=== PATIENT | female | born 1935 | race Caucasian/White ===

== ENCOUNTER 2016-12-04 07:41 | Day surgery (SDC) | payer OTHER ==
[2016-12-04] MEDS ORDERED: DEXAMETHASONE INJECTION 8 MG in SODIUM CHLORIDE 50 ML IVPB ONE (10:00)
[2016-12-04] MEDS ORDERED: SODIUM CHLORIDE 250 ML IV ONE (10:00)
[2016-12-04] MEDS ORDERED: ONDANSETRON INJECTION 12 MG in SODIUM CHLORIDE 50 ML IVPB ONE (10:00)
[2016-12-04] MEDS ORDERED: GEMCITABINE HCL IV ONE (10:30)
[2016-12-04] MEDS ORDERED: SODIUM CHLORIDE IV ONE (10:30)
[2016-12-04 11:01] LABS: MCH 28.7 pg (25.7-33.7); MEAN CELL VOLUME 86.9 fl (80-96); MEAN PLT VOLUME 8.2 fl (7.5-11.1); PLATELET COUNT 371 K/MM3 (134-434); RDW 16.4 % (11.6-15.6); WHITE BLOOD COUNT 9.4 K/mm3 (4.0-10.0)
[2016-12-04 11:29] LABS: ALBUMIN 2.4 g/dl (3.4-5.0); ANION GAP 9 (8-16); BILIRUBIN,DIRECT 0.5 mg/dL (0.0-0.2); CALCIUM 8.6 mg/dL (8.5-10.1); CO2 28 mmol/L (21-32); GLUCOSE,RANDOM 82 mg/dL (74-106); SGOT/AST 52 U/L (15-37); SGPT/ALT 47 U/L (12-78)
[2016-12-04 11:37] LABS: ALK PHOS 83 U/L (45-117); FREE T4 1.25 ng/dl (0.76-1.46); THYROID STIMULATING HORMONE 0.99 uIU/ml (0.358-3.74)
[2016-12-04 12:41] LABS: METAMYELOCYTE 7 % (0-2); PLATELET ESTIMATE ADEQUATE (NORMAL)
[2016-12-04] MEDS ORDERED: ONDANSETRON INJECTION 8 MG in SODIUM CHLORIDE 50 ML IVPB ONE (13:30)
[2016-12-04 16:27] VITALS: BP 101/57; PULSE 93; TEMP 98.5
--- NOTE | 2016-12-05 08:51 | HP ---
[facility]-Past Medical History Limitations to Obtaining History: Yes: No Limitations - Past Medical History Allergies/Adverse Reactions: Allergies Allergy/AdvReac Type Severity Reaction Status Date / Time egg Allergy Severe THROAT Verified 10/05/15 18:09 CLOSES leflunomide [From [facility]rav[facility]] Allergy Severe EFFECTED Verified 10/05/15 18:09 RBC methotrexate Allergy EFFECTED Verified 10/05/15 18:09 WBC shellfish derived Allergy HIVES,THROAT Verified 10/05/15 18:09 CLOSES IVP DYE Allergy Severe SOB Uncoded 10/05/15 18:09 Pulmonary: Yes: Asthma, COPD Musculoskeletal: Yes: Other (spinal stenosis) Rheumatology: Yes: Rheumatoid Arthritis Home Medications: Ambulatory Orders Budesonide/Formeterol Fumarate [SYMBICORT 160/4.5mcg -] 1 inh PO BID 10/05/15 Cholecalciferol (Vitamin D3) [Vitamin D3] 1,000 unit PO DAILY 10/05/15 Cyclosporine [Restasis] 1 each OP DAILY 10/05/15 Esomeprazole Magnesium [Nexium 24Hr] 40 mg PO DAILY 10/05/15 Folic Acid - 1 mg PO DAILY 10/05/15 Hydroxychloroquine Sulfate 200 mg PO BID 10/05/15 Ipratropium/Albuterol Sulfate [Combivent Respimat Inhal [place]] 4 gm IH QID 10/04 Montelukast Na [Singulair -] 10 mg PO HS 10/05/15 Multivitamin [Poly-Vitamin] 1 each PO DAILY 10/05/15 Sulfasalazine [Azulfidine -] 500 mg PO DAILY 10/05/15 Apixaban [Eliquis -] 5 mg PO BID #60 tablet 10/07/15 Diltiazem Cd [Cardizem Cd -] 360 mg PO DAILY 12/04/16 [facility]-Physical Exam - Physical Exam Vital Signs: Vital Signs Temperature 98.5 F 12/04/16 16:19 Pulse Rate 93 H 12/04/16 16:19 Respiratory Rate 16 12/04/16 16:19 Blood Pressure 101/57 12/04/16 16:19 O2 Sat by Pulse Oximetry (%) Constitutional: Yes: Well Nourished ENT: Yes: Clear Lungs: Yes: Clear to auscultation Heart: Yes: Regular rate & rhythm Abdomen: Yes: Soft Extremities: Yes: Normal Pulses Edema: Yes Edema: LLE: 3+, RLE: 3+ Neurological: Yes: Intact Wound Assessment - Wound Right Lower Lateral Leg Wound Length (cm.): 0.3 Wound Width (cm.): 0.3 Wound Depth (cm.): 0.2 Fibrotic Tissue: Yes Necrotic tissue: No Granulation tissue: No Drainage: Yes Drainage odor: None Dressing/Treatment: Calcium Alginate (silver) Compression: Unna Boot Return to [facility]: 1 Week Vascular Assessment Left Leg Date: 12/04/16 Dorsalis Pedis Pulse Palpable: Yes Posterior Tibial Pulse Palpable: No Posterior Tibial Doppler Pulse: 2+ Color: [place] Temperature: Warm Skin Condition: Varicosities Right Leg Date: 12/04/16 Dorsalis Pedis Pulse Palpable: Yes Posterior Tibial Pulse Palpable: No Posterior Tibial Doppler Pulse: 2+ Color: [place] [employer] Temperature: Warm Skin Condition: Varicosities
== END 2016-12-04 16:35 | disposition home or self-care (01) ==
LOC: JONCCHEMO 07:41 → J7W 13:16 → JONCCHEMO 16:35
PROVIDERS: ATTEND Internal Medicine Hematology & Oncology
PROC: 3E03305 Introduction of Other Antineoplastic into Peripheral Vein, Percutaneous Approach (ICD-10-PCS; principal; 2016-12-04)
PROC: 3E033GC Introduction of Other Therapeutic Substance into Peripheral Vein, Percutaneous Approach (ICD-10-PCS; 2016-12-04)
PROC: 3E0337Z Introduction of Electrolytic and Water Balance Substance into Peripheral Vein, Percutaneous Approach (ICD-10-PCS; 2016-12-04)
DX: Z51.11 Encounter for antineoplastic chemotherapy (principal); C24.1 Malignant neoplasm of ampulla of Vater; I10 Essential (primary) hypertension; I48.91 Unspecified atrial fibrillation; J45.909 Unspecified asthma, uncomplicated; Z80.0 Family history of malignant neoplasm of digestive organs; Z91.012 Allergy to eggs; Z91.013 Allergy to seafood; Z79.01 Long term (current) use of anticoagulants; S81.802A Unspecified open wound, left lower leg, initial encounter
CPT/HCPCS: 96375; 96413; J9201; 29580-RT; 29581-RT; 36415; 80053; 80076; 83735; 84439; 84443; 85025; G0463-25

== ENCOUNTER 2016-12-15 23:01 | Inpatient (IN) | payer OTHER ==
--- NOTE | 2016-12-15 23:16 | PDOC ---
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 Upon arrival to the ED, the patient was tachycardic and hypoxic in the 80s. She is complaining of increasing dyspnea, nausea, increased fatigue, loss of appetite, and dizziness. The patient's family member reports she's been using her inhalers without any relief. Patient also has a secondary complaint of chronic wound to right lower extremity. Per family member the patient has been having difficulty walking due to pain from the wound. She was last seen by wound care a week and a half ago. Denies fever, chills, nausea, vomiting, chest pain, syncope, visual changes. Allergies: egg, leflunomide, methotrexate, shellfish derived, IVP dye Surgical Hx: Liver/pancreas/bile duct/ small intestine/ gallbladder resection () PCP: Eli Brar MD Boat Outboard Engine Mechanic: Robby Barber MD Dietary Cook: Pham Tristan MD <Marie Cooper - Last Filed: 12/16/16 02:04> <Viktoriya Somers - Last Filed: 12/16/16 02:29> <Lydia Bose - Last Filed: 12/16/16 02:45> - General Chief Complaint: Shortness of Breath Stated Complaint: DIFFICULTY BREATHING Time Seen by Provider: 12/15/16 23:15 Past History <Marie Cooper - Last Filed: 12/16/16 02:04> - Past Medical History Anemia: No Asthma: Yes Cancer: Yes Cardiac Disorders: Yes (Afib) CVA: No COPD: Yes CHF: No Dementia: No Diabetes: No GI Disorders: No Disorders: No HTN: No Hypercholesterolemia: No Liver Disease: No Seizures: No Thyroid Disease: No - Surgical History Abdominal Surgery: Yes (resection of liver/pancreas/bileduct/sml intestine and gall blader 08/2016) Appendectomy: No Cardiac Surgery: No Cholecystectomy: Yes Lung Surgery: No Neurologic Surgery: No Orthopedic Surgery: No - Psycho/Social/Smoking Cessation Hx Anxiety: No Suicidal Ideation: No Smoking History: Former smoker Have you smoked in the past 12 months: No If you are a former smoker, when did you quit?: 56YRS AGO Hx Alcohol Use: No Drug/Substance Use Hx: No Substance Use Type: None Hx Substance Use Treatment: No <YonisViktoriya Gianna - Last Filed: 12/16/16 02:29> <LidyaLydia - Last Filed: 12/16/16 02:45> - Past Medical History Allergies/Adverse Reactions: Allergies Allergy/AdvReac Type Severity Reaction Status Date / Time Iodinated Contrast Media - AdvReac Verified 12/15/16 23:30 Oral and Home Medications: Ambulatory Orders Budesonide/Formeterol Fumarate [SYMBICORT 160/4.5mcg -] 1 inh PO BID 10/05/15 Cholecalciferol (Vitamin D3) [Vitamin D3] 1,000 unit PO DAILY 10/05/15 Cyclosporine [Restasis] 1 each OP DAILY 10/05/15 Esomeprazole Magnesium [Nexium 24Hr] 40 mg PO DAILY 10/05/15 Folic Acid - 1 mg PO DAILY 10/05/15 Hydroxychloroquine Sulfate 200 mg PO BID 10/05/15 Ipratropium/Albuterol Sulfate [Combivent Respimat Inhal [place]] 4 gm IH QID 10/04 Montelukast Na [Singulair -] 10 mg PO HS 10/05/15 Multivitamin [Poly-Vitamin] 1 each PO DAILY 10/05/15 Sulfasalazine [Azulfidine -] 500 mg PO DAILY 10/05/15 Apixaban [Eliquis -] 5 mg PO BID #60 tablet 10/07/15 Diltiazem Cd [Cardizem Cd -] 360 mg PO DAILY 12/04/16 Review of Systems - Review of Systems Comments:: 12/15/16 23:54 CONSTITUTIONAL: Present: weakness, fatigue, loss of appetite Absent: fever, chills, diaphoresis HEENT: Absent: rhinorrhea, nasal congestion, throat pain, throat swelling, difficulty swallowing, mouth swelling, ear pain, eye pain, visual changes CARDIOVASCULAR: Absent: chest pain, syncope, palpitations, irregular heart rate, lightheadedness , peripheral edema RESPIRATORY: Present: shortness of breath Absent: cough, dyspnea with exertion, orthopnea, wheezing, stridor, hemoptysis GASTROINTESTINAL: Present: nausea Absent: abdominal pain, abdominal distension, vomiting, diarrhea, constipation, melena, hematochezia GENITOURINARY: Absent: dysuria, frequency, urgency, hesitancy, hematuria, flank pain, genital pain MUSCULOSKELETAL: Present: RLE wound with pain Absent: myalgia, arthralgia, joint swelling SKIN: Absent: rash, itching, pallor HEMATOLOGIC/IMMUNOLOGIC: Absent: easy bleeding, easy bruising, lymphadenopathy, frequent infections ENDOCRINE: Absent: unexplained weight gain, unexplained weight loss, heat intolerance, cold intolerance NEUROLOGIC: Present: dizziness Absent: headache, focal weakness or paresthesia, seizure, mental status changes , bladder or bowel incontinence. PSYCHIATRIC: Absent: anxiety, depression, suicidal or homicidal ideation, hallucinations <Marie Cooper - Last Filed: 12/16/16 02:04> *Physical Exam - Vital Signs Last Vital Signs Temp Pulse Resp BP Pulse Ox 98.8 F 112 H 22 88/52 98 12/15/16 23:09 12/15/16 23:09 12/15/16 23:09 12/15/16 23:09 12/15/16 23:09 - Physical Exam Comments: 12/15/16 23:57 GENERAL: Disheveled. Awake and alert. Moderate distress. HEENT: Normocephalic, atraumatic. PERRLA, EOMI. No conjunctival pallor. Sclera are non- icteric. Moist mucous membranes. Oropharynx is clear. NECK: Supple. Full ROM. No JVD. Carotid pulses 2+ and symmetric, without bruits. No thyromegaly. No lymphadenopathy. CARDIOVASCULAR: Tachycardic. No murmurs, rubs, or gallops. Distal pulses are 2+ and symmetric. PULMONARY: Hypoxic in the 80s. Moderate respiratory distress. Scattered wheezing bilaterally. Bibasilar rales. No rhonchi. ABDOMINAL: Soft. Non-tender. Non-distended. Lower pelvic mass approximately 10 cm x 10 cm. No rebound or guarding. Normoactive bowel sounds. MUSCULOSKELETAL: Normal range of motion at all joints. No bony deformities or tenderness. No CVA tenderness. EXTREMITIES: Pedal edema bilaterally. Healed 4mm eschar on the lateral surface of the right leg. Dirty bandages. No cyanosis. No clubbing. No calf tenderness. SKIN: Stage II right buttocks decubitus ulcer. Warm and dry. Normal capillary refill. No rashes. No jaundice. NEUROLOGICAL: Alert, awake, appropriate. Cranial nerves 2-12 intact. Normal speech. PSYCHIATRIC: Cooperative. Good eye contact. Appropriate mood and affect. <Marie Cooper - Last Filed: 12/16/16 02:04> - Vital Signs Last Vital Signs Temp Pulse Resp BP Pulse Ox 99.5 F 112 H 22 88/52 98 12/16/16 00:01 12/15/16 23:09 12/15/16 23:09 12/15/16 23:09 12/15/16 23:09 <Lydia Bose - Last Filed: 12/16/16 02:45> ED Treatment Course - LABORATORY CBC & Chemistry Diagram: 12/15/16 23:37 12/15/16 23:37 - ADDITIONAL ORDERS Additional order review: 12/15/16 23:37 RBC 3.00 L MCV 85.1 MCHC 32.8 RDW 17.0 H MPV 9.0 Neutrophils % Y Lymphocytes % Y - Medications Given in the ED: ED Medications Discontinued Medications Generic Name Dose Route Start Last Admin Trade Name Freq PRN Reason Stop Dose Admin Methylprednisolone Sodium Succinate 125 mg 12/15/16 23:20 12/15/16 23:40 Solu-Medrol - IVPB 12/15/16 23:21 125 mg ONCE ONE Administration <Marie Cooper - Last Filed: 12/16/16 02:04> - LABORATORY CBC & Chemistry Diagram: 12/15/16 23:37 12/15/16 23:37 <Viktoriya Somers - Last Filed: 12/16/16 02:29> - LABORATORY CBC & Chemistry Diagram: 12/15/16 23:37 12/15/16 23:37 - ADDITIONAL ORDERS Additional order review: Laboratory Results 12/16/16 12/16/16 12/16/16 02:00 00:58 00:58 INR 2.01 H Sodium Potassium Chloride Carbon Dioxide Anion Gap BUN Creatinine Creat Clearance w eGFR Random Glucose Lactic Acid 1.7 Calcium Total Bilirubin AST ALT Alkaline Phosphatase Creatine Kinase Troponin I B-Natriuretic Peptide Total Protein Albumin Stool Occult Blood Negative 12/15/16 12/15/16 12/15/16 23:37 23:37 23:37 INR Sodium 141 Potassium 3.8 Chloride 105 Carbon Dioxide 25 Anion Gap 11 BUN 33 H D Creatinine 1.3 H D Creat Clearance w eGFR 39.51 Random Glucose 86 Lactic Acid Calcium 8.0 L Total Bilirubin 1.1 H AST 65 H D ALT 42 Alkaline Phosphatase 77 Creatine Kinase 78 Troponin I 0.10 H B-Natriuretic Peptide 4770.80 H Total Protein 5.3 L Albumin 2.2 L Stool Occult Blood 12/15/16 23:37 RBC 3.00 L MCV 85.1 MCHC 32.8 RDW 17.0 H MPV 9.0 Neutrophils % Y Lymphocytes % Y - Medications Given in the ED: ED Medications Discontinued Medications Generic Name Dose Route Start Last Admin Trade Name Freq PRN Reason Stop Dose Admin Albuterol/Ipratropium 1 amp 12/16/16 00:30 12/16/16 01:15 Duoneb - NEB 12/16/16 01:16 1 amp Q15M ALFONZO Administration Sodium Chloride 1,000 mls @ 1,000 mls/hr 12/15/16 23:20 12/15/16 23:40 Normal Saline - IV 12/16/16 00:19 1,000 mls/hr ASDIR STA Administration Methylprednisolone Sodium Succinate 125 mg 12/15/16 23:20 12/15/16 23:40 Solu-Medrol - IVPB 12/15/16 23:21 125 mg ONCE ONE Administration <Lydia Bose - Last Filed: 12/16/16 02:45> Medical Decision Making - Critical Care Time Total Critical Care Time (minutes): 60 Critical Care Statement: The care of this patient involved high complexity decision making to prevent further life threatening deterioration of the patient 's condition and/or to evalute & treat vital organ system(s) failure or risk of failure. - Medical Decision Making 12/16/16 01:40 81-year-old female brought in by ambulance from home, found to be hypoxic, tachycardic and hypotensive. 10 days ago. 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 Past medical history significant for recently diagnosed atrial fibrillation, now on eliquis, rheumatoid arthritis, COPD Patient has some scattered wheezing and fine rales on lung exam Chest x-ray shows increased congestion, infiltrates in The right middle lobe Rectal temp is 99.5, patient has a leukocytosis, decreased hemoglobin and hematocrit since her last hospitalization. BNP greater than 4000 Troponin is 0.1 and will have to be trended INR is 2 12/16/16 01:43 Anion gap is 11, her electrolytes are unremarkable Glucose is 86 12/16/16 02:[address] Romero because my concern for CHF on her chest x-ray and her elevated BNP. I discussed telemetry with Dr. Brumfield who wanted her to go to [facility] floor. <Viktoriya Somers - Last Filed: 12/16/16 02:29> - Medical Decision Making 12/16/16 02:24 Third call placed to Dr. Vannessa Rizvi (via answering service) Awaiting call back 12/16/16 02:44 Patient's case discussed with Dr. Rizvi <Lydia Bose - Last Filed: 12/16/16 02:45> *DC/Admit/Observation/Transfer - Attestations Scribe Attestion: 12/15/16 23:59 Documentation prepared by Marie Cooper, acting as diploma medical assistant for Viktoriya Somers MD. <Marie Cooper - Last Filed: 12/16/16 02:04> - Discharge Dispostion Admit: Yes <Viktoriya Somers - Last Filed: 12/16/16 02:29> <Lydia Bose - Last Filed: 12/16/16 02:45> Diagnosis at time of Disposition: Rapid atrial fibrillation, Palliative chemotherapy underway COPD (chronic obstructive pulmonary disease) Qualifiers: COPD type: COPD with acute lower respiratory infection Qualified Code(s): J44.0 - Chronic obstructive pulmonary disease with acute lower respiratory infection Anemia Qualifiers: Anemia type: unspecified type Qualified Code(s): D64.9 - Anemia, unspecified - Discharge Dispostion Condition at time of disposition: Fair
[2016-12-15] MEDS ORDERED: methylPREDNISolone NA SUCC 125 MG/2 ML VIAL IVPB ONE (23:20)
[2016-12-15] MEDS ORDERED: SODIUM CHLORIDE 1,000 ML IV STA (23:20)
[2016-12-15 23:43] LABS: MCH 27.9 pg (25.7-33.7); MCHC 32.8 g/dl (32.0-36.0); MEAN CELL VOLUME 85.1 fl (80-96); PLATELET COUNT 247 K/MM3 (134-434); WHITE BLOOD COUNT 7.1 K/mm3 (4.0-10.0)
[2016-12-15] MEDS ORDERED: ACETAMINOPHEN 325 MG TABLET (FP) PO PRN (23:50)
[2016-12-16 00:07] LABS: ALBUMIN 2.2 g/dl (3.4-5.0); ANION GAP 11 (8-16); CO2 25 mmol/L (21-32); GLUCOSE,RANDOM 86 mg/dL (74-106)
[2016-12-16 00:10] LABS: ALK PHOS 77 U/L (45-117); BILIRUBIN,TOTAL 1.1 mg/dL (0.2-1.0); CREATININE 1.3 mg/dL (0.55-1.02); SGOT/AST 65 U/L (15-37); SGPT/ALT 42 U/L (12-78); TOT PROT 5.3 g/dl (6.4-8.2)
[2016-12-16] MEDS: ALBUTEROL SO4 2.5/IPRATROPIUM 0.5 INH SOL 3 ML VIAL.NEB. NEB SCH ×4 (00:30→01:15)
[2016-12-16] MEDS ORDERED: ALBUTEROL SO4 2.5/IPRATROPIUM 0.5 INH SOL 3 ML VIAL.NEB. NEB ONE (00:34)
[2016-12-16 00:40] LABS: TROPONIN I 0.1 ng/ml (0.00-0.05)
[2016-12-16 01:21] LABS: INR 2.01 (0.82-1.09); PROTHROMBIN TIME (PATIENT) 22.4 SEC (9.98-11.88)
[2016-12-16 02:23] LABS: BASOPHIL 0.5 % (0-2.0); NEUTROPHILS 88.1 % (42.8-82.8)
[2016-12-16 02:41] LABS: URINE APPEARANCE SLCLOUDY; URINE BILIRUBIN NEGATIVE (NEGATIVE); URINE COLOR AMBER; URINE GLUCOSE (UA) NEGATIVE (NEGATIVE); URINE KETONE NEGATIVE (NEGATIVE); URINE LEUK ESTERASE NEGATIVE (NEGATIVE); URINE NITRITE NEGATIVE (NEGATIVE); URINE UROBILINOGEN NEGATIVE E.U./dl (0.2-1.0)
[2016-12-16 02:45] LABS: URINE BLOOD 3+ (NEGATIVE); URINE PROTEIN 1+ (NEGATIVE)
[2016-12-16 02:52] LABS: URINE BACTERIA RARE /hpf (NONE SEEN); URINE HYALINE CAST 3 /lpf; URINE MUCUS RARE; URINE RBC 517 /hpf (0-3)
[2016-12-16] MEDS ORDERED: PIPERACILLIN/TAZOB 3.375 GM 50 ML IVPB ONE (03:03)
[2016-12-16] MEDS: PIPERACILLIN/TAZOB 2.25 GM 50 ML IVPB SCH ×3 (03:11→17:11)
--- NOTE | 2016-12-16 09:06 | HP ---
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 Upon arrival to the ED, the patient was tachycardic and hypoxic in the 80s. She is complaining of increasing dyspnea, nausea, increased fatigue, loss of appetite, and dizziness. The patient's family member reports she's been using her inhalers without any relief. Patient also has a secondary complaint of chronic wound to right lower extremity. Per family member the patient has been having difficulty walking due to pain from the wound. She was last seen by wound care a week and a half ago. Denies fever, chills, nausea, vomiting, chest pain, syncope, visual changes. Allergies: egg, leflunomide, methotrexate, shellfish derived, IVP dye Surgical Hx: Liver/pancreas/bile duct/ small intestine/ gallbladder resection () PCP: Eli Brar MD Pv Design Engineer: Robby Barber MD Superintendent Horticulture: Pham Tristan MD Pt examined by me on the floors Pt is currently on chemo therapy for pancreatic CA- s/p Whipple surgery Last chemo about 10 days ago Has been feeling SOB for 2 days- today feels better No chest pain or coughing Loss of appetite feels weak Also found to have rapid Afib in ER History Source: Patient Limitations to Obtaining History: No Limitations - Past Medical History Cardiovascular: Yes: AFIB, HTN Pulmonary: Yes: Asthma, COPD Gastrointestinal: Yes: Cancer (pancreatic CA) ...: No Musculoskeletal: Yes: Other (spinal stenosis) Rheumatology: Yes: Rheumatoid Arthritis - Advance Directives Advance Directives: Yes: Health Care Proxy - Smoking History Smoking history: Former smoker Have you smoked in the past 12 months: No If you are a former smoker, when did you quit?: 56YRS AGO - Alcohol/Substance Use Hx Alcohol Use: No - Social History ADL: Independent History of Recent Travel: No Home Medications - Allergies Allergies/Adverse Reactions: Allergies Allergy/AdvReac Type Severity Reaction Status Date / Time Iodinated Contrast Media - AdvReac Verified 12/15/16 23:30 Oral and - Home Medications Home Medications: Ambulatory Orders Budesonide/Formeterol Fumarate [SYMBICORT 160/4.5mcg -] 1 inh PO BID 10/05/15 Cholecalciferol (Vitamin D3) [Vitamin D3] 1,000 unit PO DAILY 10/05/15 Cyclosporine [Restasis] 1 each OP DAILY 10/05/15 Esomeprazole Magnesium [Nexium 24Hr] 40 mg PO DAILY 10/05/15 Folic Acid - 1 mg PO DAILY 10/05/15 Hydroxychloroquine Sulfate 200 mg PO BID 10/05/15 Ipratropium/Albuterol Sulfate [Combivent Respimat Inhal [place]] 4 gm IH QID 10/04 Montelukast Na [Singulair -] 10 mg PO HS 10/05/15 Multivitamin [Poly-Vitamin] 1 each PO DAILY 10/05/15 Sulfasalazine [Azulfidine -] 500 mg PO DAILY 10/05/15 Apixaban [Eliquis -] 5 mg PO BID #60 tablet 10/07/15 Diltiazem Cd [Cardizem Cd -] 360 mg PO DAILY 12/04/16 Review of Systems - Review of Systems Constitutional: reports: Loss of Appetite, Weakness. denies: Chills Cardiovascular: denies: Chest Pain, Palpitations Respiratory: reports: SOB, SOB on Exertion Physical Examination Vital Signs: Vital Signs Temperature 98.8 F 12/16/16 06:36 Pulse Rate 90 12/16/16 06:36 Respiratory Rate 20 12/16/16 06:36 Blood Pressure 104/55 12/16/16 06:36 O2 Sat by Pulse Oximetry (%) 90 L 12/16/16 04:03 Constitutional: Yes: No Distress, Calm Cardiovascular: Yes: Pulse Irregular Respiratory: Yes: Diminished, Rales (B/L) Gastrointestinal: Yes: Normal Bowel Sounds, Soft, Other. No: Tenderness Edema: Yes Edema: LLE: 1+, RLE: 1+ Psychiatric: Yes: Alert, Oriented Labs: Laboratory Results - last 24 hr 12/15/16 12/15/16 12/15/16 23:37 23:37 23:37 WBC 7.1 RBC 3.00 L Hgb 8.4 L D Hct 25.6 L MCV 85.1 MCHC 32.8 RDW 17.0 H Plt Count 247 D MPV 9.0 Neutrophils % 88.1 H D Lymphocytes % 7.6 L D Monocytes % 3.8 Eosinophils % 0.0 D Basophils % 0.5 D INR Sodium 141 Potassium 3.8 Chloride 105 Carbon Dioxide 25 Anion Gap 11 BUN 33 H D Creatinine 1.3 H D Creat Clearance w eGFR 39.51 Random Glucose 86 Lactic Acid Calcium 8.0 L Total Bilirubin 1.1 H AST 65 H D ALT 42 Alkaline Phosphatase 77 Creatine Kinase Troponin I B-Natriuretic Peptide 4770.80 H Total Protein 5.3 L Albumin 2.2 L Urine Color Urine Appearance Urine pH Ur Specific [employer] Urine Protein Urine Glucose (UA) Urine Ketones Urine Blood Urine Nitrite Urine Bilirubin Urine Urobilinogen Ur Leukocyte Esterase Urine RBC Urine WBC Ur Epithelial Cells Urine Bacteria Hyaline Casts Urine Mucus Stool Occult Blood 12/15/16 12/16/16 12/16/16 23:37 00:58 00:58 WBC RBC Hgb Hct MCV MCHC RDW Plt Count MPV Neutrophils % Lymphocytes % Monocytes % Eosinophils % Basophils % INR 2.01 H Sodium Potassium Chloride Carbon Dioxide Anion Gap BUN Creatinine Creat Clearance w eGFR Random Glucose Lactic Acid 1.7 Calcium Total Bilirubin AST ALT Alkaline Phosphatase Creatine Kinase 78 Troponin I 0.10 H B-Natriuretic Peptide Total Protein Albumin Urine Color Urine Appearance Urine pH Ur Specific [employer] Urine Protein Urine Glucose (UA) Urine Ketones Urine Blood Urine Nitrite Urine Bilirubin Urine Urobilinogen Ur Leukocyte Esterase Urine RBC Urine WBC Ur Epithelial Cells Urine Bacteria Hyaline Casts Urine Mucus Stool Occult Blood 12/16/16 12/16/16 02:00 02:30 WBC RBC Hgb Hct MCV MCHC RDW Plt Count MPV Neutrophils % Lymphocytes % Monocytes % Eosinophils % Basophils % INR Sodium Potassium Chloride Carbon Dioxide Anion Gap BUN Creatinine Creat Clearance w eGFR Random Glucose Lactic Acid Calcium Total Bilirubin AST ALT Alkaline Phosphatase Creatine Kinase Troponin I B-Natriuretic Peptide Total Protein Albumin Urine Color [place] Urine Appearance Slcloudy Urine pH 5.0 Ur Specific [employer] 1.015 Urine Protein 1+ H Urine Glucose (UA) Negative Urine Ketones Negative Urine Blood 3+ H Urine Nitrite Negative Urine Bilirubin Negative Urine Urobilinogen Negative Ur Leukocyte Esterase Negative Urine RBC 517 Urine WBC None Ur Epithelial Cells Rare Urine Bacteria Rare Hyaline Casts 3 Urine Mucus Rare Stool Occult Blood Negative Imaging - Results Chest X-ray: Image Reviewed (B/L effusion, infiltrates) EKG: Image Reviewed (Rapid Afib) Problem List - Problems (1) Anemia Code(s): D64.9 - ANEMIA, UNSPECIFIED Qualifiers: Anemia type: unspecified type Qualified Code(s): D64.9 - Anemia, unspecified (2) COPD (chronic obstructive pulmonary disease) Code(s): J44.9 - CHRONIC OBSTRUCTIVE PULMONARY DISEASE, UNSPECIFIED Qualifiers : COPD type: COPD with acute lower respiratory infection Qualified Code(s ): J44.0 - Chronic obstructive pulmonary disease with acute lower respiratory infection (3) Pneumonia Code(s): J18.9 - PNEUMONIA, UNSPECIFIED ORGANISM (4) Rapid atrial fibrillation Code(s): I48.91 - UNSPECIFIED ATRIAL FIBRILLATION (5) SOB (shortness of breath) Code(s): R06.02 - SHORTNESS OF BREATH Assessment/Plan PLAN IV antibiotics- broad spectrum Nebs O2 as needed Pulmonary and Oncology eval Continue with meds DVT prophylaxis Chemotherapy on hold
[2016-12-16] MEDS ORDERED: PT OWN MED DRAWER 7, Y5N ONE ×2 (10:23→11:52)
--- NOTE | 2016-12-16 10:28 | CON.PULM ---
Consult Consult Specialty:: PULMONARY Referred by:: ODETTE Reason for Consultation:: SOB - History of Present Illness Chief Complaint: SOB History of Present Illness: Patient is a 81 year old female with significant medical hx of asthma, COPD, spinal stenosis, RA, AFib (on Eliquis), biliary cancer (last chemotherapy 10 days ago) who is presenting to the ED via EMS with worsening shortness of breath for three days. Upon arrival to the ED, the patient was tachycardic and hypoxic in the 80s. She is complaining of increasing dyspnea, nausea, increased fatigue, loss of appetite, and dizziness. The patient's family member reports she's been using her inhalers without any relief. Patient also has a secondary complaint of chronic wound to right lower extremity. Per family member the patient has been having difficulty walking due to pain from the wound. She was last seen by wound care a week and a half ago. Denies fever, chills, nausea, vomiting, chest pain. Patient states the sob came on gradually. 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 Pulmonary: Yes: Asthma, COPD ...: No Musculoskeletal: Yes: Other (spinal stenosis) Rheumatology: Yes: Rheumatoid Arthritis - Alcohol/Substance Use Hx Alcohol Use: No - Smoking History Smoking history: Former smoker Have you smoked in the past 12 months: No If you are a former smoker, when did you quit?: 56YRS AGO - Social History ADL: Independent History of Recent Travel: No Home Medications - Allergies Allergies/Adverse Reactions: Allergies Allergy/AdvReac Type Severity Reaction Status Date / Time Iodinated Contrast Media - AdvReac Verified 12/15/16 23:30 Oral and - Home Medications Home Medications: Ambulatory Orders Budesonide/Formeterol Fumarate [SYMBICORT 160/4.5mcg -] 1 inh PO BID 10/05/15 Cholecalciferol (Vitamin D3) [Vitamin D3] 1,000 unit PO DAILY 10/05/15 Cyclosporine [Restasis] 1 each OP DAILY 10/05/15 Esomeprazole Magnesium [Nexium 24Hr] 40 mg PO DAILY 10/05/15 Folic Acid - 1 mg PO DAILY 10/05/15 Hydroxychloroquine Sulfate 200 mg PO BID 10/05/15 Ipratropium/Albuterol Sulfate [Combivent Respimat Inhal [place]] 4 gm IH QID 10/04 Montelukast Na [Singulair -] 10 mg PO HS 10/05/15 Multivitamin [Poly-Vitamin] 1 each PO DAILY 10/05/15 Sulfasalazine [Azulfidine -] 500 mg PO DAILY 10/05/15 Apixaban [Eliquis -] 5 mg PO BID #60 tablet 10/07/15 Diltiazem Cd [Cardizem Cd -] 360 mg PO DAILY 12/04/16 Family Disease History - Family Disease History Family History: Unremarkable Review of Systems - Review of Systems Constitutional: reports: Lethargy, Loss of Appetite, Weakness Eyes: denies: Blurred Vision HENT: denies: Difficult Swallowing Neck: denies: Decreased ROM Cardiovascular: denies: Chest Pain Respiratory: reports: Exercise Intolerance, SOB on Exertion. denies: Hemoptysis , Wheezing Gastrointestinal: denies: Abdominal Pain Genitourinary: reports: No Symptoms Physical Exam Vital Sings: Vital Signs Temperature 98.8 F 12/16/16 06:36 Pulse Rate 90 12/16/16 06:36 Respiratory Rate 20 12/16/16 06:36 Blood Pressure 104/55 12/16/16 06:36 O2 Sat by Pulse Oximetry (%) 90 L 12/16/16 04:03 Constitutional: Yes: Calm Eyes: Yes: EOM Intact HENT: Yes: Normocephalic Neck: Yes: Trachea Midline Cardiovascular: Yes: S1, S2 Respiratory: Yes: Rhonchi (right base) Gastrointestinal: Yes: Soft Edema: LLE: 1+, RLE: 1+ Labs: all reviewed Imaging - Results Chest X-ray: Image Reviewed Problem List - Problems (1) Anemia Code(s): D64.9 - ANEMIA, UNSPECIFIED Qualifiers: Anemia type: unspecified type Qualified Code(s): D64.9 - Anemia, unspecified (2) COPD (chronic obstructive pulmonary disease) Code(s): J44.9 - CHRONIC OBSTRUCTIVE PULMONARY DISEASE, UNSPECIFIED Qualifiers : COPD type: COPD with acute lower respiratory infection Qualified Code(s ): J44.0 - Chronic obstructive pulmonary disease with acute lower respiratory infection (3) Palliative chemotherapy underway Code(s): Z51.11 - ENCOUNTER FOR ANTINEOPLASTIC CHEMOTHERAPY Z51.5 - ENCOUNTER FOR PALLIATIVE CARE (4) Pneumonia Code(s): J18.9 - PNEUMONIA, UNSPECIFIED ORGANISM Assessment/Plan BILATERAL PNEUMONIA RIGHT LOWER LOBE/LEFT UPPER LOBE MULTIPLE CO-MORBID CONDITIONS INCLUDING RECENT CHEMOTX FOR RESECTED BILIARY CANCER PANCULTURE/O2 SUPPLEMENTATION/BRONCHODILATORS/CHEST PT/INCENTIVE SPIROMETRY ANTIBIOTICS/CONTINUE A/C WILL FOLLOW Leah FELICIANO MD
[2016-12-16] MEDS: PANTOPRAZOLE 40 MG TABLET (FP) PO SCH (10:34)
[2016-12-16] MEDS: FUROSEMIDE 40 MG/4 ML INJECTABLE VIAL IVPUSH SCH (10:34)
[2016-12-16] MEDS: APIXABAN 5 MG TABLET PO SCH ×2 (11:45→21:46)
[2016-12-16] MEDS: sulfaSALAzine 500 MG TABLET PO SCH (11:45)
[2016-12-16] MEDS: BUDESONIDE/FORMETEROL FUMARATE 160/4.5 mcg INHALER IH SCH ×2 (11:45→21:46)
[2016-12-16] MEDS: HYDROXYCHLOROQUINE SO4 200 MG TABLET (FP) PO SCH ×2 (11:46→21:46)
--- NOTE | 2016-12-16 13:27 | EKG ---
Test Reason : Blood Pressure : / mmHG Vent. Rate : 110 BPM Atrial Rate : 108 BPM P-R Int : 000 ms QRS Dur : 082 ms QT Int : 326 ms P-R-T Axes : 000 059 067 degrees QTc Int : 441 ms ATRIAL FIBRILLATION WITH RAPID VENTRICULAR RESPONSE NONSPECIFIC ST AND T WAVE ABNORMALITY BASE LINE ARTIFACTS ABNORMAL ECG WHEN COMPARED WITH ECG OF 06-OCT-2015 09:42, NONSPECIFIC ST AND T WAVE ABNORMALITY IN COMPARABLE LEADS CLINICAL CORRELATION IS RECOMMENDED Confirmed by DANA STOCKTON MD ([id number]) on 12/16/2016 1:26:55 PM Referred By: Confirmed By:DANA STOCKTON MD
--- NOTE | 2016-12-16 14:36 | CONSULT ---
Consult Consult Specialty:: Dr. Vannessa Horton Referred by:: Hematology-Oncology Reason for Consultation:: Pancreatic ca - s/p Whipple - on adjuvant Gemcitibine - last administered 10 days earlier. - History of Present Illness Chief Complaint: Bilateral pneumonia. CHF. 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 carpal tunnel - Alcohol/Substance Use Hx Alcohol Use: No - Smoking History Smoking history: Former smoker Have you smoked in the past 12 months: No If you are a former smoker, when did you quit?: 56YRS AGO - Social History ADL: Independent History of Recent Travel: No Home Medications - Allergies Allergies/Adverse Reactions: Allergies Allergy/AdvReac Type Severity Reaction Status Date / Time Iodinated Contrast Media - AdvReac Verified 12/15/16 23:30 Oral and - Home Medications Home Medications: Ambulatory Orders Budesonide/Formeterol Fumarate [SYMBICORT 160/4.5mcg -] 1 inh PO BID 10/05/15 Cholecalciferol (Vitamin D3) [Vitamin D3] 1,000 unit PO DAILY 10/05/15 Cyclosporine [Restasis] 1 each OP DAILY 10/05/15 Esomeprazole Magnesium [Nexium 24Hr] 40 mg PO DAILY 10/05/15 Folic Acid - 1 mg PO DAILY 10/05/15 Hydroxychloroquine Sulfate 200 mg PO BID 10/05/15 Ipratropium/Albuterol Sulfate [Combivent Respimat Inhal [place]] 4 gm IH QID 10/04 Montelukast Na [Singulair -] 10 mg PO HS 10/05/15 Multivitamin [Poly-Vitamin] 1 each PO DAILY 10/05/15 Sulfasalazine [Azulfidine -] 500 mg PO DAILY 10/05/15 Apixaban [Eliquis -] 5 mg PO BID #60 tablet 10/07/15 Diltiazem Cd [Cardizem Cd -] 360 mg PO DAILY 12/04/16 Review of Systems - Review of Systems Constitutional: reports: Weakness, Other (SOB/dyspnea) Eyes: reports: Other (decreased vision) HENT: reports: Epistaxis. denies: Difficult Swallowing, Throat Pain Neck: denies: Stiffness, Swollen Glands, Tenderness Cardiovascular: reports: Shortness of Breath. denies: Chest Pain Respiratory: reports: Cough, SOB, SOB on Exertion. denies: Exercise Intolerance , Hemoptysis Gastrointestinal: reports: Nausea. denies: Abdominal Pain, Constipation, Diarrhea, Dysphagia, Vomiting Genitourinary: denies: Dysuria, Flank Pain, Frequency Breasts: reports: No Symptoms Reported Musculoskeletal: reports: Joint Swelling, Muscle Pain. denies: Back Pain, Extremity Pain Integumentary: reports: Other (Weeping of LE's) Neurological: reports: No Symptoms Endocrine: reports: No Symptoms Hematology/Lymphatic: reports: Easily Bruised. denies: Excessive Bleeding, Swollen Glands Psychiatric: reports: No Symptoms Physical Exam Vital Signs: Vital Signs Temperature 98.8 F 12/16/16 06:36 Pulse Rate 90 12/16/16 06:36 Respiratory Rate 20 12/16/16 06:36 Blood Pressure 104/55 12/16/16 06:36 O2 Sat by Pulse Oximetry (%) 90 L 12/16/16 04:03 Constitutional: Yes: Mild Distress Eyes: Yes: PERRL. No: Ptosis, Sclera Icterus HENT: Yes: Atraumatic, Normocephalic. No: Epistaxis, Pharyngeal Erythema, Tonsillar Exudate Neck: No: Thyromegaly Cardiovascular: Yes: Pulse Irregular, Murmur Respiratory: Yes: Rales Gastrointestinal: Yes: Soft, Other (midline scar). No: Ascites, Hepatomegaly Breast(s): Yes: WNL, Left, Right Musculoskeletal: No: Joint Swelling, Muscle Pain Extremities: No: Calf Tenderness, Cool Edema: Yes Edema: LLE: 3+, RLE: 3+ Neurological: Yes: WNL ...Motor Strength: WNL Psychiatric: Yes: WNL Imaging - Results Chest X-ray: Report Reviewed, Image Reviewed Problem List - Problems (1) Anemia Assessment/Plan: Chronic disease, s/p Whipple procedure, s/p chemotherapy Code(s): D64.9 - ANEMIA, UNSPECIFIED Qualifiers: Anemia type: unspecified type Qualified Code(s): D64.9 - Anemia, unspecified (2) COPD (chronic obstructive pulmonary disease) Assessment/Plan: SOB/Dyspnea, hypoxemic On Oxygen. Exacerbated by pneumonia and CHF. Code(s): J44.9 - CHRONIC OBSTRUCTIVE PULMONARY DISEASE, UNSPECIFIED Qualifiers : COPD type: COPD with acute lower respiratory infection Qualified Code(s ): J44.0 - Chronic obstructive pulmonary disease with acute lower respiratory infection (3) Palliative chemotherapy underway Assessment/Plan: S/P Gemzar therapy -last administered 10 days earlier. To hold off currently until infection resolved. Code(s): Z51.11 - ENCOUNTER FOR ANTINEOPLASTIC CHEMOTHERAPY Z51.5 - ENCOUNTER FOR PALLIATIVE CARE (4) Pneumonia Assessment/Plan: Bilateral pneumonia. Antibiotics . Left effusion ?component of CHF on Chest X-ray. Code(s): J18.9 - PNEUMONIA, UNSPECIFIED ORGANISM (5) Rapid atrial fibrillation Assessment/Plan: ON eliquis for A.F. Code(s): I48.91 - UNSPECIFIED ATRIAL FIBRILLATION
[2016-12-16] MEDS: MONTELUKAST NA 10 MG TABLET PO SCH (21:46)
[2016-12-17] MEDS: PIPERACILLIN/TAZOB 2.25 GM 50 ML IVPB SCH ×3 (02:34→17:22)
[2016-12-17] MEDS: ALBUTEROL SO4 2.5/IPRATROPIUM 0.5 INH SOL 3 ML VIAL.NEB. NEB PRN (06:42)
--- NOTE | 2016-12-17 08:06 | CON.CARD ---
Consult Consult Specialty:: Cardiology Referred by:: Dr. Rizvi Reason for Consultation:: SOB, CHF, Afib with RVR - History of Present Illness Chief Complaint: SOB History of Present Illness: 81 year old woman with the history of COPD, asthma, rheumatoid arthritis, paroxysmal atrial fibrillation on eliquis, nonobstructive coronary artery disease on cardiac cath 01/2016 (50-60%mLAD), cholangiocarcinoma status post Whipple procedure, now s/p course of chemo, COPD/Asthma admitted with progressively worsening SOB, fatigue, noted to be hypoxic and tachycardic. Pt was seen and examine today in nad. states she is feeling slightly better today. no overnight events. no new complaints. 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 carpal tunnel - Alcohol/Substance Use Hx Alcohol Use: No - Smoking History Smoking history: Former smoker Have you smoked in the past 12 months: No If you are a former smoker, when did you quit?: 56YRS AGO - Social History ADL: Independent History of Recent Travel: No Home Medications - Allergies Allergies/Adverse Reactions: Allergies Allergy/AdvReac Type Severity Reaction Status Date / Time Iodinated Contrast Media - AdvReac Verified 12/15/16 23:30 Oral and - Home Medications Home Medications: Ambulatory Orders Budesonide/Formeterol Fumarate [SYMBICORT 160/4.5mcg -] 1 inh PO BID 10/05/15 Cholecalciferol (Vitamin D3) [Vitamin D3] 1,000 unit PO DAILY 10/05/15 Cyclosporine [Restasis] 1 each OP DAILY 10/05/15 Esomeprazole Magnesium [Nexium 24Hr] 40 mg PO DAILY 10/05/15 Folic Acid - 1 mg PO DAILY 10/05/15 Hydroxychloroquine Sulfate 200 mg PO BID 10/05/15 Ipratropium/Albuterol Sulfate [Combivent Respimat Inhal [place]] 4 gm IH QID 10/04 Montelukast Na [Singulair -] 10 mg PO HS 10/05/15 Multivitamin [Poly-Vitamin] 1 each PO DAILY 10/05/15 Sulfasalazine [Azulfidine -] 500 mg PO DAILY 10/05/15 Apixaban [Eliquis -] 5 mg PO BID #60 tablet 10/07/15 Diltiazem Cd [Cardizem Cd -] 360 mg PO DAILY 12/04/16 Family Disease History - Family Disease History Family History: Denies Review of Systems - Review of Systems Constitutional: reports: Malaise, Weakness. denies: No Symptoms, Chills, Diaphoresis, Fever, Lethargy, Loss of Appetite, Night Sweats, Unintentional Wgt. Loss, Other Eyes: denies: No Symptoms, Blind Spots, Blurred Vision, Double Vision, Eye Pain , Floaters, Photophobia, Recent Change in Vision, Other HENT: denies: No Symptoms, Difficult Swallowing, Ear Discharge, Ear Pain, Epistaxis, Gingival Bleeding, Hearing Loss, Mouth Swelling, Nasal Congestion, Ocular Prosthesis, Throat Pain, Toothache, Ringing in Ears, Other Neck: denies: No Symptoms, Decreased ROM, Lumps, Pain on Movement, Stiffness, Swollen Glands, Tenderness, Other Cardiovascular: reports: Edema, Shortness of Breath. denies: No Symptoms, Chest Pain, Palpitations, Other Respiratory: reports: Exercise Intolerance, Orthopnea, PND, SOB, SOB on Exertion , Wheezing. denies: No Symptoms, Cough, Hemoptysis, Snoring, Other Gastrointestinal: denies: No Symptoms, Abdominal Pain, Bloating, Constipation, Diarrhea, Dysphagia, Indigestion, Melena, Nausea, Rectal Bleeding, Vomiting, Vomiting Blood, Other Genitourinary: denies: No Symptoms, Burning, Discharge, Dysuria, Flank Pain, Frequency, Hematuria, Incontinence, Lesions, Menses, Pain, Testicular Mass, Testicular Pain, Testicular Swelling, Urgency, Vaginal Bleeding, Other Breasts: denies: No Symptoms Reported, See HPI, Breast Implants, Discharge from Nipple, Lumps, Pain, Skin Changes, Other Musculoskeletal: denies: No Symptoms, Back Pain, Crepitus, Decreased ROM, Extremity Pain, Joint Pain, Joint Swelling, Muscle Pain, Muscle Cramps, Muscle Weakness, Other Integumentary: reports: Wound. denies: No Symptoms, Blister, Bruising, Change in Color, Eczema, Erythema, Incision, Lesions, Lump, Pallor, Pruritis, Rash, Other Neurological: denies: No Symptoms, Change in LOC, Change in Speech, Confusion, Dizziness, Headache, Incoordination, Numbness, Parasthesia, Pre-Existing Deficit , Seizure, Syncope, Tremors, Unsteady Gait, Weakness, Other Endocrine: denies: No Symptoms, Excessive Sweating, Flushing, Increased Hunger, Increased Thirst, Intolerance to Cold, Intolerance to Heat, Unexplained Weight Gain, Unexplained Weight Loss, Other Hematology/Lymphatic: denies: No Symptoms, Easily Bruised, Excessive Bleeding, Swollen Glands, Other Psychiatric: denies: No Symptoms, Altered Sleep Pattern, Anxiety, Depression, Hallucinations, Panic, Paranoia, Suicidal, Other - Risk Factors Known Risk Factors: Yes: Age, Hypertension Vital Signs: Vital Signs Temperature 97.3 F L 12/17/16 06:00 Pulse Rate 92 H 12/17/16 06:00 Respiratory Rate 20 12/17/16 06:00 Blood Pressure 100/68 12/17/16 06:00 O2 Sat by Pulse Oximetry (%) 93 L 12/16/16 20:18 Constitutional: Yes: Well Nourished, No Distress, Calm Eyes: Yes: WNL, Conjunctiva Clear, EOM Intact HENT: Yes: WNL, Atraumatic, Normocephalic Neck: Yes: WNL, Supple, Trachea Midline Respiratory: Yes: Regular, Diminished, On Nasal O2, Rales, Rhonchi. No: SOB, SOB on Exertion Gastrointestinal: Yes: Normal Bowel Sounds, Soft. No: Distention, Tenderness Renal/: Yes: WNL Cardiovascular: Yes: Regular Rate and Rhythm JVD: No Carotid Bruit: No PMI: Non-Displaced Heart Sounds: Yes: S1, S2 Murmur: Yes: Systolic Murmur, Grade 3 Musculoskeletal: Yes: WNL Extremities: Yes: WNL Edema: Yes Edema: LLE: 2+, RLE: 2+ Peripheral Pulses WNL: Yes Peripheral Pulses: 2+ Left Doralis Pedis, 2+ Right Dorsalis Pedis Integumentary: Yes: WNL Neurological: Yes: Alert, Oriented, Cran Nerves II-XII Intact Psychiatric: Yes: Alert, Oriented - Other Data Labs, Other Data: INR, PTT INR 2.01 (0.82-1.09) H 12/16/16 00:58 ekg-Afib 110bpm, NSST Echo: Pending, Report Reviewed Prior Cardiac Procedures: Cardiac Catheterization Imaging - Results Chest X-ray: Report Reviewed, Image Reviewed EKG: Report Reviewed, Image Reviewed Other: Report Reviewed, Image Reviewed Assessment/Plan 81 year old woman with the history of COPD, asthma, rheumatoid arthritis, paroxysmal atrial fibrillation on eliquis, nonobstructive coronary artery disease on cardiac cath 01/2016 (50-60%mLAD), cholangiocarcinoma status post Whipple procedure, now s/p course of chemo, COPD/Asthma admitted with progressively worsening SOB, fatigue, noted to be hypoxic and tachycardic. SOB-likely multifactorial, possible PNA, sepsis, acute on chronic diastolic CHF vs new systolic CHF, AE COPD, pt also has chronic LE edema believed to be secondary to chronic venous insufficiency and hypoalbuminemia -cont IV Lasix diuresis at current dose for now -monitor strict I/Os and daily weights -monitor bun/creat, electrolytes and replete as needed -check echo to re-evaluate LV function and other structural heart disease -ID and Pulmonary evaluating Afib-paroxysmal with RVR on admission -cont Cardizem CD 360mg daily (if BP tolerates), if BP does not tolerate would downtitrate to 240mg daily and consider adding Digoxin (0.125mg every other day with caution due to interaction with plaquenil) -cont eliquis 5mg bid [id number] on cardiac cath 01/2016 -unlikely an active issue at this time -pt has not been on ASA as an outpatient as she is on eliquis and has a history of severe nosebleeds -not on bblocker due to COPD/Asthma -cont cardizem -not on statin due recent malignancy involving liver, plan to resume if safe to do so HTN-runs low normal -cont above agents for HR control Murmur-chronic, likely secondary to mitral annular calcification and mild -f/up echo
[2016-12-17 08:14] LABS: THYROID STIMULATING HORMONE 0.19 uIU/ml (0.358-3.74)
[2016-12-17 08:27] LABS: BASOPHIL 0.2 % (0-2.0); MCH 28.5 pg (25.7-33.7); MCHC 33.1 g/dl (32.0-36.0); MEAN CELL VOLUME 86.2 fl (80-96); MEAN PLT VOLUME 9.3 fl (7.5-11.1); NEUTROPHILS 88.9 % (42.8-82.8); PLATELET COUNT 332 K/MM3 (134-434); RDW 17.2 % (11.6-15.6); WHITE BLOOD COUNT 15.8 K/mm3 (4.0-10.0)
--- NOTE | 2016-12-17 08:55 | PN ---
Progress Note, Physician Chief Complaint: ID Full note dictated 81 y/o female with pancreatic CA getting recent chemotherapy now with recent onset of worsening SOB Now with positive blood cultures gram positive chains 2 sets Denies couph fever chills - Current Medication List Current Medications: Active Medications Acetaminophen (Tylenol -) 650 mg PO Q6H PRN PRN Reason: FEVER Albuterol/Ipratropium (Duoneb -) 1 amp NEB Q8H PRN PRN Reason: ASTHMA Last Admin: 12/17/16 06:42 Dose: 1 amp Apixaban (Eliquis -) 5 mg PO BID [facility] Last Admin: 12/16/16 21:46 Dose: 5 mg Budesonide/Formoterol Fumarate (Symbicort 160/4.5mcg -) 1 puff IH BID [facility] Last Admin: 12/16/16 21:46 Dose: 1 inhaler Diltiazem HCl (Cardizem Cd -) 360 mg PO DAILY [facility] Last Admin: 12/16/16 10:35 Dose: 360 mg Furosemide (Lasix Injection -) 40 mg IVPUSH DAILY [facility] Last Admin: 12/16/16 10:34 Dose: 40 mg Hydroxychloroquine Sulfate (Plaquenil -) 200 mg PO BID [facility] Last Admin: 12/16/16 21:46 Dose: 200 mg Piperacillin Sod/Tazobactam Sod (Zosyn 2.25gm Ivpb (Pre-Docked)) 50 mls @ 100 mls/hr IVPB Q8H-IV [facility] PRN Reason: Protocol Last Admin: 12/17/16 02:34 Dose: 100 mls/hr Montelukast Sodium (Singulair -) 10 mg PO HS [facility] Last Admin: 12/16/16 21:46 Dose: 10 mg Pantoprazole Sodium (Protonix -) 40 mg PO DAILY [facility] Last Admin: 12/16/16 10:34 Dose: 40 mg Sulfasalazine (Azulfidine -) 500 mg PO DAILY [facility] Last Admin: 12/16/16 11:45 Dose: 500 mg - Objective Vital Signs: Vital Signs Temperature 97.3 F L 12/17/16 06:00 Pulse Rate 92 H 12/17/16 06:00 Respiratory Rate 20 12/17/16 06:00 Blood Pressure 100/68 12/17/16 06:00 O2 Sat by Pulse Oximetry (%) 93 L 12/16/16 20:18 Constitutional: Yes: Mild Distress HENT: Yes: WNL, Atraumatic Neck: Yes: WNL, Supple Cardiovascular: Yes: Murmur, S1, S2, Other (grade 3 systolic LSB) Gastrointestinal: Yes: Soft. No: Tenderness Edema: Yes Labs: CBC, BMP 12/17/16 06:33 INR, PTT INR 2.01 (0.82-1.09) H 12/16/16 00:58 Problem List - Problems (1) COPD (chronic obstructive pulmonary disease) Code(s): J44.9 - CHRONIC OBSTRUCTIVE PULMONARY DISEASE, UNSPECIFIED Qualifiers : COPD type: COPD with acute lower respiratory infection Qualified Code(s ): J44.0 - Chronic obstructive pulmonary disease with acute lower respiratory infection (2) Pneumonia Code(s): J18.9 - PNEUMONIA, UNSPECIFIED ORGANISM (3) Pancreatic cancer Code(s): C25.9 - MALIGNANT NEOPLASM OF PANCREAS, UNSPECIFIED (4) Bacterial infection due to Streptococcus Code(s): A49.1 - STREPTOCOCCAL INFECTION, UNSPECIFIED SITE Assessment/Plan Laboratory Tests 12/15/16 12/15/16 12/16/16 23:37 23:37 00:58 WBC Hgb Hct Plt Count Lymphocytes % Monocytes % INR 2.01 H BUN 33 H D Creatinine 1.3 H D Creat Clearance w eGFR 39.51 Total Bilirubin 1.1 H AST 65 H D ALT 42 Alkaline Phosphatase 77 Troponin I 0.10 H Urine RBC Urine WBC 12/16/16 12/17/16 02:30 06:33 WBC 15.8 H D Hgb 8.2 L Hct 24.8 L Plt Count 332 D Lymphocytes % 6.4 L Monocytes % 4.5 INR BUN Creatinine Creat Clearance w eGFR Total Bilirubin AST ALT Alkaline Phosphatase Troponin I Urine RBC 517 Urine WBC None Assessment Gram positive bacteremia ? strep pneumonia source Pancreatic CA post chemotherapy Bilateral infiltrates Atrial fibrillation Plan Vancomycin for now pending c/s ECHO for murmur ? endocarditis Await c/s Discussed Dr Jo-Ann Baxter MD
[2016-12-17 09:20] LABS: ALBUMIN 2.2 g/dl (3.4-5.0); ANION GAP 9 (8-16); BILIRUBIN,TOTAL 0.5 mg/dL (0.2-1.0); CALCIUM 8.6 mg/dL (8.5-10.1); CO2 27 mmol/L (21-32); CREATININE 1.6 mg/dL (0.55-1.02); GLUCOSE,RANDOM 109 mg/dL (74-106); MAGNESIUM 2.3 mg/dL (1.8-2.4); SGOT/AST 61 U/L (15-37); SGPT/ALT 36 U/L (12-78); TOT PROT 5.4 g/dl (6.4-8.2)
[2016-12-17 09:21] LABS: ALK PHOS 75 U/L (45-117)
[2016-12-17] MEDS ORDERED: PT OWN MED DRAWER 7, Y5N ONE ×3 (09:38→20:54)
[2016-12-17] MEDS: PANTOPRAZOLE 40 MG TABLET (FP) PO SCH (09:42)
[2016-12-17] MEDS: APIXABAN 5 MG TABLET PO SCH ×2 (09:44→22:50)
[2016-12-17] MEDS: FUROSEMIDE 40 MG/4 ML INJECTABLE VIAL IVPUSH SCH (09:44)
[2016-12-17] MEDS: BUDESONIDE/FORMETEROL FUMARATE 160/4.5 mcg INHALER IH SCH ×2 (09:44→22:51)
[2016-12-17] MEDS: sulfaSALAzine 500 MG TABLET PO SCH (09:44)
[2016-12-17] MEDS: HYDROXYCHLOROQUINE SO4 200 MG TABLET (FP) PO SCH ×2 (09:44→22:50)
--- NOTE | 2016-12-17 09:46 | CONS ---
DATE OF CONSULTATION: DATE OF DICTATION: 12/17/2016 HISTORY OF PRESENT ILLNESS: This is a 81-year-old female with known pancreatic cancer status post recent chemotherapy whom we are asked to see for evaluation of positive blood cultures and pneumonia. Patient has a prior history of a Whipple surgery and has been treated with chemotherapy under Dr. Busch and Nick as direction. She has been receiving adjuvant gemcitabine with her last chemotherapy given 10 days prior to admission as an outpatient. She has a history of atrial fibrillation for which she is followed by Dr. Barber and is known to have chronic lower extremity edema. She came to the hospital with a 3-day history of worsening shortness of breath in the absence of fever or chills. She has no cough and denies any sputum production or hemoptysis. A chest x-ray here showed bilateral pulmonary infiltrates. She has a history of COPD and is a former smoker having given this up many years ago. She was empirically treated with Zosyn here, and her blood cultures are now positive for gram-positive cocci in chains. There is no history of recent dental work and denies any prosthetic devices previous surgery. PAST MEDICAL HISTORY: Includes rheumatoid arthritis, pancreatic cancer, asthma, COPD, spinal stenosis, carpal tunnel surgery. MEDICATIONS: Symbicort, Restasis, Singulair, sulfasalazine, Eliquis, Cardizem. ALLERGIES: IODINATED CONTRAST. SOCIAL HISTORY: She lives at home, had dog, no hobbies, no recent travel, no alcohol use. FAMILY HISTORY: Reviewed and noncontributory. REVIEW OF SYSTEMS: Respiratory: Tachypnea. Denies cough or sputum production hemoptysis. Cardiac: History of atrial fibrillation. No palpitations, syncope. Gastrointestinal: No abdominal pain, nausea, vomiting, diarrhea. Genitourinary: No dysuria, hematuria, or urinary frequency. PHYSICAL EXAMINATION: General: She is a heavy-set woman, alert, and in mild respiratory distress due to tachypnea. Vital signs: The temperature was 97.3, pulse 92, blood pressure 100/69, respirations 20. Neck: Supple, without adenopathy. HEENT: Oropharynx without thrush. Lungs: Clear to percussion, bibasilar rales. Heart: S1, S2, irregularly irregular with grade 3/6 systolic murmur. Abdomen: Soft, nontender, without organomegaly. Extremities: With 3+ lower extremity anasarca. LABORATORY DATA: The white count 15.8, hemoglobin 8.2, hematocrit 25, platelets 332. INR 2.0. BUN 33, creatinine 1.3. Clearance 40. Liver enzymes AST 65, alkaline phosphatase 77, bilirubin 1.1. Urinalysis 517 red cells, no WBCs, negative leukocyte esterase. Blood cultures as previously noted. Gram-positive cocci in chains in both aerobic bottles. Chest x-ray reviewed shows bilateral pulmonary infiltrates. ASSESSMENT: This is a 81-year-old female with pancreatic cancer diagnosis status post recent chemotherapy, last chemotherapy 10 days ago, who presents now with worsening shortness of breath, bilateral pulmonary infiltrates, now with positive blood cultures for possible streptococcus species. The bacteremia most likely related to pneumonia, could be streptococcal pneumoniae. For now, will treat with vancomycin adjusted for creatinine clearance, await final blood cultures and sensitivities, order a legionella urinary antigen and streptococcus pneumoniae antigen in particular, obtain CT scan of the chest for further delineation of infiltrates and/or effusion. Case was discussed with Dr. Busch. GALO SHOOK M.D. [id number] MTDD
--- NOTE | 2016-12-17 09:48 | CONSULT ---
Consult Consult Specialty:: Infectious Disease Reason for Consultation:: Bilateral Pneumonia with positive blood cultures - History of Present Illness Chief Complaint: Shortness of breath History of Present Illness: Patient is a known pancreatic cancer patient post-Whipples procedure in September, and currently on chemotherapy who presented on Thursday with a two day history of worsening shortness of breath. Last chemotherapy session was 10 days ago on the 7th floor here at [facility]. There was no associated fever or cough, no chest pain. She has no port or cardiac device. Patient has afib and chronic bilateral pedal edema. She also has asthma and COPD. She has a dog but has had no recent travels. Stopped smoking 56 years ago. 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 carpal tunnel - Alcohol/Substance Use Hx Alcohol Use: No - Smoking History Smoking history: Former smoker Have you smoked in the past 12 months: No If you are a former smoker, when did you quit?: 56YRS AGO - Social History ADL: Independent History of Recent Travel: No Home Medications - Allergies Allergies/Adverse Reactions: Allergies Allergy/AdvReac Type Severity Reaction Status Date / Time Iodinated Contrast Media - AdvReac Verified 12/15/16 23:30 Oral and - Home Medications Home Medications: Ambulatory Orders Budesonide/Formeterol Fumarate [SYMBICORT 160/4.5mcg -] 1 inh PO BID 10/05/15 Cholecalciferol (Vitamin D3) [Vitamin D3] 1,000 unit PO DAILY 10/05/15 Cyclosporine [Restasis] 1 each OP DAILY 10/05/15 Esomeprazole Magnesium [Nexium 24Hr] 40 mg PO DAILY 10/05/15 Folic Acid - 1 mg PO DAILY 10/05/15 Hydroxychloroquine Sulfate 200 mg PO BID 10/05/15 Ipratropium/Albuterol Sulfate [Combivent Respimat Inhal [place]] 4 gm IH QID 10/04 Montelukast Na [Singulair -] 10 mg PO HS 10/05/15 Multivitamin [Poly-Vitamin] 1 each PO DAILY 10/05/15 Sulfasalazine [Azulfidine -] 500 mg PO DAILY 10/05/15 Apixaban [Eliquis -] 5 mg PO BID #60 tablet 10/07/15 Diltiazem Cd [Cardizem Cd -] 360 mg PO DAILY 12/04/16 Review of Systems - Review of Systems Constitutional: denies: Chills, Fever HENT: denies: Difficult Swallowing, Throat Pain Neck: denies: Stiffness Cardiovascular: reports: Shortness of Breath Respiratory: reports: Cough Gastrointestinal: denies: Abdominal Pain, Bloating, Dysphagia, Vomiting Genitourinary: denies: Burning, Dysuria, Flank Pain Breasts: denies: Pain Musculoskeletal: reports: Other (Bilateral pedal swelling up to thigh) Integumentary: reports: Bruising (Bruising over both upper limbs from reported dog scratches and previous intravenous sites) Neurological: reports: No Symptoms Physical Exam Vital Signs: Vital Signs Temperature 97.3 F L 12/17/16 06:00 Pulse Rate 92 H 12/17/16 06:00 Respiratory Rate 20 12/17/16 06:00 Blood Pressure 100/68 12/17/16 06:00 O2 Sat by Pulse Oximetry (%) 93 L 12/16/16 20:18 Constitutional: Yes: Moderate Distress, Pallor. No: Diaphoresis Eyes: Yes: EOM Intact. No: Ptosis, Sclera Icterus HENT: No: Drooling, Hoarseness, Pharyngeal Erythema, Thrush Neck: No: Rigid Cardiovascular: Yes: Pulse Irregular, Murmur, S1, S2 Respiratory: Yes: On Nasal O2, Rales. No: Wheezes Gastrointestinal: Yes: Abdomen, Obese. No: Tenderness, Epigastrium ...Rectal Exam: Yes: Deferred Renal/: No: CVA Tenderness - Left, CVA Tenderness - Right Musculoskeletal: Yes: Other (Bilateral pitting edema up to thighs) Edema: Yes Edema: LLE: 3+, RLE: 3+ Integumentary: Yes: Bruising Neurological: Yes: Alert, Oriented Labs: CBC, BMP 12/17/16 06:33 12/17/16 06:33 Problem List - Problems (1) Bacterial infection due to Streptococcus Code(s): A49.1 - STREPTOCOCCAL INFECTION, UNSPECIFIED SITE (2) COPD (chronic obstructive pulmonary disease) Code(s): J44.9 - CHRONIC OBSTRUCTIVE PULMONARY DISEASE, UNSPECIFIED Qualifiers : COPD type: COPD with acute lower respiratory infection Qualified Code(s ): J44.0 - Chronic obstructive pulmonary disease with acute lower respiratory infection (3) Palliative chemotherapy underway Code(s): Z51.11 - ENCOUNTER FOR ANTINEOPLASTIC CHEMOTHERAPY Z51.5 - ENCOUNTER FOR PALLIATIVE CARE (4) Pancreatic cancer Code(s): C25.9 - MALIGNANT NEOPLASM OF PANCREAS, UNSPECIFIED (5) Pneumonia Code(s): J18.9 - PNEUMONIA, UNSPECIFIED ORGANISM (6) Rapid atrial fibrillation Code(s): I48.91 - UNSPECIFIED ATRIAL FIBRILLATION Assessment/Plan bacterial septicemia with growth of Group A streptococcus murmur background pancreatic cancer and palliative chemotherapy severe dyspnea 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
--- NOTE | 2016-12-17 10:22 | PN ---
Progress Note, Physician Chief Complaint: no distress - Current Medication List Current Medications: Active Medications Acetaminophen (Tylenol -) 650 mg PO Q6H PRN PRN Reason: FEVER Albuterol/Ipratropium (Duoneb -) 1 amp NEB Q8H PRN PRN Reason: ASTHMA Last Admin: 12/17/16 06:42 Dose: 1 amp Apixaban (Eliquis -) 5 mg PO BID [facility] Last Admin: 12/17/16 09:44 Dose: 5 mg Budesonide/Formoterol Fumarate (Symbicort 160/4.5mcg -) 1 puff IH BID [facility] Last Admin: 12/17/16 09:44 Dose: 1 inhaler Diltiazem HCl (Cardizem Cd -) 360 mg PO DAILY [facility] Last Admin: 12/17/16 09:43 Dose: 360 mg Furosemide (Lasix Injection -) 40 mg IVPUSH DAILY [facility] Last Admin: 12/17/16 09:44 Dose: 40 mg Hydroxychloroquine Sulfate (Plaquenil -) 200 mg PO BID [facility] Last Admin: 12/17/16 09:44 Dose: 200 mg Piperacillin Sod/Tazobactam Sod (Zosyn 2.25gm Ivpb (Pre-Docked)) 50 mls @ 100 mls/hr IVPB Q8H-IV ALFONZO PRN Reason: Protocol Last Admin: 12/17/16 09:41 Dose: 100 mls/hr Vancomycin HCl 1,250 mg/ (Dextrose) 250 mls @ 166.667 mls/hr IVPB DAILY ALFONZO PRN Reason: Protocol Montelukast Sodium (Singulair -) 10 mg PO HS [facility] Last Admin: 12/16/16 21:46 Dose: 10 mg Pantoprazole Sodium (Protonix -) 40 mg PO DAILY [facility] Last Admin: 12/17/16 09:42 Dose: 40 mg Sulfasalazine (Azulfidine -) 500 mg PO DAILY [facility] Last Admin: 12/17/16 09:44 Dose: 500 mg - Objective Vital Signs: Vital Signs Temperature 97.3 F L 12/17/16 06:00 Pulse Rate 92 H 12/17/16 06:00 Respiratory Rate 20 12/17/16 06:00 Blood Pressure 100/68 12/17/16 06:00 O2 Sat by Pulse Oximetry (%) 93 L 07/04/17 20:18 Constitutional: Yes: No Distress, Calm Cardiovascular: Yes: Pulse Irregular Respiratory: Yes: Diminished, Rales Gastrointestinal: Yes: Normal Bowel Sounds, Soft. No: Distention, Tenderness Edema: Yes Edema: LLE: 1+, RLE: 1+ Psychiatric: Yes: Alert, Oriented Labs: CBC, BMP 12/17/16 06:33 12/17/16 06:33 INR, PTT INR 2.01 (0.82-1.09) H 12/16/16 00:58 Problem List - Problems (1) Anemia Code(s): D64.9 - ANEMIA, UNSPECIFIED Qualifiers: Anemia type: unspecified type Qualified Code(s): D64.9 - Anemia, unspecified (2) COPD (chronic obstructive pulmonary disease) Code(s): J44.9 - CHRONIC OBSTRUCTIVE PULMONARY DISEASE, UNSPECIFIED Qualifiers : COPD type: COPD with acute lower respiratory infection Qualified Code(s ): J44.0 - Chronic obstructive pulmonary disease with acute lower respiratory infection (3) Pneumonia Code(s): J18.9 - PNEUMONIA, UNSPECIFIED ORGANISM (4) Rapid atrial fibrillation Code(s): I48.91 - UNSPECIFIED ATRIAL FIBRILLATION (5) SOB (shortness of breath) Code(s): R06.02 - SHORTNESS OF BREATH Assessment/Plan PLAN IV antibiotics- broad spectrum Nebs O2 as needed ID eval noted blood cultures noted Continue with meds DVT prophylaxis Chemotherapy on hold Echo pending. CT chest pending
[2016-12-17] MEDS: VANCOMYCIN 1,250 MG in DEXTROSE 5%-WATER - 250 ML IVPB SCH (11:30)
--- NOTE | 2016-12-17 12:02 | PN ---
Progress Note (short form) - Note Progress Note: patient seen and examined. microbiology noted.patient feels well. she denies any SOB, chest pain, palpitations. Now on broad spectrum abx. Vital Signs Period Temp Pulse Resp BP Sys/Trimble Pulse Ox Last 24 Hr 97.3 F-98.0 F 74-92 18-26 98-103/54-68 84-93 Abnormal Lab Results 12/16/16 12/17/16 12/17/16 02:30 06:33 06:33 WBC 15.8 H D RBC 2.87 L Hgb 8.2 L Hct 24.8 L RDW 17.2 H Neutrophils % 88.9 H Lymphocytes % 6.4 L ESR Retic Count BUN Creatinine Random Glucose Ferritin 1297.029 H AST Total Protein Albumin Serum Folate TSH Urine Protein 1+ H Urine Blood 3+ H 12/17/16 12/17/16 12/17/16 06:33 06:33 06:33 WBC RBC Hgb Hct RDW Neutrophils % Lymphocytes % ESR 50 H Retic Count 4.11 H BUN 44 H D Creatinine 1.6 H D Random Glucose 109 H D Ferritin AST 61 H Total Protein 5.4 L Albumin 2.2 L Serum Folate 23 H TSH 0.19 L D Urine Protein Urine Blood Microbiology 12/16/16 02:30 Urine Culture - Final Urine - Urine - Catheterized NO GROWTH OBTAINED 12/15/16 23:30 Blood Culture - Preliminary Blood - Peripheral Venous Alpha Hemolytic Streptococcus 12/15/16 23:30 Blood Culture - Preliminary Blood - Peripheral Venous Alpha Hemolytic Streptococcus Active Medications Generic Name Dose Route Start Last Admin Trade Name Freq PRN Reason Stop Dose Admin Acetaminophen 650 mg 12/15/16 23:50 Tylenol - PO Q6H PRN FEVER Albuterol/Ipratropium 1 amp 12/15/16 23:50 12/17/16 06:42 Duoneb - NEB 1 amp Q8H PRN Administration ASTHMA Apixaban 5 mg 12/16/16 10:00 12/17/16 09:44 Eliquis - PO 5 mg BID ALFONZO Administration Budesonide/Formoterol Fumarate 1 puff 12/16/16 10:00 12/17/16 09:44 Symbicort 160/4.5mcg - IH 1 inhaler BID ALFONZO Administration Diltiazem HCl 360 mg 12/16/16 10:00 12/17/16 09:43 Cardizem Cd - PO 360 mg DAILY ALFONZO Administration Furosemide 40 mg 12/16/16 10:00 12/17/16 09:44 Lasix Injection - IVPUSH 40 mg DAILY ALFONZO Administration Hydroxychloroquine Sulfate 200 mg 12/16/16 10:00 12/17/16 09:44 Plaquenil - PO 200 mg BID ALFONZO Administration Piperacillin Sod/Tazobactam Sod 50 mls @ 100 mls/hr 12/16/16 02:00 12/17/16 09: 41 Zosyn 2.25gm Ivpb (Pre-Docked) IVPB 100 mls/hr Q8H-IV ALFONZO Administration Protocol Vancomycin HCl 1,250 mg/ 250 mls @ 166.667 mls/hr 12/17/16 10:00 Dextrose IVPB DAILY ALFONZO Protocol Montelukast Sodium 10 mg 12/16/16 22:00 12/16/16 21:46 Singulair - PO 10 mg HS ALFONZO Administration Pantoprazole Sodium 40 mg 12/16/16 10:00 12/17/16 09:42 Protonix - PO 40 mg DAILY ALFONZO Administration Sulfasalazine 500 mg 12/16/16 10:00 12/17/16 09:44 Azulfidine - PO 500 mg DAILY ALFONZO Administration Neck: Supple Nodes: Without adenopathy Cor: RSR, No murmurs, No gallops Lungs: decreased breath sounds bilaterally Abd: Soft, Normal bowel sounds, No organomegaly Ext:No significant edema 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 Patient aware. Code(s): C25.9 - MALIGNANT NEOPLASM OF PANCREAS, UNSPECIFIED (4) Acute renal failure (ARF) Assessment/Plan: Creatinine 1.6 today, up from before IVF as tolerated continue to monitor Code(s): N17.9 - ACUTE KIDNEY FAILURE, UNSPECIFIED
--- NOTE | 2016-12-17 12:33 | PN ---
Progress Note (short form) - Note Progress Note: PULMONARY OFFERS NO COMPLAINTS EATING LUNCH VSS./AFEBRILE ANICTERIC DIMINISHED NO WHEEZE S1S2 BS+ SOFT NO EDEMA MICRO/LABS/MEDS/IMAGING/ECHO REVIEWED (1) Anemia Code(s): D64.9 - ANEMIA, UNSPECIFIED Qualifiers: Anemia type: unspecified type Qualified Code(s): D64.9 - Anemia, unspecified (2) COPD (chronic obstructive pulmonary disease) Code(s): J44.9 - CHRONIC OBSTRUCTIVE PULMONARY DISEASE, UNSPECIFIED Qualifiers : COPD type: COPD with acute lower respiratory infection Qualified Code(s ): J44.0 - Chronic obstructive pulmonary disease with acute lower respiratory infection (3) Palliative chemotherapy underway Code(s): Z51.11 - ENCOUNTER FOR ANTINEOPLASTIC CHEMOTHERAPY Z51.5 - ENCOUNTER FOR PALLIATIVE CARE (4) Pneumonia Code(s): J18.9 - PNEUMONIA, UNSPECIFIED ORGANISM Assessment/Plan BILATERAL PNEUMONIA RIGHT LOWER LOBE/LEFT UPPER LOBE STREP BACTEREMIA/ECHO :NO MENTION OF VEGETATIONS MULTIPLE CO-MORBID CONDITIONS INCLUDING RECENT CHEMOTX FOR RESECTED BILIARY CANCER ANTIBIOTICS PER ID/O2 SUPPLEMENTATION/BRONCHODILATORS/CHEST PT/INCENTIVE SPIROMETRY/ANTICOAGULATION WILL FOLLOW Anny FELICIANO MD Problem List - Problems (1) Anemia Code(s): D64.9 - ANEMIA, UNSPECIFIED Qualifiers: Anemia type: unspecified type Qualified Code(s): D64.9 - Anemia, unspecified (2) COPD (chronic obstructive pulmonary disease) Code(s): J44.9 - CHRONIC OBSTRUCTIVE PULMONARY DISEASE, UNSPECIFIED Qualifiers : COPD type: COPD with acute lower respiratory infection Qualified Code(s ): J44.0 - Chronic obstructive pulmonary disease with acute lower respiratory infection (3) Palliative chemotherapy underway Code(s): Z51.11 - ENCOUNTER FOR ANTINEOPLASTIC CHEMOTHERAPY Z51.5 - ENCOUNTER FOR PALLIATIVE CARE (4) Pneumonia Code(s): J18.9 - PNEUMONIA, UNSPECIFIED ORGANISM
--- NOTE | 2016-12-17 15:42 | CONSULT ---
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 carpal tunnel - Alcohol/Substance Use Hx Alcohol Use: No - Smoking History Smoking history: Former smoker Have you smoked in the past 12 months: No If you are a former smoker, when did you quit?: 56YRS AGO - Social History ADL: Independent History of Recent Travel: No Home Medications - Allergies Allergies/Adverse Reactions: Allergies Allergy/AdvReac Type Severity Reaction Status Date / Time Iodinated Contrast Media - AdvReac Verified 12/15/16 23:30 Oral and - Home Medications Home Medications: Ambulatory Orders Budesonide/Formeterol Fumarate [SYMBICORT 160/4.5mcg -] 1 inh PO BID 10/05/15 Cholecalciferol (Vitamin D3) [Vitamin D3] 1,000 unit PO DAILY 10/05/15 Cyclosporine [Restasis] 1 each OP DAILY 10/05/15 Esomeprazole Magnesium [Nexium 24Hr] 40 mg PO DAILY 10/05/15 Folic Acid - 1 mg PO DAILY 10/05/15 Hydroxychloroquine Sulfate 200 mg PO BID 10/05/15 Ipratropium/Albuterol Sulfate [Combivent Respimat Inhal [place]] 4 gm IH QID 10/04 Montelukast Na [Singulair -] 10 mg PO HS 10/05/15 Multivitamin [Poly-Vitamin] 1 each PO DAILY 10/05/15 Sulfasalazine [Azulfidine -] 500 mg PO DAILY 10/05/15 Apixaban [Eliquis -] 5 mg PO BID #60 tablet 10/07/15 Diltiazem Cd [Cardizem Cd -] 360 mg PO DAILY 12/04/16 Physical Exam Vital Signs: Vital Signs Temperature 97.4 F L 12/17/16 13:57 Pulse Rate 87 12/17/16 13:57 Respiratory Rate 20 12/17/16 13:57 Blood Pressure 100/58 12/17/16 13:57 O2 Sat by Pulse Oximetry (%) 91 L 12/17/16 09:04 Labs: CBC, BMP 12/17/16 06:33 12/17/16 06:33
--- NOTE | 2016-12-17 16:06 | CONSULT ---
Consultation: REQUESTING PROVIDER: CONSULT REQUEST: We have been asked to medically evaluate this patient for Pulmonology. HISTORY OF PRESENT ILLNESS: 81 yo F patient with a history of asthma, COPD, and Pancreatic cancer presented to the ED 2 days ago for dyspnea, fatigue and dizziness that has been going on for the last 3 days. Patient's last chemotherapy was 10 days ago. In the ER, she was found to be tachycardic and hypoxic in the 80's. The patient feels much better today and denies difficulty breathing, chills, chest pain and cough. REVIEW OF SYSTEMS: CONSTITUTIONAL: Absent: fever, chills, diaphoresis, generalized weakness, malaise, loss of appetite, weight change HEENT: Absent: rhinorrhea, nasal congestion, throat pain, throat swelling, difficulty swallowing, visual changes CARDIOVASCULAR: Absent: chest pain, syncope, palpitations, irregular heart rate, lightheadedness , peripheral edema RESPIRATORY: Absent: cough, shortness of breath, dyspnea with exertion, orthopnea, wheezing, stridor, hemoptysis GASTROINTESTINAL: Absent: abdominal pain, abdominal distension, nausea, vomiting, diarrhea, constipation, melena, hematochezia SKIN: Absent: rash, itching, pallor PHYSICAL EXAMINATION Vital Signs - 24 hr 12/16/16 12/16/16 12/16/16 18:00 20:18 22:00 Temperature 97.5 F L 98.0 F Pulse Rate 79 74 Respiratory 20 18 Rate Blood Pressure 98/55 100/62 O2 Sat by Pulse 93 L Oximetry (%) 12/17/16 12/17/16 12/17/16 06:00 09:00 09:04 Temperature 97.3 F L 97.4 F L Pulse Rate 92 H 89 Respiratory 20 26 H 26 H Rate Blood Pressure 100/68 101/54 O2 Sat by Pulse 84 L 91 L Oximetry (%) 12/17/16 13:57 Temperature 97.4 F L Pulse Rate 87 Respiratory 20 Rate Blood Pressure 100/58 O2 Sat by Pulse Oximetry (%) GENERAL: Awake, alert, and fully oriented, in no acute distress. Eating and on the phone. HEAD: Normal with no signs of trauma. EARS, NOSE, THROAT: oropharynx clear without exudates. Moist mucous membranes. NECK: Normal range of motion, , JVD LUNGS: Breath sounds equal. Bibasilar rales, No wheezes. No accessory muscle use. HEART: Irregularly irregular, 3/6 systolic murmur ABDOMEN: Soft, nontender, not distended, normoactive bowel sounds, no guarding, no rebound, no masses. No hepatomegaly or splenomegaly. MUSCULOSKELETAL: Normal range of motion at all joints. No bony deformities or tenderness. No CVA tenderness. UPPER EXTREMITIES: warm, well-perfused. No cyanosis. No clubbing. No peripheral edema. LOWER EXTREMITIES: warm, well-perfused. No calf tenderness. No peripheral edema. PSYCHIATRIC: Cooperative. Good eye contact. Appropriate mood and affect. SKIN: Warm, dry, normal turgor, no rashes or lesions noted. Laboratory Results - last 24 hr 12/17/16 12/17/16 12/17/16 06:33 06:33 06:33 WBC 15.8 H D RBC 2.87 L Hgb 8.2 L Hct 24.8 L MCV 86.2 MCHC 33.1 RDW 17.2 H Plt Count 332 D MPV 9.3 Neutrophils % 88.9 H Lymphocytes % 6.4 L Monocytes % 4.5 Eosinophils % 0.0 Basophils % 0.2 ESR Retic Count 4.11 H Sodium Potassium Chloride Carbon Dioxide Anion Gap BUN Creatinine Creat Clearance w eGFR Random Glucose Calcium Magnesium Ferritin 1297.029 H Total Bilirubin AST ALT Alkaline Phosphatase Total Protein Albumin Vitamin B12 Serum Folate TSH 12/17/16 12/17/16 12/17/16 06:33 06:33 06:33 WBC RBC Hgb Hct MCV MCHC RDW Plt Count MPV Neutrophils % Lymphocytes % Monocytes % Eosinophils % Basophils % ESR 50 H Retic Count Sodium 143 Cancelled Potassium 3.8 Cancelled Chloride 107 Cancelled Carbon Dioxide 27 Cancelled Anion Gap 9 Cancelled BUN 44 H D Cancelled Creatinine 1.6 H D Cancelled Creat Clearance w eGFR 31.09 Cancelled Random Glucose 109 H D Cancelled Calcium 8.6 Cancelled Magnesium 2.3 Cancelled Ferritin Total Bilirubin 0.5 D Cancelled AST 61 H Cancelled ALT 36 Cancelled Alkaline Phosphatase 75 Cancelled Total Protein 5.4 L Cancelled Albumin 2.2 L Cancelled Vitamin B12 749 Serum Folate 23 H TSH 0.19 L D Active Medications Generic Name Dose Route Start Last Admin Trade Name Freq PRN Reason Stop Dose Admin Acetaminophen 650 mg 12/15/16 23:50 Tylenol - PO Q6H PRN FEVER Albuterol/Ipratropium 1 amp 12/15/16 23:50 12/17/16 06:42 Duoneb - NEB 1 amp Q8H PRN Administration ASTHMA Apixaban 5 mg 12/16/16 10:00 12/17/16 09:44 Eliquis - PO 5 mg BID ALFONZO Administration Budesonide/Formoterol Fumarate 1 puff 12/16/16 10:00 12/17/16 09:44 Symbicort 160/4.5mcg - IH 1 inhaler BID AL[facility]ZO Administration Diltiazem HCl 360 mg 12/16/16 10:00 12/17/16 09:43 Cardizem Cd - PO 360 mg DAILY AL[facility]ZO Administration Furosemide 40 mg 12/16/16 10:00 12/17/16 09:44 Lasix Injection - IVPUSH 40 mg DAILY AL[facility]ZO Administration Hydroxychloroquine Sulfate 200 mg 12/16/16 10:00 12/17/16 09:44 Plaquenil - PO 200 mg BID AL[facility]ZO Administration Piperacillin Sod/Tazobactam Sod 50 mls @ 100 mls/hr 12/16/16 02:00 12/17/16 09: 41 Zosyn 2.25gm Ivpb (Pre-Docked) IVPB 100 mls/hr Q8H-IV ALFONZO Administration Protocol Vancomycin HCl 1,250 mg/ 250 mls @ 166.667 mls/hr 12/17/16 10:00 12/17/16 11:30 Dextrose IVPB 166.667 mls/hr DAILY AL[facility]ZO Administration Protocol Montelukast Sodium 10 mg 12/16/16 22:00 12/16/16 21:46 Singulair - PO 10 mg HS AL[facility]ONZO Administration Pantoprazole Sodium 40 mg 12/16/16 10:00 12/17/16 09:42 Protonix - PO 40 mg DAILY AL[facility]ZO Administration Sulfasalazine 500 mg 12/16/16 10:00 12/17/16 09:44 Azulfidine - PO 500 mg DAILY [facility] Administration CXR: there are new bilateral infiltrates with congestive changes and left effusion. There is a scoliosis with convexity to the right with prominent mediastinum. There are degenerative changes. Impression: Diffuse bilateral pulmonary and pleural changes. CT chest : Bilateral pulmonary alveolar bronchopneumonia predominantly involving the superior segment of the right lower lobe and the left upper lobe with groundglass infiltrates noted in the right upper lobe and right middle lobe suspicious for bilateral bronchopneumonia. Small nonloculated left pleural effusion identified with no definite signs of empyema. No cavity, no suspicious nodules identified. ASSESSMENT: 81 yo F patient with a history of asthma, COPD, and Pancreatic cancer presented to the ED 2 days ago for dyspnea, fatigue and dizziness. found to have hypoxia, pneumonia. Pneumonia Bacteremia COPD Anemia History of pancreatic cancer on chemotherapy (last chemo 10 days ago) A-fib Asthma Plan: Await final cultures CT Chest reviewed. Continue antibiotics as per ID O2 supplementation to keep spO2>90 Continue bronchodilators- duoneb q8h prn, symbicort 1 puff BID Continue with Singulair Chest physical therapy Incentive spirometry Cardiology/oncology on case Dispo: We will continue to follow the patient. Thank you for this consultative opportunity. Visit type - Emergency Visit Emergency Visit: Yes ED Registration Date: 12/16/16 Care time: The patient presented to the Emergency Department on the above date and was hospitalized for further evaluation of their emergent condition. - New Patient This patient is new to me today: Yes Date on this admission: 12/17/16 - Critical Care Critical Care patient: No
[2016-12-17] MEDS: MONTELUKAST NA 10 MG TABLET PO SCH (22:50)
[2016-12-18] MEDS: PIPERACILLIN/TAZOB 2.25 GM 50 ML IVPB SCH ×2 (01:55→10:03)
[2016-12-18 06:06] LABS: SERUM IRON 85 ug/dL (27-139); TOTAL IRON BINDING CAPACITY 169 ug/dL (250-450); UIBC 84 ug/dL (118-369)
--- NOTE | 2016-12-18 09:07 | PN ---
Progress Note, Physician Chief Complaint: Bilateral PNA on CT Echo: moderate . Nl LV - Current Medication List Current Medications: Active Medications Acetaminophen (Tylenol -) 650 mg PO Q6H PRN PRN Reason: FEVER Albuterol/Ipratropium (Duoneb -) 1 amp NEB Q8H PRN PRN Reason: ASTHMA Last Admin: 12/17/16 06:42 Dose: 1 amp Apixaban (Eliquis -) 5 mg PO BID [facility] Last Admin: 12/17/16 22:50 Dose: 5 mg Budesonide/Formoterol Fumarate (Symbicort 160/4.5mcg -) 1 puff IH BID [facility] Last Admin: 12/17/16 22:51 Dose: 1 inhaler Diltiazem HCl (Cardizem Cd -) 360 mg PO DAILY [facility] Last Admin: 12/17/16 09:43 Dose: 360 mg Furosemide (Lasix Injection -) 40 mg IVPUSH DAILY [facility] Last Admin: 12/17/16 09:44 Dose: 40 mg Hydroxychloroquine Sulfate (Plaquenil -) 200 mg PO BID [facility] Last Admin: 12/17/16 22:50 Dose: 200 mg Piperacillin Sod/Tazobactam Sod (Zosyn 2.25gm Ivpb (Pre-Docked)) 50 mls @ 100 mls/hr IVPB Q8H-IV [facility] PRN Reason: Protocol Last Admin: 12/18/16 01:55 Dose: 100 mls/hr Vancomycin HCl 1,250 mg/ (Dextrose) 250 mls @ 166.667 mls/hr IVPB DAILY AL[facility] PRN Reason: Protocol Last Admin: 12/17/16 11:30 Dose: 166.667 mls/hr Montelukast Sodium (Singulair -) 10 mg PO HS [facility] Last Admin: 12/17/16 22:50 Dose: 10 mg Pantoprazole Sodium (Protonix -) 40 mg PO DAILY [facility] Last Admin: 12/17/16 09:42 Dose: 40 mg Sulfasalazine (Azulfidine -) 500 mg PO DAILY [facility] Last Admin: 12/17/16 09:44 Dose: 500 mg - Objective Vital Signs: Vital Signs Temperature 98.4 F 12/18/16 05:47 Pulse Rate 98 H 12/18/16 05:47 Respiratory Rate 20 12/18/16 05:47 Blood Pressure 113/57 12/18/16 05:47 O2 Sat by Pulse Oximetry (%) 95 12/17/16 21:00 Constitutional: Yes: No Distress Eyes: Yes: Conjunctiva Clear Cardiovascular: Yes: Regular Rate and Rhythm (2/6 KARLY-- C/w moderate ) Respiratory: Yes: Other (decreased breath sounds at bases) Gastrointestinal: Yes: Soft (non-tender) Edema: No Neurological: Yes: Alert, Oriented Labs: CBC, BMP 12/17/16 06:33 12/17/16 06:33 INR, PTT INR 2.01 (0.82-1.09) H 12/16/16 00:58 Microbiology 12/15/16 23:30 Blood - Peripheral Venous Blood Culture - Preliminary Alpha Hemolytic Streptococcus 12/15/16 23:30 Blood - Peripheral Venous Blood Culture - Preliminary Alpha Hemolytic Streptococcus Laboratory Tests 12/16/16 12/16/16 12/17/16 00:58 02:00 06:33 ESR Retic Count 4.11 H INR 2.01 H Sodium Potassium BUN Creatinine AST ALT Alkaline Phosphatase Total Protein Albumin Vitamin B12 Serum Folate TSH Stool Occult Blood Negative 12/17/16 12/17/16 06:33 06:33 ESR 50 H Retic Count INR Sodium 143 Potassium 3.8 BUN 44 H D Creatinine 1.6 H D AST 61 H ALT 36 Alkaline Phosphatase 75 Total Protein 5.4 L Albumin 2.2 L Vitamin B12 749 Serum Folate 23 H TSH 0.19 L D Stool Occult Blood Assessment/Plan 81 year old woman with the history of COPD, asthma, rheumatoid arthritis, paroxysmal atrial fibrillation on eliquis, nonobstructive coronary artery disease on cardiac cath 01/2016 (50-60%mLAD), cholangiocarcinoma status post Whipple procedure, now s/p course of chemo, COPD/Asthma admitted with progressively worsening SOB, fatigue, noted to be hypoxic and tachycardic. SOB-likely due to b/l PNA, sepsis with bacteremia, acute on chronic diastolic CHF, chronic COPD, pt also has chronic LE edema believed to be secondary to chronic venous insufficiency and hypoalbuminemia -cont IV Lasix diuresis at current dose for now -ID and Pulmonary evaluating Afib-paroxysmal with RVR on admission -cont Cardizem CD 360mg daily -cont eliquis 5mg bid [id number] on cardiac cath 01/2016 -unlikely an active issue at this time -pt has not been on ASA as an outpatient as she is on eliquis and has a history of severe nosebleeds -not on bblocker due to COPD/Asthma -cont cardizem -not on statin due recent malignancy involving liver, plan to resume if safe to do so HTN-runs low normal -cont above agents for HR control Murmur-chronic, likely secondary to mitral annular calcification and moderate -f/up echo with no gross vegetation. Source bacteremia seems to be PNA
--- NOTE | 2016-12-18 09:35 | PN ---
Progress Note, Physician Chief Complaint: Patient still has dyspnea that is improving Has intermittent chills, no fever Improved Oxygen saturation Day 2 on Zosyn and vancomycin - Current Medication List Current Medications: Active Medications Acetaminophen (Tylenol -) 650 mg PO Q6H PRN PRN Reason: FEVER Albuterol/Ipratropium (Duoneb -) 1 amp NEB Q8H PRN PRN Reason: ASTHMA Last Admin: 12/17/16 06:42 Dose: 1 amp Apixaban (Eliquis -) 5 mg PO BID [facility] Last Admin: 12/17/16 22:50 Dose: 5 mg Budesonide/Formoterol Fumarate (Symbicort 160/4.5mcg -) 1 puff IH BID [facility] Last Admin: 12/17/16 22:51 Dose: 1 inhaler Diltiazem HCl (Cardizem Cd -) 360 mg PO DAILY [facility] Last Admin: 12/17/16 09:43 Dose: 360 mg Furosemide (Lasix Injection -) 40 mg IVPUSH DAILY [facility] Last Admin: 12/17/16 09:44 Dose: 40 mg Hydroxychloroquine Sulfate (Plaquenil -) 200 mg PO BID [facility] Last Admin: 12/17/16 22:50 Dose: 200 mg Piperacillin Sod/Tazobactam Sod (Zosyn 2.25gm Ivpb (Pre-Docked)) 50 mls @ 100 mls/hr IVPB Q8H-IV AL[facility]ONZO PRN Reason: Protocol Last Admin: 12/18/16 01:55 Dose: 100 mls/hr Vancomycin HCl 1,250 mg/ (Dextrose) 250 mls @ 166.667 mls/hr IVPB DAILY AL[facility]ONZO PRN Reason: Protocol Last Admin: 12/17/16 11:30 Dose: 166.667 mls/hr Montelukast Sodium (Singulair -) 10 mg PO HS [facility] Last Admin: 12/17/16 22:50 Dose: 10 mg Pantoprazole Sodium (Protonix -) 40 mg PO DAILY [facility] Last Admin: 12/17/16 09:42 Dose: 40 mg Sulfasalazine (Azulfidine -) 500 mg PO DAILY [facility] Last Admin: 12/17/16 09:44 Dose: 500 mg - Objective Vital Signs: Vital Signs Temperature 98.4 F 12/18/16 05:47 Pulse Rate 98 H 12/18/16 05:47 Respiratory Rate 20 07/06/17 05:47 Blood Pressure 113/57 12/18/16 05:47 O2 Sat by Pulse Oximetry (%) 95 12/17/16 21:00 Constitutional: Yes: Calm, Mild Distress, Pallor Eyes: Yes: Conjunctiva Clear HENT: No: Thrush Neck: Yes: Supple, Trachea Midline. No: Rigid, Tenderness Cardiovascular: Yes: Pulse Irregular, Murmur (right sternal border, stage 3, left lower sternal border, stage 2), S1, S2 Respiratory: Yes: On Nasal O2, Rales, Rhonchi Gastrointestinal: Yes: Abdomen, Obese ...Rectal Exam: Yes: Deferred Genitourinary: No: [place] Present Breast(s): No: Skin Changes Musculoskeletal: Yes: Joint Swelling (chronically swollen L knee joint) Edema: LLE: 3+, RLE: 3+ (chronic bilaterally pedal edema) Integumentary: No: Pressure Ulcer Neurological: No: Confusion, Dysarthria Psychiatric: Yes: Oriented Labs: CBC, BMP 12/17/16 06:33 12/17/16 06:33 INR, PTT INR 2.01 (0.82-1.09) H 12/16/16 00:58 - ....Imaging Cat Scan: Report Reviewed (Chest CT shows bilateral pneumonia) Problem List - Problems (1) Streptococcus pneumoniae Assessment/Plan: Bacterial pneumonia secondary to alpha hemolytic streptococcus, likely strep sanguis with background ca pancreas, post whipples procedure last chemo about 2 weeks ago Plan: Stop zosyn Continue vancomycin awaiting definitive culture and sensitivity results repeat blood cultures check vancomycin levels (2) Bacterial infection due to Streptococcus Code(s): A49.1 - STREPTOCOCCAL INFECTION, UNSPECIFIED SITE Visit type - Emergency Visit Emergency Visit: No - New Patient This patient is new to me today: No - Critical Care Critical Care patient: No - Discharge Referral Referred to [facility] No
[2016-12-18] MEDS: HYDROXYCHLOROQUINE SO4 200 MG TABLET (FP) PO SCH ×2 (09:43→21:22)
[2016-12-18] MEDS: sulfaSALAzine 500 MG TABLET PO SCH (09:44)
[2016-12-18] MEDS: APIXABAN 5 MG TABLET PO SCH ×2 (09:44→21:22)
[2016-12-18] MEDS: FUROSEMIDE 40 MG/4 ML INJECTABLE VIAL IVPUSH SCH (09:44)
[2016-12-18] MEDS: PANTOPRAZOLE 40 MG TABLET (FP) PO SCH (09:44)
[2016-12-18] MEDS: BUDESONIDE/FORMETEROL FUMARATE 160/4.5 mcg INHALER IH SCH ×2 (09:44→21:22)
--- NOTE | 2016-12-18 10:01 | PN ---
Progress Note (short form) - Note Progress Note: As chest imaging c/w b/l PNA more so than CHF and bun/creat rising will stop IV Lasix and hold Lasix until bun/creat improve with a plan to resume lower dose po Lasix at that point. Elevated BNP likely at least in part due to Afib with RVR on admission.
[2016-12-18] MEDS: VANCOMYCIN 1,250 MG in DEXTROSE 5%-WATER - 250 ML IVPB SCH (10:03)
--- NOTE | 2016-12-18 10:17 | PN ---
Progress Note, Physician Chief Complaint: gets sob when she gets up - Current Medication List Current Medications: Active Medications Acetaminophen (Tylenol -) 650 mg PO Q6H PRN PRN Reason: FEVER Albuterol/Ipratropium (Duoneb -) 1 amp NEB Q8H PRN PRN Reason: ASTHMA Last Admin: 12/17/16 06:42 Dose: 1 amp Apixaban (Eliquis -) 5 mg PO BID [facility] Last Admin: 12/18/16 09:44 Dose: 5 mg Budesonide/Formoterol Fumarate (Symbicort 160/4.5mcg -) 1 puff IH BID [facility] Last Admin: 12/18/16 09:44 Dose: 1 inhaler Diltiazem HCl (Cardizem Cd -) 360 mg PO DAILY [facility] Last Admin: 12/18/16 09:43 Dose: 360 mg Hydroxychloroquine Sulfate (Plaquenil -) 200 mg PO BID [facility] Last Admin: 12/18/16 09:43 Dose: 200 mg Piperacillin Sod/Tazobactam Sod (Zosyn 2.25gm Ivpb (Pre-Docked)) 50 mls @ 100 mls/hr IVPB Q8H-IV [facility] PRN Reason: Protocol Last Admin: 12/18/16 10:03 Dose: 100 mls/hr Vancomycin HCl 1,250 mg/ (Dextrose) 250 mls @ 166.667 mls/hr IVPB DAILY [facility] PRN Reason: Protocol Last Admin: 12/18/16 10:03 Dose: 166.667 mls/hr Montelukast Sodium (Singulair -) 10 mg PO HS [facility] Last Admin: 12/17/16 22:50 Dose: 10 mg Pantoprazole Sodium (Protonix -) 40 mg PO DAILY [facility] Last Admin: 12/18/16 09:44 Dose: 40 mg Sulfasalazine (Azulfidine -) 500 mg PO DAILY [facility] Last Admin: 12/18/16 09:44 Dose: 500 mg - Objective Vital Signs: Vital Signs Temperature 98.4 F 12/18/16 05:47 Pulse Rate 98 H 12/18/16 05:47 Respiratory Rate 20 12/18/16 05:47 Blood Pressure 113/57 12/18/16 05:47 O2 Sat by Pulse Oximetry (%) 95 12/17/16 21:00 Constitutional: Yes: Calm Cardiovascular: Yes: Regular Rate and Rhythm Respiratory: Yes: Diminished, Rhonchi Gastrointestinal: Yes: Normal Bowel Sounds, Soft. No: Distention, Tenderness Edema: Yes (decreased) Edema: LLE: 1+, RLE: 1+ Psychiatric: Yes: Alert Labs: CBC, BMP 12/17/16 06:33 12/17/16 06:33 INR, PTT INR 2.01 (0.82-1.09) H 12/16/16 00:58 Problem List - Problems (1) Anemia Code(s): D64.9 - ANEMIA, UNSPECIFIED Qualifiers: Anemia type: unspecified type Qualified Code(s): D64.9 - Anemia, unspecified (2) COPD (chronic obstructive pulmonary disease) Code(s): J44.9 - CHRONIC OBSTRUCTIVE PULMONARY DISEASE, UNSPECIFIED Qualifiers : COPD type: COPD with acute lower respiratory infection Qualified Code(s ): J44.0 - Chronic obstructive pulmonary disease with acute lower respiratory infection (3) Pneumonia Code(s): J18.9 - PNEUMONIA, UNSPECIFIED ORGANISM (4) Rapid atrial fibrillation Code(s): I48.91 - UNSPECIFIED ATRIAL FIBRILLATION (5) SOB (shortness of breath) Code(s): R06.02 - SHORTNESS OF BREATH Assessment/Plan PLAN IV antibiotics- broad spectrum Urine antigens negative blood cultures positive with alpha hemolytic strep-- likely has strep pneumoniae Nebs O2 as needed Continue with meds DVT prophylaxis Chemotherapy on hold Echo== no vegetations CT chest-- B/L Pneumonia lasix dc by Cardiology
[2016-12-18 10:44] LABS: MCHC 32.3 g/dl (32.0-36.0); MEAN CELL VOLUME 86.8 fl (80-96); MEAN PLT VOLUME 8.2 fl (7.5-11.1); PLATELET COUNT 402 K/MM3 (134-434); RDW 17.7 % (11.6-15.6)
[2016-12-18] MEDS: ALBUTEROL SO4 2.5/IPRATROPIUM 0.5 INH SOL 3 ML VIAL.NEB. NEB PRN (10:45)
--- NOTE | 2016-12-18 10:56 | CON.NEP ---
Consult Consult Specialty:: Renal Referred by:: Dr. Tristan Reason for Consultation:: Acute Renal Failure - History of Present Illness Chief Complaint: SOB History of Present Illness: This is a 81 year old woman with PMhx of Asthma, COPD, Pancreatic Ca s/p Whipple and Chemo (last chemo 10 days prior to admission), RA, Afib on Eliquis who presented with SOB for 2 days and admitted for suspected CHF exacerbation vs. PNA with SCOT. Pt denies any history of CKD but did have kidney stones in the past. No recent Abx use at home. + Sporadic NSAID use. + diuretic use at home. Good urine production. No flank pain, hematuria, rash. No N/V/D. No chest pain. 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 carpal tunnel - Alcohol/Substance Use Hx Alcohol Use: No - Smoking History Smoking history: Former smoker Have you smoked in the past 12 months: No If you are a former smoker, when did you quit?: 56YRS AGO - Social History ADL: Independent History of Recent Travel: No Home Medications - Allergies Allergies/Adverse Reactions: Allergies Allergy/AdvReac Type Severity Reaction Status Date / Time Iodinated Contrast Media - AdvReac Verified 12/15/16 23:30 Oral and - Home Medications Home Medications: Ambulatory Orders Budesonide/Formeterol Fumarate [SYMBICORT 160/4.5mcg -] 1 inh PO BID 10/05/15 Cholecalciferol (Vitamin D3) [Vitamin D3] 1,000 unit PO DAILY 10/05/15 Cyclosporine [Restasis] 1 each OP DAILY 10/05/15 Esomeprazole Magnesium [Nexium 24Hr] 40 mg PO DAILY 10/05/15 Folic Acid - 1 mg PO DAILY 10/05/15 Hydroxychloroquine Sulfate 200 mg PO BID 10/05/15 Ipratropium/Albuterol Sulfate [Combivent Respimat Inhal [place]] 4 gm IH QID 10/04 Montelukast Na [Singulair -] 10 mg PO HS 10/05/15 Multivitamin [Poly-Vitamin] 1 each PO DAILY 10/05/15 Sulfasalazine [Azulfidine -] 500 mg PO DAILY 10/05/15 Apixaban [Eliquis -] 5 mg PO BID #60 tablet 10/07/15 Diltiazem Cd [Cardizem Cd -] 360 mg PO DAILY 12/04/16 Family Disease History - Family Disease History Family History: Unremarkable Review of Systems - Review of Systems Constitutional: reports: Lethargy, Loss of Appetite Eyes: reports: No Symptoms HENT: reports: No Symptoms Neck: reports: No Symptoms Cardiovascular: reports: Edema Respiratory: reports: Cough, SOB, SOB on Exertion, Wheezing Gastrointestinal: reports: No Symptoms Genitourinary: reports: No Symptoms Musculoskeletal: reports: No Symptoms Integumentary: reports: Bruising. denies: Erythema Neurological: reports: No Symptoms Endocrine: reports: No Symptoms Hematology/Lymphatic: reports: No Symptoms Psychiatric: reports: No Symptoms Nephrology Consult - Height Height: 5 ft 4 in - Weight Weight: 161 lb 8 oz - BMI Body Mass Index (BMI): 27.7 - Lab Results CBC,BMP: CBC, BMP 12/18/16 10:30 Anion Gap: Anion Gap Anion Gap 9 (8-16) 12/17/16 06:33 - Imaging Chest X-ray: Report Reviewed Cat Scan: Report Reviewed - Physical Examination Vital Signs: Vital Signs Temperature 98.4 F 12/18/16 05:47 Pulse Rate 98 H 12/18/16 05:47 Respiratory Rate 20 12/18/16 05:47 Blood Pressure 113/57 12/18/16 05:47 O2 Sat by Pulse Oximetry (%) 95 12/17/16 21:00 Constitutional: Yes: No Distress, Calm Eyes: Yes: Conjunctiva Clear HENT: Yes: Atraumatic, Normocephalic Neck: Yes: Supple Cardiovascular: Yes: Pulse Irregular. No: Murmur, Rub Respiratory: Yes: Regular, Rhonchi, SOB Gastrointestinal: Yes: Normal Bowel Sounds, Soft. No: Tenderness Renal/: No: Bladder Distention, CVA Tenderness - Left, CVA Tenderness - Right , [place] Present Extremities: No: Calf Tenderness, Cold, Cool, Cyanosis Edema: No Integumentary: Yes: Bruising Neurological: Yes: Alert, Oriented Psychiatric: Yes: Alert, Oriented Problem List - Problems (1) Acute renal failure (ARF) Code(s): N17.9 - ACUTE KIDNEY FAILURE, UNSPECIFIED (2) Anemia Code(s): D64.9 - ANEMIA, UNSPECIFIED Qualifiers: Anemia type: unspecified type Qualified Code(s): D64.9 - Anemia, unspecified (3) COPD (chronic obstructive pulmonary disease) Code(s): J44.9 - CHRONIC OBSTRUCTIVE PULMONARY DISEASE, UNSPECIFIED Qualifiers : COPD type: COPD with acute lower respiratory infection Qualified Code(s ): J44.0 - Chronic obstructive pulmonary disease with acute lower respiratory infection (4) Pancreatic cancer Code(s): C25.9 - MALIGNANT NEOPLASM OF PANCREAS, UNSPECIFIED (5) Pneumonia Code(s): J18.9 - PNEUMONIA, UNSPECIFIED ORGANISM (6) SOB (shortness of breath) Code(s): R06.02 - SHORTNESS OF BREATH (7) Atrial fibrillation Code(s): I48.91 - UNSPECIFIED ATRIAL FIBRILLATION (8) Leukocytosis Code(s): D72.829 - ELEVATED WHITE BLOOD CELL COUNT, UNSPECIFIED Assessment/Plan 81 year old woman with PMhx of Asthma, COPD, Pancreatic Ca s/p Whipple and Chemo (last chemo 10 days prior to admission), RA, Afib on Eliquis who presented with SOB for 2 days and admitted for suspected CHF exacerbation vs. PNA with SCOT. #Acute Renal Failure Differential includes renal hypoperufsion in setting of PNA/Sepsis + diuresis vs. obstruction from nephrolithiasis vs. TMA from Chemo (less likely as pt has normal Plt counts) Check Urine studies for FeNa, FeUrea, UPCR, Legionella Antigen Check Renal US Check LDH, Haptoglobin Hold diuretics if ok with Cardiology Strict I and O Dose all meds for Cr Cl less then 30 no indication for MGMT ANALYST #B/L PNA continue Abx as per primary #COPD/Asthma Continue O2, Nebs, Steroids as needed Thank you Will Follow Nahum Clay DO
[2016-12-18 10:57] VITALS: BMI 27.7
[2016-12-18 11:15] LABS: ANION GAP 7 (8-16); CALCIUM 8.8 mg/dL (8.5-10.1); CO2 30 mmol/L (21-32); CREATININE 1.3 mg/dL (0.55-1.02); GLUCOSE,RANDOM 100 mg/dL (74-106)
--- NOTE | 2016-12-18 11:21 | PN ---
Progress Note (short form) - Note Progress Note: PULMONARY Still some shortness of breath but improving. +nonproductive cough and wheezing. No fevers or chills. Last Vital Signs Temp Pulse Resp BP Pulse Ox 98.4 F 98 H 20 113/57 95 12/18/16 05:47 12/18/16 05:47 12/18/16 05:47 12/18/16 05:47 12/17/16 21:00 Gen: mildly tachypneic with speaking Heart: RRR Lung: scattered rhonchi, wheezes Abd: soft, nontender Ext: + edema CBC, BMP 12/18/16 10:30 12/18/16 10:30 Active Medications Acetaminophen (Tylenol -) 650 mg PO Q6H PRN PRN Reason: FEVER Albuterol/Ipratropium (Duoneb -) 1 amp NEB Q8H PRN PRN Reason: ASTHMA Last Admin: 12/18/16 10:45 Dose: 1 amp Apixaban (Eliquis -) 5 mg PO BID [facility] Last Admin: 12/18/16 09:44 Dose: 5 mg Budesonide/Formoterol Fumarate (Symbicort 160/4.5mcg -) 1 puff IH BID [facility] Last Admin: 12/18/16 09:44 Dose: 1 inhaler Diltiazem HCl (Cardizem Cd -) 360 mg PO DAILY [facility] Last Admin: 12/18/16 09:43 Dose: 360 mg Hydroxychloroquine Sulfate (Plaquenil -) 200 mg PO BID [facility] Last Admin: 12/18/16 09:43 Dose: 200 mg Piperacillin Sod/Tazobactam Sod (Zosyn 2.25gm Ivpb (Pre-Docked)) 50 mls @ 100 mls/hr IVPB Q8H-IV [facility] PRN Reason: Protocol Last Admin: 12/18/16 10:03 Dose: 100 mls/hr Vancomycin HCl 1,250 mg/ (Dextrose) 250 mls @ 166.667 mls/hr IVPB DAILY [facility] PRN Reason: Protocol Last Admin: 12/18/16 10:03 Dose: 166.667 mls/hr Montelukast Sodium (Singulair -) 10 mg PO HS [facility] Last Admin: 12/17/16 22:50 Dose: 10 mg Pantoprazole Sodium (Protonix -) 40 mg PO DAILY [facility] Last Admin: 12/18/16 09:44 Dose: 40 mg Sulfasalazine (Azulfidine -) 500 mg PO DAILY [facility] Last Admin: 12/18/16 09:44 Dose: 500 mg A/P Pneumonia Strep Bacteremia COPD Acute Hypoxic Respiratory Failure Pancreatic Ca Atrial fibrillation - continue antibiotics - f/u final cultures - inhaled bronchodilators - rate control - continue anticoagulation - will need to check ambulatory SpO2 when ready for discharge to assess for home O2
[2016-12-18 11:35] LABS: LDH 594 U/L (84-246)
--- NOTE | 2016-12-18 12:03 | PN ---
Progress Note, Physician Chief Complaint: ID vancomycin for now day 2 therapy Subjective improvement - Current Medication List Current Medications: Active Medications Acetaminophen (Tylenol -) 650 mg PO Q6H PRN PRN Reason: FEVER Albuterol/Ipratropium (Duoneb -) 1 amp NEB Q8H PRN PRN Reason: ASTHMA Last Admin: 12/18/16 10:45 Dose: 1 amp Apixaban (Eliquis -) 5 mg PO BID [facility] Last Admin: 12/18/16 09:44 Dose: 5 mg Budesonide/Formoterol Fumarate (Symbicort 160/4.5mcg -) 1 puff IH BID [facility] Last Admin: 12/18/16 09:44 Dose: 1 inhaler Diltiazem HCl (Cardizem Cd -) 360 mg PO DAILY [facility] Last Admin: 12/18/16 09:43 Dose: 360 mg Hydroxychloroquine Sulfate (Plaquenil -) 200 mg PO BID [facility] Last Admin: 12/18/16 09:43 Dose: 200 mg Piperacillin Sod/Tazobactam Sod (Zosyn 2.25gm Ivpb (Pre-Docked)) 50 mls @ 100 mls/hr IVPB Q8H-IV [facility] PRN Reason: Protocol Last Admin: 12/18/16 10:03 Dose: 100 mls/hr Vancomycin HCl 1,250 mg/ (Dextrose) 250 mls @ 166.667 mls/hr IVPB DAILY [facility] PRN Reason: Protocol Last Admin: 12/18/16 10:03 Dose: 166.667 mls/hr Montelukast Sodium (Singulair -) 10 mg PO HS [facility] Last Admin: 12/17/16 22:50 Dose: 10 mg Pantoprazole Sodium (Protonix -) 40 mg PO DAILY [facility] Last Admin: 12/18/16 09:44 Dose: 40 mg Sulfasalazine (Azulfidine -) 500 mg PO DAILY [facility] Last Admin: 12/18/16 09:44 Dose: 500 mg - Objective Vital Signs: Vital Signs Temperature 98.4 F 12/18/16 05:47 Pulse Rate 98 H 12/18/16 05:47 Respiratory Rate 20 12/18/16 05:47 Blood Pressure 113/57 12/18/16 05:47 O2 Sat by Pulse Oximetry (%) 95 12/17/16 21:00 Constitutional: Yes: Well Nourished, No Distress Neck: Yes: WNL, Supple Cardiovascular: Yes: Murmur, S1, S2 Respiratory: Yes: Rales Gastrointestinal: Yes: Soft. No: Tenderness Edema: Yes Labs: CBC, BMP 12/18/16 10:30 12/18/16 10:30 INR, PTT INR 2.01 (0.82-1.09) H 12/16/16 00:58 Problem List - Problems (1) COPD (chronic obstructive pulmonary disease) Code(s): J44.9 - CHRONIC OBSTRUCTIVE PULMONARY DISEASE, UNSPECIFIED Qualifiers : COPD type: COPD with acute lower respiratory infection Qualified Code(s ): J44.0 - Chronic obstructive pulmonary disease with acute lower respiratory infection (2) Pneumonia Code(s): J18.9 - PNEUMONIA, UNSPECIFIED ORGANISM (3) Pancreatic cancer Code(s): C25.9 - MALIGNANT NEOPLASM OF PANCREAS, UNSPECIFIED (4) Bacterial infection due to Streptococcus Code(s): A49.1 - STREPTOCOCCAL INFECTION, UNSPECIFIED SITE Assessment/Plan Microbiology 12/15/16 23:30 Blood - Peripheral Venous Blood Culture - Preliminary Alpha Hemolytic Streptococcus Staphylococcus Coagulase Neg 12/15/16 23:30 Blood - Peripheral Venous Blood Culture - Preliminary Alpha Hemolytic Streptococcus Laboratory Tests 12/17/16 12/18/16 12/18/16 06:33 10:30 10:30 WBC 13.0 H Hgb 9.0 L Hct 27.8 L Plt Count 402 D ESR 50 H BUN 39 H Creatinine 1.3 H Assessment Strep Sanguis bacteremia with extensive bilateral pulmonary infiltrates for now on Vancomycin Pancreatic CA Endocarditis considered though 2 D ECHO no vegetions Plan CRP Repeat the blood cultures Vancomycin for now and check level Sahil PENNY
[2016-12-18 13:31] LABS: SODIUM,RANDOM URINE 113 MMOL/L
[2016-12-18 13:32] LABS: URINE CREATININE > 13.0 mg/dL (20-320)
[2016-12-18 14:08] LABS: PLATELET COMMENT2 NO CLOTTING DETECTED; PLATELET COMMENT3 NO CLUMPING NOTED; PLATELET ESTIMATE SLT INCREASED (NORMAL); POLYCHROMASIA 1+
[2016-12-18 14:09] LABS: HYPOCHROMIA 1+
--- NOTE | 2016-12-18 17:31 | PN ---
Progress Note (short form) - Note Progress Note: patient seen and examined. feels better Last Vital Signs Temp Pulse Resp BP Pulse Ox 98.4 F 97 H 20 96/48 95 12/18/16 14:00 12/18/16 14:00 12/18/16 14:00 12/18/16 14:00 12/17/16 21:00 Neck: Supple Nodes: Without adenopathy Cor: RSR, No murmurs, No gallops Lungs: scatterd wheezes Abd: Soft, Normal bowel sounds, No organomegaly Abnormal Lab Results 12/17/16 12/18/16 12/18/16 06:33 10:30 10:30 WBC 13.0 H RBC 3.20 L Hgb 9.0 L Hct 27.8 L RDW 17.7 H Neutrophils % 90.0 H Monocytes % 1.0 L Nucleated RBCs 2 H Anion Gap 7 L BUN 39 H Creatinine 1.3 H TIBC 169 L LD Total 594 H C-Reactive Protein U Random Total Protein Urine Creatinine Vancomycin Pre-Dose 12/18/16 12/18/16 12/18/16 11:25 12:40 12:40 WBC RBC Hgb Hct RDW Neutrophils % Monocytes % Nucleated RBCs Anion Gap BUN Creatinine TIBC LD Total C-Reactive Protein 7.5 H D U Random Total Protein 20 H Urine Creatinine > 13.0 L Vancomycin Pre-Dose 29.373 H* A/P 81 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 Problem List - Problems (1) Bacterial infection due to Streptococcus Code(s): A49.1 - STREPTOCOCCAL INFECTION, UNSPECIFIED SITE (2) Anemia Code(s): D64.9 - ANEMIA, UNSPECIFIED Qualifiers: Anemia type: unspecified type Qualified Code(s): D64.9 - Anemia, unspecified (3) Pancreatic cancer Code(s): C25.9 - MALIGNANT NEOPLASM OF PANCREAS, UNSPECIFIED (4) Acute renal failure (ARF) Code(s): N17.9 - ACUTE KIDNEY FAILURE, UNSPECIFIED
[2016-12-18] MEDS ORDERED: PT OWN MED DRAWER 7, Y5N ONE (21:19)
[2016-12-18] MEDS: MONTELUKAST NA 10 MG TABLET PO SCH (21:22)
[2016-12-19 06:49] LABS: MCH 28.7 pg (25.7-33.7); MCHC 33.3 g/dl (32.0-36.0); MEAN CELL VOLUME 86.2 fl (80-96); MEAN PLT VOLUME 8.8 fl (7.5-11.1); PLATELET COUNT 344 K/MM3 (134-434); RDW 17.9 % (11.6-15.6); WHITE BLOOD COUNT 7.9 K/mm3 (4.0-10.0)
[2016-12-19 07:21] LABS: ALBUMIN 2.1 g/dl (3.4-5.0); ANION GAP 8 (8-16); CALCIUM 8.4 mg/dL (8.5-10.1); CO2 32 mmol/L (21-32); GLUCOSE,RANDOM 88 mg/dL (74-106); MAGNESIUM 2.1 mg/dL (1.8-2.4); PHOSPHOROUS 2.5 mg/dL (2.5-4.9)
[2016-12-19 07:23] LABS: ALK PHOS 78 U/L (45-117); BILIRUBIN,TOTAL 0.5 mg/dL (0.2-1.0); CREATININE 0.9 mg/dL (0.55-1.02); SGOT/AST 44 U/L (15-37); SGPT/ALT 28 U/L (12-78); TOT PROT 5.3 g/dl (6.4-8.2)
--- NOTE | 2016-12-19 08:20 | PN ---
Progress Note, Physician Chief Complaint: Lasix stopped yesterday after d/w Dr. Barber, rising BUN and creat Feels well today - Current Medication List Current Medications: Active Medications Acetaminophen (Tylenol -) 650 mg PO Q6H PRN PRN Reason: FEVER Albuterol/Ipratropium (Duoneb -) 1 amp NEB Q8H PRN PRN Reason: ASTHMA Last Admin: 12/18/16 10:45 Dose: 1 amp Apixaban (Eliquis -) 5 mg PO BID [facility] Last Admin: 12/18/16 21:22 Dose: 5 mg Budesonide/Formoterol Fumarate (Symbicort 160/4.5mcg -) 1 puff IH BID [facility] Last Admin: 12/18/16 21:22 Dose: 1 inhaler Diltiazem HCl (Cardizem Cd -) 360 mg PO DAILY [facility] Last Admin: 12/18/16 09:43 Dose: 360 mg Hydroxychloroquine Sulfate (Plaquenil -) 200 mg PO BID [facility] Last Admin: 12/18/16 21:22 Dose: 200 mg Montelukast Sodium (Singulair -) 10 mg PO HS [facility] Last Admin: 12/18/16 21:22 Dose: 10 mg Pantoprazole Sodium (Protonix -) 40 mg PO DAILY [facility] Last Admin: 12/18/16 09:44 Dose: 40 mg Sulfasalazine (Azulfidine -) 500 mg PO DAILY [facility] Last Admin: 12/18/16 09:44 Dose: 500 mg - Objective Vital Signs: Vital Signs Temperature 98.7 F 12/19/16 05:54 Pulse Rate 96 H 12/19/16 05:54 Respiratory Rate 20 12/19/16 05:54 Blood Pressure 117/58 12/19/16 05:54 O2 Sat by Pulse Oximetry (%) 92 L 12/18/16 21:00 Constitutional: Yes: No Distress Cardiovascular: Yes: Regular Rate and Rhythm Respiratory: Yes: Rhonchi, Other (no wheezing) Gastrointestinal: Yes: Soft Edema: No Neurological: Yes: Alert, Oriented ...Motor Strength: WNL Labs: CBC, BMP 12/19/16 06:00 12/19/16 06:00 INR, PTT INR 2.01 (0.82-1.09) H 12/16/16 00:58 Laboratory Tests 12/19/16 12/19/16 06:00 06:00 WBC 7.9 D Hgb 8.2 L Plt Count 344 Sodium 145 Potassium 3.5 BUN 34 H Creatinine 0.9 D Calcium 8.4 L Phosphorus 2.5 Magnesium 2.1 Assessment/Plan 81 year old woman with the history of COPD, asthma, rheumatoid arthritis, paroxysmal atrial fibrillation on eliquis, nonobstructive coronary artery disease on cardiac cath 01/2016 (50-60%mLAD), cholangiocarcinoma status post Whipple procedure, now s/p course of chemo, COPD/Asthma admitted with progressively worsening SOB, fatigue, noted to be hypoxic and tachycardic. SOB-likely due to b/l PNA, sepsis with bacteremia, chronic COPD -Hold Lasix, Rx of PNA -ID and Pulmonary evaluating Afib-paroxysmal with RVR on admission -cont Cardizem CD 360mg daily -cont eliquis 5mg bid [id number] on cardiac cath 01/2016 -unlikely an active issue at this time -pt has not been on ASA as an outpatient as she is on eliquis and has a history of severe nosebleeds -not on bblocker due to COPD/Asthma -cont cardizem -not on statin due recent malignancy involving liver Murmur-chronic, likely secondary to mitral annular calcification and moderate -f/up echo with no gross vegetation. -Source bacteremia seems to be PNA -serial cultures as per ID
--- NOTE | 2016-12-19 08:49 | PN ---
Progress Note (short form) - Note Progress Note: Wound Care Consult - Dr. Zachary Zhang Called to evaluate sacral ulcer. 81 yo female admitted with acute exacerbation of asthma. Patient recently discharged form [facility]. States shes had this ulcer on her backside since then. Doesn't use and VNS for wound care. Manages at home by herself. Last Vital Signs Temp Pulse Resp BP Pulse Ox 98.7 F 96 H 20 117/58 92 L 12/19/16 05:54 12/19/16 05:54 12/19/16 05:54 12/19/16 05:54 12/18/16 21:00 CBC, BMP 12/19/16 06:00 12/19/16 06:00 PE Gen: alert. nad. on NC Skin: Stage 1-2 sacral ulcer about 10mm x 10mm. No erythema. No exudate or slough Problem List - Problems (1) Sacral pressure ulcer Assessment/Plan: No surgical intervention Conservative management Offload all pressure sensitive areas Frequent repositioning Cont medical management Re-consult surgery PRN Code(s): L89.159 - PRESSURE ULCER OF SACRAL REGION, UNSPECIFIED STAGE Qualifiers: Pressure ulcer stage: stage 2 Qualified Code(s): L89.152 - Pressure ulcer of sacral region, stage 2
--- NOTE | 2016-12-19 08:58 | PN ---
Progress Note, Physician Chief Complaint: ID Continues on Vancomycin Feeling better - Current Medication List Current Medications: Active Medications Acetaminophen (Tylenol -) 650 mg PO Q6H PRN PRN Reason: FEVER Albuterol/Ipratropium (Duoneb -) 1 amp NEB Q8H PRN PRN Reason: ASTHMA Last Admin: 12/18/16 10:45 Dose: 1 amp Apixaban (Eliquis -) 5 mg PO BID [facility] Last Admin: 12/18/16 21:22 Dose: 5 mg Budesonide/Formoterol Fumarate (Symbicort 160/4.5mcg -) 1 puff IH BID [facility] Last Admin: 12/18/16 21:22 Dose: 1 inhaler Diltiazem HCl (Cardizem Cd -) 360 mg PO DAILY [facility] Last Admin: 12/18/16 09:43 Dose: 360 mg Hydroxychloroquine Sulfate (Plaquenil -) 200 mg PO BID [facility] Last Admin: 12/18/16 21:22 Dose: 200 mg Montelukast Sodium (Singulair -) 10 mg PO HS [facility] Last Admin: 12/18/16 21:22 Dose: 10 mg Pantoprazole Sodium (Protonix -) 40 mg PO DAILY [facility] Last Admin: 12/18/16 09:44 Dose: 40 mg Sulfasalazine (Azulfidine -) 500 mg PO DAILY [facility] Last Admin: 12/18/16 09:44 Dose: 500 mg - Objective Vital Signs: Vital Signs Temperature 98.7 F 12/19/16 05:54 Pulse Rate 96 H 12/19/16 05:54 Respiratory Rate 20 12/19/16 05:54 Blood Pressure 117/58 12/19/16 05:54 O2 Sat by Pulse Oximetry (%) 92 L 12/18/16 21:00 Constitutional: Yes: No Distress Neck: Yes: WNL, Supple Cardiovascular: Yes: Regular Rate and Rhythm, Murmur, S1, S2 Respiratory: Yes: WNL, Regular, CTA Bilaterally, Rhonchi Gastrointestinal: Yes: Soft. No: Tenderness Edema: No Labs: CBC, BMP 12/19/16 06:00 12/19/16 06:00 INR, PTT INR 2.01 (0.82-1.09) H 12/16/16 00:58 Problem List - Problems (1) COPD (chronic obstructive pulmonary disease) Code(s): J44.9 - CHRONIC OBSTRUCTIVE PULMONARY DISEASE, UNSPECIFIED Qualifiers : Qualified Code(s): J44.0 - Chronic obstructive pulmonary disease with acute lower respiratory infection (2) Pneumonia Code(s): J18.9 - PNEUMONIA, UNSPECIFIED ORGANISM (3) Pancreatic cancer Code(s): C25.9 - MALIGNANT NEOPLASM OF PANCREAS, UNSPECIFIED (4) Bacterial infection due to Streptococcus Code(s): A49.1 - STREPTOCOCCAL INFECTION, UNSPECIFIED SITE Assessment/Plan Microbiology 12/18/16 11:25 Urine For Antigen Detection Legionella Antigen - Final 12/16/16 02:30 Urine - Urine - Catheterized Urine Culture - Final NO GROWTH OBTAINED 12/15/16 23:30 Blood - Peripheral Venous Blood Culture - Final Streptococcus Sangius I 12/15/16 23:30 Blood - Peripheral Venous Blood Culture - Preliminary Streptococcus Sangius I Staphylococcus Coagulase Neg Laboratory Tests 12/17/16 12/19/16 12/19/16 06:33 06:00 06:00 WBC 7.9 D Hgb 8.2 L Hct 24.6 L Plt Count 344 ESR 50 H Creatinine 0.9 D Creat Clearance w eGFR > 60 Total Bilirubin 0.5 AST 44 H D ALT 28 D Alkaline Phosphatase 78 Assessment Strep Sanguis bacteremia appears transient and we have a source in the pneumonia Clinically she is improving and her repeat blood cultures no growth. Her 2 D no vegetations I do not think she has endocarditis. I would not do a KINGA given her advance age and cancer diagnosis and feel comfortable with short treatment 2 weeks Ceftriaxone based on sensitivities. A PICC line with discharge could be considered Sahil PENNY
--- NOTE | 2016-12-19 09:55 | PN ---
Progress Note (short form) - Note Progress Note: Pt seen/ examined chart reviewed comfortable denies pain. breathing ok except gets sob with walking/ oob all f/u noted/ appreciated Vital Signs Temp 98.7 F 12/19/16 05:54 Pulse 96 H 12/19/16 05:54 Resp 20 12/19/16 05:54 BP 117/58 12/19/16 05:54 Pulse Ox 92 L 12/18/16 21:00 Intake & Output 12/18/16 12/18/16 12/19/16 11:59 23:59 11:59 Intake Total 290 1380 200 Output Total 400 Balance 290 980 200 Weight 161 lb 8 oz Intake: IVPB 50 300 Oral 240 1080 200 Output: Urine 400 Void 400 Other: Voiding Method Bedpan Bedpan # Unmeasured Voids Void 1 2 2 Bowel Movement No # Bowel Movements 0 Height 5 ft 4 in Body Mass Index (BMI) 27.7 Active Medications Acetaminophen (Tylenol -) 650 mg PO Q6H PRN PRN Reason: FEVER Albuterol/Ipratropium (Duoneb -) 1 amp NEB Q8H PRN PRN Reason: ASTHMA Last Admin: 12/18/16 10:45 Dose: 1 amp Apixaban (Eliquis -) 5 mg PO BID [facility] Last Admin: 12/18/16 21:22 Dose: 5 mg Budesonide/Formoterol Fumarate (Symbicort 160/4.5mcg -) 1 puff IH BID [facility] Last Admin: 12/18/16 21:22 Dose: 1 inhaler Diltiazem HCl (Cardizem Cd -) 360 mg PO DAILY [facility] Last Admin: 12/18/16 09:43 Dose: 360 mg Hydroxychloroquine Sulfate (Plaquenil -) 200 mg PO BID [facility] Last Admin: 12/18/16 21:22 Dose: 200 mg Ceftriaxone Sodium 2 gm/ (Dextrose) 100 mls @ 200 mls/hr IVPB DAILY [facility] Montelukast Sodium (Singulair -) 10 mg PO HS [facility] Last Admin: 12/18/16 21:22 Dose: 10 mg Pantoprazole Sodium (Protonix -) 40 mg PO DAILY [facility] Last Admin: 12/18/16 09:44 Dose: 40 mg Sulfasalazine (Azulfidine -) 500 mg PO DAILY [facility] Last Admin: 12/18/16 09:44 Dose: 500 mg CBC, BMP 07/07/17 06:00 12/19/16 06:00 Microbiology 12/15/16 23:30 Blood Culture - Preliminary Blood - Peripheral Venous Streptococcus Sangius I Staphylococcus Coagulase Neg 12/15/16 23:30 Blood Culture - Final Blood - Peripheral Venous Streptococcus Sangius I 12/18/16 11:25 Legionella Antigen - Final Urine For Antigen Detection Physical Exam Constitutional: Yes: Comfortable Cardiovascular: Yes: Irrgelular Respiratory: Yes: Bilateral scattered rhonchi. Gastrointestinal: Yes: Normal Bowel Sounds, Soft. No: Distention, Tenderness Edema: LLE: 1+, RLE: 1+ Psychiatric: Yes: Alert Problem List - Problems (1) Anemia Code(s): D64.9 - ANEMIA, UNSPECIFIED Qualifiers: Anemia type: unspecified type Qualified Code(s): D64.9 - Anemia, unspecified (2) COPD (chronic obstructive pulmonary disease) Code(s): J44.9 - CHRONIC OBSTRUCTIVE PULMONARY DISEASE, UNSPECIFIED Qualifiers : COPD type: COPD with acute lower respiratory infection Qualified Code(s ): J44.0 - Chronic obstructive pulmonary disease with acute lower respiratory infection (3) Pneumonia Code(s): J18.9 - PNEUMONIA, UNSPECIFIED ORGANISM (4) Rapid atrial fibrillation Code(s): I48.91 - UNSPECIFIED ATRIAL FIBRILLATION (5) SOB (shortness of breath) Code(s): R06.02 - SHORTNESS OF BREATH Assessment/Plan continue abx nebulizer treatment physical therapy oob- chair as tolerated monitor lytes will follow wound care consult noted / appreciated.
[2016-12-19] MEDS: ALBUTEROL SO4 2.5/IPRATROPIUM 0.5 INH SOL 3 ML VIAL.NEB. NEB PRN (10:14)
[2016-12-19] MEDS ORDERED: PT OWN MED DRAWER 7, Y5N ONE ×3 (10:26→22:38)
[2016-12-19] MEDS: CEFTRIAXONE 100 ML IVPB SCH (10:29)
[2016-12-19] MEDS: PANTOPRAZOLE 40 MG TABLET (FP) PO SCH (10:29)
[2016-12-19] MEDS: HYDROXYCHLOROQUINE SO4 200 MG TABLET (FP) PO SCH ×2 (10:29→22:17)
[2016-12-19] MEDS: BUDESONIDE/FORMETEROL FUMARATE 160/4.5 mcg INHALER IH SCH ×2 (10:30→22:17)
[2016-12-19] MEDS: sulfaSALAzine 500 MG TABLET PO SCH (10:30)
[2016-12-19] MEDS: APIXABAN 5 MG TABLET PO SCH ×2 (10:30→22:17)
[2016-12-19 12:40] LABS: METAMYELOCYTE 1 % (0-2); PLATELET ESTIMATE ADEQUATE (NORMAL)
--- NOTE | 2016-12-19 12:52 | PN ---
Progress Note (short form) - Note Progress Note: PULMONARY OFFERS NO COMPLAINTS VSS./AFEBRILE ANICTERIC DIMINISHED NO WHEEZE S1S2 BS+ SOFT NO EDEMA MICRO/LABS/MEDS/IMAGING/ECHO REVIEWED (1) Anemia Code(s): D64.9 - ANEMIA, UNSPECIFIED Qualifiers: Anemia type: unspecified type Qualified Code(s): D64.9 - Anemia, unspecified (2) COPD (chronic obstructive pulmonary disease) Code(s): J44.9 - CHRONIC OBSTRUCTIVE PULMONARY DISEASE, UNSPECIFIED Qualifiers : COPD type: COPD with acute lower respiratory infection Qualified Code(s ): J44.0 - Chronic obstructive pulmonary disease with acute lower respiratory infection (3) Palliative chemotherapy underway Code(s): Z51.11 - ENCOUNTER FOR ANTINEOPLASTIC CHEMOTHERAPY Z51.5 - ENCOUNTER FOR PALLIATIVE CARE (4) Pneumonia Code(s): J18.9 - PNEUMONIA, UNSPECIFIED ORGANISM Assessment/Plan BILATERAL PNEUMONIA RIGHT LOWER LOBE/LEFT UPPER LOBE STREP BACTEREMIA/ECHO :NO MENTION OF VEGETATIONS MULTIPLE CO-MORBID CONDITIONS INCLUDING RECENT CHEMOTX FOR RESECTED BILIARY CANCER ANTIBIOTICS PER ID/O2 SUPPLEMENTATION/BRONCHODILATORS/CHEST PT/INCENTIVE SPIROMETRY/ANTICOAGULATION WILL FOLLOW Anny FELICIANO MD Problem List - Problems (1) Anemia Code(s): D64.9 - ANEMIA, UNSPECIFIED Qualifiers: Anemia type: unspecified type Qualified Code(s): D64.9 - Anemia, unspecified (2) COPD (chronic obstructive pulmonary disease) Code(s): J44.9 - CHRONIC OBSTRUCTIVE PULMONARY DISEASE, UNSPECIFIED Qualifiers : COPD type: COPD with acute lower respiratory infection Qualified Code(s ): J44.0 - Chronic obstructive pulmonary disease with acute lower respiratory infection (3) Palliative chemotherapy underway Code(s): Z51.11 - ENCOUNTER FOR ANTINEOPLASTIC CHEMOTHERAPY Z51.5 - ENCOUNTER FOR PALLIATIVE CARE (4) Pneumonia Code(s): J18.9 - PNEUMONIA, UNSPECIFIED ORGANISM
--- NOTE | 2016-12-19 13:39 | PN ---
Progress Note (short form) - Note Progress Note: Renal Follow up for SCOT Pt seen and examined at the bedside no acute complaints, feels better good urine output Vital Signs Temperature 98.7 F 12/19/16 05:54 Pulse Rate 92 H 12/19/16 10:14 Respiratory Rate 20 12/19/16 05:54 Blood Pressure 117/58 12/19/16 05:54 O2 Sat by Pulse Oximetry (%) 96 12/19/16 10:14 Intake & Output 12/16/16 12/17/16 12/18/16 12/19/16 23:59 23:59 23:59 23:59 Intake Total 6379 512 3523 200 Output Total 0 400 400 Balance 1150 0 1270 200 Weight 161 lb 8 oz 161 lb 8 oz Gen: NAD, awake and alert CVS: RRR Lungs: Dec BS b/l lung fileds Ext: Trace edema CBC, BMP 12/19/16 06:00 12/19/16 06:00 Laboratory Tests 12/18/16 12/18/16 12/19/16 10:30 10:30 06:00 Haptoglobin 204 H Calcium 8.4 L Phosphorus 2.5 Magnesium 2.1 LD Total 594 H Albumin 2.1 L Current Medications Acetaminophen (Tylenol -) 650 mg PO Q6H PRN PRN Reason: FEVER Albuterol/Ipratropium (Duoneb -) 1 amp NEB Q8H PRN PRN Reason: ASTHMA Last Admin: 12/19/16 10:14 Dose: 1 amp Apixaban (Eliquis -) 5 mg PO BID [facility] Last Admin: 12/19/16 10:30 Dose: 5 mg Budesonide/Formoterol Fumarate (Symbicort 160/4.5mcg -) 1 puff IH BID [facility] Last Admin: 12/19/16 10:30 Dose: 1 inhaler Diltiazem HCl (Cardizem Cd -) 360 mg PO DAILY [facility] Last Admin: 12/19/16 10:29 Dose: 360 mg Hydroxychloroquine Sulfate (Plaquenil -) 200 mg PO BID [facility] Last Admin: 12/19/16 10:29 Dose: 200 mg Ceftriaxone Sodium (Rocephin 2gm Ivpb (Pre-Docked)) 100 mls @ 200 mls/hr IVPB DAILY [facility] Last Admin: 12/19/16 10:29 Dose: 200 mls/hr Montelukast Sodium (Singulair -) 10 mg PO HS [facility] Last Admin: 12/18/16 21:22 Dose: 10 mg Pantoprazole Sodium (Protonix -) 40 mg PO DAILY [facility] Last Admin: 12/19/16 10:29 Dose: 40 mg Sulfasalazine (Azulfidine -) 500 mg PO DAILY [facility] Last Admin: 12/19/16 10:30 Dose: 500 mg 81 year old woman with PMhx of Asthma, COPD, Pancreatic Ca s/p Whipple and Chemo (last chemo 10 days prior to admission), RA, Afib on Eliquis who presented with SOB for 2 days and admitted for suspected CHF exacerbation vs. PNA with SCOT. #Acute Renal Failure Renal function improved to hear baseline off diuretics FeUrea was 41# indicating some degree of tubular dysfunction would continue to hold diuretics at this time LDH was high and thus not consist with MAHA Trend BUN/Cr and electrolytes Nahum Clay DO Problem List - Problems (1) Acute renal failure (ARF) Code(s): N17.9 - ACUTE KIDNEY FAILURE, UNSPECIFIED (2) Anemia Code(s): D64.9 - ANEMIA, UNSPECIFIED Qualifiers: Anemia type: unspecified type Qualified Code(s): D64.9 - Anemia, unspecified (3) COPD (chronic obstructive pulmonary disease) Code(s): J44.9 - CHRONIC OBSTRUCTIVE PULMONARY DISEASE, UNSPECIFIED Qualifiers : COPD type: COPD with acute lower respiratory infection Qualified Code(s ): J44.0 - Chronic obstructive pulmonary disease with acute lower respiratory infection (4) Pancreatic cancer Code(s): C25.9 - MALIGNANT NEOPLASM OF PANCREAS, UNSPECIFIED (5) Pneumonia Code(s): J18.9 - PNEUMONIA, UNSPECIFIED ORGANISM (6) SOB (shortness of breath) Code(s): R06.02 - SHORTNESS OF BREATH (7) Atrial fibrillation Code(s): I48.91 - UNSPECIFIED ATRIAL FIBRILLATION (8) Leukocytosis Code(s): D72.829 - ELEVATED WHITE BLOOD CELL COUNT, UNSPECIFIED
[2016-12-19] MEDS ORDERED: LACTULOSE 20 GM/30 ML UDC (FOR ORAL USE ONLY) PO ONE (15:15)
--- NOTE | 2016-12-19 16:29 | PN ---
Progress Note (short form) - Note Progress Note: Progress Note (short form) - Note Progress Note: patient seen and examined. feels better, she feels that her breathing is much better than the past two days. Otherwise denies any complains. No chest pain, mild cough. Last Vital Signs Temp Pulse Resp BP Pulse Ox 97.8 F 90 21 117/58 96 12/19/16 14:00 12/19/16 14:00 12/19/16 14:00 12/19/16 05:54 12/19/16 10:14 Neck: Supple Nodes: Without adenopathy Cor: RSR, No murmurs, No gallops Lungs: clear to auscultate Abd: Soft, Normal bowel sounds, No organomegaly CBC, BMP 12/19/16 06:00 12/19/16 06:00 Current Medications Generic Name Dose Route Start Last Admin Trade Name Freq PRN Reason Stop Dose Admin Acetaminophen 650 mg 12/15/16 23:50 Tylenol - PO Q6H PRN FEVER Albuterol/Ipratropium 1 amp 12/15/16 23:50 12/19/16 10:14 Duoneb - NEB 1 amp Q8H PRN Administration ASTHMA Apixaban 5 mg 12/16/16 10:00 12/19/16 10:30 Eliquis - PO 5 mg BID ALFONZO Administration Budesonide/Formoterol Fumarate 1 puff 12/16/16 10:00 12/19/16 10:30 Symbicort 160/4.5mcg - IH 1 inhaler BID ALFONZO Administration Diltiazem HCl 360 mg 12/16/16 10:00 12/19/16 10:29 Cardizem Cd - PO 360 mg DAILY ALFONZO Administration Hydroxychloroquine Sulfate 200 mg 12/16/16 10:00 12/19/16 10:29 Plaquenil - PO 200 mg BID ALFONZO Administration Ceftriaxone Sodium 100 mls @ 200 mls/hr 12/19/16 10:15 12/19/16 10:29 Rocephin 2gm Ivpb (Pre-Docked) IVPB 200 mls/hr DAILY ALFONZO Administration Montelukast Sodium 10 mg 12/16/16 22:00 12/18/16 21:22 Singulair - PO 10 mg HS ALFONZO Administration Pantoprazole Sodium 40 mg 12/16/16 10:00 12/19/16 10:29 Protonix - PO 40 mg DAILY ALFONZO Administration Sulfasalazine 500 mg 12/16/16 10:00 12/19/16 10:30 Azulfidine - PO 500 mg DAILY ALFONZO Administration Impression: 81 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 pulmonary f/u noted, might need assessment for home oxygen Problem List - Problems (1) Anemia Code(s): D64.9 - ANEMIA, UNSPECIFIED Qualifiers: Anemia type: unspecified type Qualified Code(s): D64.9 - Anemia, unspecified (2) COPD (chronic obstructive pulmonary disease) Code(s): J44.9 - CHRONIC OBSTRUCTIVE PULMONARY DISEASE, UNSPECIFIED Qualifiers : COPD type: COPD with acute lower respiratory infection Qualified Code(s ): J44.0 - Chronic obstructive pulmonary disease with acute lower respiratory infection (3) Palliative chemotherapy underway Code(s): Z51.11 - ENCOUNTER FOR ANTINEOPLASTIC CHEMOTHERAPY Z51.5 - ENCOUNTER FOR PALLIATIVE CARE (4) Pneumonia Code(s): J18.9 - PNEUMONIA, UNSPECIFIED ORGANISM (5) Rapid atrial fibrillation Code(s): I48.91 - UNSPECIFIED ATRIAL FIBRILLATION
[2016-12-19] MEDS: MONTELUKAST NA 10 MG TABLET PO SCH (22:16)
[2016-12-20 07:00] LABS: MCH 28.5 pg (25.7-33.7); MCHC 32.6 g/dl (32.0-36.0); MEAN CELL VOLUME 87.4 fl (80-96); MEAN PLT VOLUME 9.1 fl (7.5-11.1); PLATELET COUNT 389 K/MM3 (134-434); RDW 19.6 % (11.6-15.6); WHITE BLOOD COUNT 8.2 K/mm3 (4.0-10.0)
[2016-12-20 07:05] LABS: ANION GAP 3 (8-16); CALCIUM 8.8 mg/dL (8.5-10.1); CO2 36 mmol/L (21-32); GLUCOSE,RANDOM 84 mg/dL (74-106); MAGNESIUM 2.3 mg/dL (1.8-2.4); PHOSPHOROUS 2.9 mg/dL (2.5-4.9)
[2016-12-20 07:08] LABS: ALK PHOS 81 U/L (45-117); BILIRUBIN,TOTAL 0.4 mg/dL (0.2-1.0); CREATININE 0.8 mg/dL (0.55-1.02); SGOT/AST 42 U/L (15-37); SGPT/ALT 26 U/L (12-78); TOT PROT 5.3 g/dl (6.4-8.2)
[2016-12-20] MEDS ORDERED: PT OWN MED DRAWER 7, Y5N ONE (09:26)
[2016-12-20] MEDS: BUDESONIDE/FORMETEROL FUMARATE 160/4.5 mcg INHALER IH SCH ×2 (09:35→22:04)
[2016-12-20] MEDS: PANTOPRAZOLE 40 MG TABLET (FP) PO SCH (09:36)
[2016-12-20] MEDS: CEFTRIAXONE 100 ML IVPB SCH (09:36)
[2016-12-20] MEDS: APIXABAN 5 MG TABLET PO SCH ×2 (09:36→22:04)
[2016-12-20] MEDS: HYDROXYCHLOROQUINE SO4 200 MG TABLET (FP) PO SCH ×2 (09:36→22:04)
--- NOTE | 2016-12-20 10:27 | PN ---
Progress Note (short form) - Note Progress Note: Renal Follow up for SCOT Pt seen and examined at the bedside no complaints no chest pain, sob, abd pain, n/v/d Vital Signs Temperature 98.1 F 12/20/16 08:00 Pulse Rate 92 H 12/20/16 08:00 Respiratory Rate 20 12/20/16 08:00 Blood Pressure 109/56 12/20/16 08:00 O2 Sat by Pulse Oximetry (%) 93 L 12/19/16 21:00 Intake & Output 12/17/16 12/18/16 12/19/16 12/20/16 23:59 23:59 23:59 23:59 Intake Total 400 1670 900 200 Output Total 400 400 500 Balance 0 1270 400 200 Weight 161 lb 8 oz Gen: NAD, awake and alert CVS: RRR Lungs: Dec BS b/l lung fileds Ext: Trace edema CBC, BMP 12/20/16 05:45 12/20/16 05:45 Laboratory Tests 12/20/16 05:45 Calcium 8.8 Phosphorus 2.9 Magnesium 2.3 Albumin 2.0 L Current Medications Acetaminophen (Tylenol -) 650 mg PO Q6H PRN PRN Reason: FEVER Albuterol/Ipratropium (Duoneb -) 1 amp NEB Q8H PRN PRN Reason: ASTHMA Last Admin: 12/19/16 10:14 Dose: 1 amp Apixaban (Eliquis -) 5 mg PO BID [facility] Last Admin: 12/20/16 09:36 Dose: 5 mg Budesonide/Formoterol Fumarate (Symbicort 160/4.5mcg -) 1 puff IH BID [facility] Last Admin: 12/20/16 09:35 Dose: 1 puff Diltiazem HCl (Cardizem Cd -) 360 mg PO DAILY [facility] Last Admin: 12/20/16 09:36 Dose: 360 mg Hydroxychloroquine Sulfate (Plaquenil -) 200 mg PO BID [facility] Last Admin: 12/20/16 09:36 Dose: 200 mg Ceftriaxone Sodium (Rocephin 2gm Ivpb (Pre-Docked)) 100 mls @ 200 mls/hr IVPB DAILY [facility] Last Admin: 12/20/16 09:36 Dose: 200 mls/hr Montelukast Sodium (Singulair -) 10 mg PO HS [facility] Last Admin: 12/19/16 22:16 Dose: 10 mg Pantoprazole Sodium (Protonix -) 40 mg PO DAILY [facility] Last Admin: 12/20/16 09:36 Dose: 40 mg Sulfasalazine (Azulfidine -) 500 mg PO DAILY [facility] Last Admin: 12/19/16 10:30 Dose: 500 mg 81 year old woman with PMhx of Asthma, COPD, Pancreatic Ca s/p Whipple and Chemo (last chemo 10 days prior to admission), RA, Afib on Eliquis who presented with SOB for 2 days and admitted for suspected CHF exacerbation vs. PNA with SCOT. #Acute Renal Failure Renal function now improved to baseline off diuretics if further diuretics is needed, would start with small dose of lasix (i.e 20mg) trend BUN/Cr and electrolytes as inpatient #High Serum Bicarb if bicarb continues to up trend would consider abg to r/o CO2 retention with metabolic compensation #PNA Continue Abx as per primary Nahum Clay DO Problem List - Problems (1) Acute renal failure (ARF) Code(s): N17.9 - ACUTE KIDNEY FAILURE, UNSPECIFIED (2) Anemia Code(s): D64.9 - ANEMIA, UNSPECIFIED Qualifiers: Anemia type: unspecified type Qualified Code(s): D64.9 - Anemia, unspecified (3) COPD (chronic obstructive pulmonary disease) Code(s): J44.9 - CHRONIC OBSTRUCTIVE PULMONARY DISEASE, UNSPECIFIED Qualifiers : COPD type: COPD with acute lower respiratory infection Qualified Code(s ): J44.0 - Chronic obstructive pulmonary disease with acute lower respiratory infection (4) Pancreatic cancer Code(s): C25.9 - MALIGNANT NEOPLASM OF PANCREAS, UNSPECIFIED (5) Pneumonia Code(s): J18.9 - PNEUMONIA, UNSPECIFIED ORGANISM (6) SOB (shortness of breath) Code(s): R06.02 - SHORTNESS OF BREATH (7) Atrial fibrillation Code(s): I48.91 - UNSPECIFIED ATRIAL FIBRILLATION (8) Leukocytosis Code(s): D72.829 - ELEVATED WHITE BLOOD CELL COUNT, UNSPECIFIED
[2016-12-20] MEDS: sulfaSALAzine 500 MG TABLET PO SCH (10:34)
--- NOTE | 2016-12-20 10:48 | PN ---
Progress Note (short form) - Note Progress Note: Pt seen/ examined . feels better decreased sob. denies pain. Vital Signs Temp 98.1 F 12/20/16 08:00 Pulse 92 H 12/20/16 08:00 Resp 20 12/20/16 08:00 BP 109/56 12/20/16 08:00 Pulse Ox 93 L 12/19/16 21:00 Intake & Output 12/19/16 12/19/16 12/20/16 11:59 23:59 11:59 Intake Total 200 700 450 Output Total 500 Balance 200 200 450 Intake: Oral 200 700 450 Output: Urine 500 Void 500 Other: Voiding Method Bedpan Bedpan # Unmeasured Voids Void 2 2 1 Bowel Movement No: 12/19/2016 No # Bowel Movements 0 Active Medications Acetaminophen (Tylenol -) 650 mg PO Q6H PRN PRN Reason: FEVER Albuterol/Ipratropium (Duoneb -) 1 amp NEB Q8H PRN PRN Reason: ASTHMA Last Admin: 12/19/16 10:14 Dose: 1 amp Apixaban (Eliquis -) 5 mg PO BID [facility] Last Admin: 12/20/16 09:36 Dose: 5 mg Budesonide/Formoterol Fumarate (Symbicort 160/4.5mcg -) 1 puff IH BID [facility] Last Admin: 12/20/16 09:35 Dose: 1 puff Diltiazem HCl (Cardizem Cd -) 360 mg PO DAILY [facility] Last Admin: 12/20/16 09:36 Dose: 360 mg Hydroxychloroquine Sulfate (Plaquenil -) 200 mg PO BID [facility] Last Admin: 12/20/16 09:36 Dose: 200 mg Ceftriaxone Sodium (Rocephin 2gm Ivpb (Pre-Docked)) 100 mls @ 200 mls/hr IVPB DAILY [facility] Last Admin: 12/20/16 09:36 Dose: 200 mls/hr Montelukast Sodium (Singulair -) 10 mg PO HS [facility] Last Admin: 12/19/16 22:16 Dose: 10 mg Pantoprazole Sodium (Protonix -) 40 mg PO DAILY [facility] Last Admin: 12/20/16 09:36 Dose: 40 mg Sulfasalazine (Azulfidine -) 500 mg PO DAILY [facility] Last Admin: 12/20/16 10:34 Dose: 500 mg CBC, BMP 12/20/16 05:45 12/20/16 05:45 Physical Exam Constitutional: Yes: Comfortable Cardiovascular: Yes: Irrgelular Respiratory: Yes: Bilateral scattered rhonchi.- improved air entry Gastrointestinal: Yes: Normal Bowel Sounds, Soft. No: Distention, Tenderness Edema: LLE: 1+, RLE: 1+ Psychiatric: Yes: Alert Problem List - Problems (1) Anemia Code(s): D64.9 - ANEMIA, UNSPECIFIED Qualifiers: Anemia type: unspecified type Qualified Code(s): D64.9 - Anemia, unspecified (2) COPD (chronic obstructive pulmonary disease) Code(s): J44.9 - CHRONIC OBSTRUCTIVE PULMONARY DISEASE, UNSPECIFIED Qualifiers : COPD type: COPD with acute lower respiratory infection Qualified Code(s ): J44.0 - Chronic obstructive pulmonary disease with acute lower respiratory infection (3) Pneumonia Code(s): J18.9 - PNEUMONIA, UNSPECIFIED ORGANISM (4) Rapid atrial fibrillation Code(s): I48.91 - UNSPECIFIED ATRIAL FIBRILLATION (5) SOB (shortness of breath) Code(s): R06.02 - SHORTNESS OF BREATH Assessment/Plan better continue abx nebulizer treatment physical therapy oob- chair as tolerated decubitus precautions will follow
--- NOTE | 2016-12-20 11:06 | PN ---
Progress Note, Physician History of Present Illness: seen and examined today in nad. states she is feeling better. sob improving. no overnight events. no new complaints. - Current Medication List Current Medications: Active Medications Acetaminophen (Tylenol -) 650 mg PO Q6H PRN PRN Reason: FEVER Albuterol/Ipratropium (Duoneb -) 1 amp NEB Q8H PRN PRN Reason: ASTHMA Last Admin: 12/19/16 10:14 Dose: 1 amp Apixaban (Eliquis -) 5 mg PO BID [facility] Last Admin: 12/20/16 09:36 Dose: 5 mg Budesonide/Formoterol Fumarate (Symbicort 160/4.5mcg -) 1 puff IH BID [facility] Last Admin: 12/20/16 09:35 Dose: 1 puff Diltiazem HCl (Cardizem Cd -) 360 mg PO DAILY [facility] Last Admin: 12/20/16 09:36 Dose: 360 mg Hydroxychloroquine Sulfate (Plaquenil -) 200 mg PO BID [facility] Last Admin: 12/20/16 09:36 Dose: 200 mg Ceftriaxone Sodium (Rocephin 2gm Ivpb (Pre-Docked)) 100 mls @ 200 mls/hr IVPB DAILY [facility] Last Admin: 12/20/16 09:36 Dose: 200 mls/hr Montelukast Sodium (Singulair -) 10 mg PO HS [facility] Last Admin: 12/19/16 22:16 Dose: 10 mg Pantoprazole Sodium (Protonix -) 40 mg PO DAILY [facility] Last Admin: 12/20/16 09:36 Dose: 40 mg Sulfasalazine (Azulfidine -) 500 mg PO DAILY [facility] Last Admin: 12/20/16 10:34 Dose: 500 mg - Objective Vital Signs: Vital Signs Temperature 98.1 F 12/20/16 08:00 Pulse Rate 92 H 12/20/16 08:00 Respiratory Rate 20 12/20/16 08:00 Blood Pressure 109/56 12/20/16 08:00 O2 Sat by Pulse Oximetry (%) 93 L 12/19/16 21:00 Constitutional: Yes: Well Nourished, No Distress, Calm Eyes: Yes: WNL, Conjunctiva Clear, EOM Intact, PERRL HENT: Yes: WNL, Atraumatic, Normocephalic Neck: Yes: WNL, Supple, Trachea Midline Cardiovascular: Yes: Pulse Irregular, Murmur, S1, S2. No: Regular Rate and Rhythm, Bradycardia, Tachycardia, Bruit, JVD, Gallop, Rub, S3, S4, Varicosities Respiratory: Yes: Regular, Diminished, On Nasal O2, Rhonchi, Wheezes. No: Rales , SOB Gastrointestinal: Yes: WNL, Normal Bowel Sounds, Soft. No: Distention, Tenderness Musculoskeletal: Yes: WNL Extremities: Yes: WNL Edema: No Peripheral Pulses WNL: Yes Peripheral Pulses: Left Doralis Pedis: 2+, Right Dorsalis Pedis: 2+ Integumentary: Yes: Pressure Ulcer Neurological: Yes: Alert, Oriented Psychiatric: Yes: Alert, Oriented Labs: CBC, BMP 12/20/16 05:45 12/20/16 05:45 INR, PTT INR 2.01 (0.82-1.09) H 12/16/16 00:58 - ....Imaging Chest X-ray: Report Reviewed, Image Reviewed EKG: Report Reviewed, Image Reviewed Other: Report Reviewed, Image Reviewed Assessment/Plan 81 year old woman with the history of COPD, asthma, rheumatoid arthritis, paroxysmal atrial fibrillation on eliquis, nonobstructive coronary artery disease on cardiac cath 01/2016 (50-60%mLAD), cholangiocarcinoma status post Whipple procedure, now s/p course of chemo, COPD/Asthma admitted with progressively worsening SOB, fatigue, noted to be hypoxic and tachycardic. SOB-likely due to b/l PNA, sepsis, chronic COPD-improving -clinically improving -initially treated with Lasix but determined not to be in decompensated CHF and developed GIUSEPPE with Lasix (of note pt has chronic LE edema likely due to venous insufficiency) -Holding Lasix, bun/creat improved -being tx for PNA/sepsis -ID and Pulmonary following Afib-paroxysmal with RVR on admission, HR has been adequately controlled -cont Cardizem CD 360mg daily, BP has tolerated this dose -cont eliquis 5mg bid [id number] on cardiac cath 01/2016 -stable -pt has not been on ASA as an outpatient as she is on eliquis and has a history of severe nosebleeds -not on bblocker due to COPD/Asthma -cont cardizem -not on statin due to recent malignancy involving liver Murmur-chronic, likely secondary to mitral annular calcification and moderate -outpatient f/up
--- NOTE | 2016-12-20 11:12 | PN ---
Progress Note (short form) - Note Progress Note: PULMONARY Breathing slowly improving. +nonproductive cough and wheezing. No fevers or chills. Last Vital Signs Temp Pulse Resp BP Pulse Ox 98.1 F 92 H 20 109/56 93 L 12/20/16 08:00 12/20/16 08:00 12/20/16 08:00 12/20/16 08:00 12/19/16 21:00 Gen: mildly tachypneic with speaking Heart: RRR Lung: scattered rhonchi, wheezes Abd: soft, nontender Ext: + edema CBC, BMP 12/20/16 05:45 12/20/16 05:45 Active Medications Acetaminophen (Tylenol -) 650 mg PO Q6H PRN PRN Reason: FEVER Albuterol/Ipratropium (Duoneb -) 1 amp NEB Q8H PRN PRN Reason: ASTHMA Last Admin: 12/19/16 10:14 Dose: 1 amp Apixaban (Eliquis -) 5 mg PO BID [facility] Last Admin: 12/20/16 09:36 Dose: 5 mg Budesonide/Formoterol Fumarate (Symbicort 160/4.5mcg -) 1 puff IH BID [facility] Last Admin: 12/20/16 09:35 Dose: 1 puff Diltiazem HCl (Cardizem Cd -) 360 mg PO DAILY [facility] Last Admin: 12/20/16 09:36 Dose: 360 mg Hydroxychloroquine Sulfate (Plaquenil -) 200 mg PO BID [facility] Last Admin: 12/20/16 09:36 Dose: 200 mg Ceftriaxone Sodium (Rocephin 2gm Ivpb (Pre-Docked)) 100 mls @ 200 mls/hr IVPB DAILY [facility] Last Admin: 12/20/16 09:36 Dose: 200 mls/hr Montelukast Sodium (Singulair -) 10 mg PO HS [facility] Last Admin: 12/19/16 22:16 Dose: 10 mg Pantoprazole Sodium (Protonix -) 40 mg PO DAILY [facility] Last Admin: 12/20/16 09:36 Dose: 40 mg Sulfasalazine (Azulfidine -) 500 mg PO DAILY [facility] Last Admin: 12/20/16 10:34 Dose: 500 mg A/P Pneumonia Strep Bacteremia COPD Acute Hypoxic Respiratory Failure Pancreatic Ca Atrial fibrillation - continue antibiotics - inhaled bronchodilators - rate control - continue anticoagulation - O2 to keep SpO2 >90% - will need to check ambulatory SpO2 when ready for discharge to assess for home O2
[2016-12-20] MEDS: ALBUTEROL SO4 2.5/IPRATROPIUM 0.5 INH SOL 3 ML VIAL.NEB. NEB PRN (11:23)
[2016-12-20 12:01] LABS: ANISOCYTOSIS 1+; METAMYELOCYTE 3 % (0-2); PLATELET ESTIMATE ADEQUATE (NORMAL)
--- NOTE | 2016-12-20 19:08 | PN ---
Progress Note (short form) - Note Progress Note: patient seen and examined. feels better Last Vital Signs Temp Pulse Resp BP Pulse Ox 99.3 F 91 H 18 103/49 94 L 12/20/16 18:11 12/20/16 18:11 12/20/16 18:11 12/20/16 18:11 12/20/16 09:00 Neck: Supple Nodes: Without adenopathy Cor: RSR, No murmurs, No gallops Lungs: scatterd wheezes Abd: Soft, Normal bowel sounds, No organomegaly Abnormal Lab Results 12/20/16 12/20/16 05:45 05:45 RBC 2.93 L Hgb 8.3 L Hct 25.6 L RDW 19.6 H Metamyelocytes 3 H D Carbon Dioxide 36 H Anion Gap 3 L BUN 28 H AST 42 H Total Protein 5.3 L Albumin 2.0 L A/P 81 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, on gemzar now with G+ bacteremia from pneumonia, cellulitis continue antibiotics per ID creatinine improved anemia --monitor Problem List - Problems (1) Bacterial infection due to Streptococcus Code(s): A49.1 - STREPTOCOCCAL INFECTION, UNSPECIFIED SITE (2) Anemia Code(s): D64.9 - ANEMIA, UNSPECIFIED Qualifiers: Anemia type: unspecified type Qualified Code(s): D64.9 - Anemia, unspecified (3) Pancreatic cancer Code(s): C25.9 - MALIGNANT NEOPLASM OF PANCREAS, UNSPECIFIED (4) Acute renal failure (ARF) Code(s): N17.9 - ACUTE KIDNEY FAILURE, UNSPECIFIED
[2016-12-20] MEDS: MONTELUKAST NA 10 MG TABLET PO SCH (22:04)
[2016-12-21 09:22] LABS: ANION GAP 7 (8-16); CALCIUM 8.4 mg/dL (8.5-10.1); CO2 34 mmol/L (21-32); CREATININE 0.6 mg/dL (0.55-1.02); GLUCOSE,RANDOM 76 mg/dL (74-106); MAGNESIUM 2.4 mg/dL (1.8-2.4); PHOSPHOROUS 2.9 mg/dL (2.5-4.9)
--- NOTE | 2016-12-21 10:27 | PN ---
Progress Note, Physician History of Present Illness: seen and examined today in nad. no overnight events. no new complaints. - Current Medication List Current Medications: Active Medications Acetaminophen (Tylenol -) 650 mg PO Q6H PRN PRN Reason: FEVER Apixaban (Eliquis -) 5 mg PO BID [facility] Last Admin: 12/20/16 22:04 Dose: 5 mg Budesonide/Formoterol Fumarate (Symbicort 160/4.5mcg -) 1 puff IH BID [facility] Last Admin: 12/20/16 22:04 Dose: 1 puff Diltiazem HCl (Cardizem Cd -) 360 mg PO DAILY [facility] Last Admin: 12/20/16 09:36 Dose: 360 mg Hydroxychloroquine Sulfate (Plaquenil -) 200 mg PO BID [facility] Last Admin: 12/20/16 22:04 Dose: 200 mg Ceftriaxone Sodium (Rocephin 2gm Ivpb (Pre-Docked)) 100 mls @ 200 mls/hr IVPB DAILY [facility] Last Admin: 12/20/16 09:36 Dose: 200 mls/hr Montelukast Sodium (Singulair -) 10 mg PO HS [facility] Last Admin: 12/20/16 22:04 Dose: 10 mg Pantoprazole Sodium (Protonix -) 40 mg PO DAILY [facility] Last Admin: 12/20/16 09:36 Dose: 40 mg Sulfasalazine (Azulfidine -) 500 mg PO DAILY [facility] Last Admin: 12/20/16 10:34 Dose: 500 mg - Objective Vital Signs: Vital Signs Temperature 97.9 F 12/21/16 05:50 Pulse Rate 91 H 12/21/16 05:50 Respiratory Rate 18 12/21/16 05:50 Blood Pressure 122/48 12/21/16 05:50 O2 Sat by Pulse Oximetry (%) 94 L 12/20/16 21:00 Constitutional: Yes: Well Nourished, No Distress, Calm Eyes: Yes: Conjunctiva Clear, EOM Intact HENT: Yes: Atraumatic, Normocephalic Neck: Yes: Supple, Trachea Midline Cardiovascular: Yes: Pulse Irregular, Murmur, S1, S2. No: Bradycardia, Tachycardia, Bruit, JVD, Gallop, Rub, S3, S4, Varicosities Respiratory: Yes: Regular, Diminished, Rhonchi, Wheezes. No: Rales, SOB Gastrointestinal: Yes: Normal Bowel Sounds, Soft. No: Distention, Tenderness Musculoskeletal: Yes: Muscle Weakness Extremities: Yes: WNL Edema: No Peripheral Pulses WNL: Yes Peripheral Pulses: Left Doralis Pedis: 2+, Right Dorsalis Pedis: 2+ Integumentary: Yes: WNL Neurological: Yes: Alert, Oriented Psychiatric: Yes: Alert, Oriented Labs: CBC, BMP 12/20/16 05:45 12/21/16 06:38 INR, PTT INR 2.01 (0.82-1.09) H 12/16/16 00:58 - ....Imaging Chest X-ray: Report Reviewed, Image Reviewed EKG: Report Reviewed, Image Reviewed Other: Report Reviewed, Image Reviewed Assessment/Plan 81 year old woman with the history of COPD, asthma, rheumatoid arthritis, paroxysmal atrial fibrillation on eliquis, nonobstructive coronary artery disease on cardiac cath 01/2016 (50-60%mLAD), cholangiocarcinoma status post Whipple procedure, now s/p course of chemo, COPD/Asthma admitted with progressively worsening SOB, fatigue, noted to be hypoxic and tachycardic. SOB-likely due to b/l PNA, sepsis, chronic COPD-improving, h/o chronic diastolic CHF -improving -Holding Lasix, bun/creat improved, no sig edema -being tx for PNA/sepsis -ID and Pulmonary following -to be evaluated for home O2 Afib-paroxysmal with RVR on admission, HR has been adequately controlled -cont Cardizem CD 360mg daily, BP has tolerated this dose throughout admission -cont eliquis 5mg bid [id number] on cardiac cath 01/2016 -stable -pt has not been on ASA as an outpatient as she is on eliquis and has a history of severe nosebleeds -not on bblocker due to COPD/Asthma -cont cardizem -not on statin due to recent malignancy involving liver, to be re-evaluated as outpatient Murmur-chronic, likely secondary to mitral annular calcification and moderate -outpatient f/up
[2016-12-21] MEDS: CEFTRIAXONE 100 ML IVPB SCH (10:46)
[2016-12-21] MEDS: BUDESONIDE/FORMETEROL FUMARATE 160/4.5 mcg INHALER IH SCH ×2 (10:46→21:22)
[2016-12-21] MEDS: APIXABAN 5 MG TABLET PO SCH ×2 (10:47→21:32)
[2016-12-21] MEDS: HYDROXYCHLOROQUINE SO4 200 MG TABLET (FP) PO SCH ×2 (10:47→21:32)
[2016-12-21] MEDS: PANTOPRAZOLE 40 MG TABLET (FP) PO SCH (10:47)
--- NOTE | 2016-12-21 10:47 | PN ---
Progress Note (short form) - Note Progress Note: PULMONARY Breathing continues to slowly improve. +nonproductive cough and wheezing. No fevers or chills. Last Vital Signs Temp Pulse Resp BP Pulse Ox 97.9 F 91 H 18 122/48 94 L 12/21/16 05:50 12/21/16 05:50 12/21/16 05:50 12/21/16 05:50 12/20/16 21:00 Gen: mildly tachypneic with speaking Heart: RRR Lung: scattered rhonchi, wheezes Abd: soft, nontender Ext: + less edema CBC, BMP 12/20/16 05:45 12/21/16 06:38 Active Medications Acetaminophen (Tylenol -) 650 mg PO Q6H PRN PRN Reason: FEVER Apixaban (Eliquis -) 5 mg PO BID [facility] Last Admin: 12/20/16 22:04 Dose: 5 mg Budesonide/Formoterol Fumarate (Symbicort 160/4.5mcg -) 1 puff IH BID [facility] Last Admin: 12/20/16 22:04 Dose: 1 puff Diltiazem HCl (Cardizem Cd -) 360 mg PO DAILY [facility] Last Admin: 12/20/16 09:36 Dose: 360 mg Hydroxychloroquine Sulfate (Plaquenil -) 200 mg PO BID [facility] Last Admin: 12/20/16 22:04 Dose: 200 mg Ceftriaxone Sodium (Rocephin 2gm Ivpb (Pre-Docked)) 100 mls @ 200 mls/hr IVPB DAILY [facility] Last Admin: 12/20/16 09:36 Dose: 200 mls/hr Montelukast Sodium (Singulair -) 10 mg PO HS [facility] Last Admin: 12/20/16 22:04 Dose: 10 mg Pantoprazole Sodium (Protonix -) 40 mg PO DAILY [facility] Last Admin: 12/20/16 09:36 Dose: 40 mg Sulfasalazine (Azulfidine -) 500 mg PO DAILY [facility] Last Admin: 12/20/16 10:34 Dose: 500 mg A/P Pneumonia Strep Bacteremia COPD Acute Hypoxic Respiratory Failure Pancreatic Ca Atrial fibrillation - continue antibiotics - inhaled bronchodilators - rate control - continue anticoagulation - O2 to keep SpO2 >90% - will need to check ambulatory SpO2 when ready for discharge to assess for home O2
[2016-12-21] MEDS: sulfaSALAzine 500 MG TABLET PO SCH (10:48)
--- NOTE | 2016-12-21 10:56 | PN ---
Progress Note (short form) - Note Progress Note: Pt seen/ examined . feels ok chronic ill appearance denies pain. Vital Signs Temp 97.9 F 12/21/16 05:50 Pulse 91 H 12/21/16 05:50 Resp 18 12/21/16 05:50 BP 122/48 12/21/16 05:50 Pulse Ox 94 L 12/20/16 21:00 Intake & Output 12/20/16 12/20/16 12/21/16 11:59 23:59 11:59 Intake Total 450 300 200 Balance 450 300 200 Intake: IVPB 100 Oral 450 200 200 Other: Voiding Method Incontinent Incontinent Incontinent # Unmeasured Voids Void 1 1 Bowel Movement No No Active Medications Acetaminophen (Tylenol -) 650 mg PO Q6H PRN PRN Reason: FEVER Apixaban (Eliquis -) 5 mg PO BID [facility] Last Admin: 12/21/16 10:47 Dose: 5 mg Budesonide/Formoterol Fumarate (Symbicort 160/4.5mcg -) 1 puff IH BID [facility] Last Admin: 12/21/16 10:46 Dose: 1 puff Diltiazem HCl (Cardizem Cd -) 360 mg PO DAILY [facility] Last Admin: 12/21/16 10:52 Dose: 360 mg Hydroxychloroquine Sulfate (Plaquenil -) 200 mg PO BID [facility] Last Admin: 12/21/16 10:47 Dose: 200 mg Ceftriaxone Sodium (Rocephin 2gm Ivpb (Pre-Docked)) 100 mls @ 200 mls/hr IVPB DAILY [facility] Last Admin: 12/21/16 10:46 Dose: 200 mls/hr Montelukast Sodium (Singulair -) 10 mg PO HS [facility] Last Admin: 12/20/16 22:04 Dose: 10 mg Pantoprazole Sodium (Protonix -) 40 mg PO DAILY [facility] Last Admin: 12/21/16 10:47 Dose: 40 mg Sulfasalazine (Azulfidine -) 500 mg PO DAILY [facility] Last Admin: 12/21/16 10:48 Dose: 500 mg CBC, BMP 12/20/16 05:45 12/21/16 06:38 Physical Exam Constitutional: Yes: Comfortable Cardiovascular: Yes: Irrgelular Respiratory: Yes: Bilateral scattered rhonchi.- Gastrointestinal: Yes: Normal Bowel Sounds, Soft. No: Distention, Tenderness Edema: LLE: 1+, RLE: 1+ Psychiatric: Yes: Alert Problem List - Problems (1) Anemia Code(s): D64.9 - ANEMIA, UNSPECIFIED Qualifiers: Anemia type: unspecified type Qualified Code(s): D64.9 - Anemia, unspecified (2) COPD (chronic obstructive pulmonary disease) Code(s): J44.9 - CHRONIC OBSTRUCTIVE PULMONARY DISEASE, UNSPECIFIED Qualifiers : COPD type: COPD with acute lower respiratory infection Qualified Code(s ): J44.0 - Chronic obstructive pulmonary disease with acute lower respiratory infection (3) Pneumonia Code(s): J18.9 - PNEUMONIA, UNSPECIFIED ORGANISM (4) Rapid atrial fibrillation Code(s): I48.91 - UNSPECIFIED ATRIAL FIBRILLATION (5) SOB (shortness of breath) Code(s): R06.02 - SHORTNESS OF BREATH Assessment/Plan better continue abx nebulizer treatment physical therapy oob- chair as tolerated decubitus precautions will follow pulmonary f/u noted// appreciated
--- NOTE | 2016-12-21 13:33 | PN ---
Progress Note, Physician History of Present Illness: Awake, alert No complaints Afebrile - Current Medication List Current Medications: Active Medications Acetaminophen (Tylenol -) 650 mg PO Q6H PRN PRN Reason: FEVER Apixaban (Eliquis -) 5 mg PO BID [facility] Last Admin: 12/21/16 10:47 Dose: 5 mg Budesonide/Formoterol Fumarate (Symbicort 160/4.5mcg -) 1 puff IH BID [facility] Last Admin: 12/21/16 10:46 Dose: 1 puff Diltiazem HCl (Cardizem Cd -) 360 mg PO DAILY [facility] Last Admin: 12/21/16 10:52 Dose: 360 mg Hydroxychloroquine Sulfate (Plaquenil -) 200 mg PO BID [facility] Last Admin: 12/21/16 10:47 Dose: 200 mg Ceftriaxone Sodium (Rocephin 2gm Ivpb (Pre-Docked)) 100 mls @ 200 mls/hr IVPB DAILY [facility] Last Admin: 12/21/16 10:46 Dose: 200 mls/hr Montelukast Sodium (Singulair -) 10 mg PO HS [facility] Last Admin: 12/20/16 22:04 Dose: 10 mg Pantoprazole Sodium (Protonix -) 40 mg PO DAILY [facility] Last Admin: 12/21/16 10:47 Dose: 40 mg Sulfasalazine (Azulfidine -) 500 mg PO DAILY [facility] Last Admin: 12/21/16 10:48 Dose: 500 mg - Objective Vital Signs: Vital Signs Temperature 97.9 F 12/21/16 05:50 Pulse Rate 97 H 12/21/16 09:00 Respiratory Rate 22 12/21/16 09:00 Blood Pressure 110/52 12/21/16 09:00 O2 Sat by Pulse Oximetry (%) 96 12/21/16 09:00 Constitutional: Yes: No Distress Eyes: Yes: Conjunctiva Clear Cardiovascular: Yes: Regular Rate and Rhythm, S1, S2 Respiratory: Yes: Diminished Gastrointestinal: Yes: Normal Bowel Sounds, Soft. No: Tenderness Edema: Yes Labs: CBC, BMP 12/20/16 05:45 12/21/16 06:38 INR, PTT INR 2.01 (0.82-1.09) H 12/16/16 00:58 Assessment/Plan Strep sanguis bacteremia Pneumonia Pancreatic ca Continue ceftriaxone
--- NOTE | 2016-12-21 17:26 | PN ---
Progress Note (short form) - Note Progress Note: patient seen and examined. 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, on gemzar now with G+ bacteremia from pneumonia, cellulitis continue antibiotics per ID creatinine improved anemia --monitor discussed with daughter in detail incentive spirometry home O2 eval PT eval d/c planning Problem List - Problems (1) Bacterial infection due to Streptococcus Code(s): A49.1 - STREPTOCOCCAL INFECTION, UNSPECIFIED SITE (2) Anemia Code(s): D64.9 - ANEMIA, UNSPECIFIED Qualifiers: Anemia type: unspecified type Qualified Code(s): D64.9 - Anemia, unspecified (3) Pancreatic cancer Code(s): C25.9 - MALIGNANT NEOPLASM OF PANCREAS, UNSPECIFIED (4) Acute renal failure (ARF) Code(s): N17.9 - ACUTE KIDNEY FAILURE, UNSPECIFIED
[2016-12-21] MEDS ORDERED: PT OWN MED DRAWER 7, Y5N ONE (21:17)
[2016-12-21] MEDS: MONTELUKAST NA 10 MG TABLET PO SCH (21:22)
[2016-12-22 06:24] LABS: MCH 28.5 pg (25.7-33.7); MCHC 32.3 g/dl (32.0-36.0); MEAN CELL VOLUME 88.4 fl (80-96); MEAN PLT VOLUME 8.5 fl (7.5-11.1); PLATELET COUNT 472 K/MM3 (134-434); RDW 21.6 % (11.6-15.6); WHITE BLOOD COUNT 7.4 K/mm3 (4.0-10.0)
[2016-12-22 06:59] LABS: ALBUMIN 1.9 g/dl (3.4-5.0); ALK PHOS 89 U/L (45-117); ANION GAP 3 (8-16); BILIRUBIN,TOTAL 0.4 mg/dL (0.2-1.0); CALCIUM 8.4 mg/dL (8.5-10.1); CO2 37 mmol/L (21-32); CREATININE 0.7 mg/dL (0.55-1.02); GLUCOSE,RANDOM 86 mg/dL (74-106); SGOT/AST 38 U/L (15-37); SGPT/ALT 28 U/L (12-78); TOT PROT 5.3 g/dl (6.4-8.2)
[2016-12-22 09:36] LABS: METAMYELOCYTE 2 % (0-2); PLATELET ESTIMATE ADEQUATE (NORMAL)
[2016-12-22] MEDS ORDERED: PT OWN MED DRAWER 7, Y5N ONE (09:50)
--- NOTE | 2016-12-22 09:52 | PN ---
Progress Note, Physician History of Present Illness: seen and examined today in [facility]. states she is feeling better today. no overnight events. no new complaints. she wants to go home. - Current Medication List Current Medications: Active Medications Acetaminophen (Tylenol -) 650 mg PO Q6H PRN PRN Reason: FEVER Apixaban (Eliquis -) 5 mg PO BID [facility] Last Admin: 12/21/16 21:32 Dose: 5 mg Budesonide/Formoterol Fumarate (Symbicort 160/4.5mcg -) 1 puff IH BID [facility] Last Admin: 12/21/16 21:22 Dose: 1 puff Diltiazem HCl (Cardizem Cd -) 360 mg PO DAILY [facility] Last Admin: 12/21/16 10:52 Dose: 360 mg Hydroxychloroquine Sulfate (Plaquenil -) 200 mg PO BID [facility] Last Admin: 12/21/16 21:32 Dose: 200 mg Ceftriaxone Sodium (Rocephin 2gm Ivpb (Pre-Docked)) 100 mls @ 200 mls/hr IVPB DAILY [facility] Last Admin: 12/21/16 10:46 Dose: 200 mls/hr Montelukast Sodium (Singulair -) 10 mg PO HS [facility] Last Admin: 12/21/16 21:22 Dose: 10 mg Pantoprazole Sodium (Protonix -) 40 mg PO DAILY [facility] Last Admin: 12/21/16 10:47 Dose: 40 mg Sulfasalazine (Azulfidine -) 500 mg PO DAILY [facility] Last Admin: 12/21/16 10:48 Dose: 500 mg - Objective Vital Signs: Vital Signs Temperature 98.1 F 12/22/16 05:56 Pulse Rate 98 H 12/22/16 05:56 Respiratory Rate 20 12/22/16 05:56 Blood Pressure 120/57 12/22/16 05:56 O2 Sat by Pulse Oximetry (%) 96 12/21/16 21:00 Constitutional: Yes: No Distress, Calm Eyes: Yes: Conjunctiva Clear, EOM Intact, PERRL HENT: Yes: Atraumatic, Normocephalic Neck: Yes: Supple, Trachea Midline Cardiovascular: Yes: Pulse Irregular, Murmur, S1, S2. No: Regular Rate and Rhythm, Bradycardia, Tachycardia, Bruit, JVD, Gallop, Rub, S3, S4, Varicosities Respiratory: Yes: Regular, On Nasal O2, Rhonchi, Wheezes. No: Rales, SOB Gastrointestinal: Yes: Normal Bowel Sounds, Soft. No: Distention, Tenderness Edema: No Peripheral Pulses WNL: Yes Peripheral Pulses: Left Doralis Pedis: 2+, Right Dorsalis Pedis: 2+ Integumentary: Yes: WNL Neurological: Yes: Alert, Oriented Psychiatric: Yes: Alert, Oriented Labs: CBC, BMP 12/22/16 05:40 12/22/16 05:40 INR, PTT INR 2.01 (0.82-1.09) H 12/16/16 00:58 - ....Imaging Chest X-ray: Report Reviewed, Image Reviewed EKG: Report Reviewed, Image Reviewed Other: Report Reviewed, Image Reviewed Assessment/Plan 81 year old woman with the history of COPD, asthma, rheumatoid arthritis, paroxysmal atrial fibrillation on eliquis, nonobstructive coronary artery disease on cardiac cath 01/2016 (50-60%mLAD), cholangiocarcinoma status post Whipple procedure, now s/p course of chemo, COPD/Asthma admitted with progressively worsening SOB, fatigue, noted to be hypoxic and tachycardic. SOB-likely due to b/l PNA, sepsis, chronic COPD-improving, h/o chronic diastolic CHF -sob improving gradually each day -Holding Lasix, bun/creat improved, no sig edema -being tx for PNA/sepsis -ID and Pulmonary following -to be evaluated for home O2 Afib-paroxysmal with RVR on admission, HR has been adequately controlled -cont Cardizem CD 360mg daily, BP has tolerated this dose throughout admission -cont eliquis 5mg bid -close outpatient f/up for evaluation of HR control, may need to re-initiate Digoxin as outpatient if HR becomes uncontrolled during her normal activities [id number] on cardiac cath 01/2016 -stable, no active concerning symptoms -pt has not been on ASA as an outpatient as she is on eliquis and has a history of severe nosebleeds -not on bblocker due to COPD/Asthma -cont cardizem -not on statin due to recent malignancy involving liver, to be re-evaluated as outpatient Murmur-chronic, likely secondary to mitral annular calcification and moderate -echo reviewed -outpatient f/up with close monitoring for progression of
[2016-12-22] MEDS: CEFTRIAXONE 100 ML IVPB SCH (09:54)
[2016-12-22] MEDS: BUDESONIDE/FORMETEROL FUMARATE 160/4.5 mcg INHALER IH SCH ×2 (09:54→21:48)
[2016-12-22] MEDS: APIXABAN 5 MG TABLET PO SCH ×2 (09:54→21:47)
[2016-12-22] MEDS: PANTOPRAZOLE 40 MG TABLET (FP) PO SCH (09:54)
[2016-12-22] MEDS: HYDROXYCHLOROQUINE SO4 200 MG TABLET (FP) PO SCH ×2 (09:54→21:47)
[2016-12-22] MEDS: sulfaSALAzine 500 MG TABLET PO SCH (09:55)
--- NOTE | 2016-12-22 10:23 | PN ---
Progress Note, Physician Chief Complaint: Patient 's dyspnea is improving no chills or fever complained of cough with yellowish sputum, with streaks of pink yesterday, otherwise feels better Day 6 on antibiotic, 4th day on ceftriaxone wants to go home, on home oxygen - Current Medication List Current Medications: Active Medications Acetaminophen (Tylenol -) 650 mg PO Q6H PRN PRN Reason: FEVER Apixaban (Eliquis -) 5 mg PO BID [facility] Last Admin: 12/22/16 09:54 Dose: 5 mg Budesonide/Formoterol Fumarate (Symbicort 160/4.5mcg -) 1 puff IH BID [facility] Last Admin: 12/22/16 09:54 Dose: 1 puff Diltiazem HCl (Cardizem Cd -) 360 mg PO DAILY [facility] Last Admin: 12/22/16 09:55 Dose: Not Given Hydroxychloroquine Sulfate (Plaquenil -) 200 mg PO BID [facility] Last Admin: 12/22/16 09:54 Dose: 200 mg Ceftriaxone Sodium (Rocephin 2gm Ivpb (Pre-Docked)) 100 mls @ 200 mls/hr IVPB DAILY [facility] Last Admin: 12/22/16 09:54 Dose: 200 mls/hr Montelukast Sodium (Singulair -) 10 mg PO HS [facility] Last Admin: 12/21/16 21:22 Dose: 10 mg Pantoprazole Sodium (Protonix -) 40 mg PO DAILY [facility] Last Admin: 12/22/16 09:54 Dose: 40 mg Sulfasalazine (Azulfidine -) 500 mg PO DAILY [facility] Last Admin: 12/22/16 09:55 Dose: 500 mg - Objective Vital Signs: Vital Signs Temperature 97.8 F 12/22/16 10:00 Pulse Rate 95 H 12/22/16 10:00 Respiratory Rate 20 12/22/16 10:00 Blood Pressure 98/58 12/22/16 10:00 O2 Sat by Pulse Oximetry (%) 96 12/21/16 21:00 Constitutional: Yes: Calm, Mild Distress, Thin Eyes: No: Sclera Icterus HENT: No: Hoarseness, Nasal Congestion, Thrush Neck: Yes: Supple. No: Rigid, Tenderness Cardiovascular: Yes: Murmur (Grade 3 murmur, louder at right sternal border), S1 , S2 Respiratory: Yes: On Nasal O2, Rales (few fine crackles more at left lung base) . No: Rhonchi, Wheezes Gastrointestinal: Yes: Soft, Abdomen, Obese. No: Tenderness Genitourinary: No: Anuria, [place] Present Edema: Yes Edema: LLE: 2+, RLE: 2+ Integumentary: No: Bruising (resolving upper limb bruises bilaterally) Neurological: Yes: Oriented. No: Confusion Psychiatric: Yes: Alert, Oriented Labs: CBC, BMP 12/22/16 05:40 12/22/16 05:40 INR, PTT INR 2.01 (0.82-1.09) H 12/16/16 00:58 Problem List - Problems (1) Bacterial infection due to Streptococcus Assessment/Plan: Strep Sanguis bacteremia eve Ca pancreas patient, S/P Whipple's procedure and gemcitrabine With background significant valvular disease 6th day on Antibiotic, 4th day on ceftriaxone Plan: Continue Ceftriaxone Plan to be treated for 4 weeks in the presence of valvular heart disease and strep Code(s): A49.1 - STREPTOCOCCAL INFECTION, UNSPECIFIED SITE (2) Streptococcal pneumonia Assessment/Plan: Pneumonia in the presence of Strep sanguis bacteremia in a patient s/P Whipples procedure, on gemticitabine 6 days on antibiotics, 4th day on ceftriaxone Improving chest signs and SOB Code(s): J15.4 - PNEUMONIA DUE TO OTHER STREPTOCOCCI (3) Pancreatic cancer Code(s): C25.9 - MALIGNANT NEOPLASM OF PANCREAS, UNSPECIFIED Impression/Plan Impression/Plan: Strep sanguis pneumonia with negative repeat blood culture in patient s/p whipples for ca pancreas, improving, still dypneic requesting home oxygen Plan: Continue ceftriaxone Visit type - Emergency Visit Emergency Visit: No - New Patient This patient is new to me today: No - Critical Care Critical Care patient: No - Discharge Referral Referred to [facility] Med [facility].C[facility] No
--- NOTE | 2016-12-22 11:31 | PN ---
Progress Note (short form) - Note Progress Note: Pt seen/ examined . feels ok chronic ill appearance--better denies pain. wants to go home decreased sob. Vital Signs Temp 97.8 F 12/22/16 10:00 Pulse 86 12/22/16 10:22 Resp 20 12/22/16 10:00 BP 98/58 12/22/16 10:00 Pulse Ox 97 12/22/16 10:22 Intake & Output 12/21/16 12/21/16 12/22/16 11:59 23:59 11:59 Intake Total 200 603 500 Balance 200 603 500 Intake: IV 3 S/L 3 IVPB 100 Oral 200 500 500 Other: Voiding Method Incontinent Incontinent Bedside Commode # Unmeasured Voids Void 1 1 2 Bowel Movement No No Active Medications Acetaminophen (Tylenol -) 650 mg PO Q6H PRN PRN Reason: FEVER Apixaban (Eliquis -) 5 mg PO BID [facility] Last Admin: 12/21/16 10:47 Dose: 5 mg Budesonide/Formoterol Fumarate (Symbicort 160/4.5mcg -) 1 puff IH BID [facility] Last Admin: 12/21/16 10:46 Dose: 1 puff Diltiazem HCl (Cardizem Cd -) 360 mg PO DAILY [facility] Last Admin: 12/21/16 10:52 Dose: 360 mg Hydroxychloroquine Sulfate (Plaquenil -) 200 mg PO BID [facility] Last Admin: 12/21/16 10:47 Dose: 200 mg Ceftriaxone Sodium (Rocephin 2gm Ivpb (Pre-Docked)) 100 mls @ 200 mls/hr IVPB DAILY [facility] Last Admin: 12/21/16 10:46 Dose: 200 mls/hr Montelukast Sodium (Singulair -) 10 mg PO HS [facility] Last Admin: 12/20/16 22:04 Dose: 10 mg Pantoprazole Sodium (Protonix -) 40 mg PO DAILY [facility] Last Admin: 12/21/16 10:47 Dose: 40 mg Sulfasalazine (Azulfidine -) 500 mg PO DAILY [facility] Last Admin: 12/21/16 10:48 Dose: 500 mg Physical Exam Constitutional: Yes: Comfortable/ better Cardiovascular: Yes: Irregular Respiratory: Yes: Bilateral scattered rhonchi.- Gastrointestinal: Yes: Normal Bowel Sounds, Soft. No: Distention, Tenderness Edema: LLE: 1+, RLE: 1+ Psychiatric: Yes: Alert Assessment/Plan better continue abx per i/d. nebulizer treatment. physical therapy. oob- chair as tolerated decubitus precautions will follow Problem List - Problems (1) Anemia Code(s): D64.9 - ANEMIA, UNSPECIFIED Qualifiers: Anemia type: unspecified type Qualified Code(s): D64.9 - Anemia, unspecified (2) Bacterial infection due to Streptococcus Code(s): A49.1 - STREPTOCOCCAL INFECTION, UNSPECIFIED SITE (3) COPD (chronic obstructive pulmonary disease) Code(s): J44.9 - CHRONIC OBSTRUCTIVE PULMONARY DISEASE, UNSPECIFIED Qualifiers : COPD type: COPD with acute lower respiratory infection Qualified Code(s ): J44.0 - Chronic obstructive pulmonary disease with acute lower respiratory infection (4) Pancreatic cancer Code(s): C25.9 - MALIGNANT NEOPLASM OF PANCREAS, UNSPECIFIED (5) Pneumonia Code(s): J18.9 - PNEUMONIA, UNSPECIFIED ORGANISM (6) Sacral pressure ulcer Code(s): L89.159 - PRESSURE ULCER OF SACRAL REGION, UNSPECIFIED STAGE Qualifiers: Pressure ulcer stage: stage 2 Qualified Code(s): L89.152 - Pressure ulcer of sacral region, stage 2
--- NOTE | 2016-12-22 11:44 | PN ---
Progress Note (short form) - Note Progress Note: Renal Follow up for SCOT Pt seen and examined at the bedside awake and alert no acute complaints feels much better possible d/c home today Vital Signs Temperature 97.8 F 12/22/16 10:00 Pulse Rate 86 12/22/16 10:22 Respiratory Rate 20 12/22/16 10:00 Blood Pressure 98/58 12/22/16 10:00 O2 Sat by Pulse Oximetry (%) 97 12/22/16 10:22 Intake & Output 12/19/16 12/20/16 12/21/16 12/22/16 23:59 23:59 23:59 23:59 Intake Total 900 750 803 500 Output Total 500 Balance 400 750 803 500 Gen: NAD, awake and alert CVS: RRR Lungs: Dec BS b/l lung fileds Ext: Trace edema CBC, BMP 12/22/16 05:40 12/22/16 05:40 Current Medications Acetaminophen (Tylenol -) 650 mg PO Q6H PRN PRN Reason: FEVER Apixaban (Eliquis -) 5 mg PO BID [facility] Last Admin: 12/22/16 09:54 Dose: 5 mg Budesonide/Formoterol Fumarate (Symbicort 160/4.5mcg -) 1 puff IH BID [facility] Last Admin: 12/22/16 09:54 Dose: 1 puff Diltiazem HCl (Cardizem Cd -) 360 mg PO DAILY [facility] Last Admin: 12/22/16 09:55 Dose: Not Given Hydroxychloroquine Sulfate (Plaquenil -) 200 mg PO BID [facility] Last Admin: 12/22/16 09:54 Dose: 200 mg Ceftriaxone Sodium (Rocephin 2gm Ivpb (Pre-Docked)) 100 mls @ 200 mls/hr IVPB DAILY [facility] Last Admin: 12/22/16 09:54 Dose: 200 mls/hr Montelukast Sodium (Singulair -) 10 mg PO HS [facility] Last Admin: 12/21/16 21:22 Dose: 10 mg Pantoprazole Sodium (Protonix -) 40 mg PO DAILY [facility] Last Admin: 12/22/16 09:54 Dose: 40 mg Sulfasalazine (Azulfidine -) 500 mg PO DAILY [facility] Last Admin: 12/22/16 09:55 Dose: 500 mg 81 year old woman with PMhx of Asthma, COPD, Pancreatic Ca s/p Whipple and Chemo (last chemo 10 days prior to admission), RA, Afib on Eliquis who presented with SOB for 2 days and admitted for suspected CHF exacerbation vs. PNA with SCOT. #Acute Renal Failure Renal function now improved to baseline off diuretics pt advised to maintain good oral intake of fluids on discharge can resume home lasix f/u with PMD for repeat labs Nahum Clay DO Problem List - Problems (1) Acute renal failure (ARF) Code(s): N17.9 - ACUTE KIDNEY FAILURE, UNSPECIFIED (2) Anemia Code(s): D64.9 - ANEMIA, UNSPECIFIED Qualifiers: Anemia type: unspecified type Qualified Code(s): D64.9 - Anemia, unspecified (3) COPD (chronic obstructive pulmonary disease) Code(s): J44.9 - CHRONIC OBSTRUCTIVE PULMONARY DISEASE, UNSPECIFIED Qualifiers : COPD type: COPD with acute lower respiratory infection Qualified Code(s ): J44.0 - Chronic obstructive pulmonary disease with acute lower respiratory infection (4) Pancreatic cancer Code(s): C25.9 - MALIGNANT NEOPLASM OF PANCREAS, UNSPECIFIED (5) Pneumonia Code(s): J18.9 - PNEUMONIA, UNSPECIFIED ORGANISM (6) SOB (shortness of breath) Code(s): R06.02 - SHORTNESS OF BREATH (7) Atrial fibrillation Code(s): I48.91 - UNSPECIFIED ATRIAL FIBRILLATION (8) Leukocytosis Code(s): D72.829 - ELEVATED WHITE BLOOD CELL COUNT, UNSPECIFIED
--- NOTE | 2016-12-22 13:59 | PN ---
Progress Note, Physician History of Present Illness: PULMONARY ALERT,FEELING BETTER,LESS DYSPNEIC - Current Medication List Current Medications: Active Medications Acetaminophen (Tylenol -) 650 mg PO Q6H PRN PRN Reason: FEVER Apixaban (Eliquis -) 5 mg PO BID [facility] Last Admin: 12/22/16 09:54 Dose: 5 mg Budesonide/Formoterol Fumarate (Symbicort 160/4.5mcg -) 1 puff IH BID [facility] Last Admin: 12/22/16 09:54 Dose: 1 puff Diltiazem HCl (Cardizem Cd -) 360 mg PO DAILY [facility] Last Admin: 12/22/16 09:55 Dose: Not Given Hydroxychloroquine Sulfate (Plaquenil -) 200 mg PO BID [facility] Last Admin: 12/22/16 09:54 Dose: 200 mg Ceftriaxone Sodium (Rocephin 2gm Ivpb (Pre-Docked)) 100 mls @ 200 mls/hr IVPB DAILY [facility] Last Admin: 12/22/16 09:54 Dose: 200 mls/hr Montelukast Sodium (Singulair -) 10 mg PO HS [facility] Last Admin: 12/21/16 21:22 Dose: 10 mg Pantoprazole Sodium (Protonix -) 40 mg PO DAILY [facility] Last Admin: 12/22/16 09:54 Dose: 40 mg Sulfasalazine (Azulfidine -) 500 mg PO DAILY [facility] Last Admin: 12/22/16 09:55 Dose: 500 mg - Objective Vital Signs: Vital Signs Temperature 97.8 F 12/22/16 10:00 Pulse Rate 86 12/22/16 10:22 Respiratory Rate 20 12/22/16 10:00 Blood Pressure 98/58 12/22/16 10:00 O2 Sat by Pulse Oximetry (%) 97 12/22/16 10:22 Constitutional: Yes: Well Nourished, Calm Eyes: Yes: WNL HENT: Yes: WNL Neck: Yes: WNL Cardiovascular: Yes: Pulse Irregular, S1, S2 Respiratory: Yes: Diminished, Rhonchi (SCATTERED RHONCHI) Gastrointestinal: Yes: Normal Bowel Sounds, Soft Extremities: Yes: WNL Edema: No Labs: CBC, BMP 12/22/16 05:40 12/22/16 05:40 INR, PTT INR 2.01 (0.82-1.09) H 12/16/16 00:58 Assessment/Plan A/P Pneumonia Strep Bacteremia COPD Acute Hypoxic Respiratory Failure Pancreatic Ca Atrial fibrillation - continue antibiotics - inhaled bronchodilators - rate control - continue anticoagulation - O2 to keep SpO2 >90% - will need to check ambulatory SpO2 when ready for discharge to assess for home O2 - CHEST X-RAY DR MORALES
--- NOTE | 2016-12-22 15:40 | PN ---
Teaching Attending Note Name of Resident: Filomena Yepez ATTENDING PHYSICIAN STATEMENT I saw and evaluated the patient. I reviewed the resident's note and discussed the case with the resident. I agree with the resident's findings and plan as documented. SUBJECTIVE: she was ill for 3 days before admission now feeling better never had fever no home oxygen now on 5 liters nasal canulla OBJECTIVE: alert poor dentition lungs with bibasilar crackles abd soft,nt incision healed, no erythema ext no edema CBC, BMP 12/22/16 05:40 12/22/16 05:40 Microbiology 12/18/16 12:40 Blood - Peripheral Venous Blood Culture - Preliminary NO GROWTH OBTAINED AFTER 96 HOURS, INCUBATION TO CONTINUE FOR 1 DAYS. 12/18/16 12:30 Blood - Peripheral Venous Blood Culture - Preliminary NO GROWTH OBTAINED AFTER 96 HOURS, INCUBATION TO CONTINUE FOR 1 DAYS. 12/15/16 23:30 Blood - Peripheral Venous Blood Culture - Preliminary Streptococcus Sangius I Staphylococcus Epidermidis 12/15/16 23:30 Blood - Peripheral Venous Blood Culture - Final Streptococcus Sangius I 12/18/16 11:25 Urine For Antigen Detection Legionella Antigen - Final 12/17/16 11:00 Urine For Antigen Detection Legionella Antigen - Final 12/17/16 11:00 Urine For Antigen Detection Streptococcus pneumoniae Antigen (M - Final 12/16/16 02:30 Urine - Urine - Catheterized Urine Culture - Final NO GROWTH OBTAINED ASSESSMENT AND PLAN: strep sanguis bacteremia valvular heart disease pneumonia pancreatic cancer s/p whipples procedure September 2016, on chemotherapy would continue rocephin day #7 antibiotics would treat for 4 weeks given valvular heart disease d/w Cardiology KINGA may not help at this time (lots of calcifications) and may be detrimental given her tenous pulmonary status repeat cxray
[2016-12-22 17:45] LABS: ARTERIAL BLD GAS O2 SATURATION 96.5 % (90-98.9); ARTERIAL BLOOD GAS BASE EXCESS 8.3 meq/l (-2-2); ARTERIAL BLOOD GAS PO2 80.9 mmHg (70-100); ARTERIAL BLOOD GAS pH 7.45 (7.35-7.45)
[2016-12-22 17:46] LABS: ALLENS TEST POSITIVE; ART PUNCT SITE RIGHT RADIAL; LPM/O2% 5L; PT. ON O2? YES; TYPE OF O2 NASAL
--- NOTE | 2016-12-22 18:14 | PN ---
Progress Note (short form) - Note Progress Note: patient seen and examined. feels better Last Vital Signs Temp Pulse Resp BP Pulse Ox 97.5 F L 93 H 20 101/49 97 12/22/16 14:14 12/22/16 14:14 12/22/16 14:14 12/22/16 14:14 12/22/16 10:22 Neck: Supple Nodes: Without adenopathy Cor: RSR, No murmurs, No gallops Lungs: scatterd wheezes Abd: Soft, Normal bowel sounds, No organomegaly Abnormal Lab Results 12/22/16 12/22/16 12/22/16 05:40 05:40 17:43 RBC 3.00 L Hgb 8.6 L Hct 26.5 L RDW 21.6 H D Plt Count 472 H D Monocytes % 15.0 H D Myelocytes 3 H D ABG pCO2 at Pt Temp 48.1 H ABG HCO3 33.0 H ABG O2 Content 13.2 L ABG Base Excess 8.3 H Potassium 5.3 H Carbon Dioxide 37 H Anion Gap 3 L BUN 24 H Calcium 8.4 L AST 38 H Total Protein 5.3 L Albumin 1.9 L A/P 81 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, on gemzar now with G+ bacteremia from pneumonia, cellulitis continue antibiotics per ID creatinine improved anemia --monitor discussed with ID team ---to consider 4 weeks of IV antibiotics for possible IV access placement for IV antibiotics Problem List - Problems (1) Bacterial infection due to Streptococcus Code(s): A49.1 - STREPTOCOCCAL INFECTION, UNSPECIFIED SITE (2) Anemia Code(s): D64.9 - ANEMIA, UNSPECIFIED Qualifiers: Anemia type: unspecified type Qualified Code(s): D64.9 - Anemia, unspecified (3) Pancreatic cancer Code(s): C25.9 - MALIGNANT NEOPLASM OF PANCREAS, UNSPECIFIED (4) Acute renal failure (ARF) Code(s): N17.9 - ACUTE KIDNEY FAILURE, UNSPECIFIED
[2016-12-22] MEDS: MONTELUKAST NA 10 MG TABLET PO SCH (21:47)
--- NOTE | 2016-12-23 09:07 | PN ---
Progress Note, Physician Chief Complaint: sitting in bed, awake- appears comfortable History of Present Illness: no chest pain, SOB, palps - Current Medication List Current Medications: Active Medications Acetaminophen (Tylenol -) 650 mg PO Q6H PRN PRN Reason: FEVER Apixaban (Eliquis -) 5 mg PO BID [facility] Last Admin: 12/22/16 21:47 Dose: 5 mg Budesonide/Formoterol Fumarate (Symbicort 160/4.5mcg -) 1 puff IH BID [facility] Last Admin: 12/22/16 21:48 Dose: 1 puff Diltiazem HCl (Cardizem Cd -) 360 mg PO DAILY [facility] Last Admin: 12/22/16 09:55 Dose: Not Given Hydroxychloroquine Sulfate (Plaquenil -) 200 mg PO BID [facility] Last Admin: 12/22/16 21:47 Dose: 200 mg Ceftriaxone Sodium (Rocephin 2gm Ivpb (Pre-Docked)) 100 mls @ 200 mls/hr IVPB DAILY [facility] Last Admin: 12/22/16 09:54 Dose: 200 mls/hr Montelukast Sodium (Singulair -) 10 mg PO HS [facility] Last Admin: 12/22/16 21:47 Dose: 10 mg Pantoprazole Sodium (Protonix -) 40 mg PO DAILY [facility] Last Admin: 12/22/16 09:54 Dose: 40 mg Sulfasalazine (Azulfidine -) 500 mg PO DAILY [facility] Last Admin: 12/22/16 09:55 Dose: 500 mg - Objective Vital Signs: Vital Signs Temperature 97.9 F 12/23/16 06:00 Pulse Rate 100 H 12/23/16 06:00 Respiratory Rate 18 12/23/16 06:00 Blood Pressure 110/74 12/23/16 06:00 O2 Sat by Pulse Oximetry (%) 95 12/22/16 20:43 Constitutional: Yes: No Distress Eyes: Yes: Conjunctiva Clear Cardiovascular: Yes: Regular Rate and Rhythm Respiratory: Yes: Other (slight decreased breath sounds at bases, otherwise clear) Gastrointestinal: Yes: Soft Edema: No Neurological: Yes: Alert, Oriented ...Motor Strength: WNL Labs: CBC, BMP 12/22/16 05:40 12/22/16 05:40 INR, PTT INR 2.01 (0.82-1.09) H 12/16/16 00:58 Laboratory Tests 12/22/16 12/22/16 05:40 05:40 WBC 7.4 Hgb 8.6 L Plt Count 472 H D Sodium 142 Potassium 5.3 H BUN 24 H Creatinine 0.7 Calcium 8.4 L AST 38 H ALT 28 Alkaline Phosphatase 89 Assessment/Plan Assessment/Plan 81 year old woman with the history of COPD, asthma, rheumatoid arthritis, paroxysmal atrial fibrillation on eliquis, nonobstructive coronary artery disease on cardiac cath 01/2016 (50-60%mLAD), cholangiocarcinoma status post Whipple procedure, now s/p course of chemo, COPD/Asthma admitted with progressively worsening SOB, fatigue, noted to be hypoxic and tachycardic with gram + bacteremia due to PNA, now cleared. SOB-likely due to b/l PNA and early sepsis. -Holding Lasix, bun/creat improved, no sig edema -Bacteremia quickly cleared, plan for IV abx as per ID Afib-paroxysmal. -cont Cardizem CD 360mg daily, BP has tolerated this dose throughout admission -cont eliquis 5mg bid [id number] on cardiac cath 01/2016 -pt has not been on ASA as an outpatient as she is on eliquis and has a history of severe nosebleeds -not on bblocker due to COPD/Asthma -not on statin due to recent malignancy involving liver, to be re-evaluated as outpatient Murmur-chronic, likely secondary to mitral annular calcification and moderate -outpatient f/u with serial echo yearly unless clinical change warrants imaging sooner
[2016-12-23] MEDS: CEFTRIAXONE 100 ML IVPB SCH (09:19)
[2016-12-23] MEDS: BUDESONIDE/FORMETEROL FUMARATE 160/4.5 mcg INHALER IH SCH ×2 (09:19→22:26)
[2016-12-23] MEDS: HYDROXYCHLOROQUINE SO4 200 MG TABLET (FP) PO SCH ×2 (09:20→22:26)
[2016-12-23] MEDS: PANTOPRAZOLE 40 MG TABLET (FP) PO SCH (09:20)
[2016-12-23] MEDS: APIXABAN 5 MG TABLET PO SCH ×2 (09:20→22:26)
[2016-12-23] MEDS: sulfaSALAzine 500 MG TABLET PO SCH (09:21)
[2016-12-23 10:10] LABS: ANION GAP 6 (8-16); CALCIUM 8.6 mg/dL (8.5-10.1); CO2 35 mmol/L (21-32); CREATININE 0.6 mg/dL (0.55-1.02); GLUCOSE,RANDOM 95 mg/dL (74-106); MAGNESIUM 2.4 mg/dL (1.8-2.4)
[2016-12-23] MEDS ORDERED: PICC LINE 8 ML FLUSH PROTOCOL IVPUSH PRN (11:44)
--- NOTE | 2016-12-23 11:52 | PN ---
Progress Note, Physician Chief Complaint: no complaints feels well - Current Medication List Current Medications: Active Medications Acetaminophen (Tylenol -) 650 mg PO Q6H PRN PRN Reason: FEVER Apixaban (Eliquis -) 5 mg PO BID [facility] Last Admin: 12/23/16 09:20 Dose: 5 mg Budesonide/Formoterol Fumarate (Symbicort 160/4.5mcg -) 1 puff IH BID [facility] Last Admin: 12/23/16 09:19 Dose: 1 puff Diltiazem HCl (Cardizem Cd -) 360 mg PO DAILY [facility] Last Admin: 12/23/16 09:19 Dose: 360 mg Hydroxychloroquine Sulfate (Plaquenil -) 200 mg PO BID [facility] Last Admin: 12/23/16 09:20 Dose: 200 mg IV Flush (Picc Line Flush) 8 ml IVPUSH PRN PRN PRN Reason: Protocol Ceftriaxone Sodium (Rocephin 2gm Ivpb (Pre-Docked)) 100 mls @ 200 mls/hr IVPB DAILY [facility] Last Admin: 12/23/16 09:19 Dose: 200 mls/hr Montelukast Sodium (Singulair -) 10 mg PO HS [facility] Last Admin: 12/22/16 21:47 Dose: 10 mg Pantoprazole Sodium (Protonix -) 40 mg PO DAILY [facility] Last Admin: 12/23/16 09:20 Dose: 40 mg Sulfasalazine (Azulfidine -) 500 mg PO DAILY [facility] Last Admin: 12/23/16 09:21 Dose: 500 mg - Objective Vital Signs: Vital Signs Temperature 97.9 F 12/23/16 06:00 Pulse Rate 100 H 12/23/16 06:00 Respiratory Rate 18 12/23/16 06:00 Blood Pressure 110/74 12/23/16 06:00 O2 Sat by Pulse Oximetry (%) 95 12/22/16 20:43 Constitutional: Yes: No Distress Cardiovascular: Yes: Regular Rate and Rhythm Respiratory: Yes: Diminished Gastrointestinal: Yes: Normal Bowel Sounds, Soft. No: Distention, Tenderness Edema: No Labs: CBC, BMP 12/22/16 05:40 12/23/16 09:20 INR, PTT INR 2.01 (0.82-1.09) H 12/16/16 00:58 Problem List - Problems (1) Anemia Code(s): D64.9 - ANEMIA, UNSPECIFIED Qualifiers: Anemia type: unspecified type Qualified Code(s): D64.9 - Anemia, unspecified (2) COPD (chronic obstructive pulmonary disease) Code(s): J44.9 - CHRONIC OBSTRUCTIVE PULMONARY DISEASE, UNSPECIFIED Qualifiers : COPD type: COPD with acute lower respiratory infection Qualified Code(s ): J44.0 - Chronic obstructive pulmonary disease with acute lower respiratory infection (3) Pneumonia Code(s): J18.9 - PNEUMONIA, UNSPECIFIED ORGANISM (4) Rapid atrial fibrillation Code(s): I48.91 - UNSPECIFIED ATRIAL FIBRILLATION (5) SOB (shortness of breath) Code(s): R06.02 - SHORTNESS OF BREATH Assessment/Plan PLAN IV antibiotics-needs 3 more weeks CXR same repeat CT chest O2 - check pre and post ambulatory O2 Continue with meds DVT prophylaxis Chemotherapy on hold
--- NOTE | 2016-12-23 14:34 | PN ---
Progress Note (short form) - Note Progress Note: Renal Follow up for SCOT Pt seen and examined at the bedside no acute complaints Vital Signs Temperature 97.8 F 12/23/16 14:22 Pulse Rate 94 H 12/23/16 14:22 Respiratory Rate 18 12/23/16 14:22 Blood Pressure 97/54 12/23/16 14:22 O2 Sat by Pulse Oximetry (%) 95 12/23/16 13:25 Intake & Output 12/20/16 12/21/16 12/22/16 12/23/16 23:59 23:59 23:59 23:59 Intake Total 750 803 800 200 Balance 750 803 800 200 Gen: NAD, awake and alert CVS: RRR Lungs: Dec BS b/l lung fileds Ext: no edema CBC, BMP 12/22/16 05:40 12/23/16 09:20 Current Medications Acetaminophen (Tylenol -) 650 mg PO Q6H PRN PRN Reason: FEVER Apixaban (Eliquis -) 5 mg PO BID [facility] Last Admin: 12/23/16 09:20 Dose: 5 mg Budesonide/Formoterol Fumarate (Symbicort 160/4.5mcg -) 1 puff IH BID [facility] Last Admin: 12/23/16 09:19 Dose: 1 puff Diltiazem HCl (Cardizem Cd -) 360 mg PO DAILY [facility] Last Admin: 12/23/16 09:19 Dose: 360 mg Hydroxychloroquine Sulfate (Plaquenil -) 200 mg PO BID [facility] Last Admin: 12/23/16 09:20 Dose: 200 mg IV Flush (Picc Line Flush) 8 ml IVPUSH PRN PRN PRN Reason: Protocol Ceftriaxone Sodium (Rocephin 2gm Ivpb (Pre-Docked)) 100 mls @ 200 mls/hr IVPB DAILY [facility] Last Admin: 12/23/16 09:19 Dose: 200 mls/hr Montelukast Sodium (Singulair -) 10 mg PO HS [facility] Last Admin: 12/22/16 21:47 Dose: 10 mg Pantoprazole Sodium (Protonix -) 40 mg PO DAILY [facility] Last Admin: 12/23/16 09:20 Dose: 40 mg Sulfasalazine (Azulfidine -) 500 mg PO DAILY [facility] Last Admin: 12/23/16 09:21 Dose: 500 mg 81 year old woman with PMhx of Asthma, COPD, Pancreatic Ca s/p Whipple and Chemo (last chemo 10 days prior to admission), RA, Afib on Eliquis who presented with SOB for 2 days and admitted for suspected CHF exacerbation vs. PNA with SCOT. #Acute Renal Failure Renal function is improved and stable currently off diuretics and appears evolemic #Metabolic alkalosis with Resp acidosis alkalosis likely due to volume contraction #Sepsis/bacteremia/PNA continue Abx as per ID will need PICC for outpatient Abx Nahum Clay DO Problem List - Problems (1) Acute renal failure (ARF) Code(s): N17.9 - ACUTE KIDNEY FAILURE, UNSPECIFIED (2) Anemia Code(s): D64.9 - ANEMIA, UNSPECIFIED Qualifiers: Anemia type: unspecified type Qualified Code(s): D64.9 - Anemia, unspecified (3) COPD (chronic obstructive pulmonary disease) Code(s): J44.9 - CHRONIC OBSTRUCTIVE PULMONARY DISEASE, UNSPECIFIED Qualifiers : COPD type: COPD with acute lower respiratory infection Qualified Code(s ): J44.0 - Chronic obstructive pulmonary disease with acute lower respiratory infection (4) Pancreatic cancer Code(s): C25.9 - MALIGNANT NEOPLASM OF PANCREAS, UNSPECIFIED (5) Pneumonia Code(s): J18.9 - PNEUMONIA, UNSPECIFIED ORGANISM (6) SOB (shortness of breath) Code(s): R06.02 - SHORTNESS OF BREATH (7) Atrial fibrillation Code(s): I48.91 - UNSPECIFIED ATRIAL FIBRILLATION (8) Leukocytosis Code(s): D72.829 - ELEVATED WHITE BLOOD CELL COUNT, UNSPECIFIED
--- NOTE | 2016-12-23 16:04 | PN ---
Progress Note, Physician Chief Complaint: Patient is dyspneic, says it worsens with increased humidity no chills or fever Day 7 on antibiotic, 5th day on ceftriaxone - Current Medication List Current Medications: Active Medications Acetaminophen (Tylenol -) 650 mg PO Q6H PRN PRN Reason: FEVER Apixaban (Eliquis -) 5 mg PO BID [facility] Last Admin: 12/23/16 09:20 Dose: 5 mg Budesonide/Formoterol Fumarate (Symbicort 160/4.5mcg -) 1 puff IH BID [facility] Last Admin: 12/23/16 09:19 Dose: 1 puff Diltiazem HCl (Cardizem Cd -) 360 mg PO DAILY [facility] Last Admin: 12/23/16 09:19 Dose: 360 mg Hydroxychloroquine Sulfate (Plaquenil -) 200 mg PO BID [facility] Last Admin: 12/23/16 09:20 Dose: 200 mg IV Flush (Picc Line Flush) 8 ml IVPUSH PRN PRN PRN Reason: Protocol Ceftriaxone Sodium (Rocephin 2gm Ivpb (Pre-Docked)) 100 mls @ 200 mls/hr IVPB DAILY [facility] Last Admin: 12/23/16 09:19 Dose: 200 mls/hr Montelukast Sodium (Singulair -) 10 mg PO HS [facility] Last Admin: 12/22/16 21:47 Dose: 10 mg Pantoprazole Sodium (Protonix -) 40 mg PO DAILY [facility] Last Admin: 12/23/16 09:20 Dose: 40 mg Sulfasalazine (Azulfidine -) 500 mg PO DAILY [facility] Last Admin: 12/23/16 09:21 Dose: 500 mg - Objective Vital Signs: Vital Signs Temperature 97.8 F 12/23/16 14:22 Pulse Rate 94 H 12/23/16 14:22 Respiratory Rate 18 12/23/16 14:22 Blood Pressure 97/54 12/23/16 14:22 O2 Sat by Pulse Oximetry (%) 95 12/23/16 13:25 Constitutional: Yes: Mild Distress (on intranasal oxygen), Thin Eyes: Yes: Conjunctiva Clear, EOM Intact HENT: Yes: Atraumatic. No: Drooling, Thrush Neck: No: Rigid, Tenderness Cardiovascular: Yes: Murmur, S1, S2 Respiratory: Yes: Cough (Had a dry cough during examination), On Nasal O2, Rales (Both lung bases, worse on L), SOB Gastrointestinal: Yes: Abdomen, Obese. No: Tenderness Labs: CBC, BMP 12/22/16 05:40 12/23/16 09:20 INR, PTT INR 2.01 (0.82-1.09) H 12/16/16 00:58 Problem List - Problems (1) Bacterial infection due to Streptococcus Assessment/Plan: Strep sanguis bacteriemia With background significant valvular disease, s/p whipples 7th day on Antibiotic, 5th day on ceftriaxone Plan: Continue Ceftriaxone Plan to be treated for 4 weeks in the presence of valvular heart disease and strep Code(s): A49.1 - STREPTOCOCCAL INFECTION, UNSPECIFIED SITE (2) Streptococcal pneumonia Assessment/Plan: Pneumonia in the presence of Strep sanguis bacteremia in a patient s/P Whipples procedure, on gemticitabine 7 days on antibiotics, 5th day on ceftriaxone Code(s): J15.4 - PNEUMONIA DUE TO OTHER STREPTOCOCCI (3) Pancreatic cancer Code(s): C25.9 - MALIGNANT NEOPLASM OF PANCREAS, UNSPECIFIED Impression/Plan Impression/Plan: Strep sanguis pneumonia with negative repeat blood culture in patient s/p whipples for ca pancreas, still dypneic, for pulmonary evaluation Plan: Continue ceftriaxone Visit type - Emergency Visit Emergency Visit: No - New Patient This patient is new to me today: No - Critical Care Critical Care patient: No - Discharge Referral Referred to [facility] Med P.C.: No
--- NOTE | 2016-12-23 16:05 | PN ---
Teaching Attending Note Name of Resident: Filomena Yepez ATTENDING PHYSICIAN STATEMENT I saw and evaluated the patient. I reviewed the resident's note and discussed the case with the resident. I agree with the resident's findings and plan as documented. SUBJECTIVE: alert, remains dyspneic remains hypoxic OBJECTIVE: Vital Signs Period Temp Pulse Resp BP Sys/Trimble Pulse Ox Last 24 Hr 97.8 F-98.9 F 89-100 18-20 97-110/54-74 95-100 cor-rrr lungs bibasilar crackles abd soft,nt ext no edema CBC, BMP 12/22/16 05:40 12/23/16 09:20 Microbiology 12/18/16 12:40 Blood - Peripheral Venous Blood Culture - Final NO GROWTH AFTER 5 DAYS INCUBATION 12/18/16 12:30 Blood - Peripheral Venous Blood Culture - Final NO GROWTH AFTER 5 DAYS INCUBATION 12/15/16 23:30 Blood - Peripheral Venous Blood Culture - Preliminary Streptococcus Sangius I Staphylococcus Epidermidis 12/15/16 23:30 Blood - Peripheral Venous Blood Culture - Final Streptococcus Sangius I 12/18/16 11:25 Urine For Antigen Detection Legionella Antigen - Final 12/17/16 11:00 Urine For Antigen Detection Legionella Antigen - Final 12/17/16 11:00 Urine For Antigen Detection Streptococcus pneumoniae Antigen (M - Final 12/16/16 02:30 Urine - Urine - Catheterized Urine Culture - Final NO GROWTH OBTAINED cxray-unchanged ASSESSMENT AND PLAN: strep bacteremia pneumonia pancreatic cancer s/p whipple procedure continue rocephin pulmonary followup
--- NOTE | 2016-12-23 16:31 | PN ---
Progress Note (short form) - Note Progress Note: Remains mildly tachypenic at rest and O2 dependent. Mild subjective improvement. No CP. (+) cough CXR : Minimal improvement in bilateral infiltrates Intake & Output 12/20/16 12/21/16 12/22/16 12/23/16 23:59 23:59 23:59 23:59 Intake Total 750 803 800 200 Output Total 400 Balance 750 803 800 -200 Last Vital Signs Temp Pulse Resp BP Pulse Ox 97.8 F 94 H 18 97/54 95 12/23/16 14:22 12/23/16 14:22 12/23/16 14:22 12/23/16 14:22 12/23/16 13:25 Active Medications Acetaminophen (Tylenol -) 650 mg PO Q6H PRN PRN Reason: FEVER Apixaban (Eliquis -) 5 mg PO BID [facility] Last Admin: 12/23/16 09:20 Dose: 5 mg Budesonide/Formoterol Fumarate (Symbicort 160/4.5mcg -) 1 puff IH BID [facility] Last Admin: 12/23/16 09:19 Dose: 1 puff Diltiazem HCl (Cardizem Cd -) 360 mg PO DAILY [facility] Last Admin: 12/23/16 09:19 Dose: 360 mg Hydroxychloroquine Sulfate (Plaquenil -) 200 mg PO BID [facility] Last Admin: 12/23/16 09:20 Dose: 200 mg IV Flush (Picc Line Flush) 8 ml IVPUSH PRN PRN PRN Reason: Protocol Ceftriaxone Sodium (Rocephin 2gm Ivpb (Pre-Docked)) 100 mls @ 200 mls/hr IVPB DAILY [facility] Last Admin: 12/23/16 09:19 Dose: 200 mls/hr Montelukast Sodium (Singulair -) 10 mg PO HS [facility] Last Admin: 12/22/16 21:47 Dose: 10 mg Pantoprazole Sodium (Protonix -) 40 mg PO DAILY [facility] Last Admin: 12/23/16 09:20 Dose: 40 mg Sulfasalazine (Azulfidine -) 500 mg PO DAILY [facility] Last Admin: 12/23/16 09:21 Dose: 500 mg A Constitutional: Yes: Mildly tachypneic at rest Eyes: Yes: WNL HENT: Yes: WNL Neck: Yes: WNL Cardiovascular: Yes: Pulse Irregular, S1, S2 Respiratory: Yes: Bibasilar Rhonchi/crackles, no wheeze Gastrointestinal: Yes: Normal Bowel Sounds, Soft Extremities: Yes: WNL Edema: No Labs: Laboratory Results - last 24 hr 12/22/16 12/22/16 12/23/16 17:30 17:43 09:20 Puncture Site Right radial ABG pH 7.45 ABG pCO2 at Pt Temp 48.1 H ABG pO2 at Pt Temp 80.9 ABG HCO3 33.0 H ABG O2 Sat (Measured) 96.5 ABG O2 Content 13.2 L ABG Base Excess 8.3 H Edgar Test Positive O2 Delivery Device Y Nasal Oxygen Flow Rate 5l PEEP 0.0 Sodium 144 Potassium 4.9 Chloride 103 Carbon Dioxide 35 H Anion Gap 6 L BUN 19 H D Creatinine 0.6 Random Glucose 95 Calcium 8.6 Magnesium 2.4 Assessment/Plan A/P Pneumonia Strep Bacteremia COPD Acute Hypoxic Respiratory Failure Pancreatic Ca Atrial fibrillation - ABX per ID - inhaled bronchodilators - rate control - AC - O2 to keep SpO2 >90% - Will likely require home O2 upon discharge Dr Cardenas
--- NOTE | 2016-12-23 19:27 | PN ---
Progress Note (short form) - Note Progress Note: Patient seen and examined Shortness of breath periodically On oxygen Last Vital Signs Temp Pulse Resp BP Pulse Ox 97.8 F 94 H 18 97/54 95 12/23/16 14:22 12/23/16 14:22 12/23/16 14:22 12/23/16 14:22 12/23/16 13:25 HEENT: BRAD, EOM Intact Oropharynx: thrush, No mucositis Cor: irregular No murmurs, No gallops Lungs: diminished breath sounds bilaterally Abd: Soft, Normal bowel sounds, No organomegaly Ext LE edema Skin: No rashes, Integument intact CBC, BMP 12/22/16 05:40 12/23/16 09:20 Current Medications Generic Name Dose Route Start Last Admin Trade Name Freq PRN Reason Stop Dose Admin Acetaminophen 650 mg 12/15/16 23:50 Tylenol - PO Q6H PRN FEVER Apixaban 5 mg 12/16/16 10:00 12/23/16 09:20 Eliquis - PO 5 mg BID [facility] Administration Budesonide/Formoterol Fumarate 1 puff 12/16/16 10:00 12/23/16 09:19 Symbicort 160/4.5mcg - IH 1 puff BID [facility] Administration Diltiazem HCl 360 mg 12/16/16 10:00 12/23/16 09:19 Cardizem Cd - PO 360 mg DAILY [facility] Administration Hydroxychloroquine Sulfate 200 mg 12/16/16 10:00 12/23/16 09:20 Plaquenil - PO 200 mg BID [facility] Administration IV Flush 8 ml 12/23/16 11:44 Picc Line Flush IVPUSH PRN PRN Protocol Ceftriaxone Sodium 100 mls @ 200 mls/hr 12/19/16 10:15 12/23/16 09:19 Rocephin 2gm Ivpb (Pre-Docked) IVPB 200 mls/hr DAILY [facility] Administration Montelukast Sodium 10 mg 12/16/16 22:00 12/22/16 21:47 Singulair - PO 10 mg HS [facility] Administration Pantoprazole Sodium 40 mg 12/16/16 10:00 12/23/16 09:20 Protonix - PO 40 mg DAILY [facility] Administration Sulfasalazine 500 mg 12/16/16 10:00 12/23/16 09:21 Azulfidine - PO 500 mg DAILY [facility] Administration Impression: Strep bacteremia Bilateral lung infiltrates S/P Whipple for cholangioca Anemia Plan:: Continuation of IV antibiotics. Monitoring of CBC/chems. Problem List - Problems (1) Anemia Code(s): D64.9 - ANEMIA, UNSPECIFIED Qualifiers: Anemia type: unspecified type Qualified Code(s): D64.9 - Anemia, unspecified (2) COPD (chronic obstructive pulmonary disease) Code(s): J44.9 - CHRONIC OBSTRUCTIVE PULMONARY DISEASE, UNSPECIFIED Qualifiers : COPD type: COPD with acute lower respiratory infection Qualified Code(s ): J44.0 - Chronic obstructive pulmonary disease with acute lower respiratory infection (3) Palliative chemotherapy underway Code(s): Z51.11 - ENCOUNTER FOR ANTINEOPLASTIC CHEMOTHERAPY Z51.5 - ENCOUNTER FOR PALLIATIVE CARE (4) Pneumonia Code(s): J18.9 - PNEUMONIA, UNSPECIFIED ORGANISM (5) Rapid atrial fibrillation Code(s): I48.91 - UNSPECIFIED ATRIAL FIBRILLATION
[2016-12-23] MEDS ORDERED: NYSTATIN 500,000 UNITS TABLET PO SCH (22:00)
[2016-12-23] MEDS: MONTELUKAST NA 10 MG TABLET PO SCH (22:55)
[2016-12-23] MEDS: NYSTATIN 500,000 UNITS/5 ML SUSPENSION PO SCH (23:24)
[2016-12-24] MEDS: NYSTATIN 500,000 UNITS/5 ML SUSPENSION PO SCH ×3 (06:09→17:20)
[2016-12-24] MEDS ORDERED: PT OWN MED DRAWER 7, Y5N ONE ×3 (06:10→21:50)
--- NOTE | 2016-12-24 09:03 | PN ---
Progress Note, Physician Chief Complaint: Feels well Denies chest pain or SOB Walked in rehab yesterday History of Present Illness: This AM she complains of decreased visual acuity left eye Upon further history, she states this has been going on for years and typically resolves spontaneously after 15-20 minutes. States she has had previous evaluations, and "no one can figure out what it is" - Current Medication List Current Medications: Active Medications Acetaminophen (Tylenol -) 650 mg PO Q6H PRN PRN Reason: FEVER Apixaban (Eliquis -) 5 mg PO BID [facility] Last Admin: 12/23/16 22:26 Dose: 5 mg Budesonide/Formoterol Fumarate (Symbicort 160/4.5mcg -) 1 puff IH BID [facility] Last Admin: 12/23/16 22:26 Dose: 1 puff Diltiazem HCl (Cardizem Cd -) 360 mg PO DAILY [facility] Last Admin: 12/23/16 09:19 Dose: 360 mg Hydroxychloroquine Sulfate (Plaquenil -) 200 mg PO BID [facility] Last Admin: 12/23/16 22:26 Dose: 200 mg IV Flush (Picc Line Flush) 8 ml IVPUSH PRN PRN PRN Reason: Protocol Ceftriaxone Sodium (Rocephin 2gm Ivpb (Pre-Docked)) 100 mls @ 200 mls/hr IVPB DAILY [facility] Last Admin: 12/23/16 09:19 Dose: 200 mls/hr Montelukast Sodium (Singulair -) 10 mg PO HS [facility] Last Admin: 12/23/16 22:55 Dose: 10 mg Nystatin (Nystatin Oral Suspension -) 500,000 units PO Q6HPO [facility] Last Admin: 12/24/16 06:09 Dose: 500,000 units Pantoprazole Sodium (Protonix -) 40 mg PO DAILY [facility] Last Admin: 12/23/16 09:20 Dose: 40 mg Sulfasalazine (Azulfidine -) 500 mg PO DAILY [facility] Last Admin: 12/23/16 09:21 Dose: 500 mg - Objective Vital Signs: Vital Signs Temperature 98.3 F 12/24/16 08:50 Pulse Rate 89 12/24/16 08:50 Respiratory Rate 20 12/24/16 08:50 Blood Pressure 104/56 12/24/16 08:50 O2 Sat by Pulse Oximetry (%) 95 12/23/16 21:00 Constitutional: Yes: No Distress Eyes: Yes: Conjunctiva Clear Cardiovascular: Yes: Regular Rate and Rhythm, Other (chronic systolic murmur, unchanged) Respiratory: Yes: CTA Bilaterally Gastrointestinal: Yes: Soft (non-tender) Edema: No Neurological: Yes: Alert Labs: CBC, BMP 12/22/16 05:40 12/23/16 09:20 INR, PTT INR 2.01 (0.82-1.09) H 12/16/16 00:58 Laboratory Tests 12/23/16 09:20 Sodium 144 Potassium 4.9 BUN 19 H D Creatinine 0.6 Magnesium 2.4 Assessment/Plan Assessment/Plan 81 year old woman with the history of COPD, asthma, rheumatoid arthritis, paroxysmal atrial fibrillation on eliquis, nonobstructive coronary artery disease on cardiac cath 01/2016 (50-60%mLAD), cholangiocarcinoma status post Whipple procedure, now s/p course of chemo, COPD/Asthma admitted with progressively worsening SOB, fatigue, noted to be hypoxic and tachycardic with gram + bacteremia due to PNA, now cleared. SOB-likely due to b/l PNA and early sepsis. -Holding Lasix, bun/creat improved, no sig edema -Bacteremia quickly cleared, plan for IV abx as per ID Afib-paroxysmal. -cont Cardizem CD 360mg daily, BP has tolerated this dose throughout admission -cont eliquis 5mg bid Murmur-chronic, likely secondary to mitral annular calcification and moderate -outpatient f/u with serial echo yearly unless clinical change warrants imaging sooner Visual changes- left eye. Chronic. -If vision does not improve or worsens may need further evaluation. However on detailed history, she reports having similar episodes in the left eye for "years" that spontaneously resolve.
[2016-12-24] MEDS: BUDESONIDE/FORMETEROL FUMARATE 160/4.5 mcg INHALER IH SCH ×2 (10:02→22:25)
[2016-12-24] MEDS: PANTOPRAZOLE 40 MG TABLET (FP) PO SCH (10:03)
[2016-12-24] MEDS: HYDROXYCHLOROQUINE SO4 200 MG TABLET (FP) PO SCH ×2 (10:03→22:25)
[2016-12-24] MEDS: APIXABAN 5 MG TABLET PO SCH ×2 (10:03→22:25)
[2016-12-24] MEDS: sulfaSALAzine 500 MG TABLET PO SCH (10:04)
[2016-12-24] MEDS: CEFTRIAXONE 100 ML IVPB SCH (10:04)
--- NOTE | 2016-12-24 11:36 | PN ---
Progress Note, Physician Chief Complaint: no complaints feels well wants to go home - Current Medication List Current Medications: Active Medications Acetaminophen (Tylenol -) 650 mg PO Q6H PRN PRN Reason: FEVER Apixaban (Eliquis -) 5 mg PO BID [facility] Last Admin: 12/24/16 10:03 Dose: 5 mg Budesonide/Formoterol Fumarate (Symbicort 160/4.5mcg -) 1 puff IH BID [facility] Last Admin: 12/24/16 10:02 Dose: 1 puff Diltiazem HCl (Cardizem Cd -) 360 mg PO DAILY [facility] Last Admin: 12/24/16 10:03 Dose: 360 mg Hydroxychloroquine Sulfate (Plaquenil -) 200 mg PO BID [facility] Last Admin: 12/24/16 10:03 Dose: 200 mg IV Flush (Picc Line Flush) 8 ml IVPUSH PRN PRN PRN Reason: Protocol Ceftriaxone Sodium (Rocephin 2gm Ivpb (Pre-Docked)) 100 mls @ 200 mls/hr IVPB DAILY [facility] Last Admin: 12/24/16 10:04 Dose: 200 mls/hr Montelukast Sodium (Singulair -) 10 mg PO HS [facility] Last Admin: 12/23/16 22:55 Dose: 10 mg Nystatin (Nystatin Oral Suspension -) 500,000 units PO Q6HPO [facility] Last Admin: 12/24/16 06:09 Dose: 500,000 units Pantoprazole Sodium (Protonix -) 40 mg PO DAILY [facility] Last Admin: 12/24/16 10:03 Dose: 40 mg Sulfasalazine (Azulfidine -) 500 mg PO DAILY [facility] Last Admin: 12/24/16 10:04 Dose: 500 mg - Objective Vital Signs: Vital Signs Temperature 98.3 F 12/24/16 08:50 Pulse Rate 101 H 12/24/16 09:11 Respiratory Rate 20 12/24/16 10:00 Blood Pressure 104/56 12/24/16 08:50 O2 Sat by Pulse Oximetry (%) 98 12/24/16 10:00 Constitutional: Yes: No Distress Cardiovascular: Yes: Regular Rate and Rhythm Respiratory: Yes: Diminished Gastrointestinal: Yes: Normal Bowel Sounds, Soft, Abdomen, Obese. No: Tenderness Edema: No Labs: CBC, BMP 12/22/16 05:40 12/23/16 09:20 INR, PTT INR 2.01 (0.82-1.09) H 12/16/16 00:58 Problem List - Problems (1) Anemia Code(s): D64.9 - ANEMIA, UNSPECIFIED Qualifiers: Anemia type: unspecified type Qualified Code(s): D64.9 - Anemia, unspecified (2) COPD (chronic obstructive pulmonary disease) Code(s): J44.9 - CHRONIC OBSTRUCTIVE PULMONARY DISEASE, UNSPECIFIED Qualifiers : COPD type: COPD with acute lower respiratory infection Qualified Code(s ): J44.0 - Chronic obstructive pulmonary disease with acute lower respiratory infection (3) Pneumonia Code(s): J18.9 - PNEUMONIA, UNSPECIFIED ORGANISM (4) Rapid atrial fibrillation Code(s): I48.91 - UNSPECIFIED ATRIAL FIBRILLATION (5) SOB (shortness of breath) Code(s): R06.02 - SHORTNESS OF BREATH Assessment/Plan PLAN IV antibiotics-needs [address] chest - improved O2 -needs home O2 Pt and daughter refuses rehab she wants to go home spoke with ID and Oncology - chemo on hold dc plan, picc line and arrange for antibiotics- spoke with upper caser Continue with meds DVT prophylaxis Chemotherapy on hold
--- NOTE | 2016-12-24 11:37 | PN ---
Progress Note, Physician Chief Complaint: Day 8 on antibiotic, 6th day on ceftriaxone Seen by pulmonary and had repeat CXR which shows improvement in upper and middle lobe infiltrates on both sides, improvement of L sided pleural effusion but development of R side pleural effusion Dypnea is improved, patient feels better, afebrile is on rehab and has been walking - Current Medication List Current Medications: Active Medications Acetaminophen (Tylenol -) 650 mg PO Q6H PRN PRN Reason: FEVER Apixaban (Eliquis -) 5 mg PO BID [facility] Last Admin: 12/24/16 10:03 Dose: 5 mg Budesonide/Formoterol Fumarate (Symbicort 160/4.5mcg -) 1 puff IH BID [facility] Last Admin: 12/24/16 10:02 Dose: 1 puff Diltiazem HCl (Cardizem Cd -) 360 mg PO DAILY [facility] Last Admin: 12/24/16 10:03 Dose: 360 mg Hydroxychloroquine Sulfate (Plaquenil -) 200 mg PO BID [facility] Last Admin: 12/24/16 10:03 Dose: 200 mg IV Flush (Picc Line Flush) 8 ml IVPUSH PRN PRN PRN Reason: Protocol Ceftriaxone Sodium (Rocephin 2gm Ivpb (Pre-Docked)) 100 mls @ 200 mls/hr IVPB DAILY [facility] Last Admin: 12/24/16 10:04 Dose: 200 mls/hr Montelukast Sodium (Singulair -) 10 mg PO HS [facility] Last Admin: 12/23/16 22:55 Dose: 10 mg Nystatin (Nystatin Oral Suspension -) 500,000 units PO Q6HPO [facility] Last Admin: 12/24/16 06:09 Dose: 500,000 units Pantoprazole Sodium (Protonix -) 40 mg PO DAILY [facility] Last Admin: 12/24/16 10:03 Dose: 40 mg Sulfasalazine (Azulfidine -) 500 mg PO DAILY [facility] Last Admin: 12/24/16 10:04 Dose: 500 mg - Objective Vital Signs: Vital Signs Temperature 98.3 F 12/24/16 08:50 Pulse Rate 101 H 12/24/16 09:11 Respiratory Rate 20 12/24/16 10:00 Blood Pressure 104/56 12/24/16 08:50 O2 Sat by Pulse Oximetry (%) 98 12/24/16 10:00 Constitutional: Yes: Calm Eyes: Yes: Conjunctiva Clear HENT: Yes: Atraumatic. No: Drooling, Epistaxis, Nasal Congestion Neck: Yes: Supple. No: Tenderness Cardiovascular: Yes: Murmur, S1, S2 Respiratory: Yes: Rales (few rales on bases), Rhonchi (few rhonchi on L) Gastrointestinal: Yes: Abdomen, Obese. No: Tenderness ...Rectal Exam: Yes: Deferred Genitourinary: No: CVA Tenderness - Left, CVA Tenderness - Right, [place] Present Edema: Yes Edema: LLE: 2+, RLE: 2+ Neurological: Yes: Alert, Oriented. No: Confusion Psychiatric: Yes: Alert, Oriented Labs: CBC, BMP 12/22/16 05:40 12/23/16 09:20 INR, PTT INR 2.01 (0.82-1.09) H 12/16/16 00:58 Problem List - Problems (1) Bacterial infection due to Streptococcus Assessment/Plan: Strep sanguis bacteriemia With background significant valvular disease, s/p whipples 8th day on Antibiotic, 6th day on ceftriaxone Plan: Continue Ceftriaxone Plan to be treated for 4 weeks in the presence of valvular heart disease and strep Code(s): A49.1 - STREPTOCOCCAL INFECTION, UNSPECIFIED SITE (2) Streptococcal pneumonia Assessment/Plan: Improving Pneumonia in the presence of Strep sanguis bacteremia in a patient s/P Whipples procedure, on gemticitabine 8 days on antibiotics, 6th day on ceftriaxone Code(s): J15.4 - PNEUMONIA DUE TO OTHER STREPTOCOCCI (3) Pancreatic cancer Code(s): C25.9 - MALIGNANT NEOPLASM OF PANCREAS, UNSPECIFIED Impression/Plan Impression/Plan: Strep sanguis pneumonia with negative repeat blood culture in patient s/p whipples for ca pancreas, Improving, less dyspnea Plan: Continue ceftriaxone Visit type - Emergency Visit Emergency Visit: No - New Patient This patient is new to me today: No - Critical Care Critical Care patient: No - Discharge Referral Referred to [facility] Med P.C.: No
--- NOTE | 2016-12-24 13:11 | PN ---
Progress Note, Physician History of Present Illness: pulmonary alert,nad,c/o blurred vison - Current Medication List Current Medications: Active Medications Acetaminophen (Tylenol -) 650 mg PO Q6H PRN PRN Reason: FEVER Apixaban (Eliquis -) 5 mg PO BID [facility] Last Admin: 12/24/16 10:03 Dose: 5 mg Budesonide/Formoterol Fumarate (Symbicort 160/4.5mcg -) 1 puff IH BID [facility] Last Admin: 12/24/16 10:02 Dose: 1 puff Diltiazem HCl (Cardizem Cd -) 360 mg PO DAILY [facility] Last Admin: 12/24/16 10:03 Dose: 360 mg Hydroxychloroquine Sulfate (Plaquenil -) 200 mg PO BID [facility] Last Admin: 12/24/16 10:03 Dose: 200 mg IV Flush (Picc Line Flush) 8 ml IVPUSH PRN PRN PRN Reason: Protocol Ceftriaxone Sodium (Rocephin 2gm Ivpb (Pre-Docked)) 100 mls @ 200 mls/hr IVPB DAILY [facility] Last Admin: 12/24/16 10:04 Dose: 200 mls/hr Montelukast Sodium (Singulair -) 10 mg PO HS [facility] Last Admin: 12/23/16 22:55 Dose: 10 mg Nystatin (Nystatin Oral Suspension -) 500,000 units PO Q6HPO [facility] Last Admin: 12/24/16 06:09 Dose: 500,000 units Pantoprazole Sodium (Protonix -) 40 mg PO DAILY [facility] Last Admin: 12/24/16 10:03 Dose: 40 mg Sulfasalazine (Azulfidine -) 500 mg PO DAILY [facility] Last Admin: 12/24/16 10:04 Dose: 500 mg - Objective Vital Signs: Vital Signs Temperature 98.3 F 12/24/16 08:50 Pulse Rate 101 H 12/24/16 09:11 Respiratory Rate 20 12/24/16 10:00 Blood Pressure 104/56 12/24/16 08:50 O2 Sat by Pulse Oximetry (%) 98 12/24/16 10:00 Constitutional: Yes: Well Nourished, Calm Eyes: Yes: WNL HENT: Yes: WNL Neck: Yes: WNL Cardiovascular: Yes: Pulse Irregular, S1, S2 Respiratory: Yes: Diminished (lakshmi crackles), Rales Gastrointestinal: Yes: Normal Bowel Sounds, Soft Extremities: Yes: WNL Edema: No Labs: CBC, BMP 12/22/16 05:40 12/23/16 09:20 INR, PTT INR 2.01 (0.82-1.09) H 12/16/16 00:58 Assessment/Plan A/P Pneumonia clinically improving Strep Bacteremia COPD Acute Hypoxic Respiratory Failure improving Pancreatic Ca Atrial fibrillation - continue antibiotics - inhaled bronchodilators - continue anticoagulation - O2 to keep SpO2 >90% - will need to check ambulatory SpO2 when ready for discharge to assess for home O2 DR MORALES
--- NOTE | 2016-12-24 13:59 | PN ---
Teaching Attending Note Name of Resident: Filomena Yepez ATTENDING PHYSICIAN STATEMENT I saw and evaluated the patient. I reviewed the resident's note and discussed the case with the resident. I agree with the resident's findings and plan as documented. SUBJECTIVE: less sob OBJECTIVE: Vital Signs Period Temp Pulse Resp BP Sys/Trimble Pulse Ox Last 24 Hr 97.8 F-98.6 F 82-101 18-20 97-112/54-61 94-98 cor-rrr llungs bibasilar crackles abd soft chest ct improved infiltrates CBC, BMP 12/22/16 05:40 12/23/16 09:20 Microbiology 12/18/16 12:40 Blood - Peripheral Venous Blood Culture - Final NO GROWTH AFTER 5 DAYS INCUBATION 12/18/16 12:30 Blood - Peripheral Venous Blood Culture - Final NO GROWTH AFTER 5 DAYS INCUBATION 12/15/16 23:30 Blood - Peripheral Venous Blood Culture - Preliminary Streptococcus Sangius I Staphylococcus Epidermidis 12/15/16 23:30 Blood - Peripheral Venous Blood Culture - Final Streptococcus Sangius I 12/18/16 11:25 Urine For Antigen Detection Legionella Antigen - Final 12/17/16 11:00 Urine For Antigen Detection Legionella Antigen - Final 12/17/16 11:00 Urine For Antigen Detection Streptococcus pneumoniae Antigen (M - Final 12/16/16 02:30 Urine - Urine - Catheterized Urine Culture - Final NO GROWTH OBTAINED ASSESSMENT AND PLAN: strep sanguis bacteremia pneumonia s/p whipples improved but requiring oxygen day 02/09 antibiotics plan to complete 4 weeks total
--- NOTE | 2016-12-24 16:04 | PN ---
Progress Note (short form) - Note Progress Note: patient seen and examined. 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, on gemzar now with G+ bacteremia from pneumonia, cellulitis continue antibiotics per ID creatinine improved anemia --monitor---transfuse prior to d/c for hgb <9 discussed with ID team ---to consider 4 weeks of IV antibiotics for possible IV access placement for IV antibiotics d/c planning with home O2, physical therapy, line placement Problem List - Problems (1) Bacterial infection due to Streptococcus Code(s): A49.1 - STREPTOCOCCAL INFECTION, UNSPECIFIED SITE (2) Anemia Code(s): D64.9 - ANEMIA, UNSPECIFIED Qualifiers: Anemia type: unspecified type Qualified Code(s): D64.9 - Anemia, unspecified (3) Pancreatic cancer Code(s): C25.9 - MALIGNANT NEOPLASM OF PANCREAS, UNSPECIFIED (4) Acute renal failure (ARF) Code(s): N17.9 - ACUTE KIDNEY FAILURE, UNSPECIFIED
[2016-12-24 20:38] LABS: MCH 28.2 pg (25.7-33.7); MCHC 31.5 g/dl (32.0-36.0); MEAN CELL VOLUME 89.4 fl (80-96); MEAN PLT VOLUME 8.4 fl (7.5-11.1); PLATELET COUNT 569 K/MM3 (134-434); RDW 22.8 % (11.6-15.6); WHITE BLOOD COUNT 9.6 K/mm3 (4.0-10.0)
[2016-12-24 20:58] LABS: ANION GAP 5 (8-16); CO2 34 mmol/L (21-32); CREATININE 0.8 mg/dL (0.55-1.02); GLUCOSE,RANDOM 88 mg/dL (74-106)
[2016-12-24] MEDS: MONTELUKAST NA 10 MG TABLET PO SCH (22:25)
[2016-12-25] MEDS: NYSTATIN 500,000 UNITS/5 ML SUSPENSION PO SCH ×3 (01:18→11:55)
[2016-12-25 07:29] LABS: MCH 29.3 pg (25.7-33.7); MCHC 32.5 g/dl (32.0-36.0); MEAN CELL VOLUME 90.2 fl (80-96); MEAN PLT VOLUME 8.7 fl (7.5-11.1); PLATELET COUNT 474 K/MM3 (134-434); RDW 22.6 % (11.6-15.6); WHITE BLOOD COUNT 8.4 K/mm3 (4.0-10.0)
[2016-12-25 07:49] LABS: ANION GAP 7 (8-16); CALCIUM 8.5 mg/dL (8.5-10.1); CO2 32 mmol/L (21-32); GLUCOSE,RANDOM 80 mg/dL (74-106); MAGNESIUM 2.5 mg/dL (1.8-2.4)
[2016-12-25 07:53] LABS: ALK PHOS 86 U/L (45-117); BILIRUBIN,TOTAL 0.3 mg/dL (0.2-1.0); CREATININE 0.7 mg/dL (0.55-1.02); PHOSPHOROUS 3.7 mg/dL (2.5-4.9); SGOT/AST 33 U/L (15-37); SGPT/ALT 23 U/L (12-78); TOT PROT 5.7 g/dl (6.4-8.2)
--- NOTE | 2016-12-25 08:59 | PN ---
Progress Note, Physician Chief Complaint: comfortable No acute distress Denies SOB or CP - Current Medication List Current Medications: Active Medications Acetaminophen (Tylenol -) 650 mg PO Q6H PRN PRN Reason: FEVER Apixaban (Eliquis -) 5 mg PO BID [facility] Last Admin: 12/24/16 22:25 Dose: 5 mg Budesonide/Formoterol Fumarate (Symbicort 160/4.5mcg -) 1 puff IH BID [facility] Last Admin: 12/24/16 22:25 Dose: 1 puff Diltiazem HCl (Cardizem Cd -) 360 mg PO DAILY [facility] Last Admin: 12/24/16 10:03 Dose: 360 mg Hydroxychloroquine Sulfate (Plaquenil -) 200 mg PO BID [facility] Last Admin: 12/24/16 22:25 Dose: 200 mg IV Flush (Picc Line Flush) 8 ml IVPUSH PRN PRN PRN Reason: Protocol Ceftriaxone Sodium (Rocephin 2gm Ivpb (Pre-Docked)) 100 mls @ 200 mls/hr IVPB DAILY [facility] Last Admin: 12/24/16 10:04 Dose: 200 mls/hr Montelukast Sodium (Singulair -) 10 mg PO HS [facility] Last Admin: 12/24/16 22:25 Dose: 10 mg Nystatin (Nystatin Oral Suspension -) 500,000 units PO Q6HPO [facility] Last Admin: 12/25/16 06:11 Dose: 500,000 units Pantoprazole Sodium (Protonix -) 40 mg PO DAILY [facility] Last Admin: 12/24/16 10:03 Dose: 40 mg Sulfasalazine (Azulfidine -) 500 mg PO DAILY [facility] Last Admin: 12/24/16 10:04 Dose: 500 mg - Objective Vital Signs: Vital Signs Temperature 98.8 F 12/25/16 05:49 Pulse Rate 83 12/25/16 05:49 Respiratory Rate 20 12/25/16 05:49 Blood Pressure 122/68 12/25/16 05:49 O2 Sat by Pulse Oximetry (%) 98 12/24/16 21:00 Constitutional: Yes: Calm Eyes: Yes: Conjunctiva Clear Cardiovascular: Yes: Regular Rate and Rhythm Respiratory: Yes: CTA Bilaterally Gastrointestinal: Yes: Soft Edema: No Neurological: Yes: Alert, Oriented Labs: CBC, BMP 12/25/16 06:20 12/25/16 06:20 INR, PTT INR 2.01 (0.82-1.09) H 12/16/16 00:58 Laboratory Tests 12/25/16 12/25/16 06:20 06:20 WBC 8.4 Hgb 8.6 L Plt Count 474 H MPV 8.7 Sodium 141 Potassium 5.3 H BUN 20 H Creatinine 0.7 Magnesium 2.5 H Alkaline Phosphatase 86 Assessment/Plan Assessment/Plan 81 year old woman with the history of COPD, asthma, rheumatoid arthritis, paroxysmal atrial fibrillation on eliquis, nonobstructive coronary artery disease on cardiac cath 01/2016 (50-60%mLAD), cholangiocarcinoma status post Whipple procedure, now s/p course of chemo, COPD/Asthma admitted with progressively worsening SOB, fatigue, noted to be hypoxic and tachycardic with gram + bacteremia due to PNA, now cleared. SOB-likely due to b/l PNA and early sepsis. -Holding Lasix, bun/creat improved, no sig edema -Bacteremia quickly cleared, plan for IV abx as per ID Afib-paroxysmal. -cont Cardizem CD 360mg daily, BP has tolerated this dose throughout admission -cont eliquis 5mg bid Murmur-chronic, likely secondary to mitral annular calcification and moderate -outpatient f/u with serial echo yearly unless clinical change warrants imaging sooner Visual changes- left eye. Chronic. Now resolved. CT head without acute pathology. -Since this is a chronic complaint (going on for "years") further outpatient work up would be appropriate
--- NOTE | 2016-12-25 09:36 | PN ---
Progress Note (short form) - Note Progress Note: patient seen and examined. feels better Last Vital Signs Temp Pulse Resp BP Pulse Ox 98.8 F 83 20 122/68 98 12/25/16 05:49 12/25/16 05:49 12/25/16 05:49 12/25/16 05:49 12/24/16 21:00 Neck: Supple Nodes: Without adenopathy Cor: RSR, No murmurs, No gallops Lungs: scatterd wheezes Abd: Soft, Normal bowel sounds, No organomegaly Abnormal Lab Results 12/24/16 12/24/16 12/25/16 20:00 20:00 06:20 RBC 3.16 L Hgb 8.9 L Hct 28.2 L MCHC 31.5 L RDW 22.8 H Plt Count 569 H D Potassium 5.3 H 5.3 H Carbon Dioxide 34 H Anion Gap 5 L 7 L BUN 19 H 20 H Magnesium 2.5 H Total Protein 5.7 L Albumin 2.0 L 12/25/16 06:20 RBC 2.92 L Hgb 8.6 L Hct 26.4 L MCHC RDW 22.6 H Plt Count 474 H Potassium Carbon Dioxide Anion Gap BUN Magnesium Total Protein Albumin Active Medications Acetaminophen (Tylenol -) 650 mg PO Q6H PRN PRN Reason: FEVER Apixaban (Eliquis -) 5 mg PO BID [facility] Last Admin: 12/24/16 22:25 Dose: 5 mg Budesonide/Formoterol Fumarate (Symbicort 160/4.5mcg -) 1 puff IH BID [facility] Last Admin: 12/24/16 22:25 Dose: 1 puff Diltiazem HCl (Cardizem Cd -) 360 mg PO DAILY [facility] Last Admin: 12/24/16 10:03 Dose: 360 mg Hydroxychloroquine Sulfate (Plaquenil -) 200 mg PO BID [facility] Last Admin: 12/24/16 22:25 Dose: 200 mg IV Flush (Picc Line Flush) 8 ml IVPUSH PRN PRN PRN Reason: Protocol Ceftriaxone Sodium (Rocephin 2gm Ivpb (Pre-Docked)) 100 mls @ 200 mls/hr IVPB DAILY [facility] Last Admin: 12/24/16 10:04 Dose: 200 mls/hr Montelukast Sodium (Singulair -) 10 mg PO HS [facility] Last Admin: 12/24/16 22:25 Dose: 10 mg Nystatin (Nystatin Oral Suspension -) 500,000 units PO Q6HPO [facility] Last Admin: 12/25/16 06:11 Dose: 500,000 units Pantoprazole Sodium (Protonix -) 40 mg PO DAILY [facility] Last Admin: 12/24/16 10:03 Dose: 40 mg Sulfasalazine (Azulfidine -) 500 mg PO DAILY [facility] Last Admin: 12/24/16 10:04 Dose: 500 mg A/P 81 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, on gemzar now with G+ bacteremia from pneumonia, cellulitis continue antibiotics per ID creatinine improved anemia --monitor---transfuse prior to d/c for hgb <9 discussed with ID team ---to consider 4 weeks of IV antibiotics s/p PICC line for IV antibiotics d/c planning to skilled nursing Problem List - Problems (1) Bacterial infection due to Streptococcus Code(s): A49.1 - STREPTOCOCCAL INFECTION, UNSPECIFIED SITE (2) Anemia Code(s): D64.9 - ANEMIA, UNSPECIFIED Qualifiers: Anemia type: unspecified type Qualified Code(s): D64.9 - Anemia, unspecified (3) Pancreatic cancer Code(s): C25.9 - MALIGNANT NEOPLASM OF PANCREAS, UNSPECIFIED (4) Acute renal failure (ARF) Code(s): N17.9 - ACUTE KIDNEY FAILURE, UNSPECIFIED
[2016-12-25 10:11] LABS: METAMYELOCYTE 1 % (0-2); PLATELET ESTIMATE INCREASED (NORMAL)
[2016-12-25 10:13] LABS: ANISOCYTOSIS 2+; HYPOCHROMIA 1+; TEAR DROP CELLS FEW
[2016-12-25] MEDS ORDERED: PT OWN MED DRAWER 7, Y5N ONE (10:46)
[2016-12-25] MEDS: PANTOPRAZOLE 40 MG TABLET (FP) PO SCH (11:12)
[2016-12-25] MEDS: APIXABAN 5 MG TABLET PO SCH (11:12)
[2016-12-25] MEDS: HYDROXYCHLOROQUINE SO4 200 MG TABLET (FP) PO SCH (11:12)
[2016-12-25] MEDS: BUDESONIDE/FORMETEROL FUMARATE 160/4.5 mcg INHALER IH SCH (11:13)
[2016-12-25] MEDS: sulfaSALAzine 500 MG TABLET PO SCH (11:13)
--- NOTE | 2016-12-25 11:32 | PN ---
Progress Note, Physician Chief Complaint: see dc summary - Current Medication List Current Medications: Active Medications Acetaminophen (Tylenol -) 650 mg PO Q6H PRN PRN Reason: FEVER Apixaban (Eliquis -) 5 mg PO BID [facility] Last Admin: 12/25/16 11:12 Dose: 5 mg Budesonide/Formoterol Fumarate (Symbicort 160/4.5mcg -) 1 puff IH BID [facility] Last Admin: 12/25/16 11:13 Dose: 1 puff Diltiazem HCl (Cardizem Cd -) 360 mg PO DAILY [facility] Last Admin: 12/25/16 11:12 Dose: 360 mg Hydroxychloroquine Sulfate (Plaquenil -) 200 mg PO BID [facility] Last Admin: 12/25/16 11:12 Dose: 200 mg IV Flush (Picc Line Flush) 8 ml IVPUSH PRN PRN PRN Reason: Protocol Ceftriaxone Sodium (Rocephin 2gm Ivpb (Pre-Docked)) 100 mls @ 200 mls/hr IVPB DAILY [facility] Last Admin: 12/24/16 10:04 Dose: 200 mls/hr Montelukast Sodium (Singulair -) 10 mg PO HS [facility] Last Admin: 12/24/16 22:25 Dose: 10 mg Nystatin (Nystatin Oral Suspension -) 500,000 units PO Q6HPO [facility] Last Admin: 12/25/16 06:11 Dose: 500,000 units Pantoprazole Sodium (Protonix -) 40 mg PO DAILY [facility] Last Admin: 12/25/16 11:12 Dose: 40 mg Sulfasalazine (Azulfidine -) 500 mg PO DAILY [facility] Last Admin: 12/25/16 11:13 Dose: 500 mg - Objective Vital Signs: Vital Signs Temperature 98.8 F 12/25/16 05:49 Pulse Rate 83 12/25/16 05:49 Respiratory Rate 20 12/25/16 05:49 Blood Pressure 122/68 12/25/16 05:49 O2 Sat by Pulse Oximetry (%) 98 12/24/16 21:00 Labs: CBC, BMP 12/25/16 06:20 12/25/16 06:20 INR, PTT INR 2.01 (0.82-1.09) H 12/16/16 00:58 Problem List - Problems (1) Anemia Code(s): D64.9 - ANEMIA, UNSPECIFIED Qualifiers: Anemia type: unspecified type Qualified Code(s): D64.9 - Anemia, unspecified (2) COPD (chronic obstructive pulmonary disease) Code(s): J44.9 - CHRONIC OBSTRUCTIVE PULMONARY DISEASE, UNSPECIFIED Qualifiers : COPD type: COPD with acute lower respiratory infection Qualified Code(s ): J44.0 - Chronic obstructive pulmonary disease with acute lower respiratory infection (3) Pneumonia Code(s): J18.9 - PNEUMONIA, UNSPECIFIED ORGANISM (4) Rapid atrial fibrillation Code(s): I48.91 - UNSPECIFIED ATRIAL FIBRILLATION (5) SOB (shortness of breath) Code(s): R06.02 - SHORTNESS OF BREATH
--- NOTE | 2016-12-25 12:01 | PN ---
Progress Note, Physician Chief Complaint: Day 9 on antibiotic, 7th day on ceftriaxone Has some cough which she feels is productive but is unable to cough out Saw her on her way to get PICC line, was told she would be discharged probably to a [place] [facility] care facility Dypnea is improved, afebrile - Current Medication List Current Medications: Active Medications Acetaminophen (Tylenol -) 650 mg PO Q6H PRN PRN Reason: FEVER Apixaban (Eliquis -) 5 mg PO BID [facility] Last Admin: 12/25/16 11:12 Dose: 5 mg Budesonide/Formoterol Fumarate (Symbicort 160/4.5mcg -) 1 puff IH BID [facility] Last Admin: 12/25/16 11:13 Dose: 1 puff Diltiazem HCl (Cardizem Cd -) 360 mg PO DAILY [facility] Last Admin: 12/25/16 11:12 Dose: 360 mg Hydroxychloroquine Sulfate (Plaquenil -) 200 mg PO BID [facility] Last Admin: 12/25/16 11:12 Dose: 200 mg IV Flush (Picc Line Flush) 8 ml IVPUSH PRN PRN PRN Reason: Protocol Ceftriaxone Sodium (Rocephin 2gm Ivpb (Pre-Docked)) 100 mls @ 200 mls/hr IVPB DAILY [facility] Last Admin: 12/24/16 10:04 Dose: 200 mls/hr Montelukast Sodium (Singulair -) 10 mg PO HS [facility] Last Admin: 12/24/16 22:25 Dose: 10 mg Nystatin (Nystatin Oral Suspension -) 500,000 units PO Q6HPO [facility] Last Admin: 12/25/16 11:55 Dose: 500,000 units Pantoprazole Sodium (Protonix -) 40 mg PO DAILY [facility] Last Admin: 12/25/16 11:12 Dose: 40 mg Sulfasalazine (Azulfidine -) 500 mg PO DAILY [facility] Last Admin: 12/25/16 11:13 Dose: 500 mg - Objective Vital Signs: Vital Signs Temperature 98.8 F 12/25/16 05:49 Pulse Rate 83 12/25/16 05:49 Respiratory Rate 20 12/25/16 05:49 Blood Pressure 122/68 12/25/16 05:49 O2 Sat by Pulse Oximetry (%) 98 12/24/16 21:00 Constitutional: Yes: Calm, Pallor Eyes: Yes: Other (Complained of loss of vision in her left eye yesterday and now pain both eyes. Had a similar incidence in the past) HENT: Yes: Atraumatic. No: Drooling, Hoarseness, Nasal Congestion, Pharyngeal Erythema, Thrush, Tonsillar Exudate Neck: Yes: Supple. No: Rigid, Tenderness Cardiovascular: Yes: Murmur (stage 3 murmur, both sternal borders), S1, S2 Respiratory: Yes: Cough, Other (Could not listen to the back as she was in transit) Labs: CBC, BMP 12/25/16 06:20 12/25/16 06:20 INR, PTT INR 2.01 (0.82-1.09) H 12/16/16 00:58 Problem List - Problems (1) Bacterial infection due to Streptococcus Assessment/Plan: Strep sanguis bacteriemia With background significant valvular disease, s/p whipples 9th day on Antibiotic, 7th day on ceftriaxone Plan: Continue Ceftriaxone Plan to be treated for 4 weeks in the presence of valvular heart disease and strep Code(s): A49.1 - STREPTOCOCCAL INFECTION, UNSPECIFIED SITE (2) Streptococcal pneumonia Assessment/Plan: Improving Pneumonia in the presence of Strep sanguis bacteremia in a patient s/P Whipples procedure, on gemticitabine 9 days on antibiotics, 7th day on ceftriaxone Code(s): J15.4 - PNEUMONIA DUE TO OTHER STREPTOCOCCI (3) Pancreatic cancer Code(s): C25.9 - MALIGNANT NEOPLASM OF PANCREAS, UNSPECIFIED Impression/Plan Impression/Plan: Strep sanguis pneumonia with negative repeat blood culture in patient s/p whipples for ca pancreas, Improving, less dyspnea Plan: Continue ceftriaxone Visit type - Emergency Visit Emergency Visit: No - New Patient This patient is new to me today: No - Critical Care Critical Care patient: No - Discharge Referral [facility]erred to [facility] Med P.C.: No
--- NOTE | 2016-12-25 12:25 | DS ---
Physical Examination Vital Signs: Vital Signs Temperature 98.8 F 12/25/16 05:49 Pulse Rate 83 12/25/16 05:49 Respiratory Rate 20 12/25/16 05:49 Blood Pressure 122/68 12/25/16 05:49 O2 Sat by Pulse Oximetry (%) 98 12/24/16 21:00 Constitutional: Yes: No Distress, Calm Cardiovascular: Yes: Pulse Irregular Respiratory: Yes: Diminished Gastrointestinal: Yes: Normal Bowel Sounds, Soft. No: Distention, Tenderness Edema: Yes Edema: LLE: Trace, RLE: Trace Labs: CBC, BMP 12/25/16 06:20 12/25/16 06:20 Discharge Summary Reason For Visit: COPD, ANEMIA, RAPID A-FIB Current Active Problems Acute renal failure (ARF) (Acute) Anemia (Acute) Atrial fibrillation (Acute) Bacterial infection due to Streptococcus (Acute) COPD (chronic obstructive pulmonary disease) (Acute) Leukocytosis (Acute) Palliative chemotherapy underway (Acute) Pancreatic cancer (Acute) Pneumonia (Acute) Rapid atrial fibrillation (Acute) Sacral pressure ulcer (Acute) Streptococcal pneumonia (Acute) Streptococcus pneumoniae (Acute) Hospital Course: Initial history - History of Present Illness Initial Comments: 12/15/16 23:49 Patient is a 81 year old female with significant medical hx of asthma, COPD, spinal stenosis, RA, AFib (on Eliquis), biliary cancer (last chemotherapy 10 days ago) who is presenting to the ED via EMS with worsening shortness of breath for three days. Upon arrival to the ED, the patient was tachycardic and hypoxic in the 80s. She is complaining of increasing dyspnea, nausea, increased fatigue, loss of appetite, and dizziness. The patient's family member reports she's been using her inhalers without any relief. Patient also has a secondary complaint of chronic wound to right lower extremity. Per family member the patient has been having difficulty walking due to pain from the wound. She was last seen by wound care a week and a half ago. Denies fever, chills, nausea, vomiting, chest pain, syncope, visual changes. Allergies: egg, leflunomide, methotrexate, shellfish derived, IVP dye Surgical Hx: Liver/pancreas/bile duct/ small intestine/ gallbladder resection () PCP: Eli Brar MD Site Safety Manager: Robby Barber MD Site Safety Manager: Pham Tristan MD Pt examined by me on the floors Pt is currently on chemo therapy for pancreatic CA- s/p Whipple surgery Last chemo about 10 days ago Has been feeling SOB for 2 days- today feels better No chest pain or coughing Loss of appetite feels weak Also found to have rapid Afib in ER Hospitalization Course Chest CT initially showed multiple B/L infiltrates Seen by Oncology, ID, Pulmonary and Renal IV antibiotics started Nebs and O2 Pt now needs O2 4 L dependent on oxygen initial blood cultures were positive for staph sanguis repeat blood cultures are negative She will need 3 more weeks of intravenous ceftriaxone, PICC line placed today and stable for discharge to rehabilitation for intravenous antibiotics as well as physical therapy as the patient is deconditioned during her hospital stay. She is cleared for discharge from the above specialists. Spoke with oncology, she will not undergo chemotherapy during the time she receives her antibiotics and also when she is undergoing rehabilitation. Once she is discharged from short-term rehabilitation, she should follow with oncologist whether to resume chemotherapy or not. continue with Eliquis for atrial fibrillation, rate is now controlled Stable for discharge to short-term rehabilitation Condition: Fair - Instructions Diet, Activity, Other Instructions: needs three weeks of Ceftriaxone 2gm PICC LINE CARE ORDERED Disposition: HALF-WAY FACILITY - Home Medications Comprehensive Discharge Medication List: Ambulatory Orders Budesonide/Formeterol Fumarate [SYMBICORT 160/4.5mcg -] 1 inh PO BID 10/05/15 Cholecalciferol (Vitamin D3) [Vitamin D3] 1,000 unit PO DAILY 10/05/15 Cyclosporine [Restasis] 1 each OP DAILY 10/05/15 Esomeprazole Magnesium [Nexium 24Hr] 40 mg PO DAILY 10/05/15 Folic Acid - 1 mg PO DAILY 10/05/15 Hydroxychloroquine Sulfate 200 mg PO BID 10/05/15 Ipratropium/Albuterol Sulfate [Combivent Respimat Inhal Whitestone] 4 gm IH QID 10/04 Montelukast Na [Singulair -] 10 mg PO HS 10/05/15 Multivitamin [Poly-Vitamin] 1 each PO DAILY 10/05/15 Sulfasalazine [Azulfidine -] 500 mg PO DAILY 10/05/15 Apixaban [Eliquis -] 5 mg PO BID #60 tablet 10/07/15 Diltiazem Cd [Cardizem Cd -] 360 mg PO DAILY 12/04/16
--- NOTE | 2016-12-25 12:37 | PN ---
Progress Note, Physician Chief Complaint: Feeling better. For DC - Current Medication List Current Medications: Active Medications Acetaminophen (Tylenol -) 650 mg PO Q6H PRN PRN Reason: FEVER Apixaban (Eliquis -) 5 mg PO BID [facility] Last Admin: 12/25/16 11:12 Dose: 5 mg Budesonide/Formoterol Fumarate (Symbicort 160/4.5mcg -) 1 puff IH BID [facility] Last Admin: 12/25/16 11:13 Dose: 1 puff Diltiazem HCl (Cardizem Cd -) 360 mg PO DAILY [facility] Last Admin: 12/25/16 11:12 Dose: 360 mg Hydroxychloroquine Sulfate (Plaquenil -) 200 mg PO BID [facility] Last Admin: 12/25/16 11:12 Dose: 200 mg IV Flush (Picc Line Flush) 8 ml IVPUSH PRN PRN PRN Reason: Protocol Ceftriaxone Sodium (Rocephin 2gm Ivpb (Pre-Docked)) 100 mls @ 200 mls/hr IVPB DAILY [facility] Last Admin: 12/24/16 10:04 Dose: 200 mls/hr Montelukast Sodium (Singulair -) 10 mg PO HS [facility] Last Admin: 12/24/16 22:25 Dose: 10 mg Nystatin (Nystatin Oral Suspension -) 500,000 units PO Q6HPO [facility] Last Admin: 12/25/16 11:55 Dose: 500,000 units Pantoprazole Sodium (Protonix -) 40 mg PO DAILY [facility] Last Admin: 12/25/16 11:12 Dose: 40 mg Sulfasalazine (Azulfidine -) 500 mg PO DAILY [facility] Last Admin: 12/25/16 11:13 Dose: 500 mg - Objective Vital Signs: Vital Signs Temperature 98.8 F 12/25/16 05:49 Pulse Rate 83 12/25/16 05:49 Respiratory Rate 20 12/25/16 05:49 Blood Pressure 122/68 12/25/16 05:49 O2 Sat by Pulse Oximetry (%) 98 12/24/16 21:00 Labs: CBC, BMP 12/25/16 06:20 12/25/16 06:20 INR, PTT INR 2.01 (0.82-1.09) H 12/16/16 00:58 Problem List - Problems (1) Acute renal failure (ARF) Code(s): N17.9 - ACUTE KIDNEY FAILURE, UNSPECIFIED (2) Anemia Code(s): D64.9 - ANEMIA, UNSPECIFIED Qualifiers: Anemia type: unspecified type Qualified Code(s): D64.9 - Anemia, unspecified (3) Atrial fibrillation Code(s): I48.91 - UNSPECIFIED ATRIAL FIBRILLATION Assessment/Plan The Renal functions at baseline. Agree with dc plans/ Thank you. Candi Baum MD
--- NOTE | 2016-12-25 12:55 | PN ---
Progress Note (short form) - Note Progress Note: Overall improving. No CP. (+) cough Intake & Output 12/22/16 12/23/16 12/24/16 12/25/16 23:59 23:59 23:59 23:59 Intake Total 860 683 1965 100 Output Total 400 Balance 800 0 1525 100 Last Vital Signs Temp Pulse Resp BP Pulse Ox 98.8 F 83 20 122/68 98 12/25/16 05:49 12/25/16 05:49 12/25/16 05:49 12/25/16 05:49 12/24/16 21:00 Active Medications Acetaminophen (Tylenol -) 650 mg PO Q6H PRN PRN Reason: FEVER Apixaban (Eliquis -) 5 mg PO BID [facility] Last Admin: 12/25/16 11:12 Dose: 5 mg Budesonide/Formoterol Fumarate (Symbicort 160/4.5mcg -) 1 puff IH BID [facility] Last Admin: 12/25/16 11:13 Dose: 1 puff Diltiazem HCl (Cardizem Cd -) 360 mg PO DAILY [facility] Last Admin: 12/25/16 11:12 Dose: 360 mg Hydroxychloroquine Sulfate (Plaquenil -) 200 mg PO BID [facility] Last Admin: 12/25/16 11:12 Dose: 200 mg IV Flush (Picc Line Flush) 8 ml IVPUSH PRN PRN PRN Reason: Protocol Ceftriaxone Sodium (Rocephin 2gm Ivpb (Pre-Docked)) 100 mls @ 200 mls/hr IVPB DAILY [facility] Last Admin: 12/24/16 10:04 Dose: 200 mls/hr Montelukast Sodium (Singulair -) 10 mg PO HS [facility] Last Admin: 12/24/16 22:25 Dose: 10 mg Nystatin (Nystatin Oral Suspension -) 500,000 units PO Q6HPO [facility] Last Admin: 12/25/16 11:55 Dose: 500,000 units Pantoprazole Sodium (Protonix -) 40 mg PO DAILY [facility] Last Admin: 12/25/16 11:12 Dose: 40 mg Sulfasalazine (Azulfidine -) 500 mg PO DAILY [facility] Last Admin: 12/25/16 11:13 Dose: 500 mg Constitutional: Yes: Mildly tachypneic at rest Eyes: Yes: WNL HENT: Yes: WNL Neck: Yes: WNL Cardiovascular: Yes: Pulse Irregular, S1, S2 Respiratory: Yes: few Bibasilar Rhonchi/crackles, no wheeze Gastrointestinal: Yes: Normal Bowel Sounds, Soft Extremities: Yes: WNL Edema: No Labs: Laboratory Results - last 24 hr 12/24/16 12/24/16 12/25/16 20:00 20:00 06:20 WBC 9.6 RBC 3.16 L Hgb 8.9 L Hct 28.2 L MCV 89.4 MCH 28.2 MCHC 31.5 L RDW 22.8 H Plt Count 569 H D MPV 8.4 Neutrophils % Lymphocytes % Monocytes % Band Neutrophils Metamyelocytes Myelocytes Nucleated RBCs Differential Comment Platelet Estimate Hypochromic-Microcytic Basophilic Stippling Anisocytosis Macrocytosis Tear Drop Cells Sodium 140 141 Potassium 5.3 H 5.3 H Chloride 101 102 Carbon Dioxide 34 H 32 Anion Gap 5 L 7 L BUN 19 H 20 H Creatinine 0.8 D 0.7 Creat Clearance w eGFR > 60 Random Glucose 88 80 Calcium 9.0 8.5 Phosphorus 3.7 D Magnesium 2.5 H Total Bilirubin 0.3 D AST 33 ALT 23 Alkaline Phosphatase 86 Total Protein 5.7 L Albumin 2.0 L 12/25/16 06:20 WBC 8.4 RBC 2.92 L Hgb 8.6 L Hct 26.4 L MCV 90.2 MCH 29.3 MCHC 32.5 RDW 22.6 H Plt Count 474 H MPV 8.7 Neutrophils % 69.0 Lymphocytes % 16.0 Monocytes % 11.0 H Band Neutrophils 1.0 D Metamyelocytes 1 D Myelocytes 2 D Nucleated RBCs 2 H Differential Comment Manual diff done Platelet Estimate Increased Hypochromic-Microcytic 1+ Basophilic Stippling 1+ Anisocytosis 2+ Macrocytosis 1+ Tear Drop Cells Few Sodium Potassium Chloride Carbon Dioxide Anion Gap BUN Creatinine Creat Clearance w eGFR Random Glucose Calcium Phosphorus Magnesium Total Bilirubin AST ALT Alkaline Phosphatase Total Protein Albumin Assessment/Plan A/P Pneumonia Strep Bacteremia COPD Acute Hypoxic Respiratory Failure Pancreatic Ca Atrial fibrillation - ABX per ID - inhaled bronchodilators - rate control - AC - O2 to keep SpO2 >90% - D/C planning Dr Cardenas
[2016-12-25] MEDS: CEFTRIAXONE 100 ML IVPB SCH (13:44)
[2016-12-25 14:26] VITALS: BP 103/61; PULSE 93; TEMP 98.4
== END 2016-12-25 17:07 | DRG 871 ==
LOC: JER 23:01 → JERBED 12-16 02:30 → J6S 12-16 03:58
PROVIDERS: ADMIT Internal Medicine; ATTEND Internal Medicine
PROC: 02HV33Z Insertion of Infusion Device into Superior Vena Cava, Percutaneous Approach (ICD-10-PCS; principal; 2016-12-23)
PROC: B548ZZA Ultrasonography of Superior Vena Cava, Guidance (ICD-10-PCS; 2016-12-23)
DX: A40.0 Sepsis due to streptococcus, group A (principal); I50.33 Acute on chronic diastolic (congestive) heart failure; J96.01 Acute respiratory failure with hypoxia; J15.4 Pneumonia due to other streptococci; C25.9 Malignant neoplasm of pancreas, unspecified; N17.9 Acute kidney failure, unspecified; E87.4 Mixed disorder of acid-base balance; L03.115 Cellulitis of right lower limb; J44.9 Chronic obstructive pulmonary disease, unspecified; Z79.01 Long term (current) use of anticoagulants; J45.909 Unspecified asthma, uncomplicated; Z87.891 Personal history of nicotine dependence; D64.9 Anemia, unspecified; Z51.5 Encounter for palliative care; I48.0 Paroxysmal atrial fibrillation; M06.9 Rheumatoid arthritis, unspecified; I25.10 Atherosclerotic heart disease of native coronary artery without angina pectoris; R01.1 Cardiac murmur, unspecified; I87.2 Venous insufficiency (chronic) (peripheral); E88.09 Other disorders of plasma-protein metabolism, not elsewhere classified; I35.0 Nonrheumatic aortic (valve) stenosis; L89.152 Pressure ulcer of sacral region, stage 2; H53.8 Other visual disturbances
CPT/HCPCS: 36415; 36569; 36600; 70450-TC; 71010-TC; 71250-TC; 76775-TC; 77001-TC; 80048; 80053; 81003; 81015; 82272; 82436; 82550; 82570; 82607; 82728; 82746; 82803; 83010; 83540; 83550; 83605; 83615; 83735; 83880; 84100; 84133; 84156; 84300; 84443; 84484; 84540; 85025; 85027; 85044; 85610; 85651; 86140; 86301; 87040; 87086; 87186; 87205; 87899; 93005; 93010; 93306-TC; 94640; 94761; 97116-GP; 97162-GP; 99284-25; C1751; G0480

== ENCOUNTER 2019-04-13 17:41 | Inpatient (IN) | payer OTHER ==
--- NOTE | 2019-04-13 17:58 | PDOC ---
History of Present Illness - General Chief Complaint: Weakness Stated Complaint: WEAKNESS Time Seen by Provider: 04/13/19 17:57 - History of Present Illness Initial Comments: 04/13/19 17:58 83 year old with a significant medical hx of asthma, COPD, spinal stenosis, RA, AFib (not on eliquis since October 2018), biliary cancer who presents with weakness in her legs 1 day after an unwitnessed mechanical fall. The patient reports that at 1500 yesterday, she was walking with her cane and she tripped on her way to the bathroom and landed on her hands and knees. She denies hitting her head or loss of consciousness. She was unable to get up and sat on the ground for approx 2 hours until her family could help her up. The patient denies chest pain, shortness of breath prior or after the fall and denies injury to chest or abdomen. The patient reports that she came the ED today because she felt and cannot walk, stating her legs "feel like rubber". She denies any other complaints. ROS GENERAL/CONSTITUTIONAL: No fever or chills. No weakness. CARDIOVASCULAR: No chest pain or shortness of breath RESPIRATORY: No cough, wheezing, or hemoptysis. GASTROINTESTINAL: No nausea, vomiting, diarrhea or constipation. GENITOURINARY: No dysuria, frequency, or change in urination. MUSCULOSKELETAL: + joint or muscle swelling or pain. No neck or back pain. SKIN: No rash PE GENERAL: Awake, alert, and fully oriented, in no acute distress HEAD: No signs of trauma, normocephalic, atraumatic EYES: EOMI, sclera anicteric, conjunctiva clear ENT: oropharynx clear without exudates. Moist mucosa NECK: Normal ROM, supple LUNGS: No distress, speaks full sentences, clear to auscultation bilaterally HEART: Regular rate and rhythm, normal S1 and S2, no murmurs, rubs or gallops, peripheral pulses normal and equal bilaterally. ABDOMEN: Soft, nontender, umbilical hernia, No guarding, no rebound. No masses EXTREMITIES : Normal inspection, Normal range of motion, + 2+ pitting edema bilateral calfs. No clubbing or cyanosis. NEUROLOGICAL: Cranial nerves II through XII grossly intact. Normal speech, normal gait, no focal sensorimotor deficits SKIN: Warm, Dry, normal turgor, no rashes or lesions noted MDM DDX including but not limited to: consider fx r/o infectious vs electrolyte derangement r/o acs ED Course: ekg: afib with rvr at 139bpm labs, imaging ordered fluid bolus started as patient afib with rvr with soft blood pressure will await improved bp prior to cardizem admin Will endorse to overnight team Marisol Smiley PGY2 Emergency Medicine Past History - Past Medical History Allergies/Adverse Reactions: Allergies Allergy/AdvReac Type Severity Reaction Status Date / Time egg Allergy Unknown Verified 04/13/19 17:53 Fish Containing Products Allergy Unknown Verified 04/13/19 17:53 Iodinated Contrast Media AdvReac Verified 04/13/19 17:53 Home Medications: Ambulatory Orders Budesonide/Formeterol Fumarate [SYMBICORT 160/4.5mcg -] 1 inh PO BID 10/05/15 Cholecalciferol (Vitamin D3) [Vitamin D3] 1,000 unit PO DAILY 10/05/15 Cyclosporine [Restasis] 1 each OP DAILY 10/05/15 Folic Acid - 1 mg PO DAILY 10/05/15 Hydroxychloroquine Sulfate 200 mg PO BID 10/05/15 Ipratropium/Albuterol Sulfate [Combivent Respimat 20-100 Mcg] 4 gm IH QID Montelukast Na [Singulair -] 10 mg PO HS 10/05/15 Multivitamin [Poly-Vitamin] 1 each PO DAILY 10/05/15 Diltiazem Cd [Cardizem Cd -] 360 mg PO DAILY 12/04/16 Esomeprazole Magnesium [Nexium 24Hr] 40 mg PO BID 04/13/19 Umeclidinium Worden [Incruse Ellipta] 62.5 mcg IH ASDIR 04/13/19 Anemia: No Asthma: Yes Cancer: Yes Cardiac Disorders: Yes (Afib) CVA: No COPD: Yes CHF: No Dementia: No Diabetes: No GI Disorders: No Disorders: No HTN: No Hypercholesterolemia: No Liver Disease: No Seizures: No Thyroid Disease: No - Surgical History Abdominal Surgery: Yes (resection of liver/pancreas/bileduct/sml intestine and gall blader 09/2016) Appendectomy: No Cardiac Surgery: No Cholecystectomy: Yes Lung Surgery: No Neurologic Surgery: No Orthopedic Surgery: No - Psycho Social/Smoking Cessation Hx Smoking History: Former smoker Have you smoked in the past 12 months: No If you are a former smoker, when did you quit?: 56YRS AGO Information on smoking cessation initiated: No Hx Alcohol Use: No Drug/Substance Use Hx: No Substance Use Type: None Hx Substance Use Treatment: No *Physical Exam - Vital Signs Last Vital Signs Temp Pulse Resp BP Pulse Ox 99.4 F 130 H 22 H 109/80 96 04/13/19 17:51 04/13/19 17:51 04/13/19 17:51 04/13/19 17:51 04/13/19 17:51 ED Treatment Course - LABORATORY CBC & Chemistry Diagram: 04/14/19 05:30 04/14/19 05:30 Discharge - Discharge Information Problems reviewed: Yes Clinical Impression/Diagnosis: Transaminitis, Leukocytosis, Atrial fibrillation with RVR, CHF (congestive heart failure), Elevated bilirubin, Fall Condition: Guarded - Follow up/Referral - Patient Discharge Instructions - Post Discharge Activity
[2019-04-13] MEDS ORDERED: dilTIAZem HCL 50 MG/10 ML - 10 ML VIAL IVPUSH ONE ×2 (18:01→21:07)
[2019-04-13] MEDS: SODIUM CHLORIDE 1,000 ML IV SCH (18:25)
[2019-04-13 18:54] LABS: HEMATOCRIT 37.9 % (32.4-45.2); HEMOGLOBIN 11.8 GM/dL (10.7-15.3); LYMPH % 12.2 % (8-40); MCH 29.4 pg (25.7-33.7); MCHC 31.1 g/dl (32.0-36.0); MEAN CELL VOLUME 94.5 fl (80-96); MEAN PLT VOLUME 9.1 fl (7.5-11.1); MONO % 10.2 % (3.8-10.2); NEUT % 76.6 % (42.8-82.8); PLATELET COUNT 297 K/MM3 (134-434); RBC 4.01 M/mm3 (3.60-5.2); RDW 16.9 % (11.6-15.6); WHITE BLOOD COUNT 14.7 K/mm3 (4.0-10.0)
[2019-04-13] MEDS ORDERED: dilTIAZem HCL 125 MG/25 ML - 25 ML VIAL ONE (19:01)
[2019-04-13 19:17] LABS: INR 1.34 (0.83-1.09); PROTHROMBIN TIME (PATIENT) 15.8 SEC (9.7-13.0)
--- NOTE | 2019-04-13 19:18 | PDOC ---
Attending Attestation - Resident Resident Name: Marisol Smiley - ED Attending Attestation I have performed the following: I have examined & evaluated the patient, The case was reviewed & discussed with the resident, I agree w/resident's findings & plan - HPI HPI: 04/14/19 02:58 see resident hpi - Physicial Exam PE: 04/14/19 02:59 agree with resident exam - Medical Decision Making 04/14/19 02:59 83-year-old female with leg swelling and elevated heart rate Patient found to be in a rapid atrial fibrillation on arrival Cardizem 10 mg IV push given and patient started on a Cardizem drip titrated from 5 to 10 mg/h Ultrasound of the right upper quadrant showed probable liver masses likely secondary to metastases given patient's history of biliary cancer Lower extremity ultrasound showed no DVT Chest x-ray showed cardiomegaly with no obvious infiltrate, there is a possible left lower lobe effusion, costophrenic angle not well visualized on imaging Due to elevated white blood cell count, tachycardia and complaints of dysuria blood cultures as well as urine culture was sent Patient admitted to the ICU for further management CT scan of the abdomen and pelvis also completed prior to transfer Of note CT scan of the head and cervical spine was negative for traumatic injury , patient did sustain a fall earlier in the day as well
[2019-04-13 19:20] LABS: ACTIVATED PTT 34.8 SECONDS (25.2-36.5)
[2019-04-13 19:32] LABS: ALBUMIN 2.6 g/dl (3.4-5.0); CREATININE 1.1 mg/dL (0.55-1.3); POTASSIUM 4.2 mmol/L (3.5-5.1)
--- NOTE | 2019-04-13 20:14 | PDOC ---
*Physical Exam - Vital Signs Last Vital Signs Temp Pulse Resp BP Pulse Ox 99.4 F 130 H 22 H 109/80 96 04/13/19 17:51 04/13/19 17:51 04/13/19 17:51 04/13/19 17:51 04/13/19 17:51 ED Treatment Course - LABORATORY CBC & Chemistry Diagram: 04/13/19 18:30 04/13/19 18:30 - ADDITIONAL ORDERS Additional order review: Laboratory Results 04/13/19 04/13/19 04/13/19 18:30 18:30 18:30 PT with INR 15.80 H INR 1.34 H PTT (Actin FS) 34.8 Sodium 141 Potassium 4.2 Chloride 109 H Carbon Dioxide 23 Anion Gap 9 BUN 27.0 H Creatinine 1.1 Est GFR (CKD-EPI)AfAm 54.53 Est GFR (CKD-EPI)NonAf 47.05 Random Glucose 78 Calcium 9.0 Total Bilirubin 4.0 H AST 136 H ALT 66 H Alkaline Phosphatase 415 H Creatine Kinase 385 H Troponin I 0.04 B-Natriuretic Peptide 6144.0 H Total Protein 6.0 L Albumin 2.6 L Blood Type A POSITIVE Antibody Screen Negative 04/13/19 18:30 RBC 4.01 MCV 94.5 MCHC 31.1 L RDW 16.9 H MPV 9.1 Neutrophils % 76.6 Lymphocytes % 12.2 D Monocytes % 10.2 Eosinophils % 0.0 Basophils % 1.0 D - Medications Given in the ED: ED Medications Discontinued Medications Generic Name Dose Route Start Last Admin Trade Name Freq PRN Reason Stop Dose Admin Diltiazem HCl 10 mg 04/13/19 18:01 04/13/19 19:11 Cardizem Injection - IVPUSH 04/13/19 18:02 10 mg ONCE ONE Administration ED Progress Note - Progress Note Progress Note: Pt signed out to me by prior resident, see prior note. 83 year old female with PMH HTN, COPD, atrial fibrillation (not on Eliquis since 10/2018), RA, biliary cancer (in remission, s/p Whipple/Chemo 2016, s/p cholecystectomy) presented to ED for bilateral lower extremity weakness and generalized weakness x1 day after an unwitnessed mechanical fall. It was reported that patient lost her footing while using her cane, causing her to fall. She was unable to get up on her own, so stayed on the ground x2 hours until her family could help her up. She denied prodromal symptoms prior to fall. She also complained of bilateral lower extremity swelling x1 day since fall, a small amount larger than her baseline. She also complained of dysuria. She reported she has never been told that she has CHF, but that she intermittently will use a water pill for generalized body swelling. Initial Vital Signs Temp Pulse Resp BP Pulse Ox 99.4 F 130 H 22 H 109/80 96 04/13/19 17:51 04/13/19 17:51 04/13/19 17:51 04/13/19 17:51 04/13/19 17:51 Afebrile. Tachycardia. Tachypnea. Mild hypotension. No hypoxia on room air. EKG performed at 1752: rate 139, regular rhythm, normla axis, no acute ST changes, low voltage. Pt is high risk for PE, past hx of CA, tachycardic, short of breath. Pt is allergic to contrast, cannot CTA, will treat for PE. Bilateral LE duplex US ordered to R/O DVT. Tachycardia unresolved with Diltiazem 10 mg IV once. Gtt ordered. Pt will need to go to ICU. Coronado catheter ordered for I&O. ED Medications Discontinued Medications Generic Name Dose Route Start Last Admin Trade Name Pablo PRN Reason Stop Dose Admin Diltiazem HCl 10 mg 04/13/19 18:01 04/13/19 19:11 Cardizem Injection - IVPUSH 04/13/19 18:02 10 mg ONCE ONE Administration Diltiazem HCl 10 mg 04/13/19 21:07 04/13/19 21:29 Cardizem Injection - IVPUSH 04/13/19 21:08 Not Given ONCE ONE Enoxaparin Sodium 80 mg 04/13/19 21:12 04/13/19 21:29 Lovenox - SQ 04/13/19 21:13 80 mg ONCE ONE Administration CBC WBC 14.7 K/mm3 (4.0-10.0) H 04/13/19 18:30 RBC 4.01 M/mm3 (3.60-5.2) 04/13/19 18:30 Hgb 11.8 GM/dL (10.7-15.3) 04/13/19 18:30 Hct 37.9 % (32.4-45.2) D 04/13/19 18:30 MCV 94.5 fl (80-96) 04/13/19 18:30 MCH 29.4 pg (25.7-33.7) 04/13/19 18:30 MCHC 31.1 g/dl (32.0-36.0) L 04/13/19 18:30 RDW 16.9 % (11.6-15.6) H 04/13/19 18:30 Plt Count 297 K/MM3 (134-434) D 04/13/19 18:30 MPV 9.1 fl (7.5-11.1) 04/13/19 18:30 Absolute Neuts (auto) 11.2 K/mm3 (1.5-8.0) H 04/13/19 18:30 Neutrophils % 76.6 % (42.8-82.8) 04/13/19 18:30 Lymphocytes % 12.2 % (8-40) D 04/13/19 18: Monocytes % 10.2 % (3.8-10.2) 04/13/19 18:30 Eosinophils % 0.0 % (0-4.5) 04/13/19 18: Basophils % 1.0 % (0-2.0) D 04/13/19 18:30 Nucleated RBC % 0 % (0-0) 04/13/19 18:30 Leukocytosis with left shift. No anemia. CMP Sodium 141 mmol/L (136-145) 04/13/19 18:30 Potassium 4.2 mmol/L (3.5-5.1) 04/13/19 18:30 Chloride 109 mmol/L (98-107) H 04/13/19 18:30 Carbon Dioxide 23 mmol/L (21-32) 04/13/19 18:30 Anion Gap 9 MMOL/L (8-16) 04/13/19 18:30 BUN 27.0 mg/dL (7-18) H 04/13/19 18:30 Creatinine 1.1 mg/dL (0.55-1.3) 04/13/19 18:30 Est GFR (CKD-EPI)AfAm 54.53 04/13/19 18:30 Est GFR (CKD-EPI)NonAf 47.05 04/13/19 18:30 Random Glucose 78 mg/dL (74-106) 04/13/19 18:30 Calcium 9.0 mg/dL (8.5-10.1) 04/13/19 18:30 Total Bilirubin 4.0 mg/dL (0.2-1) H 04/13/19 18:30 AST 136 U/L (15-37) H 04/13/19 18:30 ALT 66 U/L (13-61) H 04/13/19 18:30 Alkaline Phosphatase 415 U/L (45-117) H 04/13/19 18:30 Creatine Kinase 385 U/L (26-192) H 04/13/19 18:30 Creatine Kinase Index 0.4 % (0.0-5.0) 04/13/19 18:30 CK-MB (CK-2) 1.6 ng/mL (0.5-3.6) 04/13/19 18:30 Troponin I 0.04 ng/ml (0.00-0.05) 04/13/19 18: B-Natriuretic Peptide 6144.0 pg/ml (5-450) H 04/13/19 18:30 Total Protein 6.0 g/dl (6.4-8.2) L 04/13/19 18:30 Albumin 2.6 g/dl (3.4-5.0) L 04/13/19 18:30 No electrolyte abnormalities. Transaminitis with hyperbilirubinemia. -Pt has hx of biliary cancer -Last prior lab work 2017 Troponin wnl BNP elevated CXR my view: no infiltrate. fluid overload. no large pneumothorax. -Pending official report. 04/13/19 20:[address] cervical spine negative for acute pathology. 04/13/19 21:38 ICU consulted - Dr. Mancera currently at bedside. 04/14/19 00:00 Sign out given to KEVYN Agrawal, pt to be admitted under Dr. Brannon. Urine Test Results Urine Color Dk yellow 04/13/19 22:25 Urine Appearance Cloudy 04/13/19 22:25 Urine pH 5.0 (5.0-8.0) 04/13/19 22:25 Ur Specific Randolph 1.019 (1.010-1.035) 04/13/19 22:25 Urine Protein 1+ (NEGATIVE) H 04/13/19 22:25 Urine Glucose (UA) Negative (NEGATIVE) 04/13/19 22:25 Urine Ketones Negative (NEGATIVE) 04/13/19 22:25 Urine Blood 1+ (NEGATIVE) H 04/13/19 22:25 Urine Nitrite Positive (NEGATIVE) H 04/13/19 22:25 Urine Bilirubin 2+ (NEGATIVE) H 04/13/19 22:25 Ur Leukocyte Esterase 1+ (NEGATIVE) H 04/13/19 22:25 Positive for UTI. Medications ordered: Rami[facility] Medical Decision Making - Critical Care Time Total Critical Care Time (minutes): 90 Critical Care Statement: The care of this patient involved high complexity decision making to prevent further life threatening deterioration of the patient 's condition and/or to evaluate & treat vital organ system(s) failure or risk of failure. Discharge - Discharge Information Problems reviewed: Yes Clinical Impression/Diagnosis: Transaminitis, Leukocytosis, Atrial fibrillation with RVR, CHF (congestive heart failure), Elevated bilirubin, Fall Condition: Guarded - Admission Yes - Follow up/Referral - Patient Discharge Instructions - Post Discharge Activity
[2019-04-13] MEDS ORDERED: ENOXAPARIN NA (PORCINE) 80 MG/0.8 ML DISP.SYRIN SQ ONE ×2 (21:12→21:17)
[2019-04-13] MEDS: DILTIAZEM INJECTION 125 MG in SODIUM CHLORIDE 100 ML IVPB SCH (22:14)
[2019-04-13 22:36] LABS: EPI CELLS 1.1 /HPF (0-5/HPF); HYALINE CASTS 8 /lpf (0-8); URINE APPEARANCE CLOUDY; URINE BILIRUBIN 2+ (NEGATIVE); URINE COLOR DK YELLOW; URINE GLUCOSE (UA) NEGATIVE (NEGATIVE); URINE KETONE NEGATIVE (NEGATIVE); URINE LEUK ESTERASE 1+ (NEGATIVE); URINE NITRITE POSITIVE (NEGATIVE); URINE PROTEIN 1+ (NEGATIVE); URINE RBC 30 /hpf (0-4); URINE UROBILINOGEN 4.0 E.U/dl mg/dL (0.2-1.0); URINE WBC 2 /hpf (0-5)
--- NOTE | 2019-04-13 22:58 | CONSULT ---
Consultation: REQUESTING PROVIDER: CONSULT REQUEST: We have been asked to medically evaluate this patient for ( specify). HISTORY OF PRESENT ILLNESS: This is an 83 year old female with PMH significant for HTN, COPD, A Fib ( diagnosed 3 years ago, was started on Eliquis but stopped taking in 10/2018), RA , biliary cancer (s/p Whipple and cholecystectomy). She presented to ER from home with complaints of B/L lower extremity weakness after a mechanical fall last night, urinary hesitancy for the past 2 weeks, and lower back right sided paraspinal pain for the past few months. She was found to have Afib with RVR in the ER. Last night she had an unwitnessed mechanical fall while she was walking in her home with a cane. She landed on her left knee first, followed by her right knee. She denies any head trauma or LOC, and states that she was on the floor for 2.5 hours before a family member was able to assist her in getting in a chair. She normally ambulated with a cane at home. She denies any presyncopal symptoms prior to the fall. She endorses pain in her toes after the fall, as well as increased B/L lower extremity edema after the fall (her lower extremities are edematous at baseline). She endorses urinary hesitance with mild dysuria, which began spontaneously 2 weeks ago. She visited her PCP, who recommended that she go to the hospital. She did not take any antibiotics. She states that she has a history of regular, yearly UTIs. She endorses feeling excessively warm the past week, and constipation for 1 week. She denies fevers, chills, headaches, confusion, SOB, cough, chest pain, palpitations, abdominal pain, nausea, vomiting, diarrhea, hematuria, or polyuria. She denies any sick contacts, recent URTIs or travel, or changes in medications. REVIEW OF SYSTEMS: CONSTITUTIONAL: generalized weakness Absent: fever, chills, diaphoresis, malaise, loss of appetite, weight change HEENT: Absent: rhinorrhea, nasal congestion, throat pain, throat swelling, difficulty swallowing, mouth swelling, ear pain, eye pain, visual changes CARDIOVASCULAR: rregular heart rate, peripheral edema Absent: chest pain, syncope, palpitations, lightheadedness RESPIRATORY: Absent: cough, shortness of breath, dyspnea with exertion, orthopnea, wheezing, stridor, hemoptysis GASTROINTESTINAL: constipation Absent: abdominal pain, abdominal distension, nausea, vomiting, diarrhea, melena , hematochezia GENITOURINARY: dysuria, hesitancy Absent: frequency, urgency, hematuria, flank pain, genital pain MUSCULOSKELETAL: back pain Absent: myalgia, arthralgia, joint swelling, neck pain SKIN: Absent: rash, itching, pallor HEMATOLOGIC/IMMUNOLOGIC: Absent: easy bleeding, easy bruising, lymphadenopathy, frequent infections ENDOCRINE: Absent: unexplained weight gain, unexplained weight loss, heat intolerance, cold intolerance NEUROLOGIC: Absent: headache, focal weakness or paresthesias, dizziness, unsteady gait, seizure, mental status changes, bladder or bowel incontinence PSYCHIATRIC: Absent: anxiety, depression, suicidal or homicidal ideation, hallucinations. PHYSICAL EXAMINATION Vital Signs - 24 hr 04/13/19 04/13/19 04/13/19 17:51 20:21 21:35 Temperature 99.4 F Pulse Rate 130 H Pulse Rate [ 125 H Right Radial] Respiratory 22 H Rate Blood Pressure 109/80 Blood Pressure 120/90 [Left Arm] O2 Sat by Pulse 96 98 96 Oximetry (%) GENERAL: AOx3 HEAD: Normal with no signs of trauma. EYES: BRAD, EOMI, icteric sclera EARS, NOSE, THROAT: Ears normal, nares patent, oropharynx clear without exudates. Moist mucous membranes. NECK: Normal range of motion, supple without lymphadenopathy, JVD, or masses. LUNGS: Decreased breath sounds B/L, no crackles or wheezes HEART: Irregularly regular rhythm, no murmurs ABDOMEN: Soft, nontender, distended, rigid LOWER EXTREMITIES: 2+ pitting edema B/L, 2+ pulses, warm, well-perfused, no calf tenderness NEUROLOGICAL: Motor 5/5, sensations intact PSYCHIATRIC: Cooperative. Good eye contact. Appropriate mood and affect. SKIN: Warm, dry, normal turgor, no rashes or lesions noted. Laboratory Results - last 24 hr 04/13/19 04/13/19 04/13/19 18:30 18:30 18:30 WBC 14.7 H RBC 4.01 Hgb 11.8 Hct 37.9 D MCV 94.5 MCH 29.4 MCHC 31.1 L RDW 16.9 H Plt Count 297 D MPV 9.1 Absolute Neuts (auto) 11.2 H Neutrophils % 76.6 Lymphocytes % 12.2 D Monocytes % 10.2 Eosinophils % 0.0 Basophils % 1.0 D Nucleated RBC % 0 PT with INR 15.80 H INR 1.34 H PTT (Actin FS) 34.8 Sodium 141 Potassium 4.2 Chloride 109 H Carbon Dioxide 23 Anion Gap 9 BUN 27.0 H Creatinine 1.1 Est GFR (CKD-EPI)AfAm 54.53 Est GFR (CKD-EPI)NonAf 47.05 Random Glucose 78 Calcium 9.0 Total Bilirubin 4.0 H AST 136 H ALT 66 H Alkaline Phosphatase 415 H Creatine Kinase 385 H Creatine Kinase Index 0.4 CK-MB (CK-2) 1.6 Troponin I 0.04 B-Natriuretic Peptide 6144.0 H Total Protein 6.0 L Albumin 2.6 L Urine Color Urine Appearance Urine pH Ur Specific [place] Urine Protein Urine Glucose (UA) Urine Ketones Urine Blood Urine Nitrite Urine Bilirubin Urine Urobilinogen Ur Leukocyte Esterase Urine WBC (Auto) Urine RBC (Auto) Urine Casts (Auto) U Epithel Cells (Auto) Urine Bacteria (Auto) Blood Type Antibody Screen 04/13/19 04/13/19 18:30 22:25 WBC RBC Hgb Hct MCV MCH MCHC RDW Plt Count MPV Absolute Neuts (auto) Neutrophils % Lymphocytes % Monocytes % Eosinophils % Basophils % Nucleated RBC % PT with INR INR PTT (Actin FS) Sodium Potassium Chloride Carbon Dioxide Anion Gap BUN Creatinine Est GFR (CKD-EPI)AfAm Est GFR (CKD-EPI)NonAf Random Glucose Calcium Total Bilirubin AST ALT Alkaline Phosphatase Creatine Kinase Creatine Kinase Index CK-MB (CK-2) Troponin I B-Natriuretic Peptide Total Protein Albumin Urine Color Dk yellow Urine Appearance Cloudy Urine pH 5.0 Ur Specific [place] 1.019 Urine Protein 1+ H Urine Glucose (UA) Negative Urine Ketones Negative Urine Blood 1+ H Urine Nitrite Positive H Urine Bilirubin 2+ H Urine Urobilinogen 4.0 e.u/dl H Ur Leukocyte Esterase 1+ H Urine WBC (Auto) 2 Urine RBC (Auto) 30 Urine Casts (Auto) 8 U Epithel Cells (Auto) 1.1 Urine Bacteria (Auto) 1.0 Blood Type A POSITIVE Antibody Screen Negative Active Medications Generic Name Dose Route Start Last Admin Trade Name Freq PRN Reason Stop Dose Admin Sodium Chloride 1,000 mls @ 42 mls/hr 04/13/19 18:15 04/13/19 18:25 Normal Saline - IV 42 mls/hr ASDIR ALFONZO Administration Diltiazem HCl 125 mg/ Sodium 125 mls @ 5 mls/hr 04/13/19 21:15 04/13/19 22:14 Chloride IVPB 5 mg/hr TITR ALFONZO 5 mls/hr Administration Protocol 5 MG/HR ASSESSMENT/PLAN: #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 - AOx3 - CT Head and C-Spine negative for fractures, any acute pathology #ID - SIRS 3/4 - WBC 14.7, RR 22, HR 125 - Blood cx pending - UA: cloudy, 1+ protein, 1+ blood, positive nitrite, 2+ urine bilirubin, 1+ LE , 2 WBC, 1.0 bacteria - UTI seems unlikey based on UA #Respiratory - CXR: Mild B/L effusion #Renal - BUN/Cr 27.0/1.1, Gfr 47.05 - Cr baseline seems to be 0.7-0.9 as per previous visits - [place] placed #CVS - AFib with RVR, will control rate with cardizem and anticoagulate with enoxaparin - Trop 0.04, will continue to trend - BNP 6144.0 (4770 on previous visit in 2017) - May be an element of undiagnosed CHF, would get an echo - Diltiazem 125mg given for rate control - Lovenox 80mg SQ once given #GI - TBili 4.0H, AST 136H, ALT 66H, ALP 415H - PT INR 15.80, PTT 34.8 - POC US RUQ - CT AP pending (will provide information regarding elevated LFTs and coags plus bladder distension) #FEN - N/S 1L @ 42 #DVT PE - Lovenox 80mg SQ once given # Dispo - We will continue to follow the patient. Thank you for this consultative opportunity. ATTENDING PHYSICIAN STATEMENT I saw and evaluated the patient. I reviewed the resident's note and discussed the case with the resident. I agree with the resident's findings and plan as documented. SUBJECTIVE: OBJECTIVE: ASSESSMENT AND PLAN:
[2019-04-13] MEDS ORDERED: ACETAMINOPHEN 1000 MG/100 ML VIAL (NON FORMULARY) IVPB ONE (23:42)
[2019-04-14] MEDS ORDERED: PIPERACILLIN/TAZOB 4.5 GM 4.5 GM in DEXTROSE 5%-WATER 100 ML IVPB ONE ×2 (00:01→00:57)
[2019-04-14] MEDS ORDERED: MORPHINE SULFATE 2 MG/ML VIAL IVPUSH ONE ×2 (00:47→22:00)
--- NOTE | 2019-04-14 00:55 | HP ---
Admitting History and Physical - Primary Care Physician PCP: Eli Brar - Admission Chief Complaint: Generalized Weakness, s/p Fall, Dysuria History of Present Illness: This is a 83 y/o woman with a significant medical history of AFib (not on Eliquis since October 2018), Biliary Cancer (s/p Whipple), Asthma, COPD, Spinal Stenosis, RA. Who presents to the ED with lower extremity and generalized weakness, s/p mechanical fall at home x 1 day. Patient reports tripping and falling with her cane while going to the bathroom. She reports not being able to get off the floor, awaiting for her daughter to come home, to help her up. Patient denies LOC or head trauma. Patient denies SOB, CP, palpitations. Patient denies fever, chills, cough, AP, N/V/D, constipation, dysuria. History Source: Patient, Family Member Limitations to Obtaining History: No Limitations - Past Medical History Cardiovascular: Yes: AFIB, Murmur Pulmonary: Yes: Asthma, COPD Gastrointestinal: Yes: Cancer (pancreatic CA) Hepatobiliary: Yes: Other (pancreatic ca - s/p Whipple) Renal/: Yes: Renal Calculi Heme/Onc: Yes: Anemia Musculoskeletal: Yes: Other (spinal stenosis) Rheumatology: Yes: Rheumatoid Arthritis Dermatology: Yes: Other (Chronic bilateral pitting edema up to thighs) - Past Surgical History Past Surgical History: Yes: Cholecystectomy Additional Past Surgical History: Whipple - Smoking History Smoking history: Former smoker Have you smoked in the past 12 months: No If you are a former smoker, when did you quit?: 56YRS AGO - Alcohol/Substance Use Hx Alcohol Use: Yes (occasional) History of Substance Use: reports: None - Social History Usual Living Arrangement: Yes: With Child ADL: Independent (ambulates with cane) History of Recent Travel: No Home Medications - Allergies Allergies/Adverse Reactions: Allergies Allergy/AdvReac Type Severity Reaction Status Date / Time egg Allergy Unknown Verified 04/13/19 17:53 Fish Containing Products Allergy Unknown Verified 04/13/19 17:53 Iodinated Contrast Media AdvReac Verified 04/13/19 17:53 - Home Medications Home Medications: Ambulatory Orders Budesonide/Formeterol Fumarate [SYMBICORT 160/4.5mcg -] 1 inh PO BID 10/05/15 Cholecalciferol (Vitamin D3) [Vitamin D3] 1,000 unit PO DAILY 10/05/15 Cyclosporine [Restasis] 1 each OP DAILY 10/05/15 Folic Acid - 1 mg PO DAILY 10/05/15 Hydroxychloroquine Sulfate 200 mg PO BID 10/05/15 Ipratropium/Albuterol Sulfate [Combivent Respimat 20-100 Mcg] 4 gm IH QID Montelukast Na [Singulair -] 10 mg PO HS 10/05/15 Multivitamin [Poly-Vitamin] 1 each PO DAILY 10/05/15 Diltiazem Cd [Cardizem Cd -] 360 mg PO DAILY 12/04/16 Esomeprazole Magnesium [Nexium 24Hr] 40 mg PO BID 04/13/19 Umeclidinium [place] [Incruse Ellipta] 62.5 mcg IH ASDIR 04/13/19 Family Medical History Family History: Unable to Obtain Review of Systems - Review of Systems Constitutional: reports: Weakness Eyes: reports: No Symptoms HENT: reports: No Symptoms Neck: reports: No Symptoms Cardiovascular: reports: Edema Respiratory: reports: SOB Gastrointestinal: reports: No Symptoms Genitourinary: reports: Dysuria, Flank Pain Breasts: reports: No Symptoms Reported Musculoskeletal: reports: No Symptoms Integumentary: reports: Bruising Neurological: reports: Weakness Endocrine: reports: No Symptoms Hematology/Lymphatic: reports: No Symptoms Psychiatric: reports: No Symptoms Pain Intensity: 7 Physical Examination Vital Signs: Vital Signs Temperature 99.4 F 04/13/19 17:51 Pulse Rate 133 H 04/13/19 23:39 Respiratory Rate 22 H 04/13/19 17:51 Blood Pressure 112/85 04/13/19 23:39 O2 Sat by Pulse Oximetry (%) 96 04/13/19 21:35 Constitutional: Yes: Mild Distress, Obese Eyes: Yes: Conjunctiva Clear, EOM Intact, PERRL, Sclera Icterus HENT: Yes: WNL, Atraumatic, Normocephalic Neck: Yes: WNL, Supple, Trachea Midline Cardiovascular: Yes: Tachycardia, Pulse Irregular, S1, S2 Respiratory: Yes: Diminished Gastrointestinal: Yes: Normal Bowel Sounds, Soft, Abdomen, Obese ...Rectal Exam: Yes: Deferred Renal/: Yes: WNL Breast(s): Yes: WNL Musculoskeletal: Yes: Back Pain Extremities: Yes: WNL Edema: Yes Edema: LLE: 3+, RLE: 3+ Peripheral Pulses WNL: Yes Integumentary: Yes: Bruising, Jaundice Neurological: Yes: WNL, Alert, Oriented, Cran Nerves II-XII Intact ...Motor Strength: WNL Psychiatric: Yes: WNL, Alert, Oriented Labs: CBC, BMP 04/13/19 18:30 04/13/19 18:30 Imaging - Results Chest X-ray: Image Reviewed X-ray: Image Reviewed Cat Scan: Report Reviewed, Image Reviewed Ultrasound: Image Reviewed EKG: Image Reviewed Problem List - Problems (1) Atrial fibrillation with RVR Code(s): I48.91 - UNSPECIFIED ATRIAL FIBRILLATION (2) Transaminitis Code(s): R74.0 - NONSPEC ELEV OF LEVELS OF TRANSAMNS & LACTIC ACID DEHYDRGNSE (3) Elevated bilirubin Code(s): R17 - UNSPECIFIED JAUNDICE (4) Fall Code(s): W19.XXXA - UNSPECIFIED FALL, INITIAL ENCOUNTER (5) UTI (urinary tract infection) Code(s): N39.0 - URINARY TRACT INFECTION, SITE NOT SPECIFIED (6) Acute renal failure (ARF) Code(s): N17.9 - ACUTE KIDNEY FAILURE, UNSPECIFIED (7) CHF (congestive heart failure) Code(s): I50.9 - HEART FAILURE, UNSPECIFIED (8) COPD (chronic obstructive pulmonary disease) Code(s): J44.9 - CHRONIC OBSTRUCTIVE PULMONARY DISEASE, UNSPECIFIED Qualifiers: COPD type: COPD with acute lower respiratory infection Qualified Code(s): J44.0 - Chronic obstructive pulmonary disease with (acute) lower respiratory infection (9) Pancreatic cancer Code(s): C25.9 - MALIGNANT NEOPLASM OF PANCREAS, UNSPECIFIED Assessment/Plan This is a 83 y/o woman with a PMHx of Afib (not on Eliquis since October 2018), HTN , Biliary Ca (s/p Whipple), COPD. Admitted to ICU for Afib with RVR, Transaminitis, Hyperbilirubinemia, Generalized Weakness for further evaluation of their emergent condition. Plan: Admit to ICU Cardiovascular: Afib with RVR HTN Continue cardiac monitoring Cardizem Drip Titrate for rate control Appreciate Cardiology consult Concerned for PE, DVT, Duplex LE-pending, pt has IV Contrast allergy, unable to order CTA Wells Score 6 Lovenox given in ED, will continue Serial Enzymes Chest Xray image reviewed Monitor CBC, BMP Gastrointestinal: Transaminitis Hyperbilirubinemia Liver Masses Hx Biliary Cancer s/p Whipple LFTs 3-4XNL T Bili 4.0 RUQ Sono to be done at bedside tonight- r/o malignancy Appreciate GI consult NPO FEN: Replete lytes prn NPO DVT/PPI ppx OOB Lovenox PPI Dispo: Requires Inpatient Care Visit type - Emergency Visit Emergency Visit: Yes ED Registration Date: 04/13/19 Care time: The patient presented to the Emergency Department on the above date and was hospitalized for further evaluation of their emergent condition. - New Patient This patient is new to me today: Yes Date on this admission: 04/14/19 - Critical Care Critical Care patient: Yes Total Critical Care Time (in minutes): 40 Critical Care Statement: The care of this patient involved high complexity decision making to prevent further life threatening deterioration of the patient 's condition and/or to evaluate & treat vital organ system(s) failure or risk of failure.
[2019-04-14] MEDS ORDERED: MORPHINE SULFATE 2 MG/ML VIAL ONE (01:39)
[2019-04-14] MEDS ORDERED: ACETAMINOPHEN INJECTION 100 ML IVPB ONE (01:39)
[2019-04-14] MEDS ORDERED: PIPERACILLIN/TAZOB 4.5 GM 4.5 GM/100 ML BAG IVPB ONE (01:40)
[2019-04-14 06:54] LABS: BASO % 0.7 % (0-2.0); HEMATOCRIT 34.5 % (32.4-45.2); LYMPH % 16.1 % (8-40); MCH 29.9 pg (25.7-33.7); MEAN CELL VOLUME 93.6 fl (80-96); MEAN PLT VOLUME 9.3 fl (7.5-11.1); MONO % 10.6 % (3.8-10.2); NEUT % 72.6 % (42.8-82.8); PLATELET COUNT 289 K/MM3 (134-434); RBC 3.69 M/mm3 (3.60-5.2); WHITE BLOOD COUNT 13.8 K/mm3 (4.0-10.0)
[2019-04-14 07:36] LABS: BLOOD UREA NITROGEN 28.6 mg/dL (7-18); CALCIUM 8.6 mg/dL (8.5-10.1); MAGNESIUM 2.5 mg/dL (1.8-2.4); PHOSPHOROUS 3.1 mg/dL (2.5-4.9); POTASSIUM 4.5 mmol/L (3.5-5.1)
--- NOTE | 2019-04-14 08:33 | CON.GI ---
Consult Consult Specialty:: GI Referred by:: Viktoriya Agrawal NP Reason for Consultation:: Transaminitis - History of Present Illness History of Present Illness: Patient is an 83 y/o female with past medical history of Afib, HTN, Biliary CA s /p Whipple, COPD. Consult was placed for admission labs showing Transaminitis. Patient was initially seen in office by Dr Champagne in 05/2016 where Abdominal MRI showed cholelithiasis without evidence of cholecystitis, dilated CBD measuring 1cm, intrahepatic biliary ductal dilatation. Patient was then referred to [facility] for EUS and possible ERCP if needed. She returned to office in 08/2016 and had EUS scheduled for 12/[address] Casper. Patient has not been seen at the office since. She states about two weeks ago she experienced nausea and vomiting accompanied with lower abdominal pain which radiated to her back, denies currently on exam. Patient also states having intermittent episodes of dysphagia associated with food. Denies rectal bleeding , melen, abnormal weight loss. - History Source History Provided By: Patient Limitations to Obtaining History: No Limitations - Past Medical History Cardio/Vascular: Yes: AFIB, Murmur Pulmonary: Yes: Asthma, COPD Gastrointestinal: Yes: Cancer (pancreatic CA) Hepatobiliary: Yes: Other (pancreatic ca - s/p Whipple) Renal/: Yes: Renal Calculi Musculoskeletal: Yes: Other (spinal stenosis) Rheumatology: Yes: Rheumatoid Arthritis Dermatology: Yes: Other (Chronic bilateral pitting edema up to thighs) - Past Surgical History Past Surgical History: Yes: Cholecystectomy, - Alcohol/Substance Use Hx Alcohol Use: Yes (occasional) History of Substance Use: reports: None - Smoking History Smoking history: Former smoker Have you smoked in the past 12 months: No If you are a former smoker, when did you quit?: 56YRS AGO - Social History ADL: Independent (ambulates with cane) History of Recent Travel: No Home Medications - Allergies Allergies/Adverse Reactions: Allergies Allergy/AdvReac Type Severity Reaction Status Date / Time egg Allergy Unknown Verified 04/13/19 17:53 Fish Containing Products Allergy Unknown Verified 04/13/19 17:53 Iodinated Contrast Media AdvReac Verified 04/13/19 17:53 - Home Medications Home Medications: Ambulatory Orders Budesonide/Formeterol Fumarate [SYMBICORT 160/4.5mcg -] 1 inh PO BID 10/05/15 Cholecalciferol (Vitamin D3) [Vitamin D3] 1,000 unit PO DAILY 10/05/15 Cyclosporine [Restasis] 1 each OP DAILY 10/05/15 Folic Acid - 1 mg PO DAILY 10/05/15 Hydroxychloroquine Sulfate 200 mg PO BID 10/05/15 Ipratropium/Albuterol Sulfate [Combivent Respimat 20-100 Mcg] 4 gm IH QID Montelukast Na [Singulair -] 10 mg PO HS 10/05/15 Multivitamin [Poly-Vitamin] 1 each PO DAILY 10/05/15 Diltiazem Cd [Cardizem Cd -] 360 mg PO DAILY 12/04/16 Esomeprazole Magnesium [Nexium 24Hr] 40 mg PO BID 04/13/19 Umeclidinium [place] [Incruse Ellipta] 62.5 mcg IH ASDIR 04/13/19 Family Medical History Family Hx Cancer: Mother (colon CA) Other Family History: maternal uncle with colon CA Review of Systems - Review of Systems Constitutional: reports: No Symptoms Eyes: reports: No Symptoms HENT: reports: Difficult Swallowing Neck: reports: No Symptoms Cardiovascular: reports: No Symptoms Respiratory: reports: No Symptoms Gastrointestinal: reports: Abdominal Pain, Dysphagia, Nausea, Vomiting Genitourinary: reports: No Symptoms Breasts: reports: No Symptoms Reported Musculoskeletal: reports: No Symptoms Integumentary: reports: No Symptoms Neurological: reports: No Symptoms Endocrine: reports: No Symptoms Hematology/Lymphatic: reports: No Symptoms Psychiatric: reports: No Symptoms Physical Exam-GI Vital Signs: Vital Signs Temperature 98.2 F 04/14/19 06:00 Pulse Rate 110 H 04/14/19 08:00 Respiratory Rate 20 04/14/19 08:00 Blood Pressure 122/76 04/14/19 08:00 O2 Sat by Pulse Oximetry (%) 95 04/14/19 03:35 Constitutional: Yes: No Distress, Calm Eyes: Yes: Conjunctiva Clear HENT: Yes: Atraumatic Cardiovascular: Yes: Pulse Irregular Respiratory: Yes: Regular, CTA Bilaterally Gastrointestinal Inspection: Yes: Hernia (umbilical). No: WNL, Ascites, Distention, Scars, Other ...Auscultate: Yes: Normoactive Bowel Sounds. No: Hyperactive Bowel Sounds, Hypoactive Bowel Sounds, No Bowel Sounds, Other ...Palpate: Yes: Soft. No: Firm/Rigid, Guarding, Hepatomegaly, Mass, Pulsatile Mass, Splenomegaly, Tenderness, Tenderness, Epigastium, Tenderness, Rebound, Other ...Percussion: Yes: Tympanitic. No: Dullness, Fluid Wave, Other Integumentary: Yes: Jaundice (mild) Neurological: Yes: Alert, Oriented Psychiatric: Yes: Alert, Oriented Labs: CBC, BMP 04/14/19 05:30 04/14/19 05:30 INR, PTT INR 1.34 (0.83-1.09) H 04/13/19 18:30 Imaging - Results Cat Scan: Pending Problem List - Problems (1) Transaminitis Assessment/Plan: >pending official read Abdominal/Pelvic CT scan >monitor LFTs daily >T bili 4.0 Code(s): R74.0 - NONSPEC ELEV OF LEVELS OF TRANSAMNS & LACTIC ACID DEHYDRGNSE (2) Pancreatic cancer Assessment/Plan: >Abd US shows hepatomegaly with multiple hepatic masses consistent with metastatic disease >recommend oncology consult >CA 19-9 Code(s): C25.9 - MALIGNANT NEOPLASM OF PANCREAS, UNSPECIFIED
[2019-04-14] MEDS: DILTIAZEM INJECTION 125 MG in SODIUM CHLORIDE 100 ML IVPB SCH (08:47)
--- NOTE | 2019-04-14 09:54 | PN ---
Progress Note (short form) - Note Progress Note: events noted on cardizem drip will start with cardizem PO today Vital Signs - 24 hr 04/13/19 04/13/19 04/13/19 17:51 20:21 21:35 Temperature 99.4 F Pulse Rate 130 H Pulse Rate [ 125 H Right Radial] Respiratory 22 H Rate Blood Pressure 109/80 Blood Pressure 120/90 [Left Arm] O2 Sat by Pulse 96 98 96 Oximetry (%) 04/13/19 04/14/19 04/14/19 23:39 01:51 03:35 Temperature 98 F Pulse Rate 129 H Pulse Rate [ 133 H 130 H Right Radial] Respiratory 22 H Rate Blood Pressure 117/79 Blood Pressure 112/85 122/80 [Left Arm] O2 Sat by Pulse 95 Oximetry (%) 04/14/19 04/14/19 04/14/19 04:24 06:00 08:00 Temperature 98.2 F Pulse Rate 115 H 117 H 110 H Pulse Rate [ Right Radial] Respiratory 22 H 22 H 20 Rate Blood Pressure 123/84 121/85 122/76 Blood Pressure [Left Arm] O2 Sat by Pulse Oximetry (%) 04/14/19 04/14/19 04/14/19 09:00 10:00 12:00 Temperature 98.1 F Pulse Rate 109 H 105 H Pulse Rate [ Right Radial] Respiratory 20 20 23 H Rate Blood Pressure 120/77 122/77 Blood Pressure [Left Arm] O2 Sat by Pulse 95 Oximetry (%) 04/14/19 14:00 Temperature 98.0 F Pulse Rate 99 H Pulse Rate [ Right Radial] Respiratory 27 H Rate Blood Pressure 132/104 H Blood Pressure [Left Arm] O2 Sat by Pulse Oximetry (%) Current Medications Generic Name Dose Route Start Last Admin Trade Name Freq PRN Reason Stop Dose Admin Chlorhexidine Gluconate 1 applic 04/14/19 22:00 Hibiclens For Decolonization - TP HS ALFONZO Diltiazem HCl 360 mg 04/14/19 10:15 04/14/19 10:59 Cardizem Cd - PO 360 mg DAILY ALFONZO Administration Enoxaparin Sodium 80 mg 04/14/19 10:00 04/14/19 10:17 Lovenox - SQ 80 mg BID ALFONZO Administration Sodium Chloride 1,000 mls @ 42 mls/hr 04/13/19 18:15 04/13/19 18:25 Normal Saline - IV 42 mls/hr ASDIR ALFONZO Administration Diltiazem HCl 125 mg/ Sodium 125 mls @ 5 mls/hr 04/13/19 21:15 04/14/19 14:40 Chloride IVPB 0 mg/hr TITR ALFONZO 0 mls/hr Titration Protocol 5 MG/HR Mupirocin 1 applic 04/14/19 10:00 04/14/19 10:17 Bactroban Ointment (For Decolonization) - NS 04/19/19 09:59 1 applic BID ALFONZO Administration Laboratory Results - last 24 hr 04/13/19 04/13/19 04/13/19 18:30 18:30 18:30 WBC 14.7 H RBC 4.01 Hgb 11.8 Hct 37.9 D MCV 94.5 MCH 29.4 MCHC 31.1 L RDW 16.9 H Plt Count 297 D MPV 9.1 Absolute Neuts (auto) 11.2 H Neutrophils % 76.6 Lymphocytes % 12.2 D Monocytes % 10.2 Eosinophils % 0.0 Basophils % 1.0 D Nucleated RBC % 0 PT with INR 15.80 H INR 1.34 H PTT (Actin FS) 34.8 Sodium 141 Potassium 4.2 Chloride 109 H Carbon Dioxide 23 Anion Gap 9 BUN 27.0 H Creatinine 1.1 Est GFR (CKD-EPI)AfAm 54.53 Est GFR (CKD-EPI)NonAf 47.05 Random Glucose 78 Lactic Acid Calcium 9.0 Phosphorus Magnesium Total Bilirubin 4.0 H AST 136 H ALT 66 H Alkaline Phosphatase 415 H Creatine Kinase 385 H Creatine Kinase Index 0.4 CK-MB (CK-2) 1.6 Troponin I 0.04 B-Natriuretic Peptide 6144.0 H Total Protein 6.0 L Albumin 2.6 L TSH Urine Color Urine Appearance Urine pH Ur Specific [place] Urine Protein Urine Glucose (UA) Urine Ketones Urine Blood Urine Nitrite Urine Bilirubin Urine Urobilinogen Ur Leukocyte Esterase Urine WBC (Auto) Urine RBC (Auto) Urine Casts (Auto) U Epithel Cells (Auto) Urine Bacteria (Auto) Blood Type Antibody Screen 04/13/19 04/13/19 04/13/19 18:30 22:20 22:25 WBC RBC Hgb Hct MCV MCH MCHC RDW Plt Count MPV Absolute Neuts (auto) Neutrophils % Lymphocytes % Monocytes % Eosinophils % Basophils % Nucleated RBC % PT with INR INR PTT (Actin FS) Sodium Potassium Chloride Carbon Dioxide Anion Gap BUN Creatinine Est GFR (CKD-EPI)AfAm Est GFR (CKD-EPI)NonAf Random Glucose Lactic Acid 2.0 Calcium Phosphorus Magnesium Total Bilirubin AST ALT Alkaline Phosphatase Creatine Kinase Creatine Kinase Index CK-MB (CK-2) Troponin I B-Natriuretic Peptide Total Protein Albumin TSH Urine Color Dk yellow Urine Appearance Cloudy Urine pH 5.0 Ur Specific [place] 1.019 Urine Protein 1+ H Urine Glucose (UA) Negative Urine Ketones Negative Urine Blood 1+ H Urine Nitrite Positive H Urine Bilirubin 2+ H Urine Urobilinogen 4.0 e.u/dl H Ur Leukocyte Esterase 1+ H Urine WBC (Auto) 2 Urine RBC (Auto) 30 Urine Casts (Auto) 8 U Epithel Cells (Auto) 1.1 Urine Bacteria (Auto) 1.0 Blood Type A POSITIVE Antibody Screen Negative 04/14/19 04/14/19 04/14/19 05:30 05:30 06:19 WBC 13.8 H RBC 3.69 Hgb 11.0 Hct 34.5 MCV 93.6 MCH 29.9 MCHC 32.0 RDW 17.0 H Plt Count 289 MPV 9.3 Absolute Neuts (auto) 10.0 H Neutrophils % 72.6 Lymphocytes % 16.1 D Monocytes % 10.6 H Eosinophils % 0.0 Basophils % 0.7 Nucleated RBC % 0 PT with INR INR PTT (Actin FS) Sodium 143 Potassium 4.5 Chloride 110 H Carbon Dioxide 23 Anion Gap 10 BUN 28.6 H Creatinine 1.0 Est GFR (CKD-EPI)AfAm 61.19 Est GFR (CKD-EPI)NonAf 52.79 Random Glucose 65 L Lactic Acid Calcium 8.6 Phosphorus 3.1 Magnesium 2.5 H Total Bilirubin AST ALT Alkaline Phosphatase Creatine Kinase 348 H Creatine Kinase Index 0.5 CK-MB (CK-2) 1.8 Troponin I 0.06 H B-Natriuretic Peptide Total Protein Albumin TSH 1.08 Urine Color Urine Appearance Urine pH Ur Specific [place] Urine Protein Urine Glucose (UA) Urine Ketones Urine Blood Urine Nitrite Urine Bilirubin Urine Urobilinogen Ur Leukocyte Esterase Urine WBC (Auto) Urine RBC (Auto) Urine Casts (Auto) U Epithel Cells (Auto) Urine Bacteria (Auto) Blood Type A POSITIVE Antibody Screen S1 S2 RRR Lungs decreased Abd- soft, anasarca++ edema++ icterus PLAN metastatic biliary CA elevated lFT rapid Afib liver masses -- rate control -- monitor in ICU -- elevated troponins due to demand ischemia -- Oncology eval -- check LFT -- GI eval noted -- IR for liver biopsy Problem List - Problems (1) Atrial fibrillation with RVR Code(s): I48.91 - UNSPECIFIED ATRIAL FIBRILLATION (2) Elevated bilirubin Code(s): R17 - UNSPECIFIED JAUNDICE (3) Transaminitis Code(s): R74.0 - NONSPEC ELEV OF LEVELS OF TRANSAMNS & LACTIC ACID DEHYDRGNSE (4) Fall Code(s): W19.XXXA - UNSPECIFIED FALL, INITIAL ENCOUNTER
[2019-04-14] MEDS ORDERED: MUPIROCIN 2% TOPICAL OINTMENT FOR DECOLONIZATION NS SCH (10:00)
[2019-04-14] MEDS ORDERED: ENOXAPARIN NA (PORCINE) 80 MG/0.8 ML DISP.SYRIN SQ SCH (10:00)
--- NOTE | 2019-04-14 10:11 | CON.CARD ---
Consult Consult Specialty:: Cardiology Referred by:: Salud Reason for Consultation:: atrial fibrillation - History of Present Illness Chief Complaint: fall History of Present Illness: 83 year old woman with pmh chronic atrial fibrillation on eliquis, asthma, ampullary adenocarcinoma s/p whipple, pancreatticoduodenectomy 09/2016 recovered well from this, chronic venous insufficiency followed by Dr Barber for chronic afib, b/l LE edema. She is now in the ICU for weakness, fall, transaminitis, afib with RVR and hyperbilirubinemia. CT scan shows liver mets. Echo 2017 nlef mod as, mod mr. - History Source History Provided By: Patient, Medical Record - Past Medical History Cardio/Vascular: Yes: AFIB, Murmur Pulmonary: Yes: Asthma, COPD Gastrointestinal: Yes: Cancer (pancreatic CA) Hepatobiliary: Yes: Other (pancreatic ca - s/p Whipple) Renal/: Yes: Renal Calculi Musculoskeletal: Yes: Other (spinal stenosis) Rheumatology: Yes: Rheumatoid Arthritis Dermatology: Yes: Other (Chronic bilateral pitting edema up to thighs) - Past Surgical History Past Surgical History: Yes: Cholecystectomy - Alcohol/Substance Use Hx Alcohol Use: Yes (occasional) History of Substance Use: reports: None - Smoking History Smoking history: Former smoker Have you smoked in the past 12 months: No If you are a former smoker, when did you quit?: 56YRS AGO - Social History ADL: Independent (ambulates with cane) History of Recent Travel: No Home Medications - Allergies Allergies/Adverse Reactions: Allergies Allergy/AdvReac Type Severity Reaction Status Date / Time egg Allergy Unknown Verified 04/13/19 17:53 Fish Containing Products Allergy Unknown Verified 04/13/19 17:53 Iodinated Contrast Media AdvReac Verified 04/13/19 17:53 - Home Medications Home Medications: Ambulatory Orders Budesonide/Formeterol Fumarate [SYMBICORT 160/4.5mcg -] 1 inh PO BID 10/05/15 Cholecalciferol (Vitamin D3) [Vitamin D3] 1,000 unit PO DAILY 10/05/15 Cyclosporine [Restasis] 1 each OP DAILY 10/05/15 Folic Acid - 1 mg PO DAILY 10/05/15 Hydroxychloroquine Sulfate 200 mg PO BID 10/05/15 Ipratropium/Albuterol Sulfate [Combivent Respimat 20-100 Mcg] 4 gm IH QID Montelukast Na [Singulair -] 10 mg PO HS 10/05/15 Multivitamin [Poly-Vitamin] 1 each PO DAILY 10/05/15 Diltiazem Cd [Cardizem Cd -] 360 mg PO DAILY 12/04/16 Esomeprazole Magnesium [Nexium 24Hr] 40 mg PO BID 04/13/19 Umeclidinium [place] [Incruse Ellipta] 62.5 mcg IH ASDIR 04/13/19 Vital Signs: Vital Signs Temperature 98.2 F 04/14/19 06:00 Pulse Rate 110 H 04/14/19 08:00 Respiratory Rate 20 04/14/19 08:00 Blood Pressure 122/76 04/14/19 08:00 O2 Sat by Pulse Oximetry (%) 95 04/14/19 03:35 Constitutional: Yes: No Distress, Calm Eyes: Yes: EOM Intact, Sclera Icterus HENT: Yes: Normocephalic Neck: Yes: Trachea Midline Respiratory: Yes: CTA Bilaterally Gastrointestinal: Yes: Normal Bowel Sounds, Soft Cardiovascular: Yes: Tachycardia, Pulse Irregular JVD: No Carotid Bruit: No PMI: Non-Displaced Heart Sounds: Yes: S1, S2 Murmur: Yes: Systolic Murmur, Grade 2 Musculoskeletal: Yes: WNL Extremities: Yes: WNL Edema: No Peripheral Pulses WNL: Yes - Other Data Labs, Other Data: CBC, BMP 04/14/19 05:30 04/14/19 05:30 INR, PTT INR 1.34 (0.83-1.09) H 04/13/19 18:30 Troponin, BNP 04/13/19 04/14/19 18:30 05:30 Troponin I 0.04 0.06 H B-Natriuretic Peptide 6144.0 H Troponin, BNP 04/13/19 04/14/19 18:30 05:30 Troponin I 0.04 0.06 H B-Natriuretic Peptide 6144.0 H Imaging - Results Cat Scan: Report Reviewed EKG: Report Reviewed (af rvr) Assessment/Plan 83 year old woman with pmh chronic atrial fibrillation on eliquis, asthma, ampullary adenocarcinoma s/p whipple, pancreatticoduodenectomy 09/2016 recovered well from this, chronic venous insufficiency followed by Dr Barber for chronic afib, b/l LE edema. She is now in the ICU for weakness, fall, transaminitis, afib with RVR and hyperbilirubinemia. US shows liver mets. Echo 2017 nlef mod as, mod mr. Plan: 1. atrial fibrillation--hold eliquis bridge with lovenox for now. will likely need a biopsy. -echo -increase dilt for rate control. 2. Aortic stenosis -echo -not a candidate for intervention. Prognosis is guarded.
--- NOTE | 2019-04-14 11:37 | PN ---
Teaching Attending Note Name of Resident: Leonid Allen ATTENDING PHYSICIAN STATEMENT I saw and evaluated the patient. I reviewed the resident's note and discussed the case with the resident. I agree with the resident's findings and plan as documented. SUBJECTIVE: Pt seen and examined in the ICU. Remains on cardizem gtt. Denies abdominal pain , nausea. OBJECTIVE: Vital Signs Period Temp Pulse Resp BP Sys/[place]ble Pulse Ox Last 24 Hr 98 F-99.4 F 110-133 20-22 109-123/76-90 95-98 Intake & Output 04/11/19 04/12/19 04/13/19 04/14/19 23:59 23:59 23:59 23:59 Intake Total 228 Output Total 300 200 Balance -300 28 Weight 81.647 kg 81.964 kg Gen: NAD at rest Heart: tachycardic, irregular Lung: decreased breath sounds at the bases Abd: soft, nontender Ext: no edema CBC, BMP 04/14/19 05:30 04/14/19 05:30 Active Medications Chlorhexidine Gluconate (Hibiclens For Decolonization -) 1 applic TP HS [facility] Diltiazem HCl (Cardizem Cd -) 360 mg PO DAILY [facility] Last Admin: 04/14/19 10:59 Dose: 360 mg Enoxaparin Sodium (Lovenox -) 80 mg SQ BID [facility] Last Admin: 04/14/19 10:17 Dose: 80 mg Sodium Chloride (Normal Saline -) 1,000 mls @ 42 mls/hr IV ASDIR ALFONZO Last Admin: 04/13/19 18:25 Dose: 42 mls/hr Diltiazem HCl 125 mg/ Sodium (Chloride) 125 mls @ 5 mls/hr IVPB TITR ALFONZO; Protocol Last Admin: 04/14/19 08:47 Dose: 15 mg/hr, 15 mls/hr Mupirocin (Bactroban Ointment (For Decolonization) -) 1 applic NS BID [facility] Stop: 04/19/19 09:59 Last Admin: 04/14/19 10:17 Dose: 1 applic ASSESSMENT AND PLAN: Atrial Fibrillation with RVR s/p Fall COPD h/o Biliary Ca Elevated LFTs/Liver Masses +Troponins likely Demand Ischemia - rate control, titrate off cardizem gtt - continue anticoagulation - oncology eval - recommend IR guided liver biopsy - trend LFTs - can monitor on telemetry once off cardizem gtt
--- NOTE | 2019-04-14 12:24 | EKG ---
Test Reason : Blood Pressure : / mmHG Vent. Rate : 139 BPM Atrial Rate : 125 BPM P-R Int : 000 ms QRS Dur : 078 ms QT Int : 308 ms P-R-T Axes : 000 010 095 degrees QTc Int : 468 ms ATRIAL FIBRILLATION WITH RAPID VENTRICULAR RESPONSE LOW VOLTAGE QRS CANNOT RULE OUT ANTERIOR INFARCT , AGE UNDETERMINED ABNORMAL ECG WHEN COMPARED WITH ECG OF 15-DEC-2016 23:31, NONSPECIFIC T WAVE ABNORMALITY, WORSE IN ANTEROLATERAL LEADS Confirmed by FIORELLA PENNY, LATOSHA ([id number]) on 04/14/2019 12:23:58 PM Referred By: Confirmed By:LATOSHA BARROS MD
--- NOTE | 2019-04-14 16:24 | CONSULT ---
Consult Consult Specialty:: Hematology and oncology Reason for Consultation:: Liver metastasis - History of Present Illness Chief Complaint: fall History of Present Illness: This is an 83 year old female with PMH significant for HTN, COPD, A Fib ( diagnosed 3 years ago, was started on Eliquis but stopped taking in 10/2018), RA , biliary cancer (s/p Whipple and cholecystectomy). She presented to ER from home with complaints of B/L lower extremity weakness after a mechanical fall last. A CTAP showed multiple hypoatennuations in the liver concerning for metastasis. Patient has been following up inconsistently with Dr. Tristan as an outpatient; the last time she was seen in the office was over 1.5 years ago. On interview, the patient is awake and alert in no distress. She states that she fell while attempting to walk into the kitchen with her cane. Patient denies LOC or palpitations prior to her fall. She states that her fall was mechanical. The patient also endorses difficulty swallowing both liquids and solids, feeling as if they "get stuck in my throat" and has to wait for them to go all they way down prior to taking another sip/bite - Past Medical History Cardio/Vascular: Yes: AFIB, Murmur Pulmonary: Yes: Asthma, COPD Gastrointestinal: Yes: Cancer (pancreatic CA) Hepatobiliary: Yes: Other (pancreatic ca - s/p Whipple) Renal/: Yes: Renal Calculi Musculoskeletal: Yes: Other (spinal stenosis) Rheumatology: Yes: Rheumatoid Arthritis Dermatology: Yes: Other (Chronic bilateral pitting edema up to thighs) - Past Surgical History Past Surgical History: Yes: Cholecystectomy - Alcohol/Substance Use Hx Alcohol Use: No History of Substance Use: reports: None - Smoking History Smoking history: Former smoker Have you smoked in the past 12 months: No If you are a former smoker, when did you quit?: 56YRS AGO - Social History ADL: Independent (ambulates with cane) History of Recent Travel: No Home Medications - Allergies Allergies/Adverse Reactions: Allergies Allergy/AdvReac Type Severity Reaction Status Date / Time egg Allergy Unknown Verified 04/13/19 17:53 Fish Containing Products Allergy Unknown Verified 04/13/19 17:53 Iodinated Contrast Media AdvReac Verified 04/13/19 17:53 - Home Medications Home Medications: Ambulatory Orders Budesonide/Formeterol Fumarate [SYMBICORT 160/4.5mcg -] 1 inh PO BID 10/05/15 Cholecalciferol (Vitamin D3) [Vitamin D3] 1,000 unit PO DAILY 10/05/15 Cyclosporine [Restasis] 1 each OP DAILY 10/05/15 Folic Acid - 1 mg PO DAILY 10/05/15 Hydroxychloroquine Sulfate 200 mg PO BID 10/05/15 Ipratropium/Albuterol Sulfate [Combivent Respimat 20-100 Mcg] 4 gm IH QID Montelukast Na [Singulair -] 10 mg PO HS 10/05/15 Multivitamin [Poly-Vitamin] 1 each PO DAILY 10/05/15 Diltiazem Cd [Cardizem Cd -] 360 mg PO DAILY 12/04/16 Esomeprazole Magnesium [Nexium 24Hr] 40 mg PO BID 04/13/19 Umeclidinium [place] [Incruse Ellipta] 62.5 mcg IH ASDIR 04/13/19 Review of Systems - Review of Systems Constitutional: reports: Weakness. denies: Chills, Fever, Malaise HENT: reports: Difficult Swallowing Cardiovascular: denies: Chest Pain, Palpitations, Shortness of Breath Respiratory: denies: Cough, SOB, SOB on Exertion Gastrointestinal: reports: Vomiting Blood. denies: Abdominal Pain, Diarrhea, Melena, Rectal Bleeding Physical Exam Vital Signs: Vital Signs Temperature 98.0 F 04/14/19 14:00 Pulse Rate 99 H 04/14/19 14:00 Respiratory Rate 27 H 04/14/19 14:00 Blood Pressure 132/104 H 04/14/19 14:00 O2 Sat by Pulse Oximetry (%) 95 04/14/19 09:00 Constitutional: Yes: No Distress, Calm HENT: Yes: Atraumatic, Normocephalic Neck: Yes: Supple, Trachea Midline Cardiovascular: Yes: Regular Rate and Rhythm, Murmur (systolic murmur heard at the RUSB), S1, S2. No: Gallop, Rub Respiratory: Yes: Regular, CTA Bilaterally Gastrointestinal: Yes: Normal Bowel Sounds, Soft, Hernia (large reducible periumbilical hernia noted.), Tenderness (patient tender to palpation all across the abdomen) Edema: No Integumentary: Yes: Bruising (bruising over the right knee and great toe 2/2 fall) Neurological: Yes: Alert, Cran Nerves II-XII Intact Labs: CBC, BMP 04/14/19 05:30 04/14/19 05:30 Assessment/Plan This is an 83 year old female with PMH significant for HTN, COPD, A Fib ( diagnosed 3 years ago, was started on Eliquis but stopped taking in 10/2018), RA , biliary cancer (s/p Whipple and cholecystectomy). She presented to ER from home with complaints of B/L lower extremity weakness after a mechanical fall last. A CTAP showed multiple hypoatennuations in the liver concerning for metastasis. Patient has been following up inconsistently with Dr. Tristan as an outpatient; the last time she was seen in the office was over 1.5 years ago. 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 -primary team should have a GOC discussion with the patient and her family to see the extent to which they want to work up this new finding. -palliative care consulted for assistance with this matter.
--- NOTE | 2019-04-14 16:47 | PN ---
Physical Exam: SUBJECTIVE: Patient seen and examined at bedside. No acute events overnight. Patient had a mechanical fall without LOC or head injury two days ago and has not been able to walk. She still complains of some pain in her legs. Otherwise she states that she feels fine. OBJECTIVE: Vital Signs Period Temp Pulse Resp BP Sys/Trimble Pulse Ox Last 24 Hr 98 F-99.4 F 99-133 20-27 109-132/76-104 95-98 GENERAL: The patient is awake, alert, AAOx3, in no acute distress. HEAD: Normal with no signs of trauma. EYES: PERRL, EOMI ENT: nares patent, oropharynx clear without exudates, dry mucous membranes. NECK: Trachea midline, supple. LUNGS: Breath sounds equal, clear to auscultation bilaterally, no wheezes, no crackles, no accessory muscle use. HEART: irregularly irregular rhythm ABDOMEN: Soft, nontender, nondistended, normoactive bowel sounds, no guarding, no rebound, no hepatosplenomegaly, no masses. MSK: mild tenderness to palpation on anterior aspect of both knees. EXTREMITIES: 2+ pulses, warm, well-perfused. non pitting edema of both lower extremities. NEUROLOGICAL: Cranial nerves II through XII grossly intact. Normal speech, gait not observed. sensation grossly intact PSYCH: Normal mood, normal affect. Laboratory Results - last 24 hr 04/13/19 04/13/19 04/13/19 18:30 18:30 18:30 WBC 14.7 H RBC 4.01 Hgb 11.8 Hct 37.9 D MCV 94.5 MCH 29.4 MCHC 31.1 L RDW 16.9 H Plt Count 297 D MPV 9.1 Absolute Neuts (auto) 11.2 H Neutrophils % 76.6 Lymphocytes % 12.2 D Monocytes % 10.2 Eosinophils % 0.0 Basophils % 1.0 D Nucleated RBC % 0 PT with INR 15.80 H INR 1.34 H PTT (Actin FS) 34.8 Sodium 141 Potassium 4.2 Chloride 109 H Carbon Dioxide 23 Anion Gap 9 BUN 27.0 H Creatinine 1.1 Est GFR (CKD-EPI)AfAm 54.53 Est GFR (CKD-EPI)NonAf 47.05 Random Glucose 78 Lactic Acid Calcium 9.0 Phosphorus Magnesium Total Bilirubin 4.0 H AST 136 H ALT 66 H Alkaline Phosphatase 415 H Creatine Kinase 385 H Creatine Kinase Index 0.4 CK-MB (CK-2) 1.6 Troponin I 0.04 B-Natriuretic Peptide 6144.0 H Total Protein 6.0 L Albumin 2.6 L TSH Urine Color Urine Appearance Urine pH Ur Specific [place] Urine Protein Urine Glucose (UA) Urine Ketones Urine Blood Urine Nitrite Urine Bilirubin Urine Urobilinogen Ur Leukocyte Esterase Urine WBC (Auto) Urine RBC (Auto) Urine Casts (Auto) U Epithel Cells (Auto) Urine Bacteria (Auto) Blood Type Antibody Screen 04/13/19 04/13/19 04/13/19 18:30 22:20 22:25 WBC RBC Hgb Hct MCV MCH MCHC RDW Plt Count MPV Absolute Neuts (auto) Neutrophils % Lymphocytes % Monocytes % Eosinophils % Basophils % Nucleated RBC % PT with INR INR PTT (Actin FS) Sodium Potassium Chloride Carbon Dioxide Anion Gap BUN Creatinine Est GFR (CKD-EPI)AfAm Est GFR (CKD-EPI)NonAf Random Glucose Lactic Acid 2.0 Calcium Phosphorus Magnesium Total Bilirubin AST ALT Alkaline Phosphatase Creatine Kinase Creatine Kinase Index CK-MB (CK-2) Troponin I B-Natriuretic Peptide Total Protein Albumin TSH Urine Color Dk yellow Urine Appearance Cloudy Urine pH 5.0 Ur Specific [place] 1.019 Urine Protein 1+ H Urine Glucose (UA) Negative Urine Ketones Negative Urine Blood 1+ H Urine Nitrite Positive H Urine Bilirubin 2+ H Urine Urobilinogen 4.0 e.u/dl H Ur Leukocyte Esterase 1+ H Urine WBC (Auto) 2 Urine RBC (Auto) 30 Urine Casts (Auto) 8 U Epithel Cells (Auto) 1.1 Urine Bacteria (Auto) 1.0 Blood Type A POSITIVE Antibody Screen Negative 04/14/19 04/14/19 04/14/19 05:30 05:30 06:19 WBC 13.8 H RBC 3.69 Hgb 11.0 Hct 34.5 MCV 93.6 MCH 29.9 MCHC 32.0 RDW 17.0 H Plt Count 289 MPV 9.3 Absolute Neuts (auto) 10.0 H Neutrophils % 72.6 Lymphocytes % 16.1 D Monocytes % 10.6 H Eosinophils % 0.0 Basophils % 0.7 Nucleated RBC % 0 PT with INR INR PTT (Actin FS) Sodium 143 Potassium 4.5 Chloride 110 H Carbon Dioxide 23 Anion Gap 10 BUN 28.6 H Creatinine 1.0 Est GFR (CKD-EPI)AfAm 61.19 Est GFR (CKD-EPI)NonAf 52.79 Random Glucose 65 L Lactic Acid Calcium 8.6 Phosphorus 3.1 Magnesium 2.5 H Total Bilirubin AST ALT Alkaline Phosphatase Creatine Kinase 348 H Creatine Kinase Index 0.5 CK-MB (CK-2) 1.8 Troponin I 0.06 H B-Natriuretic Peptide Total Protein Albumin TSH 1.08 Urine Color Urine Appearance Urine pH Ur Specific [place] Urine Protein Urine Glucose (UA) Urine Ketones Urine Blood Urine Nitrite Urine Bilirubin Urine Urobilinogen Ur Leukocyte Esterase Urine WBC (Auto) Urine RBC (Auto) Urine Casts (Auto) U Epithel Cells (Auto) Urine Bacteria (Auto) Blood Type A POSITIVE Antibody Screen Active Medications Generic Name Dose Route Start Last Admin Trade Name Freq PRN Reason Stop Dose Admin Chlorhexidine Gluconate 1 applic 04/14/19 22:00 Hibiclens For Decolonization - TP HS ALFONZO Diltiazem HCl 360 mg 04/14/19 10:15 04/14/19 10:59 Cardizem Cd - PO 360 mg DAILY ALFONZO Administration Enoxaparin Sodium 80 mg 04/14/19 10:00 04/14/19 10:17 Lovenox - SQ 80 mg BID ALFONZO Administration Sodium Chloride 1,000 mls @ 42 mls/hr 04/13/19 18:15 04/13/19 18:25 Normal Saline - IV 42 mls/hr ASDIR ALFONZO Administration Diltiazem HCl 125 mg/ Sodium 125 mls @ 5 mls/hr 04/13/19 21:15 04/14/19 14:40 Chloride IVPB 0 mg/hr TITR ALFONZO 0 mls/hr Titration Protocol 5 MG/HR Mupirocin 1 applic 04/14/19 10:00 04/14/19 10:17 Bactroban Ointment (For Decolonization) - NS 04/19/19 09:59 1 applic BID ALFONZO Administration ASSESSMENT/PLAN: 83 y/o/f with PMHx of AFib (not on Eliquis since October 2018), Biliary Cancer (s/p Whipple), Asthma, COPD, Spinal Stenosis, RA. Who presents to the ED with lower extremity and generalized weakness, s/p mechanical fall at home x 1 day. Patient found to be in Afib with RVR in ED and placed on cardizem drip for rate control. #Neuro - AOx3 - CT Head and C-Spine negative for fractures, any acute pathology #ID - WBC improved to 13.8 from 14.7 - Blood cx pending - UA: cloudy, 1+ protein, 1+ blood, positive nitrite, 2+ urine bilirubin, 1+ LE , 2 WBC, 1.0 bacteria - UTI unlikey based on UA - Patient received zosyn in ED - ID on board, appreciate recs #Respiratory - CXR: large heart, no acute pathology noted #Renal - BUN/Cr 28.6/1.0 - Cr baseline seems to be 0.7-0.9 as per previous visits - [place] in place #Cardio - AFib with RVR, patient rate controlled with cardizem drip overnight. Cardizem drip weaned off today. - Started patient on home dose of PO cardizem - Trop 0.04 - 0.06 -> 0.05 - BNP 6144.0 (4770 on previous visit in 2017) - Echo pending - Lovenox 80mg BID #GI - TBili 4.0H, AST 136H, ALT 66H, ALP 415H - PT INR 15.80, PTT 34.8 - RUQ U/S shows patient s/p cholecystectomy. Common bile duct measures 6 mm. The liver is enlarged, demonstrates a coarsened, heterogeneous echotexture with nodularity of the hepatic capsule, suggestive of cirrhosis. Multiple hepatic masses noted. - CTAP showed multiple hypoatennuations in the liver concerning for metastasis. Per Heme/Onc: -Patient will likely require biopsy/ PET for full staging of disease. -primary team should have a GOC discussion with the patient and her family to see the extent to which they want to work up this new finding. -palliative care consulted for assistance with this matter. #Vascular - Lower extremity U/S negative for DVTs - There is a 4.8 x 1.2 x 2.5 cm left popliteal cyst. #FEN - N/S 1L @ 42 - Diabetic/Na controlled diet #DVT PE - Lovenox 80mg BID # Dispo - Wean patient off Cardizem drip. May transfer patient to tele if patient is stable when off cardizem. Visit type - Emergency Visit Emergency Visit: Yes ED Registration Date: 04/13/19 Care time: The patient presented to the Emergency Department on the above date and was hospitalized for further evaluation of their emergent condition. - New Patient This patient is new to me today: Yes Date on this admission: 04/14/19 - Critical Care Critical Care patient: Yes Total Critical Care Time (in minutes): 36 Critical Care Statement: The care of this patient involved high complexity decision making to prevent further life threatening deterioration of the patient 's condition and/or to evaluate & treat vital organ system(s) failure or risk of failure. ATTENDING PHYSICIAN STATEMENT I saw and evaluated the patient. I reviewed the resident's note and discussed the case with the resident. I agree with the resident's findings and plan as documented. SUBJECTIVE: OBJECTIVE: ASSESSMENT AND PLAN:
[2019-04-14] MEDS ORDERED: dilTIAZem HCL 50 MG/10 ML - 10 ML VIAL IVPUSH PRN (19:34)
[2019-04-14] MEDS ORDERED: CHLORHEXIDINE GLUCONATE 4% CLEANSER FOR DECOLONIZATION TP SCH (22:00)
[2019-04-14] MEDS ORDERED: FUROSEMIDE 40 MG/4 ML INJECTABLE VIAL IVPUSH ONE (22:17)
[2019-04-14] MEDS: SODIUM CHLORIDE 1,000 ML IV SCH (22:27)
[2019-04-14] MEDS: ENOXAPARIN NA (PORCINE) 80 MG/0.8 ML DISP.SYRIN SQ SCH (22:27)
--- NOTE | 2019-04-14 22:27 | PN ---
Progress Note (short form) - Note Progress Note: Episodic Note 04/14/2019@1015pm Called by RN patient has shortness of breath which is new and back pain. Oxygen saturation is 92% on room air, pulse is 101, blood pressure 123/65. Chart reviewed. Patient was seen and examined at bedside. She reports oxygen therapy improved shortness of breath however stills appears to have mild dyspnea. On telemetry she remains in atrial fibrillation with heart rates elevations and nonsustained into the 130's. Currently heart rate is in the 100's. On physical exam she has bilateral lower extremity edema and shortness of breath likely related to uncontrolled atrial fibrillation. Cardiology following patient. She is pending an echocardiogram to evaluate aortic stenosis. Plan -- Will give one dosage of IV lasix 40 mg now -- Added metoprolol tartrate 25 mg for now and once daily for better heart rate control in addition to Cardizem 360mg once daily -- IV Morphine 2 mg once ordered for back pain -- Oxygen therapy 2 L by n/c -- Keep HOB elevated 45 degrees Visit type - Emergency Visit Emergency Visit: Yes ED Registration Date: 04/13/19 Care time: The patient presented to the Emergency Department on the above date and was hospitalized for further evaluation of their emergent condition. - New Patient This patient is new to me today: Yes Date on this admission: 04/14/19 - Critical Care Critical Care patient: No - Discharge Referral Referred to [facility] Med P.C.: No
[2019-04-14] MEDS ORDERED: METOPROLOL TARTRATE 25 MG TABLET (FP) PO STA (23:01)
[2019-04-15 08:14] LABS: BASO % 0.4 % (0-2.0); EOS % 0.2 % (0-4.5); HEMATOCRIT 33.7 % (32.4-45.2); HEMOGLOBIN 11.3 GM/dL (10.7-15.3); LYMPH % 14.8 % (8-40); MCH 31.9 pg (25.7-33.7); MCHC 33.6 g/dl (32.0-36.0); MEAN CELL VOLUME 94.8 fl (80-96); MEAN PLT VOLUME 9.4 fl (7.5-11.1); MONO % 9.6 % (3.8-10.2); PLATELET COUNT 275 K/MM3 (134-434); RBC 3.56 M/mm3 (3.60-5.2); RDW 16.9 % (11.6-15.6)
--- NOTE | 2019-04-15 08:24 | PN.GI ---
GI Progress Note Subjective: Patient complains of R sided abdominal pain and constipation. Denies nausea, vomiting, rectal bleeding or melena. Abd/Pelvic CT scan shows significant hepatosplenomegaly with diffuse innumerable low attenuation densities or lesions highly suspicious of metastasis. CA 19-9 is pending. - Objective Vital Signs: Vital Signs Temperature 97.4 F L 04/15/19 06:00 Pulse Rate 92 H 04/15/19 06:00 Respiratory Rate 18 04/15/19 06:00 Blood Pressure 115/58 L 04/15/19 06:00 O2 Sat by Pulse Oximetry (%) 93 L 04/14/19 21:00 Constitutional: No Distress, Calm Eyes: Yes: Conjunctiva Clear HENT: Yes: Atraumatic Cardiovascular: Yes: Pulse Irregular Respiratory: Yes: Regular, Diminished Gastrointestinal Inspection: Yes: Ascites. No: WNL, Distention, Hernia, Scars, Other ...Auscultate: Yes: Normoactive Bowel Sounds. No: Hyperactive Bowel Sounds, Hypoactive Bowel Sounds, No Bowel Sounds, Other ...Palpate: Yes: Soft, Splenomegaly, Tenderness (ruq). No: Firm/Rigid, Guarding , Hepatomegaly, Mass, Pulsatile Mass, Tenderness, Epigastium, Tenderness, Rebound, Other ...Percussion: Yes: Tympanitic. No: Dullness, Fluid Wave, Other Neurological: Yes: Alert, Oriented Psychiatric: Yes: Alert, Oriented Labs: INR, PTT INR 1.34 (0.83-1.09) H 04/13/19 18:30 Active Medications Generic Name Dose Route Start Last Admin Trade Name Freq PRN Reason Stop Dose Admin Diltiazem HCl 5 mg 04/14/19 19:34 Cardizem Injection - IVPUSH ONCE PRN TACHYCARDIA Diltiazem HCl 360 mg 04/15/19 10:00 Cardizem Cd - PO DAILY ALFONZO Enoxaparin Sodium 80 mg 04/14/19 22:00 04/14/19 22:27 Lovenox - SQ 80 mg BID ALFONZO Administration Sodium Chloride 1,000 mls @ 42 mls/hr 04/14/19 20:22 04/14/19 22:27 Normal Saline - IV 42 mls/hr ASDIR ALFOZNO Administration Metoprolol Tartrate 25 mg 04/15/19 10:00 Lopressor - PO DAILY ALFONZO Metoprolol Tartrate 25 mg 04/15/19 10:00 Lopressor - PO 04/15/19 10:01 DAILY ALFONZO Problem List - Problems (1) Transaminitis Assessment/Plan: >pending official read Abdominal/Pelvic CT scan >monitor LFTs daily >T bili 4.0 Code(s): R74.0 - NONSPEC ELEV OF LEVELS OF TRANSAMNS & LACTIC ACID DEHYDRGNSE (2) Pancreatic cancer Assessment/Plan: >Abd US shows hepatomegaly with multiple hepatic masses consistent with metastatic disease >recommend oncology consult >CA 19-9 pending >Abd/Pelvic CT scan shows significant hepatosplenomegaly with diffuse innumerable low attenuation densities or lesions highly suspicious of metastasis Code(s): C25.9 - MALIGNANT NEOPLASM OF PANCREAS, UNSPECIFIED
[2019-04-15 08:56] LABS: ALBUMIN 2.3 g/dl (3.4-5.0); BILIRUBIN,TOTAL 3.9 mg/dL (0.2-1); BLOOD UREA NITROGEN 24.8 mg/dL (7-18); CALCIUM 8.4 mg/dL (8.5-10.1); MAGNESIUM 1.8 mg/dL (1.8-2.4); PHOSPHOROUS 2.7 mg/dL (2.5-4.9); POTASSIUM 4.1 mmol/L (3.5-5.1); TOT PROT 5.7 g/dl (6.4-8.2)
[2019-04-15] MEDS ORDERED: METOPROLOL TARTRATE 25 MG TABLET (FP) PO SCH (10:00)
--- NOTE | 2019-04-15 10:00 | CON.ID ---
Consult Consult Specialty:: infectious disease Referred by:: dr castelan Reason for Consultation:: leukocytosis - History of Present Illness Chief Complaint: admitted from home s/p mechanical fall History of Present Illness: tripped and slipped under kitchen table weakness no cough has had leg swelling and sob no fevers no diarrhea or dysuria no abdominal pain or chest pain found to be in rapid afib in Ed history of pancreatic cancer s/p [id number]- found on cat scan in ED to have muyltiple liver lesions c/w metastases 5 dogs at home saw PMD 2 weeks ago for pain in her side - History Source History Provided By: Patient Limitations to Obtaining History: No Limitations - Past Medical History Cardio/Vascular: Yes: AFIB, Murmur Pulmonary: Yes: Asthma, COPD Gastrointestinal: Yes: Cancer (pancreatic CA) Hepatobiliary: Yes: Other (pancreatic ca - s/p Whipple) Renal/: Yes: Renal Calculi Infectious Disease: Yes: Other (strep bacteremia- 12/29) Musculoskeletal: Yes: Other (spinal stenosis) Rheumatology: Yes: Rheumatoid Arthritis Dermatology: Yes: Other (Chronic bilateral pitting edema up to thighs) - Past Surgical History Past Surgical History: Yes: Cholecystectomy Additional Surgical History: whipples's procedure 09/2016 - Alcohol/Substance Use Hx Alcohol Use: No History of Substance Use: reports: None - Smoking History Smoking history: Former smoker Have you smoked in the past 12 months: No If you are a former smoker, when did you quit?: 56YRS AGO - Social History Usual Living Arrangement: With Child ADL: Independent (ambulates with cane) Place of : [facility] History of Recent Travel: No Home Medications - Allergies Allergies/Adverse Reactions: Allergies Allergy/AdvReac Type Severity Reaction Status Date / Time egg Allergy Unknown Verified 04/13/19 17:53 Fish Containing Products Allergy Unknown Verified 04/13/19 17:53 Iodinated Contrast Media AdvReac Verified 04/13/19 17:53 - Home Medications Home Medications: Ambulatory Orders Budesonide/Formeterol Fumarate [SYMBICORT 160/4.5mcg -] 1 inh PO BID 10/05/15 Cholecalciferol (Vitamin D3) [Vitamin D3] 1,000 unit PO DAILY 10/05/15 Cyclosporine [Restasis] 1 each OP DAILY 10/05/15 Folic Acid - 1 mg PO DAILY 10/05/15 Hydroxychloroquine Sulfate 200 mg PO BID 10/05/15 Ipratropium/Albuterol Sulfate [Combivent Respimat 20-100 Mcg] 4 gm IH QID Montelukast Na [Singulair -] 10 mg PO HS 10/05/15 Multivitamin [Poly-Vitamin] 1 each PO DAILY 10/05/15 Diltiazem Cd [Cardizem Cd -] 360 mg PO DAILY 12/04/16 Esomeprazole Magnesium [Nexium 24Hr] 40 mg PO BID 04/13/19 Umeclidinium [place] [Incruse Ellipta] 62.5 mcg IH ASDIR 04/13/19 Family Medical History Family History: Denies Review of Systems - Review of Systems Constitutional: reports: Weakness. denies: Chills, Fever, Loss of Appetite, Unintentional Wgt. Loss Eyes: reports: No Symptoms HENT: reports: No Symptoms. denies: Difficult Swallowing Neck: reports: No Symptoms Cardiovascular: reports: Edema, Shortness of Breath. denies: Chest Pain Respiratory: denies: Cough, Hemoptysis, Wheezing Gastrointestinal: reports: No Symptoms, Vomiting (occasional vomiting). denies : Abdominal Pain, Diarrhea Genitourinary: reports: No Symptoms. denies: Burning, Dysuria, Flank Pain Physical Exam Vital Signs: Vital Signs Temperature 97.4 F L 04/15/19 06:00 Pulse Rate 92 H 04/15/19 06:00 Respiratory Rate 18 04/15/19 06:00 Blood Pressure 115/58 L 04/15/19 06:00 O2 Sat by Pulse Oximetry (%) 93 L 04/14/19 21:00 Constitutional: Yes: No Distress, Thin Eyes: Yes: WNL, Sclera Icterus HENT: Yes: Atraumatic, Normocephalic Neck: Yes: Supple Cardiovascular: Yes: Other (irreg irreg) Respiratory: Yes: Regular, CTA Bilaterally, Diminished (at bases) Gastrointestinal: Yes: Normal Bowel Sounds, Soft, Hepatomegaly, Other ( reducible hernia soft, nontender) ...Rectal Exam: Yes: Deferred Edema: Yes Edema: LLE: Trace, RLE: Trace Neurological: Yes: Alert. No: Asterix[place] Labs: CBC, BMP 04/15/19 06:35 04/15/19 06:35 Laboratory Tests 04/15/19 04/15/19 06:35 06:35 Total Bilirubin 3.9 H AST 128 H ALT 60 Alkaline Phosphatase 400 H Ammonia 53.30 H Microbiology 04/13/19 22:20 Blood - Peripheral Venous Blood Culture - Preliminary NO GROWTH OBTAINED AFTER 24 HOURS, INCUBATION TO CONTINUE FOR 4 DAYS. Imaging - Results Chest X-ray: Report Reviewed, Image Reviewed Cat Scan: Report Reviewed Ultrasound: Report Reviewed Problem List - Problems (1) Leukocytosis Code(s): D72.829 - ELEVATED WHITE BLOOD CELL COUNT, UNSPECIFIED (2) Fall Code(s): W19.XXXA - UNSPECIFIED FALL, INITIAL ENCOUNTER (3) Abnormal LFTs (liver function tests) Code(s): R94.5 - ABNORMAL RESULTS OF LIVER FUNCTION STUDIES (4) Metastatic cancer Code(s): C79.9 - SECONDARY MALIGNANT NEOPLASM OF UNSPECIFIED SITE (5) Atrial fibrillation with RVR Code(s): I48.91 - UNSPECIFIED ATRIAL FIBRILLATION Assessment/Plan no signs of UTI, no symptoms, ua with 2 wbcs blood cultures negative suspect reactive would observe off antiibiotics 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
--- NOTE | 2019-04-15 11:25 | PN ---
Progress Note (short form) - Note Progress Note: Hematology and oncology follow up Subjective: Patient seen and examined at bedside. No new complaints, no events overnight. Objective: Vital Signs Temperature 97.4 F L 04/15/19 06:00 Pulse Rate 92 H 04/15/19 06:00 Respiratory Rate 18 04/15/19 06:00 Blood Pressure 115/58 L 04/15/19 06:00 O2 Sat by Pulse Oximetry (%) 93 L 04/14/19 21:00 Physical Exam: General: patient well appearing, found lying in bad awake and alert in NAD Lungs: Decreased breath sounds b/l Heart RRR, S1, S2 heard. Diastolic murmur heard best at the RUSB Abdomen: soft, nontender, not distended. bowel sounds heard. Active Medications Diltiazem HCl (Cardizem Injection -) 5 mg IVPUSH ONCE PRN PRN Reason: TACHYCARDIA Diltiazem HCl (Cardizem Cd -) 360 mg PO DAILY [facility] Last Admin: 04/15/19 09:24 Dose: 360 mg Enoxaparin Sodium (Lovenox -) 80 mg SQ BID [facility] Last Admin: 04/14/19 22:27 Dose: 80 mg Sodium Chloride (Normal Saline -) 1,000 mls @ 42 mls/hr IV ASDIR [facility] Last Admin: 04/14/19 22:27 Dose: 42 mls/hr Metoprolol Tartrate (Lopressor -) 25 mg PO DAILY [facility] Home Medications Medication Instructions Recorded Budesonide/Formeterol Fumarate 1 inh PO BID 10/05/15 [SYMBICORT 160/4.5mcg -] Cholecalciferol (Vitamin D3) 1,000 unit PO DAILY 10/05/15 [Vitamin D3] Cyclosporine [Restasis] 1 each OP DAILY 10/05/15 Folic Acid - 1 mg PO DAILY 10/05/15 Hydroxychloroquine Sulfate 200 mg PO BID 10/05/15 Ipratropium/Albuterol Sulfate 4 gm IH QID 10/05/15 [Combivent Respimat 20-100 Mcg] Montelukast Na [Singulair -] 10 mg PO HS 10/05/15 Multivitamin [Poly-Vitamin] 1 each PO DAILY 10/05/15 Diltiazem Cd [Cardizem Cd -] 360 mg PO DAILY 12/04/16 Esomeprazole Magnesium [Nexium 40 mg PO BID 10/30/19 24Hr] Umeclidinium [place] [Incruse 62.5 mcg IH ASDIR 04/13/19 Ellipta] Allergies Allergy/AdvReac Type Severity Reaction Status Date / Time egg Allergy Unknown Verified 04/13/19 17:53 Fish Containing Products Allergy Unknown Verified 04/13/19 17:53 Iodinated Contrast Media AdvReac Verified 04/13/19 17:53 CBC, BMP 04/15/19 06:35 04/15/19 06:35 Assessment and plan: This is an 83 year old female with PMH significant for HTN, COPD, A Fib ( diagnosed 3 years ago, was started on Eliquis but stopped taking in 10/2018), RA , biliary cancer (s/p Whipple and cholecystectomy). She presented to ER from home with complaints of B/L lower extremity weakness after a mechanical fall last. A CTAP showed multiple hypoatennuations in the liver concerning for metastasis. Patient has been following up inconsistently with Dr. Tristan as an outpatient; the last time she was seen in the office was over 1.5 years ago. 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 -GOC discussion w/ primary team and palliative care.
[2019-04-15] MEDS: ENOXAPARIN NA (PORCINE) 80 MG/0.8 ML DISP.SYRIN SQ SCH ×2 (11:52→21:24)
--- NOTE | 2019-04-15 13:33 | PN ---
Progress Note, Physician History of Present Illness: 83 year old woman with pmh chronic atrial fibrillation on eliquis, asthma, ampullary adenocarcinoma s/p whipple, pancreatticoduodenectomy 09/2016 recovered well from this, chronic venous insufficiency followed by Dr Barber for chronic afib, b/l LE edema. She is now in the ICU for weakness, fall, transaminitis, afib with RVR and hyperbilirubinemia. CT scan shows liver mets. Echo 2017 nlef mod as, mod mr. - Current Medication List Current Medications: Active Medications Diltiazem HCl (Cardizem Injection -) 5 mg IVPUSH ONCE PRN PRN Reason: TACHYCARDIA Diltiazem HCl (Cardizem Cd -) 360 mg PO DAILY [facility] Last Admin: 04/15/19 09:24 Dose: 360 mg Enoxaparin Sodium (Lovenox -) 80 mg SQ BID [facility] Last Admin: 04/15/19 11:52 Dose: Not Given Sodium Chloride (Normal Saline -) 1,000 mls @ 42 mls/hr IV ASDIR [facility] Last Admin: 04/14/19 22:27 Dose: 42 mls/hr Metoprolol Tartrate (Lopressor -) 25 mg PO DAILY [facility] - Objective Vital Signs: Vital Signs Temperature 97.5 F L 04/15/19 10:00 Pulse Rate 108 H 04/15/19 10:00 Respiratory Rate 18 04/15/19 10:00 Blood Pressure 115/72 04/15/19 10:00 O2 Sat by Pulse Oximetry (%) 93 L 04/14/19 21:00 Constitutional: Yes: No Distress, Calm Eyes: Yes: Conjunctiva Clear, EOM Intact HENT: Yes: Atraumatic, Normocephalic Neck: Yes: Trachea Midline Cardiovascular: Yes: Pulse Irregular Respiratory: Yes: CTA Bilaterally Gastrointestinal: Yes: Normal Bowel Sounds, Soft Musculoskeletal: Yes: WNL Extremities: Yes: WNL Edema: No Labs: CBC, BMP 04/15/19 06:35 04/15/19 06:35 INR, PTT INR 1.34 (0.83-1.09) H 04/13/19 18:30 Assessment/Plan 83 year old woman with pmh chronic atrial fibrillation on eliquis, asthma, ampullary adenocarcinoma s/p whipple, pancreatticoduodenectomy 09/2016 recovered well from this, chronic venous insufficiency followed by Dr Barber for chronic afib, b/l LE edema. She is now in the ICU for weakness, fall, transaminitis, afib with RVR and hyperbilirubinemia. US shows liver mets. Echo 2017 nlef mod as, mod mr. Plan: 1. atrial fibrillation--hold eliquis bridge with lovenox for now. will likely need a biopsy. -echo -Continue dilt, increase metoprolol as tolerated by BP and HR for rate control. 2. Aortic stenosis -echo -not a candidate for intervention. Prognosis is guarded.
--- NOTE | 2019-04-15 13:41 | PN ---
Progress Note (short form) - Note Progress Note: PT SEEN/ EXAMINED CHART REVIEWED AWAKE CHRONIC ILL APPEARANCE NO DISTRESS Vital Signs Temp 97.5 F L 04/15/19 10:00 Pulse 108 H 04/15/19 10:00 Resp 18 04/15/19 10:00 BP 115/72 04/15/19 10:00 Pulse Ox 93 L 04/14/19 21:00 Intake & Output 04/14/19 04/15/19 04/15/19 23:59 11:59 23:59 Intake Total 1078 Output Total 300 2000 Balance 778 -2000 Weight 178 lb 11.2 oz Intake: IV 658 Cardizem Injection - 125 70 mg In Normal Saline - 100 ml @ 5 MG/HR 5 mls/hr IVPB TITR [facility] Rx#: [id number] Normal Saline - 1,000 ml 588 @ 42 mls/hr IV ASDIR [facility] Rx#:[id number] Oral 420 Output: Urine 300 2000 [place] 300 2000 Other: Voiding Method Indwelling Catheter Indwelling Catheter Bowel Movement No No Weight Measurement Method Standing Scale Active Medications Diltiazem HCl (Cardizem Injection -) 5 mg IVPUSH ONCE PRN PRN Reason: TACHYCARDIA Diltiazem HCl (Cardizem Cd -) 360 mg PO DAILY [facility] Last Admin: 04/15/19 09:24 Dose: 360 mg Enoxaparin Sodium (Lovenox -) 80 mg SQ BID [facility] Last Admin: 04/15/19 11:52 Dose: Not Given Sodium Chloride (Normal Saline -) 1,000 mls @ 42 mls/hr IV ASDIR [facility] Last Admin: 04/14/19 22:27 Dose: 42 mls/hr Metoprolol Tartrate (Lopressor -) 25 mg PO DAILY [facility] CBC, BMP 04/15/19 06:35 04/15/19 06:35 Abnormal Lab Results 04/15/19 04/15/19 04/15/19 06:35 06:35 06:35 WBC 13.0 H RBC 3.56 L RDW 16.9 H Absolute Neuts (auto) 9.8 H BUN 24.8 H Random Glucose 71 L Calcium 8.4 L Total Bilirubin 3.9 H AST 128 H Alkaline Phosphatase 400 H Ammonia 53.30 H Total Protein 5.7 L Albumin 2.[address] scan - reviewed Physical Exam awake S1 S2 irregular Lungs decreased Abd- soft, anasarca++ edema++ icterus PLAN metastatic biliary CA elevated lFT rapid Afib -- under control liver masses -- rate control -- monitor in ICU -- elevated troponins due to demand ischemia -- Oncology eval -- -- IR for liver biopsy ? Await Oncology input continue present care will follow Problem List - Problems (1) Atrial fibrillation with RVR Code(s): I48.91 - UNSPECIFIED ATRIAL FIBRILLATION (2) Elevated bilirubin Code(s): R17 - UNSPECIFIED JAUNDICE (3) Transaminitis Code(s): R74.0 - NONSPEC ELEV OF LEVELS OF TRANSAMNS & LACTIC ACID DEHYDRGNSE (4) Fall Code(s): W19.XXXA - UNSPECIFIED FALL, INITIAL ENCOUNTER
[2019-04-15] MEDS: SODIUM CHLORIDE 1,000 ML IV SCH ×2 (15:05→21:25)
--- NOTE | 2019-04-15 16:23 | ECHO ---
Name: RYLAN HODGES Exam:Adult Echocardiogram Study Date: 04/15/2019 03:39 PM Age: 83 yrs Height: 63 in Weight: 180 lb BSA: 1.8 m2 MMode/2D Measurements & Calculations IVSd: 1.1 cm Ao root diam: 2.3 cm LVIDd: 4.1 cm LA dimension: 4.4 cm LVIDs: 2.9 cm LVPWd: 1.1 cm LVPWs: 1.2 cm EDV(Teich): 72.6 ml ESV(Teich): 32.8 ml LVOT diam: 1.6 cm LAV (MOD-bp): 134.0 ml Doppler Measurements & Calculations MV V2 max: 141.2 cm/sec Ao V2 max: 310.3 cm/sec MV max P.0 mmHg Ao max P.7 mmHg MV V2 mean: 105.5 cm/sec Ao V2 mean: 216.7 cm/sec MV mean P.9 mmHg Ao mean P.9 mmHg MV V2 VTI: 33.1 cm Ao V2 VTI: 54.1 cm MR max cheikh: 518.0 cm/sec TR max cheikh: 273.6 cm/sec MR max P.6 mmHg TR max P.0 mmHg PA V2 max: 110.6 cm/sec Med Peak E' Cheikh: 5.8 cm/sec PA max P.9 mmHg Lat Peak E' Cheikh: 6.7 cm/sec Left Ventricle Left ventricular systolic function is normal. Ejection Fraction = 55-60%. Right Ventricle The right ventricle is normal in size and function. Atria The left atrium is severely dilated. The right atrium is mildly dilated. Mitral Valve There is moderate mitral annular calcification. There is no mitral valve stenosis. There is mild to m oderate mitral regurgitation. Tricuspid Valve The tricuspid valve is normal in structure and function. There is mild tricuspid regurgitation. Aortic Valve Moderate valvular aortic stenosis. No aortic regurgitation is present. Pulmonic Valve The pulmonic valve is not well seen, but is grossly normal. There is no pulmonic valvular stenosis. T here is no pulmonic valvular regurgitation. Great Vessels The aortic root is normal size. Pericardium/Pleura There is no pericardial effusion. Interpretation Summary Left ventricular systolic function is normal. Ejection Fraction = 55-60%. The left atrium is severely dilated. There is moderate mitral annular calcification. There is mild to moderate mitral regurgitation. There is mild tricuspid regurgitation. Moderate valvular aortic stenosis. There is no pericardial effusion. MD Maynard *Danika 04/15/2019 04:22 PM
[2019-04-15] MEDS: METOPROLOL TARTRATE 25 MG TABLET (FP) PO SCH (18:11)
[2019-04-16] MEDS: METOPROLOL TARTRATE 25 MG TABLET (FP) PO SCH (09:51)
[2019-04-16] MEDS: ENOXAPARIN NA (PORCINE) 80 MG/0.8 ML DISP.SYRIN SQ SCH ×2 (09:52→21:05)
--- NOTE | 2019-04-16 10:16 | PN ---
Progress Note (short form) - Note Progress Note: OOB in chair no vomiting +nausea no abdominal pain Vital Signs Period Temp Pulse Resp BP Sys/Trimble Pulse Ox Last 24 Hr 97.7 F-98.2 F 83-98 18-18 110-123/61-73 97 cor-irreg lungs decreased bs at bases abd soft,+soft hernia nontender, +hepatomegaly ext trace edema CBC, BMP 04/15/19 06:35 04/15/19 06:35 Microbiology 04/13/19 22:20 Blood - Peripheral Venous Blood Culture - Preliminary NO GROWTH OBTAINED AFTER 48 HOURS, INCUBATION TO CONTINUE FOR 3 DAYS. 04/13/19 11:38 Blood - Peripheral Venous Blood Culture - Preliminary NO GROWTH OBTAINED AFTER 24 HOURS, INCUBATION TO CONTINUE FOR 4 DAYS. Laboratory Tests 04/15/19 04/15/19 04/15/19 06:35 06:35 06:35 Total Bilirubin 3.9 H AST 128 H ALT 60 Alkaline Phosphatase 400 H Ammonia 53.30 H CA 19-9 Antigen 8790 H a/p leukocytosis most likely reactive metastatic cancer- ?biliary with elevated ca19-9- ?biopsy afib with better rate control observe off antiiboitics cultures are negative clinically no UTI or pneumonia encourage incentive spirometry- will order Problem List - Problems (1) Leukocytosis Code(s): D72.829 - ELEVATED WHITE BLOOD CELL COUNT, UNSPECIFIED (2) Fall Code(s): W19.XXXA - UNSPECIFIED FALL, INITIAL ENCOUNTER (3) Abnormal LFTs (liver function tests) Code(s): R94.5 - ABNORMAL RESULTS OF LIVER FUNCTION STUDIES (4) Metastatic cancer Code(s): C79.9 - SECONDARY MALIGNANT NEOPLASM OF UNSPECIFIED SITE (5) Atrial fibrillation with RVR Code(s): I48.91 - UNSPECIFIED ATRIAL FIBRILLATION
--- NOTE | 2019-04-16 12:44 | PN ---
Progress Note, Physician History of Present Illness: pt seen and examined today in [facility]. states she was out of bed this am but was very tired so now back in bed. states she continues to feel fatigue, shaky legs , and mahmood. - Current Medication List Current Medications: Active Medications Diltiazem HCl (Cardizem Injection -) 5 mg IVPUSH ONCE PRN PRN Reason: TACHYCARDIA Diltiazem HCl (Cardizem Cd -) 360 mg PO DAILY [facility] Last Admin: 04/16/19 09:51 Dose: 360 mg Enoxaparin Sodium (Lovenox -) 80 mg SQ BID [facility] Last Admin: 04/16/19 09:52 Dose: 80 mg Sodium Chloride (Normal Saline -) 1,000 mls @ 42 mls/hr IV ASDIR [facility] Last Admin: 04/15/19 21:25 Dose: 42 mls/hr Metoprolol Tartrate (Lopressor -) 25 mg PO DAILY [facility] Last Admin: 04/16/19 09:51 Dose: 25 mg - Objective Vital Signs: Vital Signs Temperature 98.1 F 04/16/19 10:00 Pulse Rate 102 H 04/16/19 10:00 Respiratory Rate 18 04/16/19 10:00 Blood Pressure 129/59 L 04/16/19 10:00 O2 Sat by Pulse Oximetry (%) 97 04/16/19 10:00 Constitutional: Yes: No Distress, Calm Eyes: Yes: Conjunctiva Clear, EOM Intact HENT: Yes: Atraumatic, Normocephalic Neck: Yes: Supple, Trachea Midline Cardiovascular: Yes: Pulse Irregular, Murmur, S1, S2. No: Regular Rate and Rhythm, Bradycardia, Tachycardia, Bruit, JVD, Gallop, Rub, S3, S4, Varicosities Respiratory: Yes: Regular, Diminished, On Nasal O2. No: Rales, Rhonchi, SOB, Wheezes Gastrointestinal: Yes: Normal Bowel Sounds, Soft. 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 She is now in the ICU for weakness, fall, transaminitis, afib with RVR and hyperbilirubinemia. US shows liver mets. Echo 2017 nlef mod as, mod mr. atrial fibrillation- -HR adequately controlled -hold eliquis bridge with lovenox for now as she may need a biopsy. -echo showed normal LVEF with mild to moderate valvular abnl -Continue diltiazem and metoprolol for HR control Aortic stenosis -echo showed moderate aortic stenosis -no indication for intervention.
--- NOTE | 2019-04-16 14:57 | PN ---
Progress Note (short form) - Note Progress Note: Pt seen/ examined. no distress pain issues Vital Signs Temp 98.2 F 04/16/19 13:20 Pulse 95 H 04/16/19 13:20 Resp 20 04/16/19 13:20 BP 109/69 04/16/19 13:20 Pulse Ox 97 04/16/19 10:00 Intake & Output 04/15/19 04/16/19 04/16/19 23:59 11:59 23:59 Intake Total 400 336 Output Total 1100 Balance -700 336 Intake: IV 336 Normal Saline - 1,000 ml 336 @ 42 mls/hr IV ASDIR [facility] Rx#:[id number] Oral 400 Output: Urine 1100 [place] 1100 Other: Voiding Method Diaper Diaper # Unmeasured Voids [place] 1 2 Bowel Movement No Active Medications Diltiazem HCl (Cardizem Injection -) 5 mg IVPUSH ONCE PRN PRN Reason: TACHYCARDIA Diltiazem HCl (Cardizem Cd -) 360 mg PO DAILY [facility] Last Admin: 04/16/19 09:51 Dose: 360 mg Enoxaparin Sodium (Lovenox -) 80 mg SQ BID [facility] Last Admin: 04/16/19 09:52 Dose: 80 mg Sodium Chloride (Normal Saline -) 1,000 mls @ 42 mls/hr IV ASDIR [facility] Last Admin: 04/15/19 21:25 Dose: 42 mls/hr Metoprolol Tartrate (Lopressor -) 25 mg PO DAILY [facility] Last Admin: 04/16/19 09:51 Dose: 25 mg CBC, BMP 04/15/19 06:35 04/15/19 06:35 Microbiology 04/13/19 11:38 Blood Culture - Preliminary Blood - Peripheral Venous NO GROWTH OBTAINED AFTER 48 HOURS, INCUBATION TO CONTINUE FOR 3 DAYS. 04/13/19 22:20 Blood Culture - Preliminary Blood - Peripheral Venous NO GROWTH OBTAINED AFTER 48 HOURS, INCUBATION TO CONTINUE FOR 3 DAYS. Physical Exam awake S1 S2 irregular Lungs decreased Abd- soft, anasarca++ edema++ icterus PLAN metastatic biliary CA elevated lFT rapid Afib -- under control liver masses -- rate control -- monitor in ICU -- elevated troponins due to demand ischemia -- Oncology eval -- -- IR for liver biopsy ? Await Oncology input continue present care will follow pain meds/ laxatives overall condition gaurded Problem List - Problems (1) Atrial fibrillation with RVR Code(s): I48.91 - UNSPECIFIED ATRIAL FIBRILLATION (2) Elevated bilirubin Code(s): R17 - UNSPECIFIED JAUNDICE (3) Transaminitis Code(s): R74.0 - NONSPEC ELEV OF LEVELS OF TRANSAMNS & LACTIC ACID DEHYDRGNSE (4) Fall Code(s): W19.XXXA - UNSPECIFIED FALL, INITIAL ENCOUNTER
--- NOTE | 2019-04-16 17:32 | CONSULT ---
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 The patient reports that at 1500 yesterday, she was walking with her cane and she tripped on her way to the bathroom and landed on her hands and knees. She denies hitting her head or loss of consciousness. She was unable to get up and sat on the ground for approx 2 hours until her family could help her up. CT scans reveal innumerable liver mets Allergies/Adverse Reactions: Allergies Allergy/AdvReac Type Severity Reaction Status Date / Time egg Allergy Unknown Verified 04/13/19 17:53 Fish Containing Products Allergy Unknown Verified 04/13/19 17:53 Iodinated Contrast Media AdvReac Verified 04/13/19 17:53 - Home Medications Home Medications: Ambulatory Orders Budesonide/Formeterol Fumarate [SYMBICORT 160/4.5mcg -] 1 inh PO BID 10/05/15 Cholecalciferol (Vitamin D3) [Vitamin D3] 1,000 unit PO DAILY 10/05/15 Cyclosporine [Restasis] 1 each OP DAILY 10/05/15 Folic Acid - 1 mg PO DAILY 10/05/15 Hydroxychloroquine Sulfate 200 mg PO BID 10/05/15 Ipratropium/Albuterol Sulfate [Combivent Respimat 20-100 Mcg] 4 gm IH QID Montelukast Na [Singulair -] 10 mg PO HS 10/05/15 Multivitamin [Poly-Vitamin] 1 each PO DAILY 10/05/15 Diltiazem Cd [Cardizem Cd -] 360 mg PO DAILY 12/04/16 Esomeprazole Magnesium [Nexium 24Hr] 40 mg PO BID 04/13/19 Umeclidinium [place] [Incruse Ellipta] 62.5 mcg IH ASDIR 04/13/19 Family Medical History Family History: Denies Physical Exam Vital Signs: aFVSS Eyes: Yes: WNL, Sclera Icterus HENT: Yes: Atraumatic, Normocephalic Neck: Yes: Supple Cardiovascular: Yes: Other (irreg irreg) Respiratory: Yes: Regular, CTA Bilaterally, Diminished (at bases) Gastrointestinal: Yes: Normal Bowel Sounds, Soft, Hepatomegaly, Other ( reducible hernia soft, nontender) Edema: chronic lymphedema Neurological: Yes: Alert. No: [facility] reviewed Microbiology 04/13/19 22:20 Blood - Peripheral Venous Blood Culture - Preliminary NO GROWTH OBTAINED AFTER 24 HOURS, INCUBATION TO CONTINUE FOR 4 DAYS. 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 The patient reports that at 1500 yesterday, she was walking with her cane and she tripped on her way to the bathroom and landed on her hands and knees. Reports RUQ and back pain h/o ampullary adenocarcinoma, . 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 - Twenty two lymph nodes, negative for carcinoma (0/22). Receivedfew cycles of adjuvant gemzar Last seen in the office in 01/2018 with normal CA 19.9 Now with widely metastatic disease with innumerable liver mets Discussed with patient the concern for recurrence will have family meeting with daughter to discuss further goals of care ? IR guided biopsy f/u CA 19.9 Palliative care consult
[2019-04-16] MEDS ORDERED: ACETAMINOPHEN 325 MG TABLET (FP) PO PRN (17:33)
[2019-04-16] MEDS ORDERED: MELATONIN 5 MG TABLETS PO ONE (19:09)
[2019-04-16] MEDS: SODIUM CHLORIDE 1,000 ML IV SCH (21:04)
[2019-04-16] MEDS: ACETAMINOPHEN 500 MG TABLET (FP) PO PRN (21:05)
[2019-04-16] MEDS: ALBUTEROL SO4 8 GM HFA INHALER IH PRN (21:09)
[2019-04-17] MEDS: POLYETHYLENE GLYCOL 3350 119 GM BTL PO SCH ×2 (09:47→11:07)
[2019-04-17] MEDS: ENOXAPARIN NA (PORCINE) 80 MG/0.8 ML DISP.SYRIN SQ SCH ×2 (09:48→21:29)
[2019-04-17] MEDS: METOPROLOL TARTRATE 25 MG TABLET (FP) PO SCH (09:48)
[2019-04-17] MEDS ORDERED: SODIUM PHOSPHATE/NA BIPHOS 133 ML ENEMA PR ONE (11:45)
--- NOTE | 2019-04-17 11:48 | PN ---
Progress Note (short form) - Note Progress Note: condition same c/c - constipation-- Vital Signs Temp 98.5 F 04/17/19 09:51 Pulse 94 H 04/17/19 09:51 Resp 18 04/17/19 09:51 BP 114/71 04/17/19 09:51 Pulse Ox 95 04/17/19 09:00 Intake & Output 04/16/19 04/16/19 04/17/19 11:59 23:59 10:59 Intake Total 336 630 294 Balance 336 630 294 Intake: IV 336 210 294 Normal Saline - 1,000 ml 336 210 294 @ 42 mls/hr IV ASDIR [facility] Rx#:[id number] Oral 420 Other: Voiding Method Diaper Incontinent Incontinent # Unmeasured Voids [place] 2 2 Void 2 Bowel Movement No Active Medications Acetaminophen (Tylenol -) 500 mg PO Q6H PRN PRN Reason: PAIN LEVEL 1-5 Last Admin: 04/16/19 21:05 Dose: 500 mg Acetaminophen (Tylenol -) 325 mg PO Q4H PRN PRN Reason: PAIN 6-10 Albuterol Sulfate (Ventolin Hfa Inhaler -) 2 puff IH Q4H PRN PRN Reason: SHORT OF BREATH/WHEEZING Last Admin: 04/16/19 21:09 Dose: 2 puff Diltiazem HCl (Cardizem Injection -) 5 mg IVPUSH ONCE PRN PRN Reason: TACHYCARDIA Diltiazem HCl (Cardizem Cd -) 360 mg PO DAILY [facility] Last Admin: 04/17/19 09:48 Dose: 360 mg Docusate Sodium (Colace -) 100 mg PO TID [facility] Enoxaparin Sodium (Lovenox -) 80 mg SQ BID [facility] Last Admin: 04/17/19 09:48 Dose: 80 mg Sodium Chloride (Normal Saline -) 1,000 mls @ 42 mls/hr IV ASDIR [facility] Last Admin: 04/16/19 21:04 Dose: 42 mls/hr Metoprolol Tartrate (Lopressor -) 25 mg PO DAILY [facility] Last Admin: 04/17/19 09:48 Dose: 25 mg Oxycodone HCl (Roxicodone -) 5 mg PO Q4H PRN PRN Reason: PAIN 6-10 Polyethylene Glycol (Miralax (For Daily Use) -) 17 gm PO DAILY [facility] Last Admin: 04/17/19 11:07 Dose: Not Given Sodium Phosphate (Fleet Adult Rectal Enema -) 133 ml NV ONCE ONE Stop: 04/17/19 11:46 CBC, BMP 04/15/19 06:35 04/15/19 06:35 Physical Exam awake S1 S2 irregular Lungs decreased Abd- soft, anasarca++ edema++ icterus PLAN metastatic biliary CA elevated lFT rapid Afib -- under control liver masses -- rate control -- monitor in ICU -- elevated troponins due to demand ischemia -- Oncology eval -- -- IR for liver biopsy ? -- If no plan to treat - then i think no need to do Oncology input-- will discuss continue present care fleet enema/ laxatives Palliative care consult will follow Problem List - Problems (1) Atrial fibrillation with RVR Code(s): I48.91 - UNSPECIFIED ATRIAL FIBRILLATION (2) Elevated bilirubin Code(s): R17 - UNSPECIFIED JAUNDICE (3) Transaminitis Code(s): R74.0 - NONSPEC ELEV OF LEVELS OF TRANSAMNS & LACTIC ACID DEHYDRGNSE (4) Fall Code(s): W19.XXXA - UNSPECIFIED FALL, INITIAL ENCOUNTER
--- NOTE | 2019-04-17 12:59 | PN ---
Progress Note, Physician History of Present Illness: seen and examined today in [facility]. no overnight events. no new complaints. - Current Medication List Current Medications: Active Medications Acetaminophen (Tylenol -) 500 mg PO Q6H PRN PRN Reason: PAIN LEVEL 1-5 Last Admin: 04/16/19 21:05 Dose: 500 mg Acetaminophen (Tylenol -) 325 mg PO Q4H PRN PRN Reason: PAIN 6-10 Albuterol Sulfate (Ventolin Hfa Inhaler -) 2 puff IH Q4H PRN PRN Reason: SHORT OF BREATH/WHEEZING Last Admin: 04/16/19 21:09 Dose: 2 puff Diltiazem HCl (Cardizem Injection -) 5 mg IVPUSH ONCE PRN PRN Reason: TACHYCARDIA Diltiazem HCl (Cardizem Cd -) 360 mg PO DAILY [facility] Last Admin: 04/17/19 09:48 Dose: 360 mg Docusate Sodium (Colace -) 100 mg PO TID [facility] Enoxaparin Sodium (Lovenox -) 80 mg SQ BID [facility] Last Admin: 04/17/19 09:48 Dose: 80 mg Sodium Chloride (Normal Saline -) 1,000 mls @ 42 mls/hr IV ASDIR [facility] Last Admin: 04/16/19 21:04 Dose: 42 mls/hr Metoprolol Tartrate (Lopressor -) 25 mg PO DAILY [facility] Last Admin: 04/17/19 09:48 Dose: 25 mg Oxycodone HCl (Roxicodone -) 5 mg PO Q4H PRN PRN Reason: PAIN 6-10 Polyethylene Glycol (Miralax (For Daily Use) -) 17 gm PO DAILY [facility] Last Admin: 04/17/19 11:07 Dose: Not Given - Objective Vital Signs: Vital Signs Temperature 98.5 F 04/17/19 09:51 Pulse Rate 94 H 04/17/19 09:51 Respiratory Rate 18 04/17/19 09:51 Blood Pressure 114/71 04/17/19 09:51 O2 Sat by Pulse Oximetry (%) 95 04/17/19 09:00 Constitutional: Yes: No Distress, Calm Eyes: Yes: Conjunctiva Clear, EOM Intact, PERRL HENT: Yes: Atraumatic, Normocephalic Neck: Yes: Supple, Trachea Midline Cardiovascular: Yes: Pulse Irregular, S1, S2. No: Regular Rate and Rhythm, Bradycardia, Tachycardia, Bruit, JVD, Gallop, Murmur, Rub, S3, S4, Varicosities Respiratory: Yes: Regular, Diminished, On Nasal O2. No: Rales, Rhonchi, SOB, Wheezes Gastrointestinal: Yes: Normal Bowel Sounds, Soft Extremities: Yes: WNL Edema: Yes Edema: LLE: Trace, RLE: Trace Peripheral Pulses WNL: Yes Peripheral Pulses: Left Doralis Pedis: 2+, Right Dorsalis Pedis: 2+ Neurological: Yes: Alert, Oriented Psychiatric: Yes: Alert, Oriented Labs: CBC, BMP 04/15/19 06:35 04/15/19 06:35 INR, PTT INR 1.34 (0.83-1.09) H 04/13/19 18:30 - ....Imaging Chest X-ray: Report Reviewed, Image Reviewed EKG: Report Reviewed, Image Reviewed Other: Report Reviewed, Image Reviewed (tele-afib, HR adequate, 5 beats Afib with aberrant conduction vs nsvt) Assessment/Plan 83 year old woman with pmh chronic atrial fibrillation on eliquis, asthma, ampullary adenocarcinoma s/p whipple, 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 She is now in the ICU for weakness, fall, transaminitis, afib with RVR and hyperbilirubinemia. US shows liver mets. Echo 2017 nlef mod as, mod mr. atrial fibrillation- -HR adequately controlled -hold eliquis bridge with lovenox for now as she may need a biopsy. -echo showed normal LVEF with mild to moderate valvular abnl -Continue diltiazem and metoprolol for HR control Aortic stenosis -echo showed moderate aortic stenosis -no indication for intervention.
[2019-04-17] MEDS: DOCUSATE SODIUM 100 MG CAPSULE (FP) PO SCH ×2 (13:25→21:28)
[2019-04-17] MEDS: ALBUTEROL SO4 8 GM HFA INHALER IH PRN (14:20)
[2019-04-17] MEDS: SODIUM CHLORIDE 1,000 ML IV SCH (21:28)
[2019-04-17] MEDS: ACETAMINOPHEN 500 MG TABLET (FP) PO PRN (21:45)
[2019-04-18] MEDS: DOCUSATE SODIUM 100 MG CAPSULE (FP) PO SCH ×3 (06:17→21:18)
[2019-04-18 06:43] LABS: BASO % 0.6 % (0-2.0); EOS % 0.2 % (0-4.5); HEMATOCRIT 34.2 % (32.4-45.2); HEMOGLOBIN 10.9 GM/dL (10.7-15.3); LYMPH % 13.2 % (8-40); MCH 30.8 pg (25.7-33.7); MEAN CELL VOLUME 96.1 fl (80-96); MEAN PLT VOLUME 9.7 fl (7.5-11.1); MONO % 11.4 % (3.8-10.2); NEUT % 74.6 % (42.8-82.8); PLATELET COUNT 244 K/MM3 (134-434); RBC 3.56 M/mm3 (3.60-5.2); RDW 18.7 % (11.6-15.6); WHITE BLOOD COUNT 11.5 K/mm3 (4.0-10.0)
[2019-04-18 07:03] LABS: INR 1.23 (0.83-1.09); PROTHROMBIN TIME (PATIENT) 14.5 SEC (9.7-13.0)
[2019-04-18 07:17] LABS: ALBUMIN 2.1 g/dl (3.4-5.0); BILIRUBIN,TOTAL 3.4 mg/dL (0.2-1); CALCIUM 8.7 mg/dL (8.5-10.1); CREATININE 0.8 mg/dL (0.55-1.3); POTASSIUM 4.6 mmol/L (3.5-5.1); TOT PROT 5.3 g/dl (6.4-8.2)
--- NOTE | 2019-04-18 09:01 | PN ---
Progress Note, Physician History of Present Illness: GI FOLLOW UP NOTE Patient examined and case discussed with Dr Mccabe Patient complain of abdominal fullness accompanied with constipation and nausea. Currently on Miralax with no effect. Denies vomiting, diarrhea, melena. - Current Medication List Current Medications: Active Medications Acetaminophen (Tylenol -) 500 mg PO Q6H PRN PRN Reason: PAIN LEVEL 1-5 Last Admin: 04/17/19 21:45 Dose: 500 mg Acetaminophen (Tylenol -) 325 mg PO Q4H PRN PRN Reason: PAIN 6-10 Albuterol Sulfate (Ventolin Hfa Inhaler -) 2 puff IH Q4H PRN PRN Reason: SHORT OF BREATH/WHEEZING Last Admin: 04/17/19 14:20 Dose: 2 puff Diltiazem HCl (Cardizem Injection -) 5 mg IVPUSH ONCE PRN PRN Reason: TACHYCARDIA Diltiazem HCl (Cardizem Cd -) 360 mg PO DAILY [facility] Last Admin: 04/17/19 09:48 Dose: 360 mg Docusate Sodium (Colace -) 100 mg PO TID [facility] Last Admin: 04/18/19 06:17 Dose: 100 mg Enoxaparin Sodium (Lovenox -) 80 mg SQ BID [facility] Last Admin: 04/17/19 21:29 Dose: 80 mg Sodium Chloride (Normal Saline -) 1,000 mls @ 42 mls/hr IV ASDIR [facility] Last Admin: 04/17/19 21:28 Dose: 42 mls/hr Metoprolol Tartrate (Lopressor -) 25 mg PO DAILY [facility] Last Admin: 04/17/19 09:48 Dose: 25 mg Oxycodone HCl (Roxicodone -) 5 mg PO Q4H PRN PRN Reason: PAIN 6-10 Polyethylene Glycol (Miralax (For Daily Use) -) 17 gm PO DAILY [facility] Last Admin: 04/17/19 11:07 Dose: Not Given - Objective Vital Signs: Vital Signs Temperature 98.3 F 04/18/19 06:00 Pulse Rate 90 04/18/19 06:00 Respiratory Rate 18 04/18/19 06:00 Blood Pressure 117/62 04/18/19 06:00 O2 Sat by Pulse Oximetry (%) 99 04/17/19 20:50 Constitutional: Yes: No Distress, Calm Eyes: Yes: Conjunctiva Clear HENT: Yes: Atraumatic Cardiovascular: Yes: Pulse Irregular Respiratory: Yes: Regular, On Nasal O2, Wheezes Gastrointestinal: Yes: Normal Bowel Sounds, Ascites (moderate), Distention, Hepatomegaly Edema: Yes (b/l lower extremity) Neurological: Yes: Alert, Oriented Psychiatric: Yes: Alert, Oriented Labs: CBC, BMP 04/18/19 05:55 04/18/19 05:55 INR, PTT INR 1.23 (0.83-1.09) H 04/18/19 05:55 <Alix Fernandez - Last Filed: 04/18/19 09:02> - Current Medication List Current Medications: Active Medications Acetaminophen (Tylenol -) 500 mg PO Q6H PRN PRN Reason: PAIN LEVEL 1-5 Last Admin: 04/17/19 21:45 Dose: 500 mg Acetaminophen (Tylenol -) 325 mg PO Q4H PRN PRN Reason: PAIN 6-10 Albuterol Sulfate (Ventolin Hfa Inhaler -) 2 puff IH Q4H PRN PRN Reason: SHORT OF BREATH/WHEEZING Last Admin: 04/17/19 14:20 Dose: 2 puff Diltiazem HCl (Cardizem Injection -) 5 mg IVPUSH ONCE PRN PRN Reason: TACHYCARDIA Diltiazem HCl (Cardizem Cd -) 360 mg PO DAILY [facility] Last Admin: 04/18/19 09:11 Dose: 360 mg Docusate Sodium (Colace -) 100 mg PO TID [facility] Last Admin: 04/18/19 13:21 Dose: 100 mg Enoxaparin Sodium (Lovenox -) 80 mg SQ BID [facility] Last Admin: 04/18/19 09:12 Dose: 80 mg Sodium Chloride (Normal Saline -) 1,000 mls @ 42 mls/hr IV ASDIR [facility] Last Admin: 04/18/19 10:31 Dose: 42 mls/hr Metoprolol Tartrate (Lopressor -) 25 mg PO DAILY [facility] Last Admin: 04/18/19 09:11 Dose: 25 mg Oxycodone HCl (Roxicodone -) 5 mg PO Q4H PRN PRN Reason: PAIN 6-10 Last Admin: 04/18/19 13:20 Dose: 5 mg Polyethylene Glycol (Miralax (For Daily Use) -) 17 gm PO DAILY [facility] Last Admin: 04/18/19 09:19 Dose: 17 grams Spironolactone (Aldactone -) 50 mg PO DAILY [facility] Last Admin: 04/18/19 09:19 Dose: 50 mg - Objective Vital Signs: Vital Signs Temperature 97.9 F 04/18/19 14:16 Pulse Rate 89 04/18/19 14:16 Respiratory Rate 16 04/18/19 14:16 Blood Pressure 103/77 04/18/19 14:16 O2 Sat by Pulse Oximetry (%) 100 04/18/19 09:00 Labs: CBC, BMP 04/18/19 05:55 04/18/19 05:55 INR, PTT INR 1.23 (0.83-1.09) H 04/18/19 05:55 <Rashad Mccabe - Last Filed: 04/18/19 15:32> Problem List - Problems (1) Pancreatic cancer Assessment/Plan: >Ca 19-9 8790 >Oncology on board >CTAP shows hepatomegaly with diffuse innumerable low attentuation densitis/ lesions highly suspicious for metastasis >will add Spironolactone to med regimen due to moderate ascites MONITOR RENAL FUNCTION DAILY Code(s): C25.9 - MALIGNANT NEOPLASM OF PANCREAS, UNSPECIFIED (2) Transaminitis Assessment/Plan: >AST 149, Alk Phos 444 >monitor LFTs daily Code(s): R74.0 - NONSPEC ELEV OF LEVELS OF TRANSAMNS & LACTIC ACID DEHYDRGNSE (3) Constipation Assessment/Plan: >Relistor Code(s): K59.00 - CONSTIPATION, UNSPECIFIED <Alix Fernandez - Last Filed: 04/18/19 09:02> - Problems (1) Transaminitis Assessment/Plan: monitor LFTs every 3 days Code(s): R74.0 - NONSPEC ELEV OF LEVELS OF TRANSAMNS & LACTIC ACID DEHYDRGNSE (2) Pancreatic cancer Code(s): C25.9 - MALIGNANT NEOPLASM OF PANCREAS, UNSPECIFIED <Rashad Mccabe - Last Filed: 04/18/19 15:32>
[2019-04-18] MEDS: METOPROLOL TARTRATE 25 MG TABLET (FP) PO SCH (09:11)
[2019-04-18] MEDS: ENOXAPARIN NA (PORCINE) 80 MG/0.8 ML DISP.SYRIN SQ SCH ×2 (09:12→21:18)
[2019-04-18] MEDS: SPIRONOLACTONE 25 MG TABLET (FP) PO SCH (09:19)
[2019-04-18] MEDS: POLYETHYLENE GLYCOL 3350 119 GM BTL PO SCH (09:19)
[2019-04-18] MEDS ORDERED: PT OWN MED DRAWER 7, Y5N ONE (10:23)
--- NOTE | 2019-04-18 10:26 | PN ---
Progress Note (short form) - Note Progress Note: Pt see/examined c/c- constipation Pain better Vital Signs Temp 98.2 F 04/18/19 09:07 Pulse 98 H 04/18/19 09:07 Resp 19 04/18/19 09:07 BP 123/62 04/18/19 09:07 Pulse Ox 99 04/17/19 20:50 Intake & Output 04/17/19 04/17/19 04/18/19 11:59 23:59 11:59 Intake Total 1089 Balance 1089 Intake: IV 609 Normal Saline - 1,000 ml 609 @ 42 mls/hr IV ASDIR [facility] Rx#:[id number] Oral 480 Other: Voiding Method Incontinent # Unmeasured Voids Void 2 1 Bowel Movement No Active Medications Acetaminophen (Tylenol -) 500 mg PO Q6H PRN PRN Reason: PAIN LEVEL 1-5 Last Admin: 04/17/19 21:45 Dose: 500 mg Acetaminophen (Tylenol -) 325 mg PO Q4H PRN PRN Reason: PAIN 6-10 Albuterol Sulfate (Ventolin Hfa Inhaler -) 2 puff IH Q4H PRN PRN Reason: SHORT OF BREATH/WHEEZING Last Admin: 04/17/19 14:20 Dose: 2 puff Diltiazem HCl (Cardizem Injection -) 5 mg IVPUSH ONCE PRN PRN Reason: TACHYCARDIA Diltiazem HCl (Cardizem Cd -) 360 mg PO DAILY [facility] Last Admin: 04/18/19 09:11 Dose: 360 mg Docusate Sodium (Colace -) 100 mg PO TID [facility] Last Admin: 04/18/19 06:17 Dose: 100 mg Enoxaparin Sodium (Lovenox -) 80 mg SQ BID [facility] Last Admin: 04/18/19 09:12 Dose: 80 mg Sodium Chloride (Normal Saline -) 1,000 mls @ 42 mls/hr IV [facility]IR [facility] Last Admin: 04/17/19 21:28 Dose: 42 mls/hr Metoprolol Tartrate (Lopressor -) 25 mg PO DAILY [facility] Last Admin: 04/18/19 09:11 Dose: 25 mg Oxycodone HCl (Roxicodone -) 5 mg PO Q4H PRN PRN Reason: PAIN 6-10 Polyethylene Glycol (Miralax (For Daily Use) -) 17 gm PO DAILY [facility] Last Admin: 04/18/19 09:19 Dose: 17 grams Spironolactone (Aldactone -) 50 mg PO DAILY [facility] Last Admin: 04/18/19 09:19 Dose: 50 mg CBC, BMP 04/18/19 05:55 04/18/19 05:55 Physical Exam awake S1 S2 irregular Lungs decreased Abd- soft, anasarca++ edema++ icterus PLAN metastatic biliary CA elevated lFT rapid Afib -- under control liver masses -- rate control -- monitor in ICU -- elevated troponins due to demand ischemia -- Oncology eval -- -- IR for liver biopsy ? -- If no plan to treat - then i think no need to do- - Need Onclogy directions . continue present care fleet enema/ laxatives Palliative care consult will follow d/w rn also Problem List - Problems (1) Atrial fibrillation with RVR Code(s): I48.91 - UNSPECIFIED ATRIAL FIBRILLATION (2) Elevated bilirubin Code(s): R17 - UNSPECIFIED JAUNDICE (3) Transaminitis Code(s): R74.0 - NONSPEC ELEV OF LEVELS OF TRANSAMNS & LACTIC ACID DEHYDRGNSE (4) Fall Code(s): W19.XXXA - UNSPECIFIED FALL, INITIAL ENCOUNTER
[2019-04-18] MEDS: SODIUM CHLORIDE 1,000 ML IV SCH (10:31)
[2019-04-18] MEDS: oxyCODONE HCL 5 MG TABLET PO PRN (13:20)
--- NOTE | 2019-04-18 15:50 | PN ---
Progress Note, Physician Chief Complaint: No new complaints History of Present Illness: This is an 83 year old female with a PMH of chronic atrial fibrillation on eliquis, asthma, ampullary adenocarcinoma s/p whipple, 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 She is S/P fall and had transaminitis, afib with RVR and hyperbilirubinemia. US shows liver mets. Echo 2017 nlef mod as, mod mr. - Current Medication List Current Medications: Active Medications Acetaminophen (Tylenol -) 500 mg PO Q6H PRN PRN Reason: PAIN LEVEL 1-5 Last Admin: 04/17/19 21:45 Dose: 500 mg Acetaminophen (Tylenol -) 325 mg PO Q4H PRN PRN Reason: PAIN 6-10 Albuterol Sulfate (Ventolin Hfa Inhaler -) 2 puff IH Q4H PRN PRN Reason: SHORT OF BREATH/WHEEZING Last Admin: 04/17/19 14:20 Dose: 2 puff Diltiazem HCl (Cardizem Injection -) 5 mg IVPUSH ONCE PRN PRN Reason: TACHYCARDIA Diltiazem HCl (Cardizem Cd -) 360 mg PO DAILY [facility] Last Admin: 04/18/19 09:11 Dose: 360 mg Docusate Sodium (Colace -) 100 mg PO TID [facility] Last Admin: 04/18/19 13:21 Dose: 100 mg Enoxaparin Sodium (Lovenox -) 80 mg SQ BID [facility] Last Admin: 04/18/19 09:12 Dose: 80 mg Sodium Chloride (Normal Saline -) 1,000 mls @ 42 mls/hr IV ASDIR [facility] Last Admin: 04/18/19 10:31 Dose: 42 mls/hr Metoprolol Tartrate (Lopressor -) 25 mg PO DAILY [facility] Last Admin: 04/18/19 09:11 Dose: 25 mg Oxycodone HCl (Roxicodone -) 5 mg PO Q4H PRN PRN Reason: PAIN 6-10 Last Admin: 04/18/19 13:20 Dose: 5 mg Polyethylene Glycol (Miralax (For Daily Use) -) 17 gm PO DAILY [facility] Last Admin: 04/18/19 09:19 Dose: 17 grams Spironolactone (Aldactone -) 50 mg PO DAILY [facility] Last Admin: 04/18/19 09:19 Dose: 50 mg - Objective Vital Signs: Vital Signs Temperature 97.9 F 04/18/19 14:16 Pulse Rate 89 04/18/19 14:16 Respiratory Rate 16 04/18/19 14:16 Blood Pressure 103/77 04/18/19 14:16 O2 Sat by Pulse Oximetry (%) 100 04/18/19 09:00 Constitutional: Yes: No Distress, Thin Neck: Yes: WNL Cardiovascular: Yes: WNL, Pulse Irregular (2/6 KARLY RUSB) Respiratory: Yes: CTA Bilaterally Gastrointestinal: Yes: Distention Extremities: Yes: WNL Edema: No Neurological: Yes: Alert, Oriented Labs: CBC, BMP 04/18/19 05:55 04/18/19 05:55 INR, PTT INR 1.23 (0.83-1.09) H 04/18/19 05:55 Assessment/Plan 83 year old female with a PMH of chronic atrial fibrillation on eliquis, asthma , ampullary adenocarcinoma s/p whipple, pancreatticoduodenectomy 09/2016 recovered well from this, chronic venous insufficiency followed for chronic afib , b/l LE edema. She is S/P fall and had transaminitis, afib with RVR and hyperbilirubinemia. US shows liver mets. Echo 2017 nlef mod as, mod mr. AFIB -HR adequately controlled -hold eliquis bridge with lovenox for now as she may need a biopsy. -echo showed normal LVEF with mild to moderate valvular abnl -Continue diltiazem and metoprolol for HR control Aortic stenosis -echo showed moderate aortic stenosis -no indication for intervention.
[2019-04-19] MEDS: oxyCODONE HCL 5 MG TABLET PO PRN (04:17)
--- NOTE | 2019-04-19 06:19 | PN ---
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 Now with recurrence, with innumerable liver lesions LFTs improved on antibiotics Discussed with patient -- will consider CT guided liver biopsy Afib--On lovenox as bridging from eliquis for biopsy.
[2019-04-19] MEDS: DOCUSATE SODIUM 100 MG CAPSULE (FP) PO SCH ×3 (06:20→21:11)
--- NOTE | 2019-04-19 08:41 | PN ---
Progress Note, Physician History of Present Illness: GI FOLLOW UP NOTE Patient examined and case discussed with Dr Mccabe Patient complain of R sided abdominal accompanied with constipation and nausea. Denies vomiting, diarrhea, melena, rectal bleeding. - Current Medication List Current Medications: Active Medications Acetaminophen (Tylenol -) 500 mg PO Q6H PRN PRN Reason: PAIN LEVEL 1-5 Last Admin: 04/17/19 21:45 Dose: 500 mg Acetaminophen (Tylenol -) 325 mg PO Q4H PRN PRN Reason: PAIN 6-10 Albuterol Sulfate (Ventolin Hfa Inhaler -) 2 puff IH Q4H PRN PRN Reason: SHORT OF BREATH/WHEEZING Last Admin: 04/17/19 14:20 Dose: 2 puff Diltiazem HCl (Cardizem Injection -) 5 mg IVPUSH ONCE PRN PRN Reason: TACHYCARDIA Diltiazem HCl (Cardizem Cd -) 360 mg PO DAILY [facility] Last Admin: 04/18/19 09:11 Dose: 360 mg Docusate Sodium (Colace -) 100 mg PO TID [facility] Last Admin: 04/19/19 06:20 Dose: 100 mg Enoxaparin Sodium (Lovenox -) 80 mg SQ BID [facility] Last Admin: 04/18/19 21:18 Dose: 80 mg Sodium Chloride (Normal Saline -) 1,000 mls @ 42 mls/hr IV ASDIR [facility] Last Admin: 04/18/19 10:31 Dose: 42 mls/hr Methylnaltrexone [place] (Relistor -) 12 mg SQ Q2D@1000 [facility] Metoprolol Tartrate (Lopressor -) 25 mg PO DAILY [facility] Last Admin: 04/18/19 09:11 Dose: 25 mg Oxycodone HCl (Roxicodone -) 5 mg PO Q4H PRN PRN Reason: PAIN 6-10 Last Admin: 04/19/19 04:17 Dose: 5 mg Polyethylene Glycol (Miralax (For Daily Use) -) 17 gm PO DAILY [facility] Last Admin: 04/18/19 09:19 Dose: 17 grams Spironolactone (Aldactone -) 50 mg PO DAILY [facility] Last Admin: 04/18/19 09:19 Dose: 50 mg - Objective Vital Signs: Vital Signs Temperature 98.3 F 04/19/19 06:00 Pulse Rate 96 H 04/19/19 06:00 Respiratory Rate 18 04/19/19 06:00 Blood Pressure 107/63 04/19/19 06:00 O2 Sat by Pulse Oximetry (%) 100 04/18/19 20:14 Constitutional: Yes: No Distress, Calm Eyes: Yes: Conjunctiva Clear HENT: Yes: Atraumatic Cardiovascular: Yes: Tachycardia, Pulse Irregular Respiratory: Yes: Regular, Diminished, On Nasal O2 Gastrointestinal: Yes: Soft, Hepatomegaly, Hypoactive Bowel Sounds, Tenderness ( r side of abdomen) Neurological: Yes: Alert, Oriented Psychiatric: Yes: Alert, Oriented Labs: CBC, BMP 04/18/19 05:55 04/18/19 05:55 INR, PTT INR 1.23 (0.83-1.09) H 04/18/19 05:55 Problem List - Problems (1) Pancreatic cancer Assessment/Plan: >Ca 19-9 8790 >Oncology on board >CTAP shows hepatomegaly with diffuse innumerable low attentuation densitis/ lesions highly suspicious for metastasis >will add Spironolactone to med regimen due to moderate ascites MONITOR RENAL FUNCTION DAILY >daily weights Code(s): C25.9 - MALIGNANT NEOPLASM OF PANCREAS, UNSPECIFIED (2) Transaminitis Assessment/Plan: >AST 149, Alk Phos 444 >monitor LFTs daily Code(s): R74.0 - NONSPEC ELEV OF LEVELS OF TRANSAMNS & LACTIC ACID DEHYDRGNSE (3) Constipation Assessment/Plan: >Relistor Code(s): K59.00 - CONSTIPATION, UNSPECIFIED
--- NOTE | 2019-04-19 09:53 | PN ---
Progress Note, Physician History of Present Illness: seen and examined today in [facility]. no overnight events or new complaints. - Current Medication List Current Medications: Active Medications Acetaminophen (Tylenol -) 500 mg PO Q6H PRN PRN Reason: PAIN LEVEL 1-5 Last Admin: 04/17/19 21:45 Dose: 500 mg Acetaminophen (Tylenol -) 325 mg PO Q4H PRN PRN Reason: PAIN 6-10 Albuterol Sulfate (Ventolin Hfa Inhaler -) 2 puff IH Q4H PRN PRN Reason: SHORT OF BREATH/WHEEZING Last Admin: 04/17/19 14:20 Dose: 2 puff Diltiazem HCl (Cardizem Injection -) 5 mg IVPUSH ONCE PRN PRN Reason: TACHYCARDIA Diltiazem HCl (Cardizem Cd -) 360 mg PO DAILY [facility] Last Admin: 04/18/19 09:11 Dose: 360 mg Docusate Sodium (Colace -) 100 mg PO TID [facility] Last Admin: 04/19/19 06:20 Dose: 100 mg Enoxaparin Sodium (Lovenox -) 80 mg SQ BID [facility] Last Admin: 04/18/19 21:18 Dose: 80 mg Sodium Chloride (Normal Saline -) 1,000 mls @ 42 mls/hr IV ASDIR [facility] Last Admin: 04/18/19 10:31 Dose: 42 mls/hr Methylnaltrexone [place] (Relistor -) 12 mg SQ Q2D@1000 [facility] Metoprolol Tartrate (Lopressor -) 25 mg PO DAILY [facility] Last Admin: 04/18/19 09:11 Dose: 25 mg Oxycodone HCl (Roxicodone -) 5 mg PO Q4H PRN PRN Reason: PAIN 6-10 Last Admin: 04/19/19 04:17 Dose: 5 mg Polyethylene Glycol (Miralax (For Daily Use) -) 17 gm PO DAILY [facility] Last Admin: 04/18/19 09:19 Dose: 17 grams Spironolactone (Aldactone -) 50 mg PO DAILY [facility] Last Admin: 04/18/19 09:19 Dose: 50 mg - Objective Vital Signs: Vital Signs Temperature 98.3 F 04/19/19 06:00 Pulse Rate 96 H 04/19/19 06:00 Respiratory Rate 18 04/19/19 06:00 Blood Pressure 107/63 04/19/19 06:00 O2 Sat by Pulse Oximetry (%) 100 04/18/19 20:14 Constitutional: Yes: No Distress, Calm Eyes: Yes: Conjunctiva Clear, EOM Intact HENT: Yes: Atraumatic, Normocephalic Neck: Yes: Supple, Trachea Midline Cardiovascular: Yes: Pulse Irregular, S1, S2. No: Bradycardia, Tachycardia, Bruit, JVD, Gallop, Murmur, Rub, S3, S4, Varicosities Respiratory: Yes: Regular, On Nasal O2. No: Rales, Rhonchi, SOB, Wheezes Gastrointestinal: Yes: Normal Bowel Sounds, Soft Edema: Yes Edema: LLE: Trace, RLE: Trace Peripheral Pulses WNL: Yes Peripheral Pulses: Left Doralis Pedis: 2+, Right Dorsalis Pedis: 2+ Neurological: Yes: Alert, Oriented Psychiatric: Yes: Alert, Oriented Labs: CBC, BMP 04/18/19 05:55 04/18/19 05:55 INR, PTT INR 1.23 (0.83-1.09) H 04/18/19 05:55 - ....Imaging Chest X-ray: Report Reviewed, Image Reviewed EKG: Report Reviewed, Image Reviewed Other: Report Reviewed, Image Reviewed (tele-afib, HR adequately controlled) Assessment/Plan 83 year old female with a PMH of chronic atrial fibrillation on eliquis, asthma , ampullary adenocarcinoma s/p whipple, pancreatticoduodenectomy 09/2016 recovered well from this, chronic venous insufficiency followed for chronic afib , b/l LE edema. She is S/P fall and had transaminitis, afib with RVR and hyperbilirubinemia. US shows liver mets. Echo 2017 nlef mod as, mod mr. AFIB -HR has remained adequately controlled -hold eliquis bridge with lovenox for now as she is planned for possible biopsy. -echo showed normal LVEF with mild to moderate valvular abnl -Continue diltiazem and metoprolol for HR control -can dc tele Aortic stenosis -echo showed moderate aortic stenosis -no indication for intervention.
--- NOTE | 2019-04-19 10:06 | PN ---
Progress Note (short form) - Note Progress Note: events noted rate better controlled Vital Signs - 24 hr 04/18/19 04/18/19 04/18/19 14:16 18:14 20:14 Temperature 97.9 F 98.0 F Pulse Rate 89 72 Respiratory 16 16 Rate Blood Pressure 103/77 101/74 O2 Sat by Pulse 100 Oximetry (%) 04/18/19 04/19/19 04/19/19 21:51 01:58 06:00 Temperature 97.8 F 97.8 F 98.3 F Pulse Rate 87 104 H 96 H Respiratory 18 18 18 Rate Blood Pressure 109/62 105/73 107/63 O2 Sat by Pulse Oximetry (%) 04/19/19 10:00 Temperature 98.1 F Pulse Rate 104 H Respiratory 18 Rate Blood Pressure 102/68 O2 Sat by Pulse Oximetry (%) Current Medications Generic Name Dose Route Start Last Admin Trade Name Freq PRN Reason Stop Dose Admin Acetaminophen 500 mg 04/16/19 17:28 04/17/19 21:45 Tylenol - PO 500 mg Q6H PRN Administration PAIN LEVEL 1-5 Acetaminophen 325 mg 04/16/19 17:33 Tylenol - PO Q4H PRN PAIN 6-10 Albuterol Sulfate 2 puff 04/16/19 19:10 04/19/19 10:29 Ventolin Hfa Inhaler - IH 2 puff Q4H PRN Administration SHORT OF BREATH/WHEEZING Diltiazem HCl 5 mg 04/14/19 19:34 Cardizem Injection - IVPUSH ONCE PRN TACHYCARDIA Diltiazem HCl 360 mg 04/15/19 10:00 04/19/19 10:24 Cardizem Cd - PO 360 mg DAILY [facility] Administration Docusate Sodium 100 mg 04/17/19 14:00 04/19/19 06:20 Colace - PO 100 mg TID [facility] Administration Enoxaparin Sodium 80 mg 04/14/19 22:00 04/19/19 10:24 Lovenox - SQ 80 mg BID [facility] Administration Sodium Chloride 1,000 mls @ 42 mls/hr 04/14/19 20:22 04/18/19 10:31 Normal Saline - IV 42 mls/hr ASDIR [facility] Administration Methylnaltrexone [place] 12 mg 04/19/19 10:00 04/19/19 10:24 Relistor - SQ 12 mg Q2D@1000 [facility] Administration Metoprolol Tartrate 25 mg 04/15/19 15:15 04/19/19 10:24 Lopressor - PO 25 mg DAILY [facility] Administration Oxycodone HCl 5 mg 04/16/19 17:33 04/19/19 04:17 Roxicodone - PO 5 mg Q4H PRN Administration PAIN 6-10 Polyethylene Glycol 17 gm 04/17/19 09:00 04/19/19 10:25 Miralax (For Daily Use) - PO 17 grams DAILY [facility] Administration Spironolactone 50 mg 04/18/19 10:00 04/19/19 10:23 Aldactone - PO 50 mg DAILY [facility] Administration S1 S2 RRR Lungs decreased Abd- soft, anasarca++ edema++decreased icterus PLAN metastatic biliary CA elevated lFT rapid Afib liver masses -- rate control -- monitor in Telemetry -- elevated troponins due to demand ischemia -- Oncology follow up -- awaiting IR intervention for liver biopsy -- pt is on Lovenox sc -- check LFT Problem List - Problems (1) Atrial fibrillation with RVR Code(s): I48.91 - UNSPECIFIED ATRIAL FIBRILLATION (2) Elevated bilirubin Code(s): R17 - UNSPECIFIED JAUNDICE (3) Transaminitis Code(s): R74.0 - NONSPEC ELEV OF LEVELS OF TRANSAMNS & LACTIC ACID DEHYDRGNSE (4) Fall Code(s): W19.XXXA - UNSPECIFIED FALL, INITIAL ENCOUNTER
[2019-04-19] MEDS: SPIRONOLACTONE 25 MG TABLET (FP) PO SCH (10:23)
[2019-04-19] MEDS: Methylnaltrexone Bromide 12 MG/0.6 ML KIT SQ SCH (10:24)
[2019-04-19] MEDS: ENOXAPARIN NA (PORCINE) 80 MG/0.8 ML DISP.SYRIN SQ SCH ×2 (10:24→21:11)
[2019-04-19] MEDS: METOPROLOL TARTRATE 25 MG TABLET (FP) PO SCH (10:24)
[2019-04-19] MEDS: POLYETHYLENE GLYCOL 3350 119 GM BTL PO SCH (10:25)
[2019-04-19] MEDS: ALBUTEROL SO4 8 GM HFA INHALER IH PRN ×2 (10:29→21:15)
[2019-04-19] MEDS: SODIUM CHLORIDE 1,000 ML IV SCH ×3 (13:08→21:11)
[2019-04-19] MEDS: ACETAMINOPHEN 500 MG TABLET (FP) PO PRN (21:11)
[2019-04-20] MEDS ORDERED: MAG HYDROX/AL HYDROX/SIMETH 30 ML UNIT-DOSE CUP PO ONE (04:29)
[2019-04-20] MEDS: DOCUSATE SODIUM 100 MG CAPSULE (FP) PO SCH ×3 (05:10→21:32)
--- NOTE | 2019-04-20 08:44 | PN ---
Progress Note, Physician History of Present Illness: GI FOLLOW UP NOTE Patient examined and case discussed with Dr Mccabe Patient complain of R sided abdominal pain. Continue with constipation despite receiving Relistor. Denies nausea, vomiting, diarrhea, rectal bleeding. - Current Medication List Current Medications: Active Medications Acetaminophen (Tylenol -) 500 mg PO Q6H PRN PRN Reason: PAIN LEVEL 1-5 Last Admin: 04/19/19 21:11 Dose: 500 mg Acetaminophen (Tylenol -) 325 mg PO Q4H PRN PRN Reason: PAIN 6-10 Albuterol Sulfate (Ventolin Hfa Inhaler -) 2 puff IH Q4H PRN PRN Reason: SHORT OF BREATH/WHEEZING Last Admin: 04/19/19 21:15 Dose: 2 puff Diltiazem HCl (Cardizem Injection -) 5 mg IVPUSH ONCE PRN PRN Reason: TACHYCARDIA Diltiazem HCl (Cardizem Cd -) 360 mg PO DAILY [facility] Last Admin: 04/19/19 10:24 Dose: 360 mg Docusate Sodium (Colace -) 100 mg PO TID [facility] Last Admin: 04/20/19 05:10 Dose: 100 mg Enoxaparin Sodium (Lovenox -) 80 mg SQ BID [facility] Last Admin: 04/19/19 21:11 Dose: 80 mg Sodium Chloride (Normal Saline -) 1,000 mls @ 42 mls/hr IV ASDIR [facility] Last Admin: 04/19/19 21:11 Dose: Not Given Methylnaltrexone [place] (Relistor -) 12 mg SQ Q2D@1000 [facility] Last Admin: 04/19/19 10:24 Dose: 12 mg Metoprolol Tartrate (Lopressor -) 25 mg PO DAILY [facility] Last Admin: 04/19/19 10:24 Dose: 25 mg Polyethylene Glycol (Miralax (For Daily Use) -) 17 gm PO DAILY [facility] Last Admin: 04/19/19 10:25 Dose: 17 grams Spironolactone (Aldactone -) 50 mg PO DAILY [facility] Last Admin: 04/19/19 10:23 Dose: 50 mg - Objective Vital Signs: Vital Signs Temperature 98.0 F 04/20/19 05:59 Pulse Rate 94 H 04/20/19 05:59 Respiratory Rate 18 04/20/19 05:59 Blood Pressure 139/69 04/20/19 05:59 O2 Sat by Pulse Oximetry (%) 100 04/19/19 21:00 Constitutional: Yes: No Distress, Calm Eyes: Yes: Conjunctiva Clear HENT: Yes: Atraumatic Cardiovascular: Yes: Pulse Irregular Respiratory: Yes: Regular, Diminished, On Nasal O2 Gastrointestinal: Yes: Normal Bowel Sounds, Soft, Distention, Hepatomegaly, Other (high tympany) Neurological: Yes: Alert, Oriented Psychiatric: Yes: Alert, Oriented Labs: CBC, BMP 04/18/19 05:55 04/18/19 05:55 INR, PTT INR 1.23 (0.83-1.09) H 04/18/19 05:55 Problem List - Problems (1) Pancreatic cancer Assessment/Plan: >Ca 19-9 8790 >Oncology on board >CTAP shows hepatomegaly with diffuse innumerable low attentuation densitis/ lesions highly suspicious for metastasis >will add Spironolactone to med regimen due to moderate ascites MONITOR RENAL FUNCTION DAILY >daily weights Code(s): C25.9 - MALIGNANT NEOPLASM OF PANCREAS, UNSPECIFIED (2) Transaminitis Assessment/Plan: >AST 149, Alk Phos 444 >monitor LFTs daily Code(s): R74.0 - NONSPEC ELEV OF LEVELS OF TRANSAMNS & LACTIC ACID DEHYDRGNSE (3) Constipation Assessment/Plan: >Relistor >FUA ordered to R/O constipation >Fleet enema q4h x 3 doses GIVE ENEMA IN LEFT LYING LATERAL POSITION >IF FUA negative will give Citroma x 1 dose Code(s): K59.00 - CONSTIPATION, UNSPECIFIED
[2019-04-20] MEDS: SODIUM PHOSPHATE/NA BIPHOS 133 ML ENEMA PR SCH ×3 (09:30→17:46)
[2019-04-20] MEDS: SPIRONOLACTONE 25 MG TABLET (FP) PO SCH (10:13)
[2019-04-20] MEDS: METOPROLOL TARTRATE 25 MG TABLET (FP) PO SCH (10:14)
[2019-04-20] MEDS: POLYETHYLENE GLYCOL 3350 119 GM BTL PO SCH (10:14)
[2019-04-20] MEDS ORDERED: LACTULOSE 20 GM/30 ML UDC (FOR ORAL USE ONLY) PO PRN (10:17)
[2019-04-20] MEDS: ENOXAPARIN NA (PORCINE) 80 MG/0.8 ML DISP.SYRIN SQ SCH (10:28)
--- NOTE | 2019-04-20 10:29 | PN ---
Progress Note (short form) - Note Progress Note: no bm yet 04/19/19 04/19/19 04/19/19 14:18 18:00 21:00 Temperature 97.6 F 97.9 F Pulse Rate 87 83 Respiratory 17 18 18 Rate Blood Pressure 105/70 107/51 L O2 Sat by Pulse 100 Oximetry (%) 04/19/19 04/20/19 04/20/19 21:55 02:00 05:59 Temperature 97.8 F 97.6 F 98.0 F Pulse Rate 85 97 H 94 H Respiratory 18 18 18 Rate Blood Pressure 120/71 108/59 L 139/69 O2 Sat by Pulse Oximetry (%) 04/20/19 10:00 Temperature 97.2 F L Pulse Rate 99 H Respiratory 18 Rate Blood Pressure 124/74 O2 Sat by Pulse Oximetry (%) Current Medications Generic Name Dose Route Start Last Admin Trade Name Freq PRN Reason Stop Dose Admin Acetaminophen 500 mg 04/16/19 17:28 04/19/19 21:11 Tylenol - PO 500 mg Q6H PRN Administration PAIN LEVEL 1-5 Acetaminophen 325 mg 04/16/19 17:33 Tylenol - PO Q4H PRN PAIN 6-10 Albuterol Sulfate 2 puff 04/16/19 19:10 04/19/19 21:15 Ventolin Hfa Inhaler - IH 2 puff Q4H PRN Administration SHORT OF BREATH/WHEEZING Diltiazem HCl 5 mg 04/14/19 19:34 Cardizem Injection - IVPUSH ONCE PRN TACHYCARDIA Diltiazem HCl 360 mg 04/15/19 10:00 04/20/19 10:14 Cardizem Cd - PO 360 mg DAILY [facility]ZO Administration Docusate Sodium 100 mg 04/17/19 14:00 04/20/19 05:10 Colace - PO 100 mg TID ALFONZO Administration Enoxaparin Sodium 80 mg 04/14/19 22:00 04/20/19 10:28 Lovenox - SQ 80 mg BID ALFONZO Administration Sodium Chloride 1,000 mls @ 42 mls/hr 04/14/19 20:22 04/19/19 21:11 Normal Saline - IV Not Given ASDIR ALFONZO Lactulose 20 gm 04/20/19 10:17 Cephulac (Oral Use) PO TID PRN CONSTIPATION Methylnaltrexone [place] 12 mg 04/19/19 10:00 04/19/19 10:24 Relistor - SQ 12 mg Q2D@1000 AL[facility]ZO Administration Metoprolol Tartrate 25 mg 04/15/19 15:15 04/20/19 10:14 Lopressor - PO 25 mg DAILY AL[facility]ONZO Administration Polyethylene Glycol 17 gm 04/17/19 09:00 04/20/19 10:14 Miralax (For Daily Use) - PO 17 grams DAILY AL[facility]ONZO Administration Sodium Phosphate 133 ml 04/20/19 08:45 04/20/19 09:30 Fleet Adult Rectal Enema - [place] 04/20/19 16:46 133 ml Q4H ALFONZO Administration Spironolactone 50 mg 04/18/19 10:00 04/20/19 10:13 Aldactone - PO 50 mg DAILY AL[facility]ONZO Administration S1 S2 RRR Lungs decreased Abd- soft, anasarca++mass right quadrant edema++decreased icterus PLAN metastatic biliary CA elevated lFT rapid Afib liver masses -- rate controlled -- Oncology follow up -- awaiting IR intervention for liver biopsy-->tomorrow-- hold lovenox tonight and in AM -- GI follow up noted-- will be getting fleet enema -- Ammonia elevated-- repeat -- Lactulose prn Problem List - Problems (1) Atrial fibrillation with RVR Code(s): I48.91 - UNSPECIFIED ATRIAL FIBRILLATION (2) Elevated bilirubin Code(s): R17 - UNSPECIFIED JAUNDICE (3) Transaminitis Code(s): R74.0 - NONSPEC ELEV OF LEVELS OF TRANSAMNS & LACTIC ACID DEHYDRGNSE (4) Fall Code(s): W19.XXXA - UNSPECIFIED FALL, INITIAL ENCOUNTER
[2019-04-20] MEDS: ALBUTEROL SO4 8 GM HFA INHALER IH PRN (12:26)
[2019-04-20] MEDS: SODIUM CHLORIDE 1,000 ML IV SCH ×2 (13:03→21:30)
--- NOTE | 2019-04-20 16:45 | PN ---
Progress Note (short form) - Note Progress Note: Patient seen and examined Complains of anorexia, fatigue, RUQ pains Last Vital Signs Temp Pulse Resp BP Pulse Ox 98.0 F 90 18 98/63 100 04/20/19 13:40 04/20/19 13:40 04/20/19 13:40 04/20/19 13:40 04/20/19 09:00 HEENT: BRAD, EOM Intact Cor: RSR, No murmurs, No gallops Lungs: decreased breath sounds bilaterally lower lobes Abd: hepatomegaly with liver 16 cm below xiphoid LLQ mass ? spleen vs liver 10 cm below LCM Ext:LE edema Skin: No rashes, Integument intact CBC, BMP 04/18/19 05:55 04/18/19 05:55 INR, PTT INR 1.23 (0.83-1.09) H 04/18/19 05:55 Current Medications Generic Name Dose Route Start Last Admin Trade Name Freq PRN Reason Stop Dose Admin Acetaminophen 500 mg 04/16/19 17:28 04/19/19 21:11 Tylenol - PO 500 mg Q6H PRN Administration PAIN LEVEL 1-5 Acetaminophen 325 mg 04/16/19 17:33 Tylenol - PO Q4H PRN PAIN 6-10 Albuterol Sulfate 2 puff 04/16/19 19:10 04/20/19 12:26 Ventolin Hfa Inhaler - IH 2 puff Q4H PRN Administration SHORT OF BREATH/WHEEZING Diltiazem HCl 5 mg 04/14/19 19:34 Cardizem Injection - IVPUSH ONCE PRN TACHYCARDIA Diltiazem HCl 360 mg 04/15/19 10:00 04/20/19 10:14 Cardizem Cd - PO 360 mg DAILY ALFONZO Administration Docusate Sodium 100 mg 04/17/19 14:00 04/20/19 14:25 Colace - PO 100 mg TID ALFONZO Administration Enoxaparin Sodium 80 mg 04/14/19 22:00 04/20/19 10:28 Lovenox - SQ 80 mg BID ALFONZO Administration Sodium Chloride 1,000 mls @ 42 mls/hr 04/14/19 20:22 04/20/19 13:03 Normal Saline - IV 42 mls/hr ASDIR AL[facility]ONZO Administration Lactulose 20 gm 04/20/19 10:17 Cephulac (Oral Use) PO TID PRN CONSTIPATION Methylnaltrexone [place] 12 mg 04/19/19 10:00 04/19/19 10:24 Relistor - SQ 12 mg Q2D@1000 AL[facility]ZO Administration Metoprolol Tartrate 25 mg 04/15/19 15:15 04/20/19 10:14 Lopressor - PO 25 mg DAILY ALFONZO Administration Polyethylene Glycol 17 gm 04/17/19 09:00 04/20/19 10:14 Miralax (For Daily Use) - PO 17 grams DAILY ALFONZO Administration Sodium Phosphate 133 ml 04/20/19 08:45 04/20/19 14:24 Fleet Adult Rectal Enema - [place] 04/20/19 16:46 133 ml Q4H ALFONZO Administration Spironolactone 50 mg 04/18/19 10:00 04/20/19 10:13 Aldactone - PO 50 mg DAILY ALFONZO Administration Impression: Cholangiocarcinoma Liver masses - for biopsy Platelets/ PT acceptable To give tramadol for pain
[2019-04-20] MEDS ORDERED: traMADol HCL 50 MG TABLET PO PRN (21:20)
[2019-04-21] MEDS: DOCUSATE SODIUM 100 MG CAPSULE (FP) PO SCH ×3 (05:08→21:53)
[2019-04-21 07:09] LABS: BASO % 0.5 % (0-2.0); HEMOGLOBIN 10.8 GM/dL (10.7-15.3); LYMPH % 16.1 % (8-40); MCH 30.9 pg (25.7-33.7); MCHC 31.8 g/dl (32.0-36.0); MEAN CELL VOLUME 97.3 fl (80-96); MEAN PLT VOLUME 9.5 fl (7.5-11.1); MONO % 8.6 % (3.8-10.2); NEUT % 74.8 % (42.8-82.8); PLATELET COUNT 314 K/MM3 (134-434); RDW 19.5 % (11.6-15.6); WHITE BLOOD COUNT 14.6 K/mm3 (4.0-10.0)
[2019-04-21 07:40] LABS: ALBUMIN 2.2 g/dl (3.4-5.0); BILIRUBIN,TOTAL 5.4 mg/dL (0.2-1); BLOOD UREA NITROGEN 21.7 mg/dL (7-18); CALCIUM 8.8 mg/dL (8.5-10.1); CREATININE 0.9 mg/dL (0.55-1.3); POTASSIUM 5.1 mmol/L (3.5-5.1); TOT PROT 5.6 g/dl (6.4-8.2)
--- NOTE | 2019-04-21 08:11 | PN ---
Progress Note, Physician History of Present Illness: GI FOLLOW UP NOTE Patient examined and case discussed with Dr Mccabe Patient complain of R sided abdominal pain accompanied with nausea. Abdominal Xray shows retained stool compatible with constipation. Received fleet enema x 3 with poor effect. - Current Medication List Current Medications: Active Medications Acetaminophen (Tylenol -) 500 mg PO Q6H PRN PRN Reason: PAIN LEVEL 1-5 Last Admin: 04/19/19 21:11 Dose: 500 mg Acetaminophen (Tylenol -) 325 mg PO Q4H PRN PRN Reason: PAIN 6-10 Albuterol Sulfate (Ventolin Hfa Inhaler -) 2 puff IH Q4H PRN PRN Reason: SHORT OF BREATH/WHEEZING Last Admin: 04/20/19 12:26 Dose: 2 puff Diltiazem HCl (Cardizem Injection -) 5 mg IVPUSH ONCE PRN PRN Reason: TACHYCARDIA Diltiazem HCl (Cardizem Cd -) 360 mg PO DAILY [facility] Last Admin: 04/20/19 10:14 Dose: 360 mg Docusate Sodium (Colace -) 100 mg PO TID [facility] Last Admin: 04/21/19 05:08 Dose: Not Given Enoxaparin Sodium (Lovenox -) 80 mg SQ BID [facility] Last Admin: 04/20/19 10:28 Dose: 80 mg Sodium Chloride (Normal Saline -) 1,000 mls @ 42 mls/hr IV ASDIR [facility] Last Admin: 04/20/19 21:30 Dose: Not Given Lactulose (Cephulac (Oral Use)) 20 gm PO TID PRN PRN Reason: CONSTIPATION Methylnaltrexone [place] (Relistor -) 12 mg SQ Q2D@1000 [facility] Last Admin: 04/19/19 10:24 Dose: 12 mg Metoprolol Tartrate (Lopressor -) 25 mg PO DAILY [facility] Last Admin: 04/20/19 10:14 Dose: 25 mg Polyethylene Glycol (Miralax (For Daily Use) -) 17 gm PO DAILY [facility] Last Admin: 04/20/19 10:14 Dose: 17 grams Spironolactone (Aldactone -) 50 mg PO DAILY [facility] Last Admin: 04/20/19 10:13 Dose: 50 mg Tramadol HCl (Ultram -) 50 mg PO Q6H PRN PRN Reason: PAIN 5-10 Last Admin: 04/20/19 21:32 Dose: 50 mg - Objective Vital Signs: Vital Signs Temperature 97.4 F L 04/21/19 06:00 Pulse Rate 102 H 04/21/19 06:00 Respiratory Rate 18 04/21/19 06:00 Blood Pressure 130/86 04/21/19 06:00 O2 Sat by Pulse Oximetry (%) 100 04/20/19 21:00 Constitutional: Yes: No Distress, Calm Eyes: Yes: Conjunctiva Clear HENT: Yes: Atraumatic Cardiovascular: Yes: Pulse Irregular Respiratory: Yes: Regular, Diminished, On Nasal O2 Gastrointestinal: Yes: Soft, Hepatomegaly, Hypoactive Bowel Sounds, Tenderness ( R side) Genitourinary: Yes: Incontinence Neurological: Yes: Alert, Oriented Psychiatric: Yes: Alert, Oriented Labs: CBC, BMP 04/21/19 06:45 04/21/19 06:45 INR, PTT INR 1.23 (0.83-1.09) H 04/18/19 05:55 <Alix Fernandez - Last Filed: 04/21/19 08:00> - Current Medication List Current Medications: Active Medications Acetaminophen (Tylenol -) 500 mg PO Q6H PRN PRN Reason: PAIN LEVEL 1-5 Last Admin: 04/19/19 21:11 Dose: 500 mg Acetaminophen (Tylenol -) 325 mg PO Q4H PRN PRN Reason: PAIN 6-10 Albuterol Sulfate (Ventolin Hfa Inhaler -) 2 puff IH Q4H PRN PRN Reason: SHORT OF BREATH/WHEEZING Last Admin: 04/20/19 12:26 Dose: 2 puff Diltiazem HCl (Cardizem Injection -) 5 mg IVPUSH ONCE PRN PRN Reason: TACHYCARDIA Diltiazem HCl (Cardizem Cd -) 360 mg PO DAILY [facility] Last Admin: 04/21/19 15:11 Dose: Not Given Docusate Sodium (Colace -) 100 mg PO TID [facility] Last Admin: 04/21/19 15:11 Dose: 100 mg Enoxaparin Sodium (Lovenox -) 80 mg SQ BID [facility] Last Admin: 04/20/19 10:28 Dose: 80 mg Sodium Chloride (Normal Saline -) 1,000 mls @ 42 mls/hr IV ASDIR [facility] Last Admin: 04/21/19 16:13 Dose: 42 mls/hr Lactulose (Cephulac (Oral Use)) 20 gm PO TID PRN PRN Reason: CONSTIPATION Last Admin: 04/21/19 15:12 Dose: 20 gm Methylnaltrexone [place] (Relistor -) 12 mg SQ Q2D@1000 [facility] Last Admin: 04/21/19 16:12 Dose: 12 mg Metoprolol Tartrate (Lopressor -) 25 mg PO DAILY [facility] Last Admin: 04/21/19 15:11 Dose: 25 mg Polyethylene Glycol (Miralax (For Daily Use) -) 17 gm PO DAILY [facility] Last Admin: 04/21/19 15:11 Dose: Not Given Spironolactone (Aldactone -) 50 mg PO DAILY [facility] Last Admin: 04/21/19 15:10 Dose: 50 mg Tramadol HCl (Ultram -) 50 mg PO Q6H PRN PRN Reason: PAIN 5-10 Last Admin: 04/20/19 21:32 Dose: 50 mg - Objective Vital Signs: Vital Signs Temperature 98.2 F 04/21/19 14:00 Pulse Rate 111 H 04/21/19 14:00 Respiratory Rate 18 04/21/19 14:00 Blood Pressure 113/73 04/21/19 14:00 O2 Sat by Pulse Oximetry (%) 100 04/21/19 13:17 Labs: CBC, BMP 04/21/19 06:45 04/21/19 06:45 INR, PTT INR 1.23 (0.83-1.09) H 04/18/19 05:55 <Rashad Mccabe - Last Filed: 04/21/19 18:13> Problem List - Problems (1) Pancreatic cancer Assessment/Plan: >Ca 19-9 8790 >Oncology on board >CTAP shows hepatomegaly with diffuse innumerable low attentuation densitis/ lesions highly suspicious for metastasis >will add Spironolactone to med regimen due to moderate ascites MONITOR RENAL FUNCTION DAILY >daily weights Code(s): C25.9 - MALIGNANT NEOPLASM OF PANCREAS, UNSPECIFIED (2) Transaminitis Assessment/Plan: >AST 165, ALT 68, Alk Phos 442 >monitor LFTs daily Code(s): R74.0 - NONSPEC ELEV OF LEVELS OF TRANSAMNS & LACTIC ACID DEHYDRGNSE (3) Constipation Assessment/Plan: >Relistor >FUA reviewed >Citroma x 1 dose Code(s): K59.00 - CONSTIPATION, UNSPECIFIED <Alix Fernandez - Last Filed: 04/21/19 08:00> - Problems (1) Transaminitis Code(s): R74.0 - NONSPEC ELEV OF LEVELS OF TRANSAMNS & LACTIC ACID DEHYDRGNSE (2) Pancreatic cancer Code(s): C25.9 - MALIGNANT NEOPLASM OF PANCREAS, UNSPECIFIED (3) Constipation Assessment/Plan: reviewed FUA--- minimal retained stool no evidence of small bowel obstruction R> discussed with Dr Baum , give Citroma if no response may give golytely Code(s): K59.00 - CONSTIPATION, UNSPECIFIED <Rashad Mccabe - Last Filed: 04/21/19 18:13>
[2019-04-21] MEDS ORDERED: MAGNESIUM CITRATE 300 ML BOTTLE PO ONE ×2 (08:30→15:15)
--- NOTE | 2019-04-21 11:04 | PN ---
Progress Note (short form) - Note Progress Note: small amount stools Vital Signs - 24 hr 04/20/19 04/20/19 04/20/19 13:40 18:00 21:00 Temperature 98.0 F 97.8 F Pulse Rate 90 89 Respiratory 18 18 18 Rate Blood Pressure 98/63 109/64 O2 Sat by Pulse 100 Oximetry (%) 04/20/19 04/21/19 04/21/19 22:00 06:00 09:00 Temperature 98.2 F 97.4 F L Pulse Rate 102 H 102 H Respiratory 18 18 Rate Blood Pressure 117/58 L 130/86 O2 Sat by Pulse 100 Oximetry (%) 04/21/19 10:13 Temperature 97.6 F Pulse Rate 109 H Respiratory 18 Rate Blood Pressure 122/80 O2 Sat by Pulse Oximetry (%) Current Medications Generic Name Dose Route Start Last Admin Trade Name Freq PRN Reason Stop Dose Admin Acetaminophen 500 mg 04/16/19 17:28 04/19/19 21:11 Tylenol - PO 500 mg Q6H PRN Administration PAIN LEVEL 1-5 Acetaminophen 325 mg 04/16/19 17:33 Tylenol - PO Q4H PRN PAIN 6-10 Albuterol Sulfate 2 puff 04/16/19 19:10 04/20/19 12:26 Ventolin Hfa Inhaler - IH 2 puff Q4H PRN Administration SHORT OF BREATH/WHEEZING Diltiazem HCl 5 mg 04/14/19 19:34 Cardizem Injection - IVPUSH ONCE PRN TACHYCARDIA Diltiazem HCl 360 mg 04/15/19 10:00 04/20/19 10:14 Cardizem Cd - PO 360 mg DAILY ALFONZO Administration Docusate Sodium 100 mg 04/17/19 14:00 04/21/19 05:08 Colace - PO Not Given TID ALFONZO Enoxaparin Sodium 80 mg 04/14/19 22:00 04/20/19 10:28 Lovenox - SQ 80 mg BID ALFONZO Administration Sodium Chloride 1,000 mls @ 42 mls/hr 04/14/19 20:22 04/20/19 21:30 Normal Saline - IV Not Given ASDIR ALFONZO Lactulose 20 gm 04/20/19 10:17 Cephulac (Oral Use) PO TID PRN CONSTIPATION Methylnaltrexone [place] 12 mg 04/19/19 10:00 04/19/19 10:24 Relistor - SQ 12 mg Q2D@1000 ALFONZO Administration Metoprolol Tartrate 25 mg 04/15/19 15:15 04/20/19 10:14 Lopressor - PO 25 mg DAILY AL[facility]ONZO Administration Polyethylene Glycol 17 gm 04/17/19 09:00 04/20/19 10:14 Miralax (For Daily Use) - PO 17 grams DAILY AL[facility]ONZO Administration Spironolactone 50 mg 04/18/19 10:00 04/20/19 10:13 Aldactone - PO 50 mg DAILY AL[facility]ONZO Administration Tramadol HCl 50 mg 04/20/19 21:20 04/20/19 21:32 Ultram - PO 50 mg Q6H PRN Administration PAIN 5-10 Laboratory Results - last 24 hr 04/21/19 04/21/19 04/21/19 06:45 06:45 06:45 WBC 14.6 H RBC 3.50 L Hgb 10.8 Hct 34.0 MCV 97.3 H MCH 30.9 MCHC 31.8 L RDW 19.5 H Plt Count 314 D MPV 9.5 Absolute Neuts (auto) 10.9 H Neutrophils % 74.8 Lymphocytes % 16.1 D Monocytes % 8.6 Eosinophils % 0.0 D Basophils % 0.5 Nucleated RBC % 0 Sodium 139 Potassium 5.1 Chloride 108 H Carbon Dioxide 26 Anion Gap 5 L BUN 21.7 H Creatinine 0.9 Est GFR (CKD-EPI)AfAm 69.50 Est GFR (CKD-EPI)NonAf 59.96 Random Glucose 79 Calcium 8.8 Total Bilirubin 5.4 H D AST 165 H ALT 68 H Alkaline Phosphatase 442 H Ammonia < 10.00 L Total Protein 5.6 L Albumin 2.2 L S1 S2 RRR Lungs decreased Abd- soft, anasarca++mass right quadrant edema++ icterus PLAN metastatic biliary CA elevated lFT rapid Afib liver masses -- rate controlled -- Oncology follow up noted -- spoke with Dr Tristan yesterday-- plan for liver biopsy USG guided and then rehab - to consider immunotherapy after rehab -- awaiting IR intervention for liver biopsy-->lovenox on hold now,pt kept NPO -- GI follow up noted-- ?add golytely Problem List - Problems (1) Atrial fibrillation with RVR Code(s): I48.91 - UNSPECIFIED ATRIAL FIBRILLATION (2) Elevated bilirubin Code(s): R17 - UNSPECIFIED JAUNDICE (3) Transaminitis Code(s): R74.0 - NONSPEC ELEV OF LEVELS OF TRANSAMNS & LACTIC ACID DEHYDRGNSE (4) Fall Code(s): W19.XXXA - UNSPECIFIED FALL, INITIAL ENCOUNTER
[2019-04-21] MEDS: SPIRONOLACTONE 25 MG TABLET (FP) PO SCH (15:10)
[2019-04-21] MEDS: METOPROLOL TARTRATE 25 MG TABLET (FP) PO SCH (15:11)
[2019-04-21] MEDS: POLYETHYLENE GLYCOL 3350 119 GM BTL PO SCH (15:11)
[2019-04-21] MEDS: Methylnaltrexone Bromide 12 MG/0.6 ML KIT SQ SCH (16:12)
[2019-04-21] MEDS: SODIUM CHLORIDE 1,000 ML IV SCH ×2 (16:13→21:52)
[2019-04-21] MEDS ORDERED: dilTIAZem HCL 50 MG/10 ML - 10 ML VIAL IVPUSH PRN (19:53)
[2019-04-21] MEDS ORDERED: ACETAMINOPHEN 325 MG TABLET (FP) PO PRN (19:53)
[2019-04-21] MEDS: ACETAMINOPHEN 500 MG TABLET (FP) PO PRN (21:53)
[2019-04-21] MEDS: traMADol HCL 50 MG TABLET PO PRN (21:53)
[2019-04-21] MEDS ORDERED: ENOXAPARIN NA (PORCINE) 80 MG/0.8 ML DISP.SYRIN SQ SCH (22:00)
--- NOTE | 2019-04-22 00:11 | PN ---
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 Now with recurrence, with innumerable liver lesions abnormal LFTs Very elevated CA 19.9 s/p liver bx Lovenox on hold for procedure To resume once cleared by IR Pain control Pulmonary consult Discussed with patient. To discuss with patients daughter
[2019-04-22] MEDS: ACETAMINOPHEN 500 MG TABLET (FP) PO PRN (03:53)
[2019-04-22] MEDS: traMADol HCL 50 MG TABLET PO PRN (03:53)
[2019-04-22] MEDS: DOCUSATE SODIUM 100 MG CAPSULE (FP) PO SCH ×3 (06:16→22:22)
--- NOTE | 2019-04-22 07:46 | PN ---
Progress Note, Physician History of Present Illness: GI FOLLOW UP NOTE Patient examined and case discussed with Dr Mccabe Patient is s/p liver biopsy with IR yesterday. Received Citroma with good effect for constipation but states having rectal pain with BM. Continues with nausea and R sided abdominal pain. On exam noted with bilateral lower extremity edema and ecchymosis to R foot great toe and ecchymosis to right upper thigh. - Current Medication List Current Medications: Active Medications Acetaminophen (Tylenol -) 500 mg PO Q6H PRN PRN Reason: PAIN LEVEL 1-5 Last Admin: 04/22/19 03:53 Dose: 500 mg Albuterol Sulfate (Ventolin Hfa Inhaler -) 2 puff IH Q4H PRN PRN Reason: SHORT OF BREATH/WHEEZING Diltiazem HCl (Cardizem Cd -) 360 mg PO DAILY [facility] Docusate Sodium (Colace -) 100 mg PO TID [facility] Last Admin: 04/22/19 06:16 Dose: 100 mg Sodium Chloride (Normal Saline -) 1,000 mls @ 42 mls/hr IV ASDIR [facility] Last Admin: 04/21/19 21:52 Dose: 42 mls/hr Lactulose (Cephulac (Oral Use)) 20 gm PO TID PRN PRN Reason: CONSTIPATION Methylnaltrexone [place] (Relistor -) 12 mg SQ Q2D@1000 [facility] Metoprolol Tartrate (Lopressor -) 25 mg PO DAILY [facility] Polyethylene Glycol (Miralax (For Daily Use) -) 17 gm PO DAILY [facility] Spironolactone (Aldactone -) 50 mg PO DAILY [facility] Tramadol HCl (Ultram -) 50 mg PO Q6H PRN PRN Reason: PAIN 5-10 Last Admin: 04/22/19 03:53 Dose: 50 mg - Objective Vital Signs: Vital Signs Temperature 97.6 F 04/22/19 06:00 Pulse Rate 104 H 04/22/19 06:00 Respiratory Rate 18 04/22/19 06:00 Blood Pressure 121/62 04/22/19 06:00 O2 Sat by Pulse Oximetry (%) 100 04/21/19 21:00 Constitutional: Yes: No Distress, Calm Eyes: Yes: Conjunctiva Clear HENT: Yes: Atraumatic Cardiovascular: Yes: Pulse Irregular Respiratory: Yes: Regular, CTA Bilaterally Gastrointestinal: Yes: Normal Bowel Sounds, Soft, Ascites, Hepatomegaly Genitourinary: Yes: Incontinence Edema: Yes Edema: LLE: 2+, RLE: 2+ Integumentary: Yes: Bruising (R upper thigh and R foot great toe) Neurological: Yes: Alert, Oriented Psychiatric: Yes: Alert, Oriented Labs: CBC, BMP 04/21/19 06:45 04/21/19 06:45 INR, PTT INR 1.23 (0.83-1.09) H 04/18/19 05:55 Problem List - Problems (1) Pancreatic cancer Assessment/Plan: >Ca 19-9 8790 >Oncology on board >CTAP shows hepatomegaly with diffuse innumerable low attentuation densitis/ lesions highly suspicious for metastasis >will add Spironolactone to med regimen due to moderate ascites MONITOR RENAL FUNCTION DAILY >daily weights >would consider Doppler lower extremity to R/O DVT due to ecchymosis in RLE Code(s): C25.9 - MALIGNANT NEOPLASM OF PANCREAS, UNSPECIFIED (2) Transaminitis Assessment/Plan: >AST 165, ALT 68, Alk Phos 442 >monitor LFTs daily >Ammonia <10.00 Code(s): R74.0 - NONSPEC ELEV OF LEVELS OF TRANSAMNS & LACTIC ACID DEHYDRGNSE (3) Constipation Assessment/Plan: >Relistor >FUA reviewed >Citroma x 1 dose with good effect Code(s): K59.00 - CONSTIPATION, UNSPECIFIED
--- NOTE | 2019-04-22 10:26 | PN ---
Progress Note (short form) - Note Progress Note: pt seen/ examined chart reviewed awake weak s/p liver biopsy yesterday Vital Signs Temp 97.6 F 04/22/19 06:00 Pulse 104 H 04/22/19 06:00 Resp 18 04/22/19 06:00 BP 121/62 04/22/19 06:00 Pulse Ox 100 04/21/19 21:00 Intake & Output 04/21/19 04/21/19 04/22/19 11:59 23:59 11:59 Intake Total 294 440 500 Balance 294 440 500 Weight 204 lb 199 lb 8 oz Intake: IV 294 500 Normal Saline - 1,000 ml 294 @ 42 mls/hr IV ASDIR [facility] Rx#:[id number] Normal Saline - 1,000 ml 500 @ 42 mls/hr IV ASDIR [facility] Rx#:[id number] Oral 440 Other: Voiding Method Incontinent Diaper Diaper # Unmeasured Voids Void 1 2 Bowel Movement Yes: smol Yes: small Yes # Bowel Movements 1 1 Weight Measurement Method Patient Lift Scale Built in [facility] Active Medications Acetaminophen (Tylenol -) 500 mg PO Q6H PRN PRN Reason: PAIN LEVEL 1-5 Last Admin: 04/22/19 03:53 Dose: 500 mg Albuterol Sulfate (Ventolin Hfa Inhaler -) 2 puff IH Q4H PRN PRN Reason: SHORT OF BREATH/WHEEZING Apixaban (Eliquis -) 5 mg PO BID [facility] Diltiazem HCl (Cardizem Cd -) 360 mg PO DAILY [facility] Docusate Sodium (Colace -) 100 mg PO TID [facility] Last Admin: 04/22/19 06:16 Dose: 100 mg Sodium Chloride (Normal Saline -) 1,000 mls @ 42 mls/hr IV ASDIR [facility] Last Admin: 04/21/19 21:52 Dose: 42 mls/hr Lactulose (Cephulac (Oral Use)) 20 gm PO TID PRN PRN Reason: CONSTIPATION Methylnaltrexone [place] (Relistor -) 12 mg SQ Q2D@1000 [facility] Metoprolol Tartrate (Lopressor -) 25 mg PO DAILY [facility] Polyethylene Glycol (Miralax (For Daily Use) -) 17 gm PO DAILY [facility] Spironolactone (Aldactone -) 50 mg PO DAILY [facility] Tramadol HCl (Ultram -) 50 mg PO Q6H PRN PRN Reason: PAIN 5-10 Last Admin: 04/22/19 03:53 Dose: 50 mg CBC, BMP 04/21/19 06:45 04/21/19 06:45 Hepatic Panel Total Bilirubin 5.4 mg/dL (0.2-1) H D 04/21/19 06:45 AST 165 U/L (15-37) H 04/21/19 06:45 ALT 68 U/L (13-61) H 04/21/19 06:45 Alkaline Phosphatase 442 U/L (45-117) H 04/21/19 06:45 Albumin 2.2 g/dl (3.4-5.0) L 04/21/19 06:45 Physical Exam S1 S2 RRR Lungs decreased Abd- soft, edema+ icterus PLAN metastatic biliary CA elevated lFT rapid Afib liver masses -- rate controlled -- s/p biopsy restart Anai high weak oob - chair physical therapy not safe to go home today-- wants to go home only aox3 reassess f/u labs will follow
[2019-04-22] MEDS: LACTULOSE 20 GM/30 ML UDC (FOR ORAL USE ONLY) PO PRN (10:41)
[2019-04-22] MEDS: SPIRONOLACTONE 25 MG TABLET (FP) PO SCH (10:42)
[2019-04-22] MEDS: METOPROLOL TARTRATE 25 MG TABLET (FP) PO SCH (10:43)
[2019-04-22] MEDS: POLYETHYLENE GLYCOL 3350 119 GM BTL PO SCH (10:44)
--- NOTE | 2019-04-22 11:55 | PN ---
Progress Note (short form) - Note Progress Note: Patient seen and examined S/P liver biopsy Intermittent SOB and dyspnea Last Vital Signs Temp Pulse Resp BP Pulse Ox 97.6 F 104 H 18 121/62 100 04/22/19 06:00 04/22/19 06:00 04/22/19 06:00 04/22/19 06:00 04/21/19 21:00 HEENT: BRAD, EOM Intact Oropharynx: No thrush, No mucositis Cor: RSR, No murmurs, No gallops Lungs: diminished breath sounds bilaterally Abd:ascites Ext:LE edema Skin: No rashes, Integument intact CBC, BMP 04/21/19 06:45 04/21/19 06:45 Current Medications Generic Name Dose Route Start Last Admin Trade Name Freq PRN Reason Stop Dose Admin Acetaminophen 500 mg 04/21/19 19:53 04/22/19 03:53 Tylenol - PO 500 mg Q6H PRN Administration PAIN LEVEL 1-5 Albuterol Sulfate 2 puff 04/21/19 19:53 Ventolin Hfa Inhaler - IH Q4H PRN SHORT OF BREATH/WHEEZING Apixaban 5 mg 04/22/19 22:00 Eliquis - PO BID [facility]ZO Diltiazem HCl 360 mg 04/22/19 10:00 04/22/19 10:43 Cardizem Cd - PO 360 mg DAILY [facility] Administration Docusate Sodium 100 mg 04/21/19 22:00 04/22/19 06:16 Colace - PO 100 mg TID [facility] Administration Sodium Chloride 1,000 mls @ 42 mls/hr 04/21/19 19:53 04/21/19 21:52 Normal Saline - IV 42 mls/hr ASDIR [facility] Administration Lactulose 20 gm 04/21/19 19:53 04/22/19 10:41 Cephulac (Oral Use) PO 20 gm TID PRN Administration CONSTIPATION Methylnaltrexone [place] 12 mg 04/23/19 10:00 Relistor - SQ Q2D@1000 [facility] Metoprolol Tartrate 25 mg 04/22/19 10:00 04/22/19 10:43 Lopressor - PO 25 mg DAILY [facility] Administration Polyethylene Glycol 17 gm 04/22/19 10:00 04/22/19 10:44 Miralax (For Daily Use) - PO Not Given DAILY [facility] Spironolactone 50 mg 04/22/19 10:00 04/22/19 10:42 Aldactone - PO 50 mg DAILY [facility] Administration Tramadol HCl 50 mg 04/21/19 19:53 04/22/19 03:53 Ultram - PO 50 mg Q6H PRN Administration PAIN 5-10 Impression: Cholangiocarcinoma s/p surgery /chemotherapy Liver masses --s/p biopsy Await biopsy results Poor performance status will make aggressive chemotherapy approach difficult.
[2019-04-22] MEDS: SODIUM CHLORIDE 1,000 ML IV SCH (14:15)
--- NOTE | 2019-04-22 16:27 | PN ---
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
[2019-04-22] MEDS: APIXABAN 5 MG TABLET PO SCH (22:21)
[2019-04-23] MEDS: ALBUTEROL SO4 8 GM HFA INHALER IH PRN (00:05)
[2019-04-23] MEDS: traMADol HCL 50 MG TABLET PO PRN ×2 (02:58→09:30)
[2019-04-23] MEDS: ACETAMINOPHEN 500 MG TABLET (FP) PO PRN (04:30)
[2019-04-23] MEDS: DOCUSATE SODIUM 100 MG CAPSULE (FP) PO SCH ×3 (06:20→22:24)
[2019-04-23] MEDS ORDERED: PT OWN MED DRAWER 7, Y5N ONE (09:24)
[2019-04-23] MEDS: SPIRONOLACTONE 25 MG TABLET (FP) PO SCH (09:30)
[2019-04-23] MEDS: METOPROLOL TARTRATE 25 MG TABLET (FP) PO SCH (09:30)
[2019-04-23] MEDS: APIXABAN 5 MG TABLET PO SCH ×2 (09:30→22:24)
[2019-04-23] MEDS: Methylnaltrexone Bromide 12 MG/0.6 ML KIT SQ SCH (09:34)
[2019-04-23] MEDS: POLYETHYLENE GLYCOL 3350 119 GM BTL PO SCH (09:34)
[2019-04-23] MEDS ORDERED: ALPRAZolam 0.25 MG TABLET PO PRN (11:17)
--- NOTE | 2019-04-23 11:17 | PN ---
Progress Note (short form) - Note Progress Note: anxious- biopsy results noted Vital Signs - 24 hr 04/22/19 04/22/19 04/23/19 19:25 21:00 07:20 Temperature 97.3 F L 98.2 F Pulse Rate 86 103 H Respiratory 18 Rate Blood Pressure 101/66 111/56 L O2 Sat by Pulse 96 Oximetry (%) 04/23/19 04/23/19 09:00 14:00 Temperature 97.4 F L Pulse Rate 67 Respiratory 20 Rate Blood Pressure 92/51 L O2 Sat by Pulse 97 Oximetry (%) Current Medications Generic Name Dose Route Start Last Admin Trade Name Freq PRN Reason Stop Dose Admin Acetaminophen 500 mg 04/21/19 19:53 04/23/19 04:30 Tylenol - PO 500 mg Q6H PRN Administration PAIN LEVEL 1-5 Albuterol Sulfate 2 puff 04/21/19 19:53 04/23/19 00:05 Ventolin Hfa Inhaler - IH 2 puff Q4H PRN Administration SHORT OF BREATH/WHEEZING Alprazolam 0.25 mg 04/23/19 11:17 Xanax - PO Q8H PRN ANXIETY Apixaban 5 mg 04/22/19 22:00 04/23/19 09:30 Eliquis - PO 5 mg BID ALFONZO Administration Diltiazem HCl 360 mg 04/22/19 10:00 04/23/19 09:31 Cardizem Cd - PO 360 mg DAILY ALOFNZO Administration Docusate Sodium 100 mg 04/21/19 22:00 04/23/19 14:36 Colace - PO Not Given TID ALFONZO Sodium Chloride 1,000 mls @ 42 mls/hr 04/21/19 19:53 04/23/19 14:37 Normal Saline - IV 42 mls/hr ASDIR ALFONZO Administration Lactulose 20 gm 04/21/19 19:53 04/22/19 10:41 Cephulac (Oral Use) PO 20 gm TID PRN Administration CONSTIPATION Methylnaltrexone [place] 12 mg 04/23/19 10:00 04/23/19 09:34 Relistor - SQ 12 mg Q2D@1000 ALFONZO Administration Metoprolol Tartrate 25 mg 04/22/19 10:00 04/23/19 09:30 Lopressor - PO 25 mg DAILY ALFONZO Administration Polyethylene Glycol 17 gm 04/22/19 10:00 04/23/19 09:34 Miralax (For Daily Use) - PO 17 gm DAILY ALFONZO Administration Spironolactone 50 mg 04/22/19 10:00 04/23/19 09:30 Aldactone - PO 50 mg DAILY ALFONZO Administration Tramadol HCl 50 mg 04/21/19 19:53 04/23/19 09:30 Ultram - PO 50 mg Q6H PRN Administration PAIN 5-10 S1 S2 RRR Lungs decreased Abd- soft, anasarca++mass right quadrant edema++ icterus PLAN metastatic biliary CA elevated lFT rapid Afib liver masses -- rate controlled -- Oncology follow up noted -- s/p liver biopsy-- > adenocarcinoma --pt has poor performance status , family does not want rehab -- may not be able to tolerate further therapies -- xanax prn Problem List - Problems (1) Atrial fibrillation with RVR Code(s): I48.91 - UNSPECIFIED ATRIAL FIBRILLATION (2) Elevated bilirubin Code(s): R17 - UNSPECIFIED JAUNDICE (3) Transaminitis Code(s): R74.0 - NONSPEC ELEV OF LEVELS OF TRANSAMNS & LACTIC ACID DEHYDRGNSE (4) Fall Code(s): W19.XXXA - UNSPECIFIED FALL, INITIAL ENCOUNTER
[2019-04-23] MEDS: SODIUM CHLORIDE 1,000 ML IV SCH (14:37)
[2019-04-23] MEDS: ALBUTEROL SO4 2.5/IPRATROPIUM 0.5 INH SOL 3 ML VIAL.NEB. NEB PRN (17:35)
[2019-04-24] MEDS: traMADol HCL 50 MG TABLET PO PRN (03:10)
[2019-04-24] MEDS: ACETAMINOPHEN 500 MG TABLET (FP) PO PRN (03:11)
[2019-04-24] MEDS: DOCUSATE SODIUM 100 MG CAPSULE (FP) PO SCH ×3 (05:35→21:24)
--- NOTE | 2019-04-24 08:52 | PN ---
Progress Note (short form) - Note Progress Note: anxious- biopsy results noted vitals noted Xanax helping her Selected Entries 04/24/19 13:34 Temperature 98.2 F Pulse Rate 96 H Respiratory 22 H Rate Blood Pressure 115/71 S1 S2 RRR Lungs decreased Abd- soft, anasarca++mass right quadrant edema++ icterus PLAN metastatic biliary CA elevated lFT rapid Afib liver masses -- rate controlled -- Oncology follow up noted -- s/p liver biopsy-- > adenocarcinoma --pt has poor performance status , family does not want rehab -- may not be able to tolerate further therapies -- xanax prn Problem List - Problems (1) Atrial fibrillation with RVR Code(s): I48.91 - UNSPECIFIED ATRIAL FIBRILLATION (2) Elevated bilirubin Code(s): R17 - UNSPECIFIED JAUNDICE (3) Transaminitis Code(s): R74.0 - NONSPEC ELEV OF LEVELS OF TRANSAMNS & LACTIC ACID DEHYDRGNSE (4) Fall Code(s): W19.XXXA - UNSPECIFIED FALL, INITIAL ENCOUNTER
[2019-04-24] MEDS ORDERED: PT OWN MED DRAWER 7, Y5N ONE (09:23)
[2019-04-24] MEDS: SPIRONOLACTONE 25 MG TABLET (FP) PO SCH (09:28)
[2019-04-24] MEDS: METOPROLOL TARTRATE 25 MG TABLET (FP) PO SCH (09:29)
[2019-04-24] MEDS: APIXABAN 5 MG TABLET PO SCH ×2 (09:29→21:24)
[2019-04-24] MEDS: POLYETHYLENE GLYCOL 3350 119 GM BTL PO SCH (09:29)
[2019-04-24] MEDS: SODIUM CHLORIDE 1,000 ML IV SCH (14:26)
[2019-04-24 16:20] VITALS: BMI 34.9
[2019-04-24] MEDS: ALBUTEROL SO4 2.5/IPRATROPIUM 0.5 INH SOL 3 ML VIAL.NEB. NEB PRN (21:16)
[2019-04-25] MEDS: ACETAMINOPHEN 500 MG TABLET (FP) PO PRN (05:21)
[2019-04-25] MEDS: DOCUSATE SODIUM 100 MG CAPSULE (FP) PO SCH ×3 (05:21→21:41)
[2019-04-25] MEDS: ALBUTEROL SO4 2.5/IPRATROPIUM 0.5 INH SOL 3 ML VIAL.NEB. NEB PRN ×2 (05:25→16:58)
[2019-04-25] MEDS ORDERED: PT OWN MED DRAWER 7, Y5N ONE (09:44)
[2019-04-25] MEDS: APIXABAN 5 MG TABLET PO SCH ×2 (09:49→21:41)
[2019-04-25] MEDS: METOPROLOL TARTRATE 25 MG TABLET (FP) PO SCH (09:49)
[2019-04-25] MEDS: SPIRONOLACTONE 25 MG TABLET (FP) PO SCH (09:49)
[2019-04-25] MEDS: POLYETHYLENE GLYCOL 3350 119 GM BTL PO SCH (09:51)
[2019-04-25] MEDS: Methylnaltrexone Bromide 12 MG/0.6 ML KIT SQ SCH (09:51)
--- NOTE | 2019-04-25 10:01 | PN ---
Progress Note (short form) - Note Progress Note: Pt seen/ examined chart reviewed awake. weak chronic ill appearance Wants to go home Vital Signs Temp 98.3 F 04/25/19 06:00 Pulse 108 H 04/25/19 06:00 Resp 20 04/25/19 06:00 BP 97/56 L 04/25/19 06:00 Pulse Ox 97 04/23/19 09:00 Intake & Output 04/24/19 04/24/19 04/25/19 11:59 23:59 11:59 Intake Total 504 800 754 Balance 504 800 754 Weight 197 lb 5 oz 198 lb 8 oz Intake: IV 504 504 Normal Saline - 1,000 ml 504 504 @ 42 mls/hr IV ASDIR ALFONZO Rx#:[id number] Oral 800 250 Other: Voiding Method Incontinent Incontinent # Unmeasured Voids Void 2 2 Bowel Movement Yes: soft Yes # Bowel Movements 2 Body Mass Index (BMI) 34.9 Weight Measurement Method Built in Bedscale Built in Bedscale Active Medications Acetaminophen (Tylenol -) 500 mg PO Q6H PRN PRN Reason: PAIN LEVEL 1-5 Last Admin: 04/25/19 05:21 Dose: 500 mg Albuterol Sulfate (Ventolin Hfa Inhaler -) 2 puff IH Q4H PRN PRN Reason: SHORT OF BREATH/WHEEZING Last Admin: 04/23/19 00:05 Dose: 2 puff Albuterol/Ipratropium (Duoneb -) 1 amp NEB Q6H PRN PRN Reason: RESPIRATORY DISTRESS Last Admin: 04/25/19 05:25 Dose: 1 amp Alprazolam (Xanax -) 0.25 mg PO Q8H PRN PRN Reason: ANXIETY Apixaban (Eliquis -) 5 mg PO BID [facility] Last Admin: 04/25/19 09:49 Dose: 5 mg Diltiazem HCl (Cardizem Cd -) 360 mg PO DAILY [facility] Last Admin: 04/25/19 09:50 Dose: 360 mg Docusate Sodium (Colace -) 100 mg PO TID [facility] Last Admin: 04/25/19 05:21 Dose: 100 mg Sodium Chloride (Normal Saline -) 1,000 mls @ 42 mls/hr IV ASDIR ALFONZO Last Admin: 04/24/19 14:26 Dose: 42 mls/hr Lactulose (Cephulac (Oral Use)) 20 gm PO TID PRN PRN Reason: CONSTIPATION Last Admin: 04/22/19 10:41 Dose: 20 gm Methylnaltrexone [place] (Relistor -) 12 mg SQ Q2D@1000 ALFONZO Last Admin: 04/25/19 09:51 Dose: 12 mg Metoprolol Tartrate (Lopressor -) 25 mg PO DAILY [facility] Last Admin: 04/25/19 09:49 Dose: 25 mg Polyethylene Glycol (Miralax (For Daily Use) -) 17 gm PO DAILY [facility] Last Admin: 04/25/19 09:51 Dose: Not Given Spironolactone (Aldactone -) 50 mg PO DAILY [facility] Last Admin: 04/25/19 09:49 Dose: 50 mg CBC, BMP 04/21/19 06:45 04/21/19 06:45 Physical Exam awake/ weak S1 S2 RRR Lungs decreased Abd- soft, anasarca++mass right quadrant edema++ icterus PLAN metastatic biliary CA elevated lFT rapid Afib liver masses -- rate controlled -- Oncology follow up noted -- s/p liver biopsy-- > adenocarcinoma --pt has poor performance status , family does not want rehab -- may not be able to tolerate further therapies -- xanax prn -- pt wants to go home only - consider home hospice - will d/w daughter/ oncology - will follow -labs - ordered for today Problem List - Problems (1) Atrial fibrillation with RVR Code(s): I48.91 - UNSPECIFIED ATRIAL FIBRILLATION (2) Elevated bilirubin Code(s): R17 - UNSPECIFIED JAUNDICE (3) Transaminitis Code(s): R74.0 - NONSPEC ELEV OF LEVELS OF TRANSAMNS & LACTIC ACID DEHYDRGNSE (4) Fall Code(s): W19.XXXA - UNSPECIFIED FALL, INITIAL ENCOUNTER
[2019-04-25 11:38] LABS: MCH 31.1 pg (25.7-33.7); MCHC 31.3 g/dl (32.0-36.0); MEAN CELL VOLUME 99.4 fl (80-96); MEAN PLT VOLUME 9.5 fl (7.5-11.1); PLATELET COUNT 386 K/MM3 (134-434); RBC 3.53 M/mm3 (3.60-5.2); RDW 20.9 % (11.6-15.6); WHITE BLOOD COUNT 17.4 K/mm3 (4.0-10.0)
[2019-04-25 11:56] LABS: ALBUMIN 2.1 g/dl (3.4-5.0); BILIRUBIN,TOTAL 8.2 mg/dL (0.2-1); BLOOD UREA NITROGEN 25.2 mg/dL (7-18); CALCIUM 8.7 mg/dL (8.5-10.1); POTASSIUM 5.6 mmol/L (3.5-5.1); TOT PROT 5.3 g/dl (6.4-8.2)
[2019-04-25] MEDS: SODIUM CHLORIDE 1,000 ML IV SCH ×2 (12:09→20:14)
[2019-04-25 14:59] LABS: ANISOCYTOSIS 2+; MACROCYTOSIS 2+; PLATELET ESTIMATE NORMAL; TARGET CELLS 1+; TEAR DROP CELLS 1+
--- NOTE | 2019-04-25 20:13 | PN ---
Progress Note (short form) - Note Progress Note: Patient seen and examiend Feels better Last Vital Signs Temp Pulse Resp BP Pulse Ox 98.1 F 95 H 20 111/68 97 04/25/19 14:34 04/25/19 14:34 04/25/19 14:34 04/25/19 14:34 04/25/19 09:00 Cor: RSR, No murmurs, No gallops Lungs: Clear to P&A Abd: Soft, Normal bowel sounds, No organomegaly Ext:No significant edema Abnormal Lab Results 04/25/19 04/25/19 10:40 10:40 WBC 17.4 H RBC 3.53 L MCV 99.4 H MCHC 31.3 L RDW 20.9 H Potassium 5.6 H Chloride 109 H Anion Gap 6 L BUN 25.2 H Total Bilirubin 8.2 H D AST 236 H ALT 95 H Alkaline Phosphatase 586 H Total Protein 5.3 L Albumin 2.1 L Active Medications Generic Name Dose Route Start Last Admin Trade Name Freq PRN Reason Stop Dose Admin Acetaminophen 500 mg 04/21/19 19:53 04/25/19 05:21 Tylenol - PO 500 mg Q6H PRN Administration PAIN LEVEL 1-5 Albuterol Sulfate 2 puff 04/21/19 19:53 04/23/19 00:05 Ventolin Hfa Inhaler - IH 2 puff Q4H PRN Administration SHORT OF BREATH/WHEEZING Albuterol/Ipratropium 1 amp 04/23/19 16:58 04/25/19 16:58 Duoneb - NEB 1 amp Q6H PRN Administration RESPIRATORY DISTRESS Alprazolam 0.25 mg 04/23/19 11:17 04/25/19 17:39 Xanax - PO 0.25 mg Q8H PRN Administration ANXIETY Apixaban 5 mg 04/22/19 22:00 04/25/19 09:49 Eliquis - PO 5 mg BID ALFONZO Administration Diltiazem HCl 360 mg 04/22/19 10:00 04/25/19 09:50 Cardizem Cd - PO 360 mg DAILY ALFONZO Administration Docusate Sodium 100 mg 04/21/19 22:00 04/25/19 13:14 Colace - PO 100 mg TID ALFONZO Administration Sodium Chloride 1,000 mls @ 42 mls/hr 04/21/19 19:53 04/25/19 12:09 Normal Saline - IV 42 mls/hr ASDIR ALFONZO Administration Lactulose 20 gm 04/21/19 19:53 04/22/19 10:41 Cephulac (Oral Use) PO 20 gm TID PRN Administration CONSTIPATION Methylnaltrexone [place] 12 mg 04/23/19 10:00 04/25/19 09:51 Relistor - SQ 12 mg Q2D@1000 ALFONZO Administration Metoprolol Tartrate 25 mg 04/22/19 10:00 04/25/19 09:49 Lopressor - PO 25 mg DAILY ALFONZO Administration Polyethylene Glycol 17 gm 04/22/19 10:00 04/25/19 09:51 Miralax (For Daily Use) - PO Not Given DAILY ALFONZO Spironolactone 50 mg 04/22/19 10:00 04/25/19 09:49 Aldactone - PO 50 mg DAILY ALFONZO Administration A/P 83 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 Now with recurrence, with innumerable liver lesions abnormal LFTs Very elevated CA 19.9 Preliminary path c/w adenoca, mucinous will check PDL1 check CT c/T/L spine , noncontrast Await final path Given borderline performance status ? xeloda Notified patient about preliminary report. Discussed with daughter in great detail. Family meeting on 04/27
[2019-04-25] MEDS: traMADol HCL 50 MG TABLET PO PRN (20:37)
[2019-04-26] MEDS: DOCUSATE SODIUM 100 MG CAPSULE (FP) PO SCH ×3 (06:02→21:02)
[2019-04-26] MEDS: ALBUTEROL SO4 2.5/IPRATROPIUM 0.5 INH SOL 3 ML VIAL.NEB. NEB PRN ×2 (09:17→18:00)
[2019-04-26] MEDS ORDERED: PT OWN MED DRAWER 7, Y5N ONE (09:40)
[2019-04-26] MEDS: APIXABAN 5 MG TABLET PO SCH ×2 (09:56→21:02)
[2019-04-26] MEDS: SPIRONOLACTONE 25 MG TABLET (FP) PO SCH (09:56)
[2019-04-26] MEDS: METOPROLOL TARTRATE 25 MG TABLET (FP) PO SCH (09:56)
[2019-04-26] MEDS: POLYETHYLENE GLYCOL 3350 119 GM BTL PO SCH (09:57)
--- NOTE | 2019-04-26 11:13 | PN ---
Progress Note (short form) - Note Progress Note: anxious- biopsy results noted vitals noted Vital Signs - 24 hr 04/25/19 04/25/19 04/26/19 21:00 22:00 05:55 Temperature 97.6 F 98.4 F Pulse Rate 97 H 108 H Respiratory 20 20 20 Rate Blood Pressure 121/68 128/92 O2 Sat by Pulse 97 Oximetry (%) 04/26/19 04/26/19 09:00 14:04 Temperature 98.3 F 97.1 F L Pulse Rate 105 H 100 H Respiratory 20 Rate Blood Pressure 111/66 106/47 L O2 Sat by Pulse 97 Oximetry (%) Rose helping her Current Medications Generic Name Dose Route Start Last Admin Trade Name Freq PRN Reason Stop Dose Admin Acetaminophen 500 mg 04/21/19 19:53 04/25/19 05:21 Tylenol - PO 500 mg Q6H PRN Administration PAIN LEVEL 1-5 Albuterol Sulfate 2 puff 04/21/19 19:53 04/23/19 00:05 Ventolin Hfa Inhaler - IH 2 puff Q4H PRN Administration SHORT OF BREATH/WHEEZING Albuterol/Ipratropium 1 amp 04/23/19 16:58 04/26/19 09:17 Duoneb - NEB 1 amp Q6H PRN Administration RESPIRATORY DISTRESS Apixaban 5 mg 04/22/19 22:00 04/26/19 09:56 Eliquis - PO 5 mg BID ALFONZO Administration Diltiazem HCl 360 mg 04/22/19 10:00 04/26/19 09:56 Cardizem Cd - PO 360 mg DAILY ALFONZO Administration Docusate Sodium 100 mg 04/21/19 22:00 04/26/19 13:58 Colace - PO 100 mg TID ALFONZO Administration Sodium Chloride 1,000 mls @ 42 mls/hr 04/21/19 19:53 04/25/19 20:14 Normal Saline - IV Not Given ASDIR ALFONZO Lactulose 20 gm 04/21/19 19:53 04/22/19 10:41 Cephulac (Oral Use) PO 20 gm TID PRN Administration CONSTIPATION Methylnaltrexone [place] 12 mg 04/23/19 10:00 04/25/19 09:51 Relistor - SQ 12 mg Q2D@1000 ALFONZO Administration Metoprolol Tartrate 25 mg 04/22/19 10:00 04/26/19 09:56 Lopressor - PO 25 mg DAILY ALFONZO Administration Polyethylene Glycol 17 gm 04/22/19 10:00 04/26/19 09:57 Miralax (For Daily Use) - PO Not Given DAILY ALFONZO Spironolactone 50 mg 04/22/19 10:00 04/26/19 09:56 Aldactone - PO 50 mg DAILY ALFONZO Administration Tramadol HCl 50 mg 04/25/19 20:26 04/25/19 20:37 Ultram - PO 50 mg Q8H PRN Administration PAIN LEVEL 6-10 Laboratory Results - last 24 hr 04/25/19 21:34 POC Glucometer 92 S1 S2 RRR Lungs decreased Abd- soft, anasarca++mass right quadrant edema++ icterus PLAN metastatic biliary CA elevated lFT rapid Afib liver masses -- rate controlled -- Oncology follow up noted -- s/p liver biopsy-- > adenocarcinoma --pt has poor performance status , family does not want rehab - they want to take her home -- family meeting by Oncology -- poor candidate for further treatment-- Recommend palliative care -- may not be able to tolerate further therapies -- xanax prn Problem List - Problems (1) Atrial fibrillation with RVR Code(s): I48.91 - UNSPECIFIED ATRIAL FIBRILLATION (2) Elevated bilirubin Code(s): R17 - UNSPECIFIED JAUNDICE (3) Transaminitis Code(s): R74.0 - NONSPEC ELEV OF LEVELS OF TRANSAMNS & LACTIC ACID DEHYDRGNSE (4) Fall Code(s): W19.XXXA - UNSPECIFIED FALL, INITIAL ENCOUNTER
[2019-04-26] MEDS: SODIUM CHLORIDE 1,000 ML IV SCH (19:55)
[2019-04-26] MEDS: traMADol HCL 50 MG TABLET PO PRN (21:01)
[2019-04-27] MEDS: DOCUSATE SODIUM 100 MG CAPSULE (FP) PO SCH ×3 (05:47→21:24)
[2019-04-27] MEDS ORDERED: PT OWN MED DRAWER 7, Y5N ONE (09:20)
[2019-04-27] MEDS: APIXABAN 5 MG TABLET PO SCH ×2 (09:22→21:24)
[2019-04-27] MEDS: METOPROLOL TARTRATE 25 MG TABLET (FP) PO SCH (09:22)
[2019-04-27] MEDS: SPIRONOLACTONE 25 MG TABLET (FP) PO SCH (09:22)
[2019-04-27] MEDS: Methylnaltrexone Bromide 12 MG/0.6 ML KIT SQ SCH (09:25)
[2019-04-27] MEDS: POLYETHYLENE GLYCOL 3350 119 GM BTL PO SCH (09:25)
[2019-04-27] MEDS: ALBUTEROL SO4 2.5/IPRATROPIUM 0.5 INH SOL 3 ML VIAL.NEB. NEB PRN ×2 (12:00→22:12)
--- NOTE | 2019-04-27 12:04 | PN ---
Progress Note (short form) - Note Progress Note: anxious- biopsy results noted vitals noted Vital Signs - 24 hr 04/26/19 04/26/19 04/26/19 14:04 18:00 20:00 Temperature 97.1 F L 98.6 F 98.6 F Pulse Rate 100 H 96 H 74 Respiratory 20 19 Rate Blood Pressure 106/47 L 134/59 L 135/52 L O2 Sat by Pulse Oximetry (%) 04/26/19 04/27/19 04/27/19 21:00 05:50 09:00 Temperature 98.7 F 98.5 F Pulse Rate 94 H 93 H Respiratory 20 20 20 Rate Blood Pressure 104/58 L 118/54 L O2 Sat by Pulse 97 Oximetry (%) Current Medications Generic Name Dose Route Start Last Admin Trade Name Freq PRN Reason Stop Dose Admin Acetaminophen 500 mg 04/21/19 19:53 04/25/19 05:21 Tylenol - PO 500 mg Q6H PRN Administration PAIN LEVEL 1-5 Albuterol Sulfate 2 puff 04/21/19 19:53 04/23/19 00:05 Ventolin Hfa Inhaler - IH 2 puff Q4H PRN Administration SHORT OF BREATH/WHEEZING Albuterol/Ipratropium 1 amp 04/23/19 16:58 04/26/19 18:00 Duoneb - NEB 1 amp Q6H PRN Administration RESPIRATORY DISTRESS Apixaban 5 mg 04/22/19 22:00 04/27/19 09:22 Eliquis - PO 5 mg BID ALFONZO Administration Diltiazem HCl 360 mg 04/22/19 10:00 04/27/19 09:22 Cardizem Cd - PO 360 mg DAILY ALFONZO Administration Docusate Sodium 100 mg 04/21/19 22:00 04/27/19 05:47 Colace - PO 100 mg TID ALFONZO Administration Sodium Chloride 1,000 mls @ 42 mls/hr 04/21/19 19:53 04/26/19 19:55 Normal Saline - IV Not Given ASDIR ALFONZO Lactulose 20 gm 04/21/19 19:53 04/22/19 10:41 Cephulac (Oral Use) PO 20 gm TID PRN Administration CONSTIPATION Methylnaltrexone [place] 12 mg 04/23/19 10:00 04/27/19 09:25 Relistor - SQ Not Given Q2D@1000 ALFONZO Metoprolol Tartrate 25 mg 04/22/19 10:00 04/27/19 09:22 Lopressor - PO 25 mg DAILY ALFONZO Administration Polyethylene Glycol 17 gm 04/22/19 10:00 04/27/19 09:25 Miralax (For Daily Use) - PO Not Given DAILY ALFONZO Spironolactone 50 mg 04/22/19 10:00 04/27/19 09:22 Aldactone - PO 50 mg DAILY ALFONZO Administration Tramadol HCl 50 mg 04/25/19 20:26 04/26/19 21:01 Ultram - PO 50 mg Q8H PRN Administration PAIN LEVEL 6-10 S1 S2 RRR Lungs decreased Abd- soft, anasarca++mass right quadrant edema++ icterus PLAN metastatic biliary CA elevated lFT rapid Afib liver masses -- rate controlled -- Oncology follow up noted -- s/p liver biopsy-- > adenocarcinoma --pt has poor performance status , family does not want rehab - they want to take her home -- family meeting by Oncology today -- poor candidate for further treatment-- Recommend palliative care -- may not be able to tolerate further therapies -- xanax prn Problem List - Problems (1) Atrial fibrillation with RVR Code(s): I48.91 - UNSPECIFIED ATRIAL FIBRILLATION (2) Elevated bilirubin Code(s): R17 - UNSPECIFIED JAUNDICE (3) Transaminitis Code(s): R74.0 - NONSPEC ELEV OF LEVELS OF TRANSAMNS & LACTIC ACID DEHYDRGNSE (4) Fall Code(s): W19.XXXA - UNSPECIFIED FALL, INITIAL ENCOUNTER
[2019-04-28] MEDS: traMADol HCL 50 MG TABLET PO PRN ×2 (01:47→16:44)
[2019-04-28] MEDS: ACETAMINOPHEN 500 MG TABLET (FP) PO PRN (01:48)
[2019-04-28] MEDS: MELATONIN 5 MG TABLETS PO PRN (01:49)
[2019-04-28] MEDS: ALBUTEROL SO4 2.5/IPRATROPIUM 0.5 INH SOL 3 ML VIAL.NEB. NEB PRN ×3 (04:35→18:12)
[2019-04-28] MEDS: DOCUSATE SODIUM 100 MG CAPSULE (FP) PO SCH ×3 (06:32→21:47)
--- NOTE | 2019-04-28 09:55 | PATH ---
Surgical Pathology Report Patient Name: RYLAN HODGES Med. Rec. #: [id number] /Age/Gender: 1935 (Age: 83) / F Account: [id number] Location: [address] [place] [address] Taken: 04/21/2019 Received: 04/21/2019 Reported: 04/28/2019 Physicians: Eli Brar M.D. Hung Solorio M.D. Dk Busch M.D. Specimen(s) Received LIVER BIOPSY Clinical History 83 year old female with pancreatic mass and liver lesions Final Diagnosis LIVER BIOPSY: ADENOCARCINOMA WITH MUCINOUS FEATURES. Comment: Few clusters of tumor cells with hyperchromatic, enlarged nuclei present in a mucinous background. Immunohistochemical stained slides (block 1) demonstrate the tumor cells to be positive for CK7 and CDX-2, while negative for CK20, TTF-1, SATB2, Ericka-3, and Mammoglobin. 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 Suggest clinical correlation. Immunohistochemistry stains CDX-2, SATB2, Ericka-3, and Mammoglobin performed at [place], [place] ([id number]) interpreted at [facility]. Immunohistochemistry stains CK7, CK20, and TTF-1performed and interpreted at [facility]. Positive and negative controls (internal if applicable) show appropriate results. Provided outside pathology report of prior surgical material ([facility]-[id number]) has been reviewed. This case was discussed with Dr. Busch on April 22, 2019. Electronically Signed Zoie Oconnell M.D. Gross Description Received in formalin labeled "liver biopsy," is a 0.6 x 0.5 x 0.1 cm aggregate of khan soft tissue fragments. The formalin is filtered and the specimen is entirely submitted in one cassette. DL04/21/2019 [place]udi04/21/2019
[2019-04-28] MEDS: APIXABAN 5 MG TABLET PO SCH ×2 (10:11→21:47)
[2019-04-28] MEDS: METOPROLOL TARTRATE 25 MG TABLET (FP) PO SCH (10:11)
[2019-04-28] MEDS: SPIRONOLACTONE 25 MG TABLET (FP) PO SCH (10:11)
--- NOTE | 2019-04-28 12:36 | PN ---
Progress Note (short form) - Note Progress Note: anxious- biopsy results noted vitals noted Vital Signs - 24 hr 04/27/19 04/27/19 04/28/19 14:05 19:18 02:00 Temperature 98.2 F 97.4 F L 98.3 F Pulse Rate 99 H 89 98 H Respiratory 19 20 Rate Blood Pressure 120/55 L 120/63 106/51 L 04/28/19 04/28/19 06:00 08:40 Temperature 98.3 F 98.2 F Pulse Rate 85 102 H Respiratory 20 18 Rate Blood Pressure 119/64 115/88 Current Medications Generic Name Dose Route Start Last Admin Trade Name Freq PRN Reason Stop Dose Admin Acetaminophen 500 mg 04/21/19 19:53 04/28/19 01:48 Tylenol - PO 500 mg Q6H PRN Administration PAIN LEVEL 1-5 Albuterol Sulfate 2 puff 04/21/19 19:53 04/23/19 00:05 Ventolin Hfa Inhaler - IH 2 puff Q4H PRN Administration SHORT OF BREATH/WHEEZING Albuterol/Ipratropium 1 amp 04/23/19 16:58 04/28/19 12:00 Duoneb - NEB 1 amp Q6H PRN Administration RESPIRATORY DISTRESS Apixaban 5 mg 04/22/19 22:00 04/28/19 10:11 Eliquis - PO 5 mg BID ALFONZO Administration Diltiazem HCl 360 mg 04/22/19 10:00 04/28/19 10:11 Cardizem Cd - PO 360 mg DAILY ALFONZO Administration Docusate Sodium 100 mg 04/21/19 22:00 04/28/19 06:32 Colace - PO 100 mg TID ALFONZO Administration Lactulose 20 gm 04/21/19 19:53 04/22/19 10:41 Cephulac (Oral Use) PO 20 gm TID PRN Administration CONSTIPATION Melatonin 5 mg 04/27/19 23:00 04/28/19 01:49 Melatonin PO 5 mg HS PRN Administration INSOMNIA Methylnaltrexone [place] 12 mg 04/23/19 10:00 04/27/19 09:25 Relistor - SQ Not Given Q2D@1000 ALFONZO Metoprolol Tartrate 25 mg 04/22/19 10:00 04/28/19 10:11 Lopressor - PO 25 mg DAILY ALFONZO Administration Polyethylene Glycol 17 gm 04/22/19 10:00 11/13/19 09:25 Miralax (For Daily Use) - PO Not Given DAILY ALFONZO Spironolactone 50 mg 04/22/19 10:00 04/28/19 10:11 Aldactone - PO 50 mg DAILY ALFONZO Administration Tramadol HCl 50 mg 04/25/19 20:26 04/28/19 01:47 Ultram - PO 50 mg Q8H PRN Administration PAIN LEVEL 6-10 S1 S2 RRR Lungs decreased Abd- soft, anasarca++mass right quadrant edema++ icterus PLAN metastatic biliary CA elevated lFT rapid Afib liver masses -- rate controlled -- Oncology follow up noted -- s/p liver biopsy-- > adenocarcinoma --pt has poor performance status , family does not want rehab - they want to take her home -- family meeting by Oncology done, dc planning -- poor candidate for further treatment-- Recommend palliative care -- may not be able to tolerate further therapies -- xanax prn Problem List - Problems (1) Atrial fibrillation with RVR Code(s): I48.91 - UNSPECIFIED ATRIAL FIBRILLATION (2) Elevated bilirubin Code(s): R17 - UNSPECIFIED JAUNDICE (3) Transaminitis Code(s): R74.0 - NONSPEC ELEV OF LEVELS OF TRANSAMNS & LACTIC ACID DEHYDRGNSE (4) Fall Code(s): W19.XXXA - UNSPECIFIED FALL, INITIAL ENCOUNTER
[2019-04-28] MEDS: POLYETHYLENE GLYCOL 3350 119 GM BTL PO SCH (16:44)
[2019-04-29] MEDS: ACETAMINOPHEN 500 MG TABLET (FP) PO PRN ×2 (00:23→18:06)
[2019-04-29] MEDS: MELATONIN 5 MG TABLETS PO PRN (00:23)
[2019-04-29] MEDS: ALBUTEROL SO4 2.5/IPRATROPIUM 0.5 INH SOL 3 ML VIAL.NEB. NEB PRN ×3 (05:25→15:55)
[2019-04-29] MEDS: DOCUSATE SODIUM 100 MG CAPSULE (FP) PO SCH ×3 (06:31→22:01)
[2019-04-29] MEDS ORDERED: PT OWN MED DRAWER 7, Y5N ONE (09:57)
[2019-04-29] MEDS: SPIRONOLACTONE 25 MG TABLET (FP) PO SCH (09:58)
[2019-04-29] MEDS: POLYETHYLENE GLYCOL 3350 119 GM BTL PO SCH (09:58)
[2019-04-29] MEDS: METOPROLOL TARTRATE 25 MG TABLET (FP) PO SCH (09:58)
[2019-04-29] MEDS: APIXABAN 5 MG TABLET PO SCH ×2 (09:58→22:01)
--- NOTE | 2019-04-29 11:46 | PN ---
Progress Note (short form) - Note Progress Note: pt seen/ examined. chart reviewed awake. weak denies pain Vital Signs Temp 97.9 F 04/29/19 05:00 Pulse 94 H 04/29/19 05:00 Resp 28 H 04/29/19 05:00 BP 104/58 L 04/29/19 05:00 Pulse Ox 97 04/28/19 14:44 Intake & Output 04/28/19 04/28/19 04/29/19 11:59 23:59 11:59 Intake Total 230 960 120 Balance 230 960 120 Weight 202 lb 2 oz 196 lb 12.8 oz Intake: Oral 230 960 120 Other: Voiding Method Incontinent Incontinent Incontinent # Unmeasured Voids Void 2 2 1 Bowel Movement No # Bowel Movements 1 Weight Measurement Method Built in Bedscale Built in Bedscale Active Medications Acetaminophen (Tylenol -) 500 mg PO Q6H PRN PRN Reason: PAIN LEVEL 1-5 Last Admin: 04/29/19 00:23 Dose: 500 mg Albuterol Sulfate (Ventolin Hfa Inhaler -) 2 puff IH Q4H PRN PRN Reason: SHORT OF BREATH/WHEEZING Last Admin: 04/23/19 00:05 Dose: 2 puff Albuterol/Ipratropium (Duoneb -) 1 amp NEB Q6H PRN PRN Reason: RESPIRATORY DISTRESS Last Admin: 04/29/19 09:00 Dose: 1 amp Apixaban (Eliquis -) 5 mg PO BID [facility] Last Admin: 04/29/19 09:58 Dose: 5 mg Diltiazem HCl (Cardizem Cd -) 360 mg PO DAILY [facility] Last Admin: 04/29/19 09:58 Dose: 360 mg Docusate Sodium (Colace -) 100 mg PO TID [facility] Last Admin: 04/29/19 06:31 Dose: 100 mg Lactulose (Cephulac (Oral Use)) 20 gm PO TID PRN PRN Reason: CONSTIPATION Last Admin: 04/22/19 10:41 Dose: 20 gm Melatonin (Melatonin) 5 mg PO HS PRN PRN Reason: INSOMNIA Last Admin: 04/29/19 00:23 Dose: 5 mg Methylnaltrexone [place] (Relistor -) 12 mg SQ Q2D@1000 [facility] Last Admin: 04/27/19 09:25 Dose: Not Given Metoprolol Tartrate (Lopressor -) 25 mg PO DAILY [facility] Last Admin: 04/29/19 09:58 Dose: 25 mg Polyethylene Glycol (Miralax (For Daily Use) -) 17 gm PO DAILY [facility] Last Admin: 04/29/19 09:58 Dose: 17 gm Spironolactone (Aldactone -) 50 mg PO DAILY [facility] Last Admin: 04/29/19 09:58 Dose: 50 mg CBC, BMP 04/25/19 10:40 04/25/19 10:40 Physical S1 S2 RRR Lungs decreased Abd- soft, anasarca++mass right quadrant edema++ icterus weak/ lethargic PLAN metastatic biliary CA elevated lFT rapid Afib liver masses -- rate controlled -- Oncology follow up noted -- s/p liver biopsy-- > adenocarcinoma --pt has poor performance status , family does not want rehab - they want to take her home -- family meeting by Oncology done, dc planning in progress -- poor candidate for further treatment-- Recommend palliative care -- may not be able to tolerate further therapies -- xanax prn Problem List - Problems (1) Atrial fibrillation with RVR Code(s): I48.91 - UNSPECIFIED ATRIAL FIBRILLATION (2) Elevated bilirubin Code(s): R17 - UNSPECIFIED JAUNDICE (3) Transaminitis Code(s): R74.0 - NONSPEC ELEV OF LEVELS OF TRANSAMNS & LACTIC ACID DEHYDRGNSE (4) Fall Code(s): W19.XXXA - UNSPECIFIED FALL, INITIAL ENCOUNTER
[2019-04-29 13:03] LABS: BASO % 0.3 % (0-2.0); EOS % 0.2 % (0-4.5); HEMATOCRIT 34.9 % (32.4-45.2); HEMOGLOBIN 10.7 GM/dL (10.7-15.3); LYMPH % 18.9 % (8-40); MCH 31.3 pg (25.7-33.7); MCHC 30.7 g/dl (32.0-36.0); MEAN CELL VOLUME 101.8 fl (80-96); MEAN PLT VOLUME 8.9 fl (7.5-11.1); MONO % 9.8 % (3.8-10.2); NEUT % 70.8 % (42.8-82.8); PLATELET COUNT 222 K/MM3 (134-434); RBC 3.43 M/mm3 (3.60-5.2); RDW 21.9 % (11.6-15.6); WHITE BLOOD COUNT 19.8 K/mm3 (4.0-10.0)
[2019-04-29 13:39] LABS: ALBUMIN 1.8 g/dl (3.4-5.0); BILIRUBIN,TOTAL 11.6 mg/dL (0.2-1); BLOOD UREA NITROGEN 31.7 mg/dL (7-18); CALCIUM 9.2 mg/dL (8.5-10.1); CREATININE 1.2 mg/dL (0.55-1.3); POTASSIUM 5.5 mmol/L (3.5-5.1)
[2019-04-29 14:12] LABS: ANISOCYTOSIS 1+; MACROCYTOSIS 0; PLATELET ESTIMATE NORMAL; TARGET CELLS 2+
[2019-04-29] MEDS: Methylnaltrexone Bromide 12 MG/0.6 ML KIT SQ SCH (14:34)
--- NOTE | 2019-04-29 19:20 | PN ---
Progress Note (short form) - Note Progress Note: Patient seen and examiend Arousable, Comfortable. Confused AFVSS Cor: RSR, No murmurs, No gallops Lungs: Clear to P&A Abd: Soft, Normal bowel sounds, No organomegaly Ext: 2+ edema Labs/Meds reviewed A/P 83 y/o patient with h/o cholangiocarcinoma s/p surgery/ gem/cis in 2017. Now with recurrence, with innumerable liver lesions abnormal LFTs Very elevated CA 19.9 path c/w adenoca, mucinous Declining clinical status. Hepatic failure Discussed with daughter Recommend hospice care
[2019-04-30] MEDS: ALBUTEROL SO4 2.5/IPRATROPIUM 0.5 INH SOL 3 ML VIAL.NEB. NEB PRN ×3 (03:41→14:11)
[2019-04-30] MEDS: ALBUTEROL SO4 8 GM HFA INHALER IH PRN (06:01)
[2019-04-30] MEDS: DOCUSATE SODIUM 100 MG CAPSULE (FP) PO SCH ×2 (06:02→16:54)
[2019-04-30] MEDS ORDERED: PT OWN MED DRAWER 7, Y5N ONE (09:21)
[2019-04-30 09:29] LABS: PROTHROMBIN TIME (PATIENT) 79.3 SEC (9.7-13.0)
[2019-04-30 09:32] LABS: ACTIVATED PTT 41.2 SECONDS (25.2-36.5)
[2019-04-30] MEDS: APIXABAN 5 MG TABLET PO SCH (09:43)
[2019-04-30] MEDS: POLYETHYLENE GLYCOL 3350 119 GM BTL PO SCH (09:44)
[2019-04-30] MEDS: SPIRONOLACTONE 25 MG TABLET (FP) PO SCH (09:44)
[2019-04-30] MEDS: METOPROLOL TARTRATE 25 MG TABLET (FP) PO SCH (09:44)
[2019-04-30] MEDS: LACTULOSE 20 GM/30 ML UDC (FOR ORAL USE ONLY) PO PRN (09:44)
[2019-04-30 10:05] LABS: INR 6.59 (0.83-1.09)
[2019-04-30] MEDS ORDERED: SODIUM POLYSTYRENE SULFONATE 15 GM/60 ML BOTTLE PO ONE (11:30)
--- NOTE | 2019-04-30 13:10 | PN ---
Progress Note, Physician History of Present Illness: pulmonary awake,weak,mildly agitated,c/o sob - Current Medication List Current Medications: Active Medications Acetaminophen (Tylenol -) 500 mg PO Q6H PRN PRN Reason: PAIN LEVEL 1-5 Last Admin: 04/29/19 18:06 Dose: 500 mg Albuterol Sulfate (Ventolin Hfa Inhaler -) 2 puff IH Q4H PRN PRN Reason: SHORT OF BREATH/WHEEZING Last Admin: 04/30/19 06:01 Dose: 2 puff Albuterol/Ipratropium (Duoneb -) 1 amp NEB Q6H PRN PRN Reason: RESPIRATORY DISTRESS Last Admin: 04/30/19 08:15 Dose: 1 amp Apixaban (Eliquis -) 5 mg PO BID [facility] Last Admin: 04/30/19 09:43 Dose: 5 mg Diltiazem HCl (Cardizem Cd -) 360 mg PO DAILY [facility] Last Admin: 04/30/19 09:44 Dose: 360 mg Docusate Sodium (Colace -) 100 mg PO TID [facility] Last Admin: 04/30/19 06:02 Dose: 100 mg Lactulose (Cephulac (Oral Use)) 20 gm PO TID PRN PRN Reason: CONSTIPATION Last Admin: 04/30/19 09:44 Dose: 20 gm Melatonin (Melatonin) 5 mg PO HS PRN PRN Reason: INSOMNIA Last Admin: 04/29/19 00:23 Dose: 5 mg Methylnaltrexone [place] (Relistor -) 12 mg SQ Q2D@1000 [facility] Last Admin: 04/29/19 14:34 Dose: Not Given Metoprolol Tartrate (Lopressor -) 25 mg PO DAILY [facility] Last Admin: 04/30/19 09:44 Dose: 25 mg Polyethylene Glycol (Miralax (For Daily Use) -) 17 gm PO DAILY [facility] Last Admin: 04/30/19 09:44 Dose: 17 gm Spironolactone (Aldactone -) 50 mg PO DAILY [facility] Last Admin: 04/30/19 09:44 Dose: 50 mg - Objective Vital Signs: Vital Signs Temperature 97.8 F 04/30/19 06:00 Pulse Rate 88 04/30/19 06:00 Respiratory Rate 20 04/30/19 06:00 Blood Pressure 118/77 04/30/19 06:00 O2 Sat by Pulse Oximetry (%) 97 04/29/19 09:00 Constitutional: Yes: Well Nourished, Other (arousable) Eyes: Yes: WNL HENT: Yes: WNL Neck: Yes: WNL Cardiovascular: Yes: Pulse Irregular, S1, S2 Respiratory: Yes: Diminished (few crackles lakshmi poor inspiratory effort) Gastrointestinal: Yes: Normal Bowel Sounds, Soft Extremities: Yes: WNL Edema: Yes Labs: CBC, BMP Problem List - Problems (1) Supratherapeutic INR Code(s): R79.1 - ABNORMAL COAGULATION PROFILE (2) Abnormal LFTs (liver function tests) Code(s): R94.5 - ABNORMAL RESULTS OF LIVER FUNCTION STUDIES (3) Atrial fibrillation with RVR Code(s): I48.91 - UNSPECIFIED ATRIAL FIBRILLATION (4) CHF (congestive heart failure) Code(s): I50.9 - HEART FAILURE, UNSPECIFIED (5) Fall Code(s): W19.XXXA - UNSPECIFIED FALL, INITIAL ENCOUNTER (6) Metastatic cancer Code(s): C79.9 - SECONDARY MALIGNANT NEOPLASM OF UNSPECIFIED SITE (7) Atrial fibrillation Code(s): I48.91 - UNSPECIFIED ATRIAL FIBRILLATION (8) COPD (chronic obstructive pulmonary disease) Code(s): J44.9 - CHRONIC OBSTRUCTIVE PULMONARY DISEASE, UNSPECIFIED Qualifiers: COPD type: COPD with acute lower respiratory infection Qualified Code(s): J44.0 - Chronic obstructive pulmonary disease with (acute) lower respiratory infection (9) Pancreatic cancer Code(s): C25.9 - MALIGNANT NEOPLASM OF PANCREAS, UNSPECIFIED (10) SOB (shortness of breath) Code(s): R06.02 - SHORTNESS OF BREATH Assessment/Plan ASSESSMENT AND PLAN: Atrial Fibrillation s/p Fall COPD h/o Biliary Ca with recurrence,liver mets Elevated LFTs/Liver Masses + malignant +Troponins likely Demand Ischemia Supratherapeutic INR - rate control - hold anticoagulation - supplemental o2 - xanax - consider comfort care - monitor inr - prognosis very poor DR MORALES
[2019-04-30] MEDS ORDERED: ALPRAZolam 0.25 MG TABLET PO PRN (13:30)
--- NOTE | 2019-04-30 14:56 | PN ---
Progress Note (short form) - Note Progress Note: weak lethargic confused Declining Vital Signs Temp 97.8 F 04/30/19 06:00 Pulse 88 04/30/19 06:00 Resp 20 04/30/19 06:00 BP 118/77 04/30/19 06:00 Pulse Ox 97 04/29/19 09:00 Intake & Output 04/29/19 04/30/19 04/30/19 23:59 11:59 23:59 Intake Total 570 240 Balance 570 240 Weight 200 lb 2 oz Intake: IVPB 0 Oral 570 240 Other: Voiding Method Incontinent # Unmeasured Voids Void 1 1 Bowel Movement No No # Bowel Movements 1 0 Weight Measurement Method Built in [facility] Active Medications Acetaminophen (Tylenol -) 500 mg PO Q6H PRN PRN Reason: PAIN LEVEL 1-5 Last Admin: 04/29/19 18:06 Dose: 500 mg Albuterol Sulfate (Ventolin Hfa Inhaler -) 2 puff IH Q4H PRN PRN Reason: SHORT OF BREATH/WHEEZING Last Admin: 04/30/19 06:01 Dose: 2 puff Albuterol/Ipratropium (Duoneb -) 1 amp NEB Q6H PRN PRN Reason: RESPIRATORY DISTRESS Last Admin: 04/30/19 14:11 Dose: 1 amp Alprazolam (Xanax -) 0.25 mg PO Q4H PRN PRN Reason: ANXIETY Apixaban (Eliquis -) 5 mg PO BID [facility] Last Admin: 04/30/19 09:43 Dose: 5 mg Diltiazem HCl (Cardizem Cd -) 360 mg PO DAILY [facility] Last Admin: 04/30/19 09:44 Dose: 360 mg Docusate Sodium (Colace -) 100 mg PO TID [facility] Last Admin: 04/30/19 06:02 Dose: 100 mg Lactulose (Cephulac (Oral Use)) 20 gm PO TID PRN PRN Reason: CONSTIPATION Last Admin: 04/30/19 09:44 Dose: 20 gm Melatonin (Melatonin) 5 mg PO HS PRN PRN Reason: INSOMNIA Last Admin: 04/29/19 00:23 Dose: 5 mg Methylnaltrexone [place] (Relistor -) 12 mg SQ Q2D@1000 [facility] Last Admin: 04/29/19 14:34 Dose: Not Given Metoprolol Tartrate (Lopressor -) 25 mg PO DAILY [facility] Last Admin: 04/30/19 09:44 Dose: 25 mg Polyethylene Glycol (Miralax (For Daily Use) -) 17 gm PO DAILY [facility] Last Admin: 04/30/19 09:44 Dose: 17 gm Spironolactone (Aldactone -) 50 mg PO DAILY [facility] Last Admin: 04/30/19 09:44 Dose: 50 mg CBC, BMP 04/29/19 12:35 04/29/19 12:35 INR, PTT INR 6.59 (0.83-1.09) H* 04/30/19 08:07 Physical weak S1 S2 RRR Lungs decreased Abd- soft, anasarca++mass right quadrant edema++ icterus confused PLAN metastatic biliary CA Coogulopthy d/c Eliquis Prognosis poor Spoke pts daughter also -- Discussed cpr /resuscitation would be futile She dont want cpr/ resuscitation -- signed DNR/DI D/W RN also
[2019-04-30 15:37] VITALS: BP 109/53; PULSE 96; TEMP 98.4
--- NOTE | 2019-04-30 17:50 | HOSP ---
Subjective - Review of Symptoms General: Yes: Other Pulmonary: Yes: Other Genitourinary: Yes: Other Physical Examination Vital Signs: Vital Signs Temperature 98.4 F 04/30/19 10:00 Pulse Rate 96 H 04/30/19 10:00 Respiratory Rate 21 H 04/30/19 10:00 Blood Pressure 109/53 L 04/30/19 10:00 O2 Sat by Pulse Oximetry (%) 93 L 04/30/19 09:00 Eyes: Yes: Other Neck: Yes: Other Labs: CBC, BMP 04/29/19 12:35 04/29/19 12:35 Hospitalist Encounter Assessment: Mrs Crawley is an 83 year old female who is a DNR/DNI. I was asked to see patient for unresponsiveness NOTE: Was called to see patient for unresponsiveness. On exam, patient did not respond to verbal or physical stimuli. Absent heart and breath sounds. Absent peripheral pulses. No spontaneous respirations. Patient was made a dnr/dni by her primary care provider Patient pronounced by me: DATE: 04/30/2019 TIME: 1726: 5:27PM Primary care doctor Eli Brar informed Daughter at bedside. condolences offered post mortum care to be done by primary RN
--- NOTE | 2019-04-30 22:01 | DS ---
Physical Examination Vital Signs: Vital Signs Temperature 98.4 F 04/30/19 10:00 Pulse Rate 96 H 04/30/19 10:00 Respiratory Rate 21 H 04/30/19 10:00 Blood Pressure 109/53 L 04/30/19 10:00 O2 Sat by Pulse Oximetry (%) 93 L 04/30/19 09:00 Findings/Remarks: see progress note Labs: CBC, BMP 04/29/19 12:35 04/29/19 12:35 Discharge Summary Problems reviewed: Yes Reason For Visit: ELEVATED TRANSAMINASE MEASUREMENT, CONGESTIVE Hospital Course: Metastatic Pancreatic ca Condition deteriorated Pt today - Instructions Referrals: Eli Brar MD [Primary Care Provider] - Disposition: - Home Medications Comprehensive Discharge Medication List: Ambulatory Orders Budesonide/Formeterol Fumarate [SYMBICORT 160/4.5mcg -] 1 inh PO BID 10/05/15 Cholecalciferol (Vitamin D3) [Vitamin D3] 1,000 unit PO DAILY 10/05/15 Cyclosporine [Restasis] 1 each OP DAILY 10/05/15 Folic Acid - 1 mg PO DAILY 10/05/15 Hydroxychloroquine Sulfate 200 mg PO BID 10/05/15 Ipratropium/Albuterol Sulfate [Combivent Respimat 20-100 Mcg] 4 gm IH QID Montelukast Na [Singulair -] 10 mg PO HS 10/05/15 Multivitamin [Poly-Vitamin] 1 each PO DAILY 10/05/15 Diltiazem Cd [Cardizem Cd -] 360 mg PO DAILY 12/04/16 Esomeprazole Magnesium [Nexium 24Hr] 40 mg PO BID 04/13/19 Umeclidinium [place] [Incruse Ellipta] 62.5 mcg IH ASDIR 04/13/19
== END 2019-04-30 17:30 | disposition expired | DRG 436 ==
LOC: JER 17:41 → JERBED 21:41 → JICU 04-14 03:06 → J4S 04-14 19:55 → J6S 04-21 14:27
PROVIDERS: ADMIT Internal Medicine; ATTEND Internal Medicine
PROC: 0FB13ZX Excision of Right Lobe Liver, Percutaneous Approach, Diagnostic (ICD-10-PCS; principal; 2019-04-21)
DX: C78.7 Secondary malignant neoplasm of liver and intrahepatic bile duct (principal); C25.9 Malignant neoplasm of pancreas, unspecified; I48.20 Chronic atrial fibrillation, unspecified; I24.8 Other forms of acute ischemic heart disease; R18.8 Other ascites; D68.9 Coagulation defect, unspecified; R74.0 Nonspecific elevation of levels of transaminase and lactic acid dehydrogenase [LDH]; J44.9 Chronic obstructive pulmonary disease, unspecified; I10 Essential (primary) hypertension; R16.0 Hepatomegaly, not elsewhere classified; I50.9 Heart failure, unspecified; K72.90 Hepatic failure, unspecified without coma; K59.00 Constipation, unspecified; I35.0 Nonrheumatic aortic (valve) stenosis; D72.829 Elevated white blood cell count, unspecified; E66.9 Obesity, unspecified; Z68.35 Body mass index [BMI] 35.0-35.9, adult
CPT/HCPCS: 36415; 70450-TC; 71045-TC-FY; 72125-TC; 72128-TC; 72131-TC; 72170-TC-FY; 73560-TC-LT-FY; 73560-TC-RT-FY; 74019-TC-FY; 74176-TC; 76705-TC; 76942-TC; 80048; 80053; 81003; 82140; 82550; 82553; 82962; 83605; 83735; 83880; 84100; 84443; 84484; 85025; 85610; 85730; 86301; 86850; 86900; 86901; 87040; 87899; 93005; 93010; 93306-TC; 93970-TC; 94010; 94640; 94761; 97116-GP; 97161-GP; 99285-25; J0131; J7030